=== PATIENT | female | born 1965 | race Caucasian/White ===

== ENCOUNTER 2019-09-13 12:01 | Day surgery (SDC) | payer OTHER, SELFPAY ==
--- NOTE | 2019-09-12 11:27 | EKG12_ITS ---
Test Reason : PRE-OP Blood Pressure : / mmHG Vent. Rate : 076 BPM Atrial Rate : 076 BPM P-R Int : 128 ms QRS Dur : 098 ms QT Int : 402 ms P-R-T Axes : 065 054 064 degrees QTc Int : 452 ms Normal sinus rhythm Normal ECG Confirmed by MALI ZAMORA, ADAL ([id number]), video tape editor RENEE GARCIA ([id number]) on 09/13/2019 1:46:16 PM Referred By: Sharon Contreras Confirmed By:ADAL SAMSON MD
--- NOTE | 2019-09-12 11:35 | RAD_ITS ---
STUDY: X-RAY CHEST REASON FOR EXAM: Female, 53 years old. preoperative for lap gianna, Hx of left mastectomy/radiation therapy TECHNIQUE: PA and lateral views of the chest. COMPARISON: Prior study of 12/22/2014 FINDINGS: The lungs are clear and expanded. There is no demonstrated pleural abnormality. Normal size heart. Normal mediastinum and tsering. Normal visualized pulmonary arteries. Normal visualized aortic arch and descending thoracic aorta. Normal visualized thoracic spine. Normal visualized ribs, clavicles, and shoulders. There is no demonstrated abnormality of the visualized soft tissue structures of the upper abdomen. RAD/Chest PA and Lateral IMPRESSION: Normal x-ray examination of the chest. Electronically Signed: Luis Spain MD at 17:05 EDT , Service support ,
[2019-09-12 12:27] LABS: Hematocrit 39.2 % (37-47); Hemoglobin 13.3 g/dL (12.0-15.0); Mean Corp Hgb Conc 33.9 g/dL (32-36); Mean Corpuscular Hgb 31.5 pg (27.0-32.0); Mean Corpuscular Volume 92.9 fL (81-99); Mean Platelet Vol. 10.4 fl (6.2-12.0); Platelet Count 236 K/mm3 (150-450); RBC Distribution Width CV 13.2 % (11.6-14.6); RBC Distribution Width SD 43.8 fl (35.1-43.9); Red Blood Count 4.22 M/mm3 (4.2-5.4); White Blood Count 5.3 K/mm3 (4.4-11.0)
[2019-09-13] VITALS (12 sets, daily range): BP systolic 115–141; BP diastolic 69–89; PULSE 62–80; RESP 14–16; TEMP 36.3–37; O2SAT 97–100; BMI 31.6
--- NOTE | 2019-09-13 12:11 | HP.PCM_ITS ---
History and Physical Date of Admission: 09/13/19 HISTORY: Ms. Cheung is a 53 y/o WF who presents with right upper quadrant abdominal discomfort. She states that it is not an outright pain, but it is a discomfort that is diminishing her quality of life. She has noted this in the past two years, but in the past few weeks, it has become more constant. She had a sharp pain of the subxiphoid area and she felt that it might have been an ulcer, but the sharp pain has abated. She noted nausea but no emesis. Also had decreased appetite. She has tried to avoid fatty foods and stay on a bland diet. Has had multiple members of family with gallbladders removed - mother father, grandparent ? US gallbladder 08/23/2019 IMPRESSION: 1. ?There is a 6 mm gallbladder polyp. ?A follow-up study could be obtained in one year to assess for any change in size. 2. ?No biliary dilatation ? HIDA scan 09/02/2019 FINDINGS: There is prompt and homogeneous uptake by the liver, which appears grossly normal in size and shape. Gallbladder, and proximal small bowel activity are visualized, indicating cystic duct and common bile duct patency. After CCK, the gallbladder calculated gallbladder ejection fraction is 0% (normal > 35%). ? ? PAST MEDICAL HISTORY ? BRCA negative ? ? negative Integrated BRACAnalysis with myRisk 25 gene panel ? Drug-induced neutropenia (HCC) 11/04/2013 ? ICD-10 Go-Live ? Invasive ductal carcinoma of breast, left (HCC) 03/02/2017 ? Malignant neoplasm of left female breast (HCC) 02/13/2015 ? Sees Dr. Walton ? Rheumatoid arthritis involving multiple sites (HCC) 02/13/2015 ? [facility] in [place]: Sees Dr. Bowie ? Routine gynecological examination 01/06/2014 ? Seeing [facility] ? Well adult exam 01/06/2014 ? last done 07/22/2018 ? PAST SURGICAL HISTORY ? BX/REMV,LYMPH NODE,DEEP AXILL ? 09/29/13 ? left ? DELIVERY ONLY ? ? ? COLONOSCOP W/ OR W/O BRSH SPEC ? 10/29/2016 ? Colonoscopy ? FLUOROGUIDE FOR VEIN DEVICE ? 11/02/13 ? right ? INTRAOP SENTINEL LYMPH ID W/DYE NJX ? 09/29/13 ? left ? LIGATE FALLOPIAN TUBE ? ? ? Tubal ligation ? MASTECTOMY, MODIFIED RADICAL ? 09/29/13 ? left ? PAST SURGICAL HISTORY OF ? ? ? wrist, right ? PAST SURGICAL HISTORY OF Right 04/01/2018 ? osteophyte removal and fusion of 2nd digit ? REMOVAL OF OVARY/TUBE(S) ? 08/08/14 ? Laproscopic BSO-Dr. Baez ? TUNNEL VAD W SUB Q PORT >=5 ? 11/02/13 ? right- REMOVED ? US GUIDE, VASCULAR ACCESS ? 11/02/13 ? right ? [facility] DELIVERY SCHEDULING ORDER ? 2000 ? FAMILY HISTORY ? Asthma Mother ? ? other (Lung Disease) Father ? ? No Known Problems Daughter ? ? Diabetes Sister ? ? Breast Cancer Paternal Grandmother ? ? dx 89 ? Breast Cancer Other ? ? maternal great aunt dx 55, 65 ? Alzheimer's Disease Paternal Grandfather ? ? Prostate Cancer Maternal Grandfather ? ? late 80's ? Social History ? Tobacco Use ? Smoking status: Never Smoker ? Smokeless tobacco: Never Used Substance Use Topics ? Alcohol use: No ? ? Frequency: Never ? ? Drinks per session: Patient refused ? ? Binge frequency: Never ? Drug use: No ? Current Outpatient Medications ? Calcium Cmb 2-D3-Min [id number] (CITRACAL PLUS BONE DENSITY) 300-200-13.5 mg-unit-mg tab Take 2 tablets by mouth twice daily. ? ? ? omeprazole 40 mg capsule Take 1 capsule by mouth once daily. 30 capsule 3 ? anastrozole (ARIMIDEX) 1 mg tablet TAKE 1 TABLET BY MOUTH ONCE DAILY 90 tablet 3 ? ORENCIA CLICKJECT 125 mg/mL AutoInjector Inject 125 mg subcutaneously one time a week. Tuesdays ? ? ? leucovorin (LEUCOVORIN) 5 mg tablet TAKE 1 TABLET BY MOUTH THE DAY AFTER M ETHOTRXATE ? 0 ? SOOLANTRA 1 % crea Apply 1 application to affected area once daily as needed. ? ? 3 ? LACTOBACILLUS ACIDOPHILUS (PROBIOTIC ORAL) Take 1 capsule by mouth once daily. ? ? ? HYDROXYCHLOROQUINE SULFATE (PLAQUENIL ORAL) Take 200 mg by mouth twice daily. ? ? ? methotrexate 2.5 mg tablet Take by mouth every Thursday. Pt sts she takes 8 tablets every Thursday. Kamilah Faye LPN ? ? ? DAILY MULTIVITAMIN ORAL TAB Take one(1) tablet daily. 0 0 ? ? ALLERGIES Allergen Reactions ? Celebrex [Celecoxib] Itching ? ? REVIEW OF SYSTEMS: General - denies fevers, had anorexia with pain for a short while as per HPI, denies weight loss Cardiovascular - denies chest pain, denies history of AL Pulmonary - denies shortness of breath, denies coughing up blood Gastrointestinal - see HPI, denies hematemesis or blood in stools, had colonoscopy in 2016 with subcentimeter adenoma found - due for next scope in 2021 - however father recently had colon biopsy for mass of uncertain behavior Neurological - denies seizures, denies chronic numbness/weakness of extremities, denies chronic headaches Genitourinary - denies burning with urination, denies blood in urine Hematological - denies spontaneous/prolonged bleeding Skin - denies nonhealing skin wounds Musculoskeletal - has RA controlled with meds Endocrine - denies diabetes, no thyroid problems Psychological ? denies hallucinations ? ? PHYSICAL FINDINGS OF NOTE: Patient reported height 5'4 and weight 198# ? General ? Normal, healthy, in no acute distress Able to interact verbally by video conference Psych ? ORIENTATION: normal to time place, person and situation Mood/Affect: AFFECT AND MOOD: Normal Head/Neuro ? Normal size and shape Facial appearance normal Pulmonary ? respiratory effort normal Cardiovascular ? patient describes extremities normal, warm, no cyanosis,no clubbing and no edema Abdominal ? Not performed Skin ? abnormal lesions visualized Motor ? patient seen sitting with Normal appearing strength and coordination ? ? REVIEWED ITEMS I reviewed the following available records: See above ? ? IMPRESSION Abdominal pain Abnormal HIDA scan ? ? RECOMMENDATION: Patient wishes to undergo surgery for removal of gallbladder. I have counseled her as to the risks of surgery, including but not limited to: infection, bleeding, injury to any bowel and/or bladder, injury to any blood vessels/nerves, scar tissue, injury to any intraabdominal organs, bile leak, injury to any bile ducts, intraabdominal infection/bleeding, trocar hernias, non resolution of symptoms, etc. She understands I have also counseled patient that any surgery would increase her risk for COVID complications. She wishes to proceed with surgery. ? As a result of the 06/28/19 order by [facility] Director Kathy Callahan M.D. to cancel non-essential surgeries that would use PPE, unless special criteria are met, I have reviewed the clinical record for this patient and have determined that the scheduled procedure meets the criteria to go forward because?there is a risk of metastasis or progression of staging or progression of symptoms, if delayed. ? The patient was offered?a?surgery/procedure at a [facility] facility, however, she preferred to go to [facility].. The provider?and patient have discussed in detail the risk of exposure to and/or potential harm posed by the COVID-19 virus with having a surgery/procedure at this time versus the risk of??delaying the surgery/procedure. It is not possible to know either the risk of delaying the surgery or procedure or chance of getting an infection with perfect accur acy, but a joint decision was made between the patient and the?provider??to proceed at this time with the scheduled surgery/procedure. ? Sharon Contreras MD ?
[2019-09-13] MEDS: Lactated Ringers 1,000 ML 100 ML IV (12:33)
--- NOTE | 2019-09-13 13:30 | RAD_ITS ---
STUDY: INTRAOPERATIVE CHOLANGIOGRAM. REASON FOR EXAM: Female, 53 years old. Cholangiogram RADIATION DOSAGE (If Supplied By Facility): CTDIvol = ( ) mGy, DLP = ( ) mGycm. Individualized dose optimization techniques were used for this CT.? FLUOROSCOPY TIME (if supplied): ( 2.7 seconds ) minutes/seconds. 2 images were submitted. TECHNIQUE: And intraoperative cholangiogram was performed by the surgeon. Imaging was submitted. COMPARISON: None. FINDINGS: The intrahepatic biliary ducts are unremarkable. The common bile duct is not dilated. No intraluminal filling defect is seen. There is free flow of contrast into the duodenum. RAD/Cholangiogram/ O R,Initial IMPRESSION: Unremarkable intraoperative cholangiogram. Electronically Signed: Jose Raul Posadas, at 14:28 EDT , Service support ,
[2019-09-13] MEDS: Cefazolin 2 GM in 0.9% Normal Saline 100 ML IV (13:33)
--- NOTE | 2019-09-13 13:33 | GALL_PTH ---
PATIENT: GAURAV CHACON LOC: [facility] U#:[id number] AGE/SX: 53/F ROOM: RE09/13/[address]: Dr. Sharon Contreras MD : 1965 BED: DIS: 09/13/2019 SPEC #: [id number] RECD: 09/13/19 15:26 STATUS: SHE RADHA #: [id number] CHRISTOPHE: 09/13/19 13:[address]: Sharon Contreras DEPT: SURGICAL PATHOLOGY RECD BY: Aislinn Avila ENTERED: 09/14/19 09:09 SP TYPE: YOLA ADKINS DR: Dr. Nolan Selby MD Tissues: Gallbladder, NOS Procedures: Surgery Specimen Level III HEADER OPERATION: Laparoscopic cholecystectomy with IOC PRE-OP DIAGNOSIS: 6 mm gallbladder polyp; abdominal pain TISSUE SUBMITTED: Gallbladder MICROSCOPIC DIAGNOSIS Gallbladder, cholecystectomy: Cholesterolosis and chronic cholecystitis. AM:payton 09/15/19 MICROSCOPIC DESCRIPTION Slides are reviewed. GROSS DESCRIPTION Received is one container labeled with the patient's name and designated gallbladder. The specimen consists of a gallbladder measuring 9 cm in length and up to 4 cm in diameter. The external surface is pink-hernandez, smooth and glistening for the most part. Focally it is granular, hemorrhagic and contains cautery artifact. The gallbladder contains green-yellow mucoid bile. No stones are identified in the container or in the gallbladder. The mucosa also shows several yellowish streaks consistent with cholesterolosis. The gallbladder wall measures up to 0.2 cm in thickness. Surgical Oncologist sections from the gallbladder and the cystic duct are submitted in one cassette. / SJ:rg 09/14/19 TC:3 CPT: 39527
--- NOTE | 2019-09-13 13:47 | DCINST_ITS ---
Discharge Diet: No Restrictions - drink plenty of fluids avoid carbonated beverages for a couple of days as they will make you feel bloated Discharge Activity: Return to Normal Activity, May not drive while taking narcotic pain medications. Lifting Restrictions: no lifting greater than 20 pounds for two weeks Additional Activity Instructions:: walking is encouraged Call your doctor if your incision/area has: Continuous Slow Oozing, Foul Smelling Discharge Call your doctor if you observe: Fever of 101 or Higher Additional Dressing/Incision Instructions:: Leave dressings in place. May get wet in shower. Do not soak - no tub baths/swimming Allergies/Adverse Reactions: Allergies celecoxib [From Celebrex] Allergy (Verified 09/13/19 12:15) Rash Medications to take at Discharge Methotrexate 20 mg PO SA 09/22/13 Multivitamins,Therapeutic [Multivitamin] 1 tablet PO DAILY 09/22/13 Calcium Carb/Vitamin D3/Vit K1 [Citracal Soft Chew] 4 each PO DAILY 12/22/14 leucovorin tablet 5 mg PO RIVERA 12/22/14 Abatacept [Orencia] 125 mg SQ TU 09/12/19 Anastrozole [Arimidex] 1 mg PO DAILY 09/12/19 Hydroxychloroquine [Plaquenil] 200 mg PO BIDCM 09/12/19 Ivermectin [Soolantra] 30 gm TP PRN PRN 09/12/19 L.acidoph,Paracasei, B.lactis [Probiotic] 1 ea PO DAILY 09/12/19 Omeprazole 40 mg PO DAILY 09/12/19 Hydrocodone Bitart/Apap 5-325 [Celestine 5MG-325MG] 1 tab PO Q8H PRN PRN 5 Days #15 tab 09/13/19 Ondansetron HCl [Zofran] 8 mg PO Q8H PRN 2 Days #5 tab 09/13/19 The following prescriptions were given: Hydrocodone Bitart/Apap 5-325 [Celestine 5MG-325MG] 1 tab PO Q8H PRN PRN 5 Days #15 tab PRN Reason: Pain Transmission Status: Received by [facility] Ondansetron HCl [Zofran] 8 mg PO Q8H PRN 2 Days #5 tab PRN Reason: Nausea/Vomiting Transmission Status: Received by [facility] Primary Care Physician: Nolan Selby MD [Primary Care Provider] - Test Results: Test results from this visit will be discussed in further detail at your follow- up appointment, if applicable. Please Follow Up With: Sharon Contreras MD - When: virtual visit appt will be set up for you, if any problems, please call
[2019-09-13] MEDS: Bupiv/Epi 0.25% 30 ML Vial (14:20)
--- NOTE | 2019-09-13 14:21 | OP.PCM_ITS ---
Report of Operation Date of Procedure: 09/13/19 Pre-Operative Diagnosis: abnormal HIDA scan, right upper quadrant abdominal pain Post-Operative Diagnosis: same Surgery/Procedure Performed:: laparoscopic cholecystectomy with cholangiograms Description of Surgical Findings:: normal intraoperative cholangiograms inspector penetrant: Mj Colón Type of Anesthesia:: General Anesthesiologist: Garcia Mccrary Specimen's removed: gallbladder and contents Estimated Blood Loss (mL): < 5 ml Fluids Replaced: 1000 ml RL Description of Procedure: After informed consent was given, the patient was brought to the Operating Room. Appropriate time out protocol was followed. The patient was placed in the supine position. The patient was then placed under general endotracheal anesthesia. The abdomen was then prepped with a sterile surgical skin preparation and sterile surgical drapes were placed. The infraumbilical skin fold was grasped with penetrating clamps and the skin and subcutaneous tissues were infiltrated with 0.25% marcaine with epinephrine. A transverse skin incis ion was then made with a 15 blade scalpel. The anterior abdominal wall was elevated and a Veress needle was carefully inserted into the intraabdominal cavity. It was checked to be in the proper position with a normal saline drop test. A CO2 pneumoperitoneum was then created. Once this was achieved, then the Veress needle was removed and an 11mm trocar was placed in its stead. A 10mm laparoscope was then inserted into the trocar and careful attention was directed to the intraabdominal contents. There was no evidence of injury to any intraabdominal organs from insertion of the Veress needle or the trocar. Under direct visualization, a 5mm subxiphoid trocar and two lateral 5mm right subcostal trocars were placed. The skin and subcutaneous tissues at these sites were infiltrated with 0.25% marcaine with epinephrine prior to placement of these trocars. Attention was then directed to the right upper quadrant of the abdomen. Graspers were placed in the lateral trocars to grasp the distal aspect of the gallbladder and direct it cephalad and to grasp the gallbladder at Peralta?s pouch and direct it laterally. Dissection then began on the proximal gallbladder continuing down to the area of the triangle of Calot to bluntly dissect out the cystic duct. The neck of the gallbladder was identified and blunt dissection continued to dissect out a segment of the cystic duct. A clip was then placed on the neck of the gallbladder. A small ductotomy was then made. A Ranfa catheter was brought in through a separate skin incision and placed into the cystic duct. An intraoperative cholangiogram was performed under fluoroscopy. The xray revealed no lesions in the common bile duct, arborization of the biliary tree, and good flow into the duodenum. The Ranfac catheter was then removed and two clips were placed proximal to the ductotomy and the cystic duct was then transected. The cystic artery was visualized and bluntly isolated and then two clips were placed proximally and one clip distally and then it was transected between the proximal and distal clips. The gallbladder was then from the liver bed using electrocautery. It was then able to be brought out of via the umbilical port. It was then forwarded to pathology for analysis. The liver bed was carefully examined. There was no evidence of bile leakage or bleeding. The cystic duct stump and cystic artery stump had their clips intact and there was no evidence of bile leakage or bleeding. The remainder of the abdomen was grossly normal. The CO2 was released and all trocars removed intact. The periumbilical fascia was approximated with a [id number] 0 vicryl suture. All skin incision were closed with 4-0 monocryl in a subdermal fashion. Cavilol and Steristrips were used to reinforce the skin closure. Sterile dressings were applied to all wounds. The patient was extubated and brought to the Recovery Room in stable condition. - Complications none noted - Admit VTE Documentation VTE Present on Admission: Yes VTE Mechan Device Prophylaxis: SCD's
[2019-09-13] MEDS: HYDROcodone Bitartrate/Apap 5/325 Tablet PO (16:39)
== END 2019-09-13 17:15 | disposition home or self-care (01) ==
LOC: SDC 12:03 → AC 12:04
PROVIDERS: Anesthesiology; PCP Family Medicine; Referring Provider Surgery; Visit Provider Surgery
PROC: (CPT 47610; principal; 2019-09-13 13:10)
DX: K81.1 Chronic cholecystitis (principal); Z11.59 Encounter for screening for other viral diseases; M06.9 Rheumatoid arthritis, unspecified; K21.9 Gastro-esophageal reflux disease without esophagitis; Z79.899 Other long term (current) drug therapy
CPT/HCPCS: 00790; 47563; 36415; 71046; 74300; 76000; 85027; 87635; 88304; 93005; G2023; J7120; J2405; U0003

== ENCOUNTER → 2022-05-22 | Outpatient (CLI) | payer OTHER, SELFPAY ==
--- NOTE | 2022-05-22 08:54 | RAD_ITS ---
STUDY: AIR CONTRAST ESOPHAGRAM AND UPPER GI SERIES REASON FOR EXAM: Female, 56 years old. DYSPHAGIA FLUOROSCOPY TIME (if supplied): (1 minute and 9 seconds) minutes/seconds 30 images were obtained. TECHNIQUE: SINGLE CONTRAST AND AIR CONTRAST FLUOROSCOPIC IMAGES. COMPARISON: None. FINDINGS: The cervical esophagus demonstrates normal motility without aspiration. There is no stricture or extrinsic mass effect. No intraluminal polypoid mass is identified. The thoracic esophagus distends well without stricture or mucosal fold thickening. No mucosal ulcerations are identified. There is no extrinsic mass effect. There are no diverticula. No hiatal hernia or gastroesophageal reflux was identified. The patient ingested 12 mm tablet barium. The tablet stopped at the gastroesophageal junction. The stomach distends well without mucosal fold thickening or mucosal ulceration. There is no intraluminal mass. The duodenal bulb is freely distensible without deformity or ulceration. The duodenal sweep is normal in position and caliber. RAD/Upper GI w/BA Swallow IMPRESSION: The patient ingested 12 mm tablet of barium. The tablet is trapped at the gastroesophageal junction. Electronically Signed: Jose Raul Posadas MD at 13:30 EST ,
== END | disposition home or self-care (01) ==
LOC: RAD 08:52
PROVIDERS: PCP Family Medicine; Visit Provider Family Medicine
DX: R13.19 Other dysphagia (principal)
CPT/HCPCS: 74246

== ENCOUNTER 2022-10-30 10:51 | Day surgery (SDC) | payer OTHER, SELFPAY ==
--- NOTE | 2022-10-30 | ESO_PTH ---
PATIENT: GAURAV CHACON LOC: EN U#:[id number] AGE/SX: 56/F ROOM: RE10/30/[address]: Dr. Dannie Newell DO : 1965 BED: DIS: 10/30/2022 SPEC #: [id number] RECD: 10/30/22 14:26 STATUS: SHE RADHA #: [id number] CHRISTOPHE: 10/30/22 00:[address]: Dannie Newell DEPT: SURGICAL PATHOLOGY RECD BY: Klaus Argueta ENTERED: 10/31/22 09:59 SP TYPE: KISHA ADKINS DR: Dr. Nolan Selby MD Tissues: Esophagus, NOS Procedures: Surgery Specimen Level IV HEADER OPERATION: EGD with biopsies ([facility] [place]) PRE-OP DIAGNOSIS: Dysphagia TISSUE SUBMITTED: Random esophagus MICROSCOPIC DIAGNOSIS Esophagus, random biopsy: Fragments of squamous mucosa with changes consistent with eosinophilic esophagitis. Chronic inflammation. See comment. SJ:payton 11/03/2022 COMMENT Increased number of eosinophils (>20 per high power field) are noted consistent with eosinophilic esophagitis. MICROSCOPIC DESCRIPTION Slides are reviewed. GROSS DESCRIPTION Received in fixative is one container labeled with the patient's name and designated random esophagus. The specimen consists of multiple irregular fragments of light hernandez soft tissue that in aggregate measure 1.0 x 1.0 x 0.1 cm. The specimen is totally submitted in one cassette. / AM:payton 10/31/2022 TC:5 [facility]: [id number]
--- NOTE | 2022-10-30 11:02 | PCM.HP.BLA ---
History and Physical Date of Admission: 10/30/22 56 F who presents to the office today to establish with GI for burning sensation in epigastrium, food sticking at distal esophagus. Burning has resolved with omeprazole 40 mg daily. Dysphagia is improved too but still some sensation of fullness in upper esophagus. Esophagram--barium tablet trapped at EG junction. No CP. No sore throat. No nausea, vomiting, early satiety. No bowel complaints. No diarrhea, constipation, melena, hematochezia. Normal colonoscopy 03/2022, repeat 5 yrs. ROS Const Constitutional: No fatigue ENT ENT: No difficulty swallowing Gastro GI: No abdominal pain, belching, bloating, change in bowel habits, change in stool character, coffee ground emesis, constipation, cramping, diarrhea, heartburn, difficulty swallowing, feeling full early, excessive flatus, incontinent of stools, Vomiting blood/hematemesis, Blood in stool, loose stools, Black,tarry stools, nausea/dyspepsia, pain with swallowing, vomiting or other Musc Musculoskeletal: No joint pain Skin Skin: No yellowing of the eye or itchy eyes Psych Psychiatric: No anxiety and No depression Endo Endocrine: No fatigue Aller/Imm Allergy/Immunologic: No itchy eyes Gideon/Lymp Hematologic/Lymphatic: No easy bleeding or easy bruising Exam Const General: cooperative, healthy appearing and comfortable Orientation: alert, awake and oriented x3 Quality Reporting Tobacco Screening ([facility] 138) Smoking Status: Never smoker Assessment and Plan Assessment and Plan (1) Esophageal dysphagia: Status: Chronic Plan: Epigastric burning has resolved since starting omeprazole 40 mg daily. Esophagram showed barium tablet trapped at EG junction. She still has some esophageal dysphagia but better on PPI. Will get EGD. I have examined the patient and the H&P has been reviewed. There are no clinical changes since date of exam.
[2022-10-30 11:21] VITALS: BP 133/64; PULSE 72; RESP 16; TEMP 36.7; O2SAT 100; BMI 31.0
[2022-10-30] MEDS: Lactated Ringers 1,000 ML 15 ML IV (11:31)
--- NOTE | 2022-10-30 12:07 | OP.EGD_ITS ---
Patient Name: Laura Cheung Procedure Date: 10/30/2022 11:41 AM Date of : 1965 Age: 56 Procedure: Upper GI endoscopy Indications: Dysphagia, Suspected esophageal reflux Providers: Dannie Newell DO Medicines: Monitored Anesthesia Care Patient Profile: This is a 56 year old female. Refer to note in patient chart for documentation of history and physical. Patient has symptoms of chronic dysphagia and chronic heartburn. Complications: No immediate complications. Procedure: Pre-Anesthesia Assessment: - Prior to the procedure, a History and Physical was performed, and patient medications and allergies were reviewed. The risks and benefits of the procedure and the sedation options and risks were discussed with the patient. All questions were answered and informed consent was obtained. Patient identification and proposed procedure were verified by the physician. Mental Status Examination: normal. Respiratory Examination: clear to auscultation. Prophylactic Antibiotics: The patient does not require prophylactic antibiotics. Prior Anticoagulants: The patient has taken no previous anticoagulant or antiplatelet agents. ASA Grade Assessment: II - A patient with mild systemic disease. After reviewing the risks and benefits, the patient was deemed in satisfactory condition to undergo the procedure. The anesthesia plan was to use monitored anesthesia care (MAC). Immediately prior to administration of medications, the patient was re-assessed for adequacy to receive sedatives. The heart rate, respiratory rate, oxygen saturations, blood pressure, adequacy of pulmonary ventilation, and response to care were monitored throughout the procedure. The physical status of the patient was re-assessed after the procedure. After obtaining informed consent, the endoscope was passed under direct vision. Throughout the procedure, the patient's blood pressure, pulse, and oxygen saturations were monitored continuously. The gastroscope was introduced through the mouth, and advanced to the second part of duodenum. The upper GI endoscopy was accomplished without difficulty. The patient tolerated the procedure well. Scope In: 11:58:07 AM Scope Out: 12:02:09 PM Total Procedure Duration Time 0 hours 4 minutes 2 seconds Findings: Mucosal changes including ringed esophagus, feline appearance, longitudinal furrows, small-caliber esophagus, white plaques, crepe paper esophagus, longitudinal markings, mucosal friability, tight circumferential folds, vertical lines and white specks were found in the entire esophagus. Esophageal findings were graded using the Eosinophilic Esophagitis Endoscopic Reference Score (EoE-EREFS) as: Edema Grade 1 Present (decreased clarity or absence of vascular markings), Rings Grade 2 Moderate (distinct rings that do not occlude passage of diagnostic 8-10 mm endoscope), Exudates Grade 1 Mild (scattered white lesions involving less than 10 percent of the esophageal surface area), Furrows Grade 1 Present (vertical lines with or without visible depth) and Stricture none (no stricture found). Biopsies were obtained from the proximal and distal esophagus with cold forceps for histology of suspected eosinophilic esophagitis. Verification of patient identification for the specimen was done. Estimated blood loss was minimal. The entire examined stomach was normal. The first portion of the duodenum was normal. Impression: - Esophageal mucosal changes consistent with eosinophilic esophagitis. Biopsied. - Normal stomach. - Normal first portion of the duodenum. Recommendation: - Await pathology results. - Repeat upper endoscopy for surveillance. - Continue present medications. Procedure Code(s): --- Professional --- 07488, Esophagogastroduodenoscopy, flexible, transoral; with biopsy, single or multiple CPT copyright 2017 [employer]. All rights reserved. The codes documented in this report are preliminary and upon speech therapist review may be revised to meet current compliance requirements. Dannie Newell DO 10/30/2022 12:07:01 PM This report has been signed electronically. Number of Addenda: 0 Note Initiated On: 10/30/2022 11:41 AM
--- NOTE | 2022-10-30 12:08 | OP.CCLET_ITS ---
10/30/2022 Nolan Selby MD Re : Upper GI endoscopy procedure for Laura Cheung Dear Dr. Selby This procedure was performed on October. My impressions and recommendations are as follows: Impressions : - Esophageal mucosal changes consistent with eosinophilic esophagitis. Biopsied. - Normal stomach. - Normal first portion of the duodenum. Recommendations : - Await pathology results. - Repeat upper endoscopy for surveillance. - Continue present medications. My findings are described in the full procedure note, which is enclosed. If I can be of further assistance, please feel free to contact me at . Sincerely, Dannie Newell, 10/30/2022 12:07:01 PM This report has been signed electronically.
[2022-10-30 12:10] VITALS: BP 117/60; BP 133/64; PULSE 67; RESP 16; TEMP 36.4; O2SAT 99
[2022-10-30 12:15] VITALS: BP 104/66; BP 133/64; PULSE 62; RESP 18; O2SAT 97
[2022-10-30 12:20] VITALS: BP 106/67; BP 133/64; PULSE 65; RESP 18; O2SAT 99
[2022-10-30 12:25] VITALS: BP 113/68; BP 133/64; PULSE 64; RESP 16; TEMP 36.7; O2SAT 100
[2022-10-30 12:59] VITALS: BP 133/64
== END 2022-10-30 13:07 | disposition home or self-care (01) ==
LOC: EN 10:53 → AC 10:55
PROVIDERS: PCP Family Medicine; Referring Provider Family Medicine; Visit Provider Internal Medicine Gastroenterology
PROC: 0DJ08ZZ Inspection of Upper Intestinal Tract, Via Natural or Artificial Opening Endoscopic (ICD-10-PCS; CPT 43235; principal; 2022-10-30 11:55)
DX: R13.10 Dysphagia, unspecified (principal)
CPT/HCPCS: 43239; 88305; J7120; J2405

== ENCOUNTER 2023-03-01 10:11 | Emergency (ER) | payer OTHER, SELFPAY ==
[2023-03-01 10:12] VITALS: BP 119/75; PULSE 100; RESP 16; TEMP 36.4; O2SAT 97; BMI 31.4
--- NOTE | 2023-03-01 10:45 | ED.RN ---
pt refusing to talk to RN or doctor until she sees registration. pt informed usually registration comes in after the doctor sees you. registration is not in charge of how much you get billed. registration notified.
--- NOTE | 2023-03-01 11:01 | ED.VIS.LOWEX ---
HPI <FAHAD Rivera - Last Filed: 03/01/23 12:20> History of Present Illness Chief Complaint: Lower Extremity Injury Narrative Narrative: Patient presenting today with pain to her left foot due to an injury that occurred yesterday evening. She reports that she was walking to get her mail when she tripped over a tree stump and landed awkwardly on her left foot. She is able to ambulate, but it is painful so she has been using crutches. She denies any other injury. [facility] <FAHAD Rivera - Last Filed: 03/01/23 12:20> [facility] Medical History Arthritis Cancer Gastric reflux Injury of head and neck Non-smoker Wears glasses Home Medications methotrexate sodium 2.5 mg tablet 20 mg PO SA 09/22/13 [History Last Taken 12/16/14] multivitamin with folic acid 400 mcg tablet (Thera) 1 tab PO DAILY 09/22/13 [History Last Taken 12/21/14] leucovorin calcium 5 mg tablet 5 mg PO RIVERA 12/22/14 [History Last Taken 12/17/14] L.acidoph, paracasei,B. lactis 10 billion cell capsule 1 ea PO DAILY 09/12/19 [History Last Taken Unknown] abatacept 125 mg/mL subcutaneous syringe 125 mg SQ TU 09/12/19 [History Last Taken Unknown] hydroxychloroquine 200 mg tablet 200 mg PO BIDCM 09/12/19 [History Last Taken Unknown] ivermectin 1 % topical cream 30 g TP PRN PRN roscea 09/12/19 [History Last Taken Unknown] omeprazole 40 mg capsule,delayed release 40 mg PO DAILY 09/12/19 [History Last Taken 09/13/19] alendronate 70 mg tablet (Fosamax) 70 mg PO QWEEK 06/02/22 [History Last Taken Unknown] calcium carb,cit 300 mg-D3 200 unit-min no.34-genistein 13.5 mg tablet (Citracal Plus Bone Density Builder) 2 tab PO BID 06/02/22 [History Last Taken Unknown] Allergy/AdvReac Type Severity Reaction Status Date / Time celecoxib [From Celebrex] Allergy Rash Verified 08/25/22 08:54 Family History Mother Asthma Father Colon cancer Lung disease Sister Diabetes Surgical History H/O abdominal surgery H/O breast surgery H/O section H/O right wrist surgery History of foot surgery History of tubal ligation Hx of cholecystectomy Social History Smoking Status: Never smoker ROS <FAHAD Rivera - Last Filed: 03/01/23 12:20> ROS ED Constitutional Constitutional ED: Denies chills or fever(s) Cardiovascular Cardiovascular: Denies chest pain Respiratory/Chest Respiratory/Chest: Denies cough or dyspnea Gastrointestinal Gastrointestinal: Denies abdominal pain, nausea or vomiting Musculoskeletal Musculoskeletal: Reports arthralgias; Denies myalgias Integumentary Denies Abrasions Neurologic Neurologic: Denies paresthesias or weakness EXAM <FAHAD Rivera - Last Filed: 03/01/23 12:20> Physical Exam Const Vital Signs: 03/01/23 10:12 Temperature 97.6 F L Temperature Source Temporal Pulse Rate 100 Respiratory Rate 16 Blood Pressure 119/75 Blood Pressure Mean 89 Pulse Ox 97 Oxygen Delivery Method Room Air Positive well nourished, well developed and no apparent distress General Appearance ED: well developed HEENT Reports normocephalic and head/scalp atraumatic Mouth ED: Yes moist mucous membranes normal Eyes PERRL and EOMs intact bilaterally Neck full ROM and supple Chest Wall inspection of chest normal Resp normal respiratory effort and clear to auscultation bilaterally Cardio regular rate and regular rhythm GI soft to palpation, non-tender, non-distended and no masses Back/Spine normal ROM and normal to inspection Extremity normal to inspection Extremity Narrative: Pain and slight swelling to the dorsal lateral aspect of the left foot. DP pulse 2+, good capillary refill, sensation intact. Neuro oriented x3, CN's II-XII intact bilaterally, moves all extremities, no focal motor deficits and no sensory deficits noted Sensorium / Orientation: awake and alert Psych mental status grossly normal and thought process normal Skin no rashes or lesions noted and no wounds <Dr. Mj Zhang MD - Last Filed: 03/01/23 11:19> Physical Exam Const Vital Signs: 03/01/23 10:12 Temperature 97.6 F L Temperature Source Temporal Pulse Rate 100 Respiratory Rate 16 Blood Pressure 119/75 Blood Pressure Mean 89 Pulse Ox 97 Oxygen Delivery Method Room Air [facility] <FAHAD Rivera - Last Filed: 03/01/23 12:20> [facility] Narrative Medical decision making narrative: Patient presenting due to a left foot injury that occurred yesterday when she tripped over a stump landed awkwardly on her left foot. She did not actually fall to the ground, no head injury, she denies any other injury. Tenderness to the lateral dorsal aspect of the left foot. X-ray will be obtained to rule out fracture. She does not want anything for pain at this time. X-ray does show an acute incomplete transverse fracture in the proximal third of the left fifth metatarsal bone. Patient is tender in this area as well, she already has a walking boot at home to use and crutches if needed. She will be given a podiatry referral and RICE instructions. She can alternate Tylenol and ibuprofen for pain as needed. She will be discharged home in stable condition. I have personally performed a face to face assessment of the patient and have reviewed the ITZ Note. I performed a substantive portion of the visit including all aspects of the following. My menchaca findings include: History is 57-year-old female tripped yesterday walking on her driveway and stepped awkwardly on a tree root injuring her left. Foot. She has had a prior history of a 5th metatarsal fracture in the past. Denies any other complaints. She did not fall all the way down to the Exam is [well-appearing 57-year-old female. Vital signs stable afebrile. HEENT exam unremarkable atraumatic. Nontender. Neck nontender. Lungs clear. Heart regular rhythm. Chest wall and ribs nontender. Abdomen soft nontender. Pelvic girdle intact. Moving all 4 extremities. Nontender no deformity except left foot fifth or small toe metatarsal distal third tender mildly swollen. Skin intact.] Medical Decision Making [x-ray of the left foot being obtained.] Other additions or changes: [None] Radiography X-Ray: Read by ED Physician and Read by Radiologist Diagnostic Testing: Clinical Impression(s) from Imaging Studies Foot X-Ray 03/01/23 11:20 IMPRESSION: Acute incomplete transverse fracture in the proximal third of the left fifth metatarsal bone. Electronically Signed: Eyal Alonzo MD at 11:42 EST Reading Location ID and State: [facility] / [place] , Service support , <Dr. Mj Zhang MD - Last Filed: 03/01/23 11:19> [facility] Narrative Medical decision making narrative: I have personally performed a face to face assessment of the patient and have reviewed the ITZ Note. I performed a substantive portion of the visit including all aspects of the following. My menchaca findings include: History is 57-year-old female tripped yesterday walking on her driveway and stepped awkwardly on a tree root injuring her left. Foot. She has had a prior history of a 5th metatarsal fracture in the past. Denies any other complaints. She did not fall all the way down to the Exam is [well-appearing 57-year-old female. Vital signs stable afebrile. HEENT exam unremarkable atraumatic. Nontender. Neck nontender. Lungs clear. Heart regular rhythm. Chest wall and ribs nontender. Abdomen soft nontender. Pelvic girdle intact. Moving all 4 extremities. Nontender no deformity except left foot fifth or small toe metatarsal distal third tender mildly swollen. Skin intact.] Medical Decision Making [x-ray of the left foot being obtained.] Other additions or changes: [None] History & Record Review Discussion w/independent historian: Patient Radiography Diagnostic Testing: Clinical Impression(s) from Imaging Studies Foot X-Ray 03/01/23 11:20 IMPRESSION: Acute incomplete transverse fracture in the proximal third of the left fifth metatarsal bone. Electronically Signed: Eyal Alonzo MD at 11:42 EST , Discharge Plan Triage Chief Complaint: Lower Extremity Injury ED Midlevel Provider: Elysia Roberto ED Provider: Mj Zhang Dx/Rx/DC Orders Clinical Impression: Foot fracture, left Instructions: ED Fracture, Foot Prescriptions: No Action alendronate [Fosamax] 70 mg tablet 70 mg PO QWEEK Citracal Plus Bone Density 300-200-13.5 mg-unit-mg tablet 2 tab PO BID methotrexate sodium 2.5 MG tablet 20 mg PO SA Patient Comments: TAKES SAT AM, 6 OF 2.5 MG TABS FOR RA multivitamin with folic acid [Thera] 1 TABLET tablet 1 tab PO DAILY Patient Comments: supplement leucovorin calcium 5 MG tablet 5 mg PO RIVERA omeprazole 40 MG capsule,delayed release(DR/EC) 40 mg PO DAILY hydroxychloroquine 200 MG tablet 200 mg PO BIDCM ivermectin 30 GM cream 30 g TP PRN PRN (Reason: roscea) L.acidoph, paracasei,B. lactis 1 EACH capsule 1 ea PO DAILY abatacept 125 MG/ML syringe 125 mg SQ TU Primary Care Provider: Nolan Selby Referrals: Nolan Selby MD [Primary Care Provider] - Valentin Sosa DPM [Med Staff - Active Staff] - 5-7 Days Activity Restrictions/Additional Instructions: Keep your foot elevated, ice it several times a day for the next few days, alternate Tylenol and ibuprofen for your pain as needed. Follow-up with podiatry. Disposition Disposition: Home, Self Care Discharge Date/Time: 03/01/23 11:51
--- NOTE | 2023-03-01 11:20 | RAD_ITS ---
EXAM: XR LEFT FOOT COMPLETE, 3 OR MORE VIEWS CLINICAL INDICATION: injury TECHNIQUE: Frontal, lateral and oblique views of the left foot. COMPARISON: No relevant prior studies available. FINDINGS: BONES/JOINTS: Acute incomplete transverse fracture involving the proximal third of the left fifth metatarsal. Preservation of the joint space. No sclerotic or destructive changes observed. SOFT TISSUES: Unremarkable. No soft tissue swelling or gas. No radiopaque foreign body. RAD/Foot min 3 Views IMPRESSION: Acute incomplete transverse fracture in the proximal third of the left fifth metatarsal bone. Electronically Signed: Eyal Alonzo MD at 11:42 EST ,
== END 2023-03-01 11:51 | disposition home or self-care (01) ==
PROVIDERS: Emergency Provider Emergency Medicine; PCP Family Medicine; Visit Provider Emergency Medicine
DX: S92.352B Displaced fracture of fifth metatarsal bone, left foot, initial encounter for open fracture (principal); Z90.49 Acquired absence of other specified parts of digestive tract; K21.9 Gastro-esophageal reflux disease without esophagitis; Z79.899 Other long term (current) drug therapy; W22.8XXA Striking against or struck by other objects, initial encounter; Y93.01 Activity, walking, marching and hiking; Y92.89 Other specified places as the place of occurrence of the external cause
CPT/HCPCS: 73630; 99282

== ENCOUNTER 2025-03-14 00:06 | Emergency (ER) | payer OTHER, SELFPAY ==
[2025-03-14 00:10] VITALS: BP 132/68; PULSE 99; RESP 16; TEMP 39.4; O2SAT 97; BMI 31.0
[2025-03-14 00:13] VITALS: BP 132/68; PULSE 96; RESP 16; TEMP 39.4; O2SAT 100
--- NOTE | 2025-03-14 00:35 | RAD_ITS ---
PROCEDURE: CHEST 1 VIEW (PORTABLE) 03/14/2025 REASON FOR EXAM: COUGH TECHNIQUE: Frontal view of the chest. COMPARISON: 09/12/2019. FINDINGS: The lungs are expanded. There is no demonstrated parenchymal abnormality. There is no demonstrated pleural abnormality. Normal heart and pericardium. Normal mediastinum and tsering. Normal visualized pulmonary arteries. Normal visualized aortic arch and descending thoracic aorta. Normal visualized thoracic spine. Normal visualized ribs, clavicles, and shoulders. There is no demonstrated abnormality of the visualized soft tissue structures of the upper abdomen. RAD/Chest 1 View (Portable) IMPRESSION: No evidence for acute abnormality. Reading [facility]
[2025-03-14] MEDS: 0.9% Normal Saline (1000mL) 1,000 ML 999 ML IV ×2 (00:55→01:57)
[2025-03-14 00:59] LABS: Hematocrit 38.5 % (37-47); Hemoglobin 13.9 g/dL (12.0-15.0); Immature Granulocytes Count 0.010 X10^3/uL (0.0-0.0); Mean Corp Hgb Conc 36.1 g/dL (32-36); Mean Corpuscular Volume 85.2 fL (81-99); Mean Platelet Vol. 13.0 fl (6.2-12.0); NRBC Flagged by Analyzer 0 % (0-5); POSITIVE COUNT YES; POSITIVE DIFFERENTIAL YES; RBC Distribution Width CV 12.2 % (11.6-14.6); RBC Distribution Width SD 37.5 fl (35.1-43.9); Red Blood Count 4.52 M/mm3 (4.2-5.4); White Blood Count 2.9 K/mm3 (4.4-11.0)
[2025-03-14 01:12] LABS: Anion Gap 14 (5-15); BUN 13 mg/dL (4-19); BUN/Creat Ratio 12.6 RATIO (10-20); Calcium,Total 8.4 mg/dL (7.6-11.0); Carbon Dioxide 20.3 mmol/L (21.0-32.0); Chloride 94 mmol/L (98-108); Estimated Creatinine Clearance 61.52 ml/min (50-250); Glucose 112 mg/dL (70-99); Potassium 3.4 mmol/L (3.3-5.1)
[2025-03-14 01:13] VITALS: BP 119/65; PULSE 87; RESP 16; TEMP 39; O2SAT 97
[2025-03-14 01:33] LABS: Platelet Count 39 K/mm3 (150-450)
[2025-03-14 01:35] LABS: Differential Indicated SCAN CRITERIA MET
--- OUTSIDE RECORDS SUMMARY | 2025-03-14 01:36 | XMS RPT_ITS | CCD ---
Author Organization [facility] CliniSyal Care Team Providers Care Front End Software Engineer Name Role Phone Nolan Wick Attending Unavailable Nolan Mancuso Referring Unavailable Nolan Mancuso Primary Care Unavailable Nolan Mancuso MD Primary Care Provider [phone] Nicola RN, Clara Unavailable Unavailable Nolan Mancuso MD Primary Care Provider Nicola RN, Clara Unavailable Unavailable Nolan Mancuso MD Primary Care Provider Nicola RN, Clara Unavailable Unavailable Dr. Nolan Mancuso Primary Care Provider Dr. Nolan Mancuso Referring Provider [phone] Nii CHANDRA, PRATEEK-Angelica Mackay Attending Provider Dr. Dannie Newell Attending Provider [phone] Dr. Dannie Newell Other Provider Nicola RN, Clara Unavailable Unavailable Dr. Nolan Mancuso Primary Care Provider Dr. Nolan Mancuso Referring Provider Dr. Dannie Newell Attending Provider [phone] Nolan Mancuso Referring Unavailable Nolan Mancuso Primary Care Unavailable Dannie Newell Attending Unavailable Nolan Mancuso Primary Care Unavailable Nolan Mancuso Attending Unavailable Bal, Nolan Primary Care Unavailable Mj Zhang Attending Unavailable Bal, Nolan Primary Care Unavailable Valentin Sosa Attending Unavailable Nolan Mancuso Referring Unavailable Ayse Bales NP Attending Unavailable Bal, Nolan Primary Care Unavailable Bal, Nolan Primary Care Unavailable Dannie Newell Attending Unavailable Nolan Mancuso Referring Unavailable Nolan Mancuso Referring Unavailable Nolan Mancuso Primary Care Unavailable Dannie Newell Consulting Unavailable Dannie Newell Attending Unavailable Nolan Mancuso MD Primary Care Provider Aliya HUITRON.LA Mady Unavailable Virginie Pathak PA-C Unavailable Unavailable Primary Care Provider UnavailNolan Felton MD Primary Care Provider Aliya STORAGE BATTERY INSPECTOR.LAClovisMady Unavailable Virginie Pathak PA-C Unavailable Mariela ZAMORA [facility] Primary Care Provider [phone] Genesis Fontenot DO Unavailable Wiley Bowie MD Unavailable [facility] Attending Unavailable [facility] Primary Care Unavailable GENESIS FONTENOT Attending Unavailable [facility] Primary Care Unavailable GENESIS FONTENOT Referring Unavailable GENESIS FONTENOT Attending Unavailable NOLAN MANCUSO Primary Care Unavailable LEXIE VELASCO Referring Unavail able LEXIE VELASCO Attending Unavail able NOLAN MANCUSO Primary Care Unavailable NOLAN MANCUSO Referring Unavailable NOLAN MANCUSO Attending Unavailable NOLAN MANCUSO Primary Care Unavailable NOLAN MANCUSO Primary Care Unavailable NOLAN MANCUSO Referring Unavailable Allergies Allergy Classification Reported Allergen(s) Allergy Type Date of Onset Reaction(s) Facility NSAIDs (1 source) celecoxib Drug Allergy 0 Itching [facility] Work Phone: (20 sources) celecoxib; Translations: [CELECOXIB] Drug Allergy 0 Itching [facility] Work Phone: (1 source) celecoxib Drug Allergy 3 [facility] (11 sources) celecoxib Drug Allergy 0 Hives, Itching, Rash [facility] Medications Current Medications Medication Drug Class(es) Dates Sig (Normalized) Sig (Original) 1 ml abatacept 125 mg/ml prefilled syringe (20 sources) Selective T Cell Costimulation Modulator Start: 09-12-2019 Abatacept Active 125 MG SQ TU September 11, 2019 11:00pm Start: 03-02-2019 inject 125 mg by sub cutaneous injection every week RAMIRO CLICKJECT 125 mg/mL AutoInjector Inject 125 mg subcutaneously one time a week. Tuesdays03/02/2019 Active Comment on above: Inject 125 mg subcut aneously one time a week. Tuesdays alendronic acid 70 mg oral tablet (20 sources) Bisphosphonate Start: 07-06-19 22 take 1 tablet by mouth every week alendronate (FOSAMAX) 70 mg tablet Take 1 tablet by mouth one time a week. Take with a full glass of water, on an empty stomach; do NOT lie down for 30minutes. Per Dr. Azeb Landaverde 07/05/2021 Active Comment on above: Take 1 tablet by brown one time a week. Take with a full glass of water, on an empty stomach; do NOT lie down for 30minutes. Per Dr. Azeb Landaverde ascorbic acid 60 mg / beta carotene 5000 unt / copper sulfate 40 mg / dl-alpha tocopheryl acetate 30 unt / sodium selenite 0.04 mg / zinc oxide 40 mg oral tablet (11 sources) Vitamin C Multiple Vitamin (Multivitamin Adult) tablet Take 1 capsule by mouth. Active calcium carbonate 1250 mg / cholecalciferol 1000 unt / vitamin k 0.4 mg chewable tablet (1 source) Vitamin D Start: 12-23-19 15 take 1 tablet by mouth once daily Calcium-Vitamin D3-Vitamin K (Citracal Soft Chew) 1 EACH tablet,chewable Active 4 EACH PO DAILY December 21, 2014 11:00pm calcium citrate 250 mg / cholecalciferol 100 unt oral tablet (11 sources) Vitamin D Calcium Citrate-Vitamin D 250-2.5 MG-MCG tablet Take by mouth. Active Calcium Cmb 2-D3-Min [id number] (CITRACAL PLUS BONE DENSITY) 300-200-13.5 mg-unit-mg tab (20 sources) Start: 08-22-19 20 take 2 tablets by mouth twice daily Calcium Cmb 2-D3-Min [id number]-[id number] (CITRACAL PLUS BONE DENSITY) 300-200-13.5 mg-unit-mg tab Take 2 tablets by mouth twice daily. 08/22/2019 Active Start: 08-22-2019 take 2 tablets by mo [facility] twice daily Calcium Cmb 2-D3-Min [id number] (CITRACAL PLUS BONE DENSITY) 300-200-13.5 mg-unit-mg tab Take 2 tablets by mouth twice daily. 0 08/22/2019 Active Comment on above: Take 2 tablets by mo ut twice daily. Calcium Crb,[id number]-[id number]-Ge nis (Citracal Plus Bone Density) 300-200-13.5 mg-unit-mg tablet (3 sources) Start: 06-02-2022 take 2 tablets by mouth twice daily Calcium Crb,Lha-Y7-Ikc83-Ge nis (Citracal Plus Bone Density) 300-200-13.5 mg-unit-mg tablet Active 2 TABLET PO TWICE A DAY June 02, 2022 12:00am Start: 06-02-2022 take 2 tablets by mo uth twice daily Calcium Crb,Swm-Q3-Oaf02-Genis (Citracal Plus Bone Density) 300-200-13.5 mg-unit-mg tablet Active 2 TABLET PO TWICE A DAY June 02, 2022 1:00am Start: 06-02-2022 Calcium Crb,Ci [id number] (Citracal Plus Bone Density) 300-200-13.5 mg-unit-mg tablet Active TABLET PO June 02, 2022 12:00am DAILY MULTIVITAMIN ORAL TAB (20 sources) Start: 12-30-2004 take 1 tablet by mouth once daily DAILY MULTIVITAMIN ORAL TAB Take one(1) tablet daily. 0 0 12/30/2004 Active Comment on above: Take one(1) tablet d aily. hydroxychloroquine sulfate 200 mg oral tablet (20 sources) Antimalarial, Antirheumatic Agent Start: 09-12-2019 take 200 mg by mouth twice daily at mealtime Hydroxychloroquine Active 200 MG PO TWICE DAILY WITH MEALS September 11, 2019 11:00pm End: 05-17-2024 take 200 mg by mouth once daily HYDROXYCHLOROQUINE SULFATE (PLAQUENIL ORAL) Take 200 mg by mouth once daily. 05/17/2024 Discontinued (Discontinued by Patient) Comment on above: Take 200 mg by mouth twice daily. Take 200 mg by mouth once daily. ivermectin 10 mg/ml topical cream (20 sources) Antiparasitic, Pediculicide Start: 09-12-2019 Ivermectin Active 30 GM TP NEEDED September 11, 2019 11:00pm Start: 07-22-2017 SOOLANTRA 1 % crea Apply 1 application to affected area once daily as needed. 3 07/22/2017 Active Ivermectin (Sool antra) 1 % cream Every 24 hours. Active Comment on above: Apply 1 application to affected area once daily as needed. L.Acidoph, Paracasei,B. Lactis (3 sources) Start: 09-12-2019 L.Acidoph, Paracasei,B. Lactis Active 1 EACH PO DAILY September 12, 2019 12:00am Start: 09-12-2019 L.Acidoph, Par acasei,B. Lactis Active 1 EACH PO DAILY September 11, 2019 11:00pm Lactobacillus acidophilus (20 sources) take 1 capsule by mo uth once daily LACTOBACILLUS ACIDOPHILUS (PROBIOTIC ORAL) Take 1 capsule by mouth once daily. Active take 1 capsule by mouth once bethany ly LACTOBACILLUS ACIDOPHILUS (PROBIOTIC ORAL) Take 1 capsule by mouth once daily. 0 Active Comment on above: Take 1 capsule by mo uth once daily. leucovorin 5 mg oral tablet (20 sources) Folate Analog Start: 5 take 1 tablet by mouth once daily leucovorin (LEUCOVORIN) 5 mg tablet TAKE 1 TABLET BY MOUTH THE DAY AFTER METHOTRXATE 0 06/22/2017 Active Comment on above: TAKE 1 TABLET BY BROWN TH THE DAY AFTER METHOTRXATE methotrexate 2.5 mg oral tablet (20 sources) Folate Analog Metabolic Inhibitor Start: 4 Methotrexate Sodium Active 20 MG PO SA September 21, 2013 11:00pm methotrexate 2.5 MG tablet Take by mouth. Active take 8 tablets by mouth once met hotrexate 2.5 mg tablet Take by mouth every Thursday. Pt sts she takes 8 tablets every Thursday. Kamilah Faye LPN Active Comment on above: Take by mouth every Thursday. Pt sts she takes 8 tablets every Thursday. Kamilah Faye LPN Multivitamin With Folic Acid (Thera) 1 TABLET tablet (3 sources) Start: 4 take 1 tablet by mouth once daily Multivitamin With Folic Acid (Thera) 1 TABLET tablet Active 1 TABLET PO DAILY September 22, 2013 12:00am Start: 09-22-2013 take 1 tablet by brown th once daily Multivitamin With Folic Acid (Thera) 1 TABLET tablet Active 1 TABLET PO DAILY September 21, 2013 11:00pm omeprazole 40 mg delayed release oral capsule (20 sources) Proton Pump Inhibitor Start: 05-12-2023 End: 10-05-2024 take 1 capsule by mouth once daily omeprazole (PriLOSEC) [address] capsule Take 40 mg by mouth daily. 05/18/2024 Active Start: 06-30-2022 take 1 capsule by mo ut twice daily omeprazole (PRILOSEC) 40 mg capsule Indications: Epigastric pain Take 1 capsule by mouth twice daily. 60 capsule 5 06/30/2022 Active Start: 09-12-2019 End: 06-30-2022 take 40 mg by mouth once daily Omeprazole Active 40 MG PO DAILY September 11, 2019 11:00pm Comment on above: Take 1 capsule by mo ut once daily. Take 1 capsule by mo ut twice daily. Completed/Discontinued Medications Medication Drug Class(es) Dates Sig (Normalized) Sig (Original) acetaminophen 325 mg / HYDROcodone bitartrate 5 mg oral tablet (3 sources) Opioid Agonist Start: 09-13-2019 End: 09-18-2019 take 1 tablet by mouth every eight hours as needed Hydrocodone-Acetam inophen Discontinued 1 TABLET PO EVERY 8 HOURS NEEDED 15 5 September 13, 2019 September 17, 2019 11:02pm anastrozole 1 mg oral tablet (10 sources) Aromatase Inhibitor Start: 09-12-2019 End: 01-28-2022 take 1 tablet by mouth once daily anastrozole (ARIMIDEX) 1 mg tablet TAKE 1 TABLET BY MOUTH ONCE DAILY. 90 tablet 3 04/16/2021 01/28/2022 Discontinued Comment on above: TAKE 1 TABLET BY [facility] ONCE DAILY. fluorouracil 50 mg/ml topical solution (8 sources) Nucleoside Metabolic Inhibitor End: 01-28-2022 Fluorouracil 5 % soln Apply to affected area twice daily. 0 01/28/2022 Discontinued Comment on above: Apply to affected ar ea twice daily. ondansetron 8 mg oral tablet (3 sources) Serotonin-3 Receptor Antagonist Start: 09-13-2019 End: 09-15-2019 take 8 mg by mouth every eight hours Ondansetron Hcl Discontinued 8 MG PO Q8H 5 2 September 13, 2019 2:00pm September 14, 2019 11:02pm Problems Active Problems Problem Classification Problem Date Documented Da te Episodic/Chronic Abdominal pain (2 sources) Epigastric pain; Translations: [Epigastric pain] Episodic Administrative/social admission (2 sources) First encounter by subject; Translations: [Persons encountering health services in other specified circumstances] 08-29-2024 Episodic Diseases of white blood cells (20 sources) Drug-induced neutropenia; Translations: [Other drug-induced agranulocytosis] Onset: 4 Resolved: 5 07-22-2018 Chronic Esophageal disorders (20 sources) Gastroesophageal reflux disease without esophagitis; Translations: [Gastro-esophageal reflux disease without esophagitis] Onset: 3 Resolved: 5 Chronic Esophageal disorders (1 source) Disorder of esophagus; Translations: [Disease of esophagus, unspecified] Episodic Immunizations and screening for infectious disease (5 sources) Needs influenza immunization; Translations: [Encounter for immunization] Episodic Nutritional deficiencies (11 sources) Vitamin D deficiency; Translations: [Vitamin D deficiency, unspecified] Onset: 5 10-11-2024 Chronic Other aftercare (20 sources) Patient encounter status; Translations: [Other [facility] (current) drug therapy] Onset: 4 01-23-2021 Episodic Other and unspecified benign neoplasm (8 sources) History of polyp of colon; Translations: [History of colon polyps] Onset: 5 10-11-2024 Episodic Other connective tissue disease (1 source) Pain in left foot; Translations: [Pain in left foot] 03-01-2023 Episodic Other female genital disorders (2 sources) Vaginal dryness; Translations: [Other specified noninflammatory disorders of vagina] 08-29-2024 Episodic Other gastrointestinal disorders (2 sources) Other dysphagia; Translations: [Other dysphagia] Onset: 3 08-25-2022 Episodic Other gastrointestinal disorders (1 source) Dysphagia, unspecified; Translations: [Dysphagia, unspecified] Onset: 3 Episodic Other nutritional; endocrine; and metabolic disorders (12 sources) Obese class I; Translations: [Obesity, unspecified] Onset: 4 05-12-2023 Chronic Other nutritional; endocrine; and metabolic disorders (1 source) Obesity caused by energy imbalance; Translations: [Class 1 obesity due to excess calories without serious comorbidity with body mass index (BMI) of 30.0 to 30.9 in adult] 10-11-2024 Chronic Other nutritional; endocrine; and metabolic disorders (8 sources) Obesity; Translations: [Obesity, unspecified] Onset: 4 10-11-2024 Chronic Other nutritional; endocrine; and metabolic disorders (2 sources) Other obesity due to excess calories; Translations: [Other obesity due to excess calories] Onset: 5 Chronic Other nutritional; endocrine; and metabolic disorders (2 sources) Body mass index (BMI) 30.0-30.9, adult; Translations: [Body mass index (BMI) 30.0-30.9, adult] Onset: 5 Chronic Other upper respiratory disease (1 source) Lesion of nose; Translations: [Other specified disorders of nose and nasal sinuses] 05-17-2024 Episodic Residual codes; unclassified (3 sources) Pain; Translations: [Pain, unspecified] 09-13-2019 Episodic Rheumatoid arthritis and related disease (20 sources) Rheumatoid arthritis of multiple joints; Translations: [Rheumatoid arthritis, unspecified] Onset: 5 04-08-2021 Chronic Unclassified (1 source) Obesity, class 1; Translations: [Obesity, class 1] Onset: 5 Unclassified (2 sources) Establish Care; Translations: [Establish Care] Onset: 5 Past or Other Problems Problem Classification Problem Date Documented Da te Episodic/Chronic Acquired foot deformities (11 sources) Acquired deformity of toe of right foot; Translations: [Acquired deformities of toe(s), unspecified, right foot] Onset: 04-01-2018 Resolved: 10-11-2024 01-27-2022 Episodic Cancer of breast (20 sources) Malignant neoplasm of female breast; Translations: [Malignant neoplasm of unspecified site of left female breast] Onset: 02-13-2015 Resolved: 10-11-2024 04-08-2021 Chronic Cancer of breast (17 sources) History of malignant neoplasm of breast; Translations: [Personal history of malignant neoplasm of breast] Onset: 09-09-2013 02-20-2023 Episodic Chronic ulcer of skin (14 sources) Ankle ulcer; Translations: [Non-pressure chronic ulcer of right ankle with unspecified severity] Onset: 10-11-2024 Resolved: 10-11-2024 09-13-2019 Chronic Fracture of lower limb (10 sources) Unspecified fracture of left foot, initial encounter for closed fracture; Translations: [Fracture of left foot] Onset: 03-03-2023 Resolved: 10-11-2024 03-01-2023 Episodic Other aftercare (1 source) 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; Translations: [Medication management] Onset: 01-23-2021 Episodic Other bone disease and musculoskeletal deformities (20 sources) Senile osteopenia; Translations: [Other specified disorders of bone density and structure, unspecified site] Onset: 07-05-2021 Episodic Other bone disease and musculoskeletal deformities (9 sources) Postmenopausal osteopenia; Translations: [Other specified disorders of bone density and structure, unspecified site] Onset: 07-05-2021 10-11-2024 Episodic Other connective tissue disease (8 sources) Impingement syndrome of left shoulder region; Translations: [Impingement syndrome of left shoulder] Onset: 10-11-2024 Resolved: 10-11-2024 10-11-2024 Episodic Other gastrointestinal disorders (11 sources) Esophageal dysphagia; Translations: [Other dysphagia] Onset: 01-09-2023 Episodic Other infections; including parasitic (20 sources) Personal history of other infectious and parasitic diseases; Translations: [History of COVID-19] Onset: 01-23-2021 Resolved: 10-11-2024 01-23-2021 Episodic Other screening for suspected conditions (not mental disorders or infectious disease) (5 sources) Encounter for screening mammogram for malignant neoplasm of breast; Translations: [Encounter for screening for diabetes mellitus] Onset: 01-06-2014 Episodic Unclassified (1 source) Obesity, class 1; Translations: [Obesity, class 1] Onset: 10-11-2024 Results Test Name Value Interpretation Reference Range Facility 36on 10-20-2024 36 Spoke with patient Advised her we will keep the appointment as scheduled with Dr. Sierra. According to her insurance and [facility] we are in network with her insurance policy. Nothing further needed. Normal [facility] 36 Name of caller: Montana gunn Contact phone number: [phone] Relationship to Patient: patient Provider: Dr. Sierra Practice: [facility] Chief Complaint/Reason for Call: Pt called back regarding her Insurance [employer]. Pt is asking to speak with someone from office because she stated she called her Insurance and they advised they are in network with [facility] and she looked on [facility] website and it shows her plan is in network. Please advise. Best time of day caller can be reached: Any Patient advised that office/PCP has 24-48 business hours to return their call: Yes [facility] 10-18-2024 36 Forwarding to office support [facility] 10-17-2024 36 Name of caller: Montana Chacon Contact phone number: [phone] Relationship to Patient: patient Provider: Dr. Sierra Practice: [facility] Chief Complaint/Reason for Call: Patient states she was on hold to speak with Kavitha regarding a billing question and was disconnected. Patient would like to have a call back to discuss this. Thank you. Network is called [employer]. See [employer] with insurance from 10/08/24 Best time of day caller can be reached: Any Patient advised that office/PCP has 24-48 business hours to return their call: Yes [facility] 36 Name of caller: Montana Chacon Contact phone number: [phone] Relationship to Patient: patient Provider: Dr. Sierra Practice: [facility] Chief Complaint/Reason for Call: Patient states she was on hold to speak with Kavitha regarding a billing question and was disconnected. Patient would like to have a call back to discuss this. Thank you. Best time of day caller can be reached: Any Patient advised that office/PCP has 24-48 business hours to return their call: Yes [facility] Office Visiton 10-11-2024 Follow-up visit [id number] Montana Chacon 1965 F Date Provider Department Center 10/11/2024 IVÁN DOR[facility] Family History Problem Relation Age of Onset Ulcerative colitis Mother Asthma Mother Hearing loss Mother Pancreatic cancer Father 76 Diabetes type I Sister No Known Problems Sister No Known Problems Brother No Known Problems Daughter Prostate cancer Maternal Grandfather 88 Breast cancer Paternal Grandmother 89 Alzheimer's disease Paternal Grandfather Family Status - Relation Status Age at Mother Alive Father Sister Alive Sister Alive Brother Alive Daughter Alive Maternal Grandmother Maternal Grandfather Paternal Grandmother Paternal Grandfather Level of Service:80962 [place] OFFICE/OUTPATIENT NEW MODERATE MDM 45 MINUTES Reason for Visit and Comments: Establish Care [42] - Insurance change- [facility] does not take their insurance Breast cancer in 2014- pt just established with [facility] W[employer]ER. Sees [facility] rheumatology [facility] Progress Noteon 10-11-2024 Progress Note I reviewed with patient the benefits of weightbearing exercise, working toward a goal of 150 minutes/week. Patient instructed to make best efforts to take a 1200 to 1500 mg calcium supplement daily along with 1000 IU vitamin D3 supplement daily. They were instructed to continue with current dose of alendronate. I reviewed the importance of routine DEXA scans every 2 to 3 years for surveillance. Normal [facility] Progress Note No reported worsenin g joint pain or persistent joint swelling. No limitation in normal day-to-day activity reported. Patient instructed to continue with current medication as recommended by the specialist. Normal [facility] Progress Note Patient counseled on healthy dietary choices and the benefits of a lower salt and/or lower carbohydrate diet as appropriate. Patient also counseled on benefits of moderate intensity cardiovascular exercise for 150 minutes per week as they are able. Advice was given to make small changes over time, setting smaller achievable goals until recommended lifestyle changes are reached. Normal [facility] Progress Note Patient is overdue for lab work. Most recent vitamin D level in 2022 was in normal range. I stressed to her the importance of taking a 1000 IU vitamin D3 supplement on a daily basis. Any further recommendations will be based on updated lab results. Normal [facility] Progress Note No reported gastrointestinal complaints. Patient instructed to continue with current dose of omeprazole. I stressed with her the importance of avoiding dietary triggers. New gastroenterology referral given today in the office for continued surveillance and likely repeat endoscopy. Normal [facility] Progress Note Laura Chacon (: 1965) is a 58 y.o. female who presents today for: Chief Complaint Patient presents with Establish Care Insurance change- [facility] does not take their insurance Breast cancer in 2014- pt just established with [facility]. Sees [facility] rheumatology Assessment/Plan 1. Eosinophilic esophagitis Assessment & Plan: No reported gastrointestinal complaints. Patient instructed to continue with current dose of omeprazole. I stressed with her the importance of avoiding dietary triggers. New gastroenterology referral given today in the office for continued surveillance and likely repeat endoscopy. Orders: - [facility] 2. Vitamin D deficiency Assessment & Plan: Patient is overdue for lab work. Most recent vitamin D level in 2022 was in normal range. I stressed to her the importance of taking a 1000 IU vitamin D3 supplement on a daily basis. Any further recommendations will be based on updated lab results. Orders: - Vitamin D Deficiency Screening (Vit D 25) 3. Class 1 obesity due to excess calories without serious comorbidity with body mass index (BMI) of 30.0 to 30.9 in adult Assessment & Plan: Patient counseled on healthy dietary choices and the benefits of a lower salt and/or lower carbohydrate diet as appropriate. Patient also counseled on benefits of moderate intensity cardiovascular exercise for 150 minutes per week as they are able. Advice was given to make small changes over time, setting smaller achievable goals until recommended lifestyle changes are reached. 4. Osteopenia after menopause Assessment & Plan: I reviewed with patient the benefits of weightbearing exercise, working toward a goal of 150 minutes/week. Patient instructed to make best efforts to take a 1200 to 1500 mg calcium supplement daily along with 1000 IU vitamin D3 supplement daily. They were instructed to continue with current dose of alendronate. I reviewed the importance of routine DEXA scans every 2 to 3 years for surveillance. Orders: - Vitamin D Deficiency Screening (Vit D 25) 5. Rheumatoid arthritis involving multiple sites with positive rheumatoid factor ([facility]) ([facility]) Assessment & Plan: No reported worsening joint pain or persistent joint swelling. No limitation in normal day-to-day activity reported. Patient instructed to continue with current medication as recommended by the specialist. 6. History of left breast cancer Assessment & Plan: Patient established with CLINICAL SUPPORT SPECIALIST for yearly mammograms. Oncology service at [facility] had previously signed off. Patient declines new oncology referral here in the local area. We will continue to follow lab work and symptoms over time. Follow up for Well Adult Exam/Physical MAY 2025. Subjective HPI Patient presents to establish care. They were previously seen at [facility], most recent visit with PCP was . Care is established with rheumatology for long-term management of rheumatoid arthritis and osteopenia. Patient has a known history of left breast cancer diagnosed in 2013. They are status post left mastectomy and sentinel lymph node biopsy 09/29/2013 with subsequent radiation therapy completed 04/21/2014 and initiation of anastrozole. Care was previously established with GI for long-term surveillance of eosinophilic esophagitis with esophageal dysphagia. Patient denies any current heartburn/sour brash, dysphagia, change in appetite, nausea/vomiting, change in stooling, or unintentional weight changes. Review of Systems Constitutional: Negative for appetite change, chills, diaphoresis, fatigue, fever and unexpected weight change. Eyes: Negative for visual disturbance. Respiratory: Negative for apnea, cough, chest tightness, shortness of breath and wheezing. Cardiovascular: Negative for chest pain, palpitations and leg swelling. No orthopnea, No PND Gastrointestinal: Negative for abdominal distention, abdominal pain, anal bleeding, blood in stool, constipation, diarrhea, nausea, rectal pain and vomiting. No dysphagia, No early satiety, No increased belching, No sour brash/heartburn, No melena. Endocrine: Negative for cold intolerance, heat intolerance, polydipsia and polyuria. Genitourinary: Negative for dysuria and hematuria. Musculoskeletal: Negative for arthralgias and joint swelling. Skin: Negative for rash. Neurological: Negative for dizziness, syncope, facial asymmetry, speech difficulty, weakness, light-headedness, numbness and headaches. Psychiatric/Behaviora l: Negative for dysphoric mood and sleep disturbance. The patient is not nervous/anxious. Objective VITALS: BP 109/71 (BP Location: Right arm, Patient Position: Sitting, BP Cuff Size: Large adult) Pulse 70 Temp 36.7 ?C (98.1 ?F) (Temporal) Ht 5' 4.25 (1.632 m) Wt 180 lb 12.8 oz (82 kg) SpO2 99% BMI 30.79 kg/m? Physical Exam Vitals reviewed. Constitution (more content not included)... Normal [facility] 36on 08-31-2024 36 Name of caller: [place] y Relation to patient: patient Contact phone number: [phone] Appointment scheduled with: Mariela Appointment date & time: 10/12/2023 345 Reason for visit (are you having any symptoms) : establish with [facility] pcp Transportation issues/ concerns: n/a Special accommodations? ( wheel chair, etc) : n/a Current medications: n/a Any refills need: n/a Any chronic conditions the provider should be aware of: n/a Normal [facility] Office Visiton 08-29-2024 Follow-up visit [id number] [place] Chacon 1965 F Date Provider Department Center 08/29/2024 [id number] [facility] Family History Problem Relation Age of Onset Alzheimer's disease Paternal Grandfather Breast cancer Paternal Grandmother Pancreatic cancer Father Ulcerative colitis Mother Diabetes Sister Family Status - Relation Status Age at Paternal Grandfather Paternal Grandmother Maternal Grandmother Maternal Grandfather Father Mother Alive Brother Alive Sister Alive Sister Alive Level of Service:90770 [place] OFFICE/OUTPATIENT NEW LOW MDM 30 MINUTES Reason for Visit and Comments: Establish Care [42] Normal [facility] Progress Noteon 08-29-2024 Progress Note Laura Chacon 08/29/2024 58 y.o. Chief Complaint Patient presents with [facility] Care No LMP recorded. (Menstrual status: Oopherectomy). Primary CarePhysician: No primary care provider on file. HPI: Laura Chacon is a 58 y.o. female presents for a visit to [facility]. Previously seen by [facility] however they no longer take her insurance. She has a hx of breast cancer which was treated with chemo and radiation followed by Arimidex for 7 years. Her yearly mammograms have been normal. She has a pap in 02/2024 which was normal. Colonoscopy in 2021 normal, due in 10 years. Hx RA, stitchdowns toe former did DEXA scan which showed osteopenia and she takes Ca supps. Hx BSO, does have vaginal dryness and no longer sexually active, does not want any HRT or vaginal estrace due to cancer hx. Denies PMB or abnormal discharge. Denies any other new medical issues or changes. No GUIDE WINDER complaints today. OB History Para Term AB Living 1 1 1 1 SAB IAB Ectopic Multiple Live Births 1 # Outcome Date GA Lbr Frederic/2nd Weight Sex Type Anes PTL Lv 1 Term F CS-Unspec ED Medical History[1] Surgical History[2] Family History[3] Social History Socioeconomic History Marital status: Spouse name: Not on file Number of children: Not on file Years of education: Not on file Highest education level: Not on file Occupational History Not on file Tobacco Use Smoking status: Never Smokeless tobacco: Never Vaping Use Vaping status: Never Used Substance and Sexual Activity Alcohol use: No Drug use: No Sexual activity: Not Currently Other Topics Concern Not on file Social History Narrative Not on file Social Drivers of Health Financial Resource Strain: Low Risk (05/19/2022) Received from [facility] Overall Financial Resource Strain (CARDIA) Difficulty of Paying Living Expenses: Not hard at all Food Insecurity: No Food Insecurity (05/19/2022) Received from [facility] Hunger Vital Sign Worried About Running Out of Food in the Last Year: Never true Ran Out of Food in the Last Year: Never true Transportation Needs: No Transportation Needs (05/19/2022) Received from [facility] PRAPARE - Transportation Lack of Transportation (Medical): No Lack of Transportation (Non-Medical): No Physical Activity: Inactive (05/19/2022) Received from [facility] Exercise Vital Sign Days of Exercise per Week: 0 days Minutes of Exercise per Session: 0 min Stress: No Stress Concern Present (05/19/2022) Received from [facility] [employer] [place] [employer] - Occupational Stress Questionnaire Feeling of Stress : Not at all Social Connections: Moderately Integrated (05/19/2022) Received from [facility] Social Connection and Isolation Panel [NHANES] Frequency of Communication with Friends and Family: More than three times a week Frequency of Social Gatherings with Friends and Family: Once a week Attends Yazdanism Services: More than 4 times per year Active Member of Clubs or Organizations: No Attends Club or Organization Meetings: Never Marital Status: Intimate Partner Violence: Not on file Housing Stability: Low Risk (05/19/2022) Received from [facility] Housing Stability Vital Sign Unable to Pay for Housing in the Last Year: No Number of Places Lived in the Last Year: 1 Unstable Housing in the Last Year: No MEDICATIONS: Current Medications[4] ALLERGIES: Allergies as of 08/29/2024 - Reviewed 08/29/2024 Allergen Reaction Noted Celecoxib Hives and Itching 09/24/2009 Review of Systems: Review of Systems All other systems reviewed and are negative. Physical Exam: BP 110/64 Ht 5' 3.5 (1.613 m) Wt 187 lb (84.8 kg) BMI 32.61 kg/m? Physical Exam Vitals and nursing note reviewed. Constitutional: General: She is not in acute distress. Appearance: Normal appearance. She is not toxic-appearing. HENT: Head: Normocephalic and atraumatic. Eyes: Extraocular Movements: Extraocular movements intact. Pulmonary: Effort: Pulmonary effort is normal. No respiratory distress. Abdominal: Palpations: Abdomen is soft. Tenderness: There is no abdominal tenderness. There is no guarding or rebound. Skin: General: Skin is warm and dry. Neurological: General: No focal deficit present. Mental Status: She is alert and oriented to person, place, and time. Psychiatric: Mood and Affect: Mood normal. Behavior: Behavior normal. Thought Content: Thought content normal. No results found for this or any previous visit (from the past 6 weeks).] ASSESSMENT: 58 y.o. Diagnosis Plan 1. History of breast cancer Bilateral screening mammogram with tomosynthesis 2. Encounter for screening mammogram for breast cancer Bilateral screening mammogram with tomosynthesis 3. Encounter to establish care 4. Vaginal dryness PLAN: - Seen to establish care with new (more content not included)... [facility] 05-18-2024 [facility] LAURA CHACON ([id number]) 1965 F Date Time Provider Department 05/18/24 [facility] During your visit today, we recorded the following information about you: Nolan Mancuso MD 05/18/2024 7:44 PM Signed Let patient know his labs were all good. Antonietta Mattson, RN 05/19/2024 8:27 AM Signed Called and left a voicemail for the patient to call back and ask for a nurse to receive the providers message. Kaity Mccurdy LPN 05/19/2024 11:14 AM Signed Spoke with pt and information listed below given. Pt verbalizes understanding. Kaity Mccurdy LPN Allergies As of Date: 05/18/2024 Noted Allergy Reaction CELEBREX (CELECOXIB) 09/24/2009 9 - Itching Date Reviewed: 05/17/2024 Reviewed by: Nolan Mancuso MD - Fully Assessed Reason for Visit: Results [95] Prescriptions as of 05/19/2024 - omeprazole (PRILOSEC) 40 mg capsule Take 1 capsule by mouth once daily. - alendronate (FOSAMAX) 70 mg tablet Take 1 tablet by mouth one time a week. Take with a full glass of water, on an empty stomach; do NOT lie down for 30minutes. Per Rheum, Dr. Bowie - Calcium Cmb 2-D3-Min Hyk91-Tdt (CITRACAL PLUS BONE DENSITY) 300-200-13.5 mg-unit-mg tab Take 2 tablets by mouth twice daily. - ORENCIA CLICKJECT 125 mg/mL AutoInjector Inject 125 mg subcutaneously one time a week. Tuesdays - leucovorin (LEUCOVORIN) 5 mg tablet TAKE 1 TABLET BY MOUTH THE DAY AFTER METHOTRXATE - SOOLANTRA 1 % crea Apply 1 application to affected area once daily as needed. - LACTOBACILLUS ACIDOPHILUS (PROBIOTIC ORAL) Take 1 capsule by mouth once daily. - methotrexate 2.5 mg tablet Take by mouth every Thursday. Pt sts she takes 8 tablets every Thursday. Kamilah Faye LPN - DAILY MULTIVITAMIN ORAL TAB Take one(1) tablet daily. Meds Comments as of 07/23/2017: Topical cream Problem List As Of Date 05/18/2024 Noted Resolved Routine general medical examination at [facility]*08/28/2010 07/22/2011 Class: Chronic Routine gynecological examination [Z01.419] 08/28/2010 07/22/2011 Class: Chronic Drug-induced neutropenia (HCC) [D70.2] 11/04/2013 Routine gynecological examination [Z01.419] 01/06/2014 Well adult exam [Z00.00] 01/06/2014 Screening for diabetes mellitus (DM) [Z13.1] 01/06/2014 Rheumatoid arthritis involving multiple sites (*02/13/2015 Malignant neoplasm of left female breast (HCC) *02/13/2015 Invasive ductal carcinoma of breast, left (HCC)*03/02/2017 History of COVID-19 [Z86.16] 01/23/2021 Medication management [Z79.899] 01/23/2021 Osteopenia, senile [M85.80] 07/05/2021 Eosinophilic esophagitis [K20.0] 11/01/2022 Gastroesophageal reflux disease without esophag*05/12/2023 Obesity, Class I, BMI 30-34.9 [E66.811] 05/12/2023 Encounter for lipid screening for cardiovascula* 025 Encounter Status:Closed by KAITY MCCURDY on 05/19/24 Normal [facility] CBC W Auto Differential pane l (Bld)on 05-17-2024 Basophils (Bld) [#/Vol] 0.03 10*3/uL Normal <0.11 [facility] Comment on above: Order Comment: Speci men Type: BLOOD SPECIMEN Ordering Facility: [facility] Address: [address] [place] [address] Performed By: #### 5 7021-8 #### [facility] CLIA [id number] [address] [place] [address] [place] Basophils/100 WBC (Bld) 0.5 % Normal [facility] Comment on above: Order Comment: Speci men Type: BLOOD SPECIMEN Ordering Facility: [facility] Address: [address] [place] [address] Performed By: #### 5 7021-8 #### [facility] CLIA [id number] [address] [place] [address] [place] Differential cell count method Nom (Bld) Auto Normal [facility] Comment on above: Order Comment: Speci men Type: BLOOD SPECIMEN Ordering Facility: [facility] Address: [address] [place] [address] Performed By: #### 5 7021-8 #### [facility] CLIA [id number] [address] [place] [address] [place] Eosinophils (Bld) [#/Vol] 0.14 10*3/uL Normal <0.46 [facility] Comment on above: Order Comment: Speci men Type: BLOOD SPECIMEN Ordering Facility: [facility] Address: [address] [place] [address] Performed By: #### 5 7021-8 #### [facility] CLIA [id number] [address] [place] [address] [place] Eosinophils/100 WBC (Bld) 2.5 % Normal [facility] Comment on above: Order Comment: Speci men Type: BLOOD SPECIMEN Ordering Facility: [facility] Address: [address] [place] [address] Performed By: #### 5 7021-8 #### [facility] CLIA [id number] [address] [place] [address] [place] Erythrocyte distribution width (RBC) [Ratio] 12.4 % Normal 11.5-15.0 [facility] Comment on above: Order Comment: Speci men Type: BLOOD SPECIMEN Ordering Facility: [facility] Address: [address] [place] [address] Performed By: #### 5 7021-8 #### [facility] CLIA [id number] [address] [place] [address] [place] Hematocrit (Bld) [Volume fraction] 43.5 % Normal 36.0-46.0 [facility] Comment on above: Order Comment: Speci men Type: BLOOD SPECIMEN Ordering Facility: [facility] Address: [address] [place] [address] Performed By: #### 5 7021-8 #### [facility] CLIA [id number] [address] [place] [address] [place] Hemoglobin (Bld) [Mass/Vol] 15.0 g/dL Normal 11.5-15.5 [facility] Comment on above: Order Comment: Speci men Type: BLOOD SPECIMEN Ordering Facility: [facility] Address: [address] [place] [address] Performed By: #### 5 7021-8 #### [facility] CLIA [id number] [address] [place] [address] [place] Immature granulocytes (Bld) [#/Vol] 10*3/uL Normal <0.10 [facility] Comment on above: Order Comment: Speci men Type: BLOOD SPECIMEN Ordering Facility: [facility] Address: [address] [place] [address] Performed By: #### 5 7021-8 #### [facility] CLIA [id number] [address] [place] [address] [place] Immature granulocytes/100 WBC (Bld) 0.2 % Normal [facility] Comment on above: Order Comment: Speci men Type: BLOOD SPECIMEN Ordering Facility: [facility] Address: [address] [place] [address] Performed By: #### 5 7021-8 #### [facility] CLIA [id number] [address] [place] [address] [place] Lymphocytes (Bld) [#/Vol] 1.13 10*3/uL Normal 1.00-4.00 [facility] Comment on above: Order Comment: Speci men Type: BLOOD SPECIMEN Ordering Facility: [facility] Address: [address] [place] [address] Performed By: #### 5 7021-8 #### [facility] CLIA [id number] [address] [place] [address] [place] Lymphocytes/100 WBC (Bld) 20.0 % Normal [facility] Comment on above: Order Comment: Speci men Type: BLOOD SPECIMEN Ordering Facility: [facility] Address: [address] [place] [address] Performed By: #### 5 7021-8 #### [facility] CLIA [id number] [address] [place] [address] [place] MCH (RBC) [Entitic mass] 31.3 pg Normal 26.0-34.0 [facility] Comment on above: Order Comment: Speci men Type: BLOOD SPECIMEN Ordering Facility: [facility] Address: [address] [place] [address] Performed By: #### 5 7021-8 #### [facility] CLIA [id number] [address] [place] [address] [place] MCHC (RBC) [Mass/Vol] 34.5 g/dL Normal 30.5-36.0 [facility] Comment on above: Order Comment: Speci men Type: BLOOD SPECIMEN Ordering Facility: [facility] Address: [address] [place] [address] Performed By: #### 5 7021-8 #### [facility] CLIA [id number] [address] [place] [address] [place] MCV (RBC) [Entitic vol] 90.8 fL Normal 80.0-100.0 [facility] Comment on above: Order Comment: Speci men Type: BLOOD SPECIMEN Ordering Facility: [facility] Address: [address] [place] [address] Performed By: #### 5 7021-8 #### [facility] CLIA [id number] [address] [place] [address] [place] Monocytes (Bld) [#/Vol] 0.46 10*3/uL Normal <0.87 [facility] Comment on above: Order Comment: Speci men Type: BLOOD SPECIMEN Ordering Facility: [facility] Address: [address] [place] [address] Performed By: #### 5 7021-8 #### [facility] CLIA [id number] [address] [place] [address] [place] Monocytes/100 WBC (Bld) 8.2 % Normal [facility] Comment on above: Order Comment: Speci men Type: BLOOD SPECIMEN Ordering Facility: [facility] Address: [address] [place] [address] Performed By: #### 5 7021-8 #### [facility] CLIA [id number] [address] [place] [address] [place] Neutrophils (Bld) [#/Vol] 3.87 10*3/uL Normal 1.45-7.50 [facility] Comment on above: Order Comment: Speci men Type: BLOOD SPECIMEN Ordering Facility: [facility] Address: [address] [place] [address] Performed By: #### 5 7021-8 #### [facility] CLIA [id number] [address] [place] [address] [place] Neutrophils/100 WBC (Bld) 68.6 % Normal [facility] Comment on above: Order Comment: Speci men Type: BLOOD SPECIMEN Ordering Facility: [facility] Address: [address] [place] [address] Performed By: #### 5 7021-8 #### [facility] CLIA [id number] [address] [place] [address] [place] Nucleated RBC (Bld) [#/Vol] 10*3/uL Normal <0.01 [facility] Comment on above: Order Comment: Speci men Type: BLOOD SPECIMEN Ordering Facility: [facility] Address: [address] [place] [address] Performed By: #### 5 7021-8 #### [facility] CLIA [id number] [address] [place] [address] [place] Nucleated RBC/100 WBC (Bld) [Ratio] 0.0 /100 WBC Normal [facility] Comment on above: Order Comment: Speci men Type: BLOOD SPECIMEN Ordering Facility: [facility] Address: [address] [place] [address] Performed By: #### 5 7021-8 #### [facility] CLIA [id number] [address] [place] [address] [place] Platelet mean volume (Bld) [Entitic vol] 10.1 fL Normal 9.0-12.7 [facility] Comment on above: Order Comment: Speci men Type: BLOOD SPECIMEN Ordering Facility: [facility] Address: [address] [place] [address] Performed By: #### 5 7021-8 #### [facility] CLIA [id number] [address] [place] [address] [place] Platelets (Bld) [#/Vol] 237 10*3/uL Normal 150-400 [facility] Comment on above: Order Comment: Speci men Type: BLOOD SPECIMEN Ordering Facility: [facility] Address: [address] [place] [address] Performed By: #### 5 7021-8 #### [facility] CLIA [id number] [address] [place] [address] [place] RBC (Bld) [#/Vol] 4.79 10*6/uL Normal 3.90-5.20 [facility] Comment on above: Order Comment: Speci men Type: BLOOD SPECIMEN Ordering Facility: [facility] Address: [address] [place] [address] Performed By: #### 5 7021-8 #### [facility] CLIA [id number] [address] [place] [address] [place] WBC (Bld) [#/Vol] 5.64 10*3/uL Normal 3.70-11.00 [facility] Comment on above: Order Comment: Speci men Type: BLOOD SPECIMEN Ordering Facility: [facility] Address: [address] [place] [address] Performed By: #### 5 7021-8 #### [facility] CLIA [id number] [address] [place] [address] [place] CNOVon 05-17-2024 CNOV Office Visit (FAMPWS ) LAURA CHACON ([id number]) 1965 F Date Time Provider Department 05/17/24 1:00 PM NOLAN MANCUSO During your visit today, we recorded the following information about you: Pulse Respiration Blood pressure Weight 70/minute 16/minute 118/70 80.7 kg Height 1.619 m Nolan Mancuso MD 05/17/2024 2:23 PM Signed Chief Complaint Patient presents with: Physical HPI Laura Chacon is a 58 year old female who presents here today for Physical. Patient with Hx of RA, drug induced neutropenia, breast cancer seeing heme/onc as well as those reviewed and addressed below and in ROS. Patient sees Hemat/onc next visit 10/2024 - left breast cancer Patient sees CLINICAL SUPPORT SPECIALIST next visit 02/2025 Patient sees Rheumat last visit 03/2023,seeing Dr. Bowie. Has been doing ok. No new issues or concerns. Past medical history, appointments, medications, allergies reviewed. Previous Medical History PAST MEDICAL HISTORY Diagnosis Date Abnormal findings on diagnostic imaging of liver and biliary tract 09/13/2019 BRCA negative negative Integrated BRACAnalysis with myRisk 25 gene panel Drug-induced neutropenia (HCC) 11/04/2013 ICD-10 Go-Live Eosinophilic esophagitis 11/01/[address] Newell Gastroesophageal reflux disease without esophagitis 05/12/[address] Newell History of COVID-19 01/23/202111/2020 Invasive ductal carcinoma of breast, left (HCC) 03/02/2017 Malignant neoplasm of left female breast (HCC) 02/13/[address] Walton Obesity, Class I, BMI 30-34.9 05/12/2023 Osteopenia, senile 07/05/2021 Per Rheum, on Alendronate, started 06/2021 PONV (postoperative nausea and vomiting) Rheumatoid arthritis involving multiple sites (HCC) 02/13/2015 [facility] in [place]: Sees Dr. Bowie Routine gynecological examination 01/06/2014 Seeing [facility] Well adult exam 01/06/2014 last done 12/06/2019 Previous Surgical History PAST SURGICAL HISTORY Procedure Laterality Date ABDOMINAL SURGERY HX BREAST SURGERY HX BX/EXC LYMPH NODE OPEN DEEP AXILLARY NODE 09/29/2013 left DELIVERY ONLY COLONOSCOPY 03/19/2022 repeat in 5 years COLONOSCOPY FLX DX W/COLLJ SPEC WHEN PFRMD 10/29/2016 Colonoscopy FLUORO CENTRAL VENOUS ACCESS DEV PLACEMENT 11/02/2013 right INSJ TUNNELED CTR VAD W/SUBQ PORT AGE 5 YR/> 11/02/2013 right- REMOVED INTRAOP SENTINEL LYMPH NODE ID W/DYE INJECTION 09/29/2013 left LAPS SURG CHOLECYSTECTOMY W/CHOLANGIOGRAPHY 09/13/2019 LIG/TRNSXJ FLP TUBE ABDL/VAG APPR UNI/BI Tubal ligation MAST MODF RAD W/AX LYMPH NOD W/WO PECT/JIMMY MIN 09/29/2013 left PAST SURGICAL HISTORY OF wrist, right PAST SURGICAL HISTORY OF Right 04/01/2018 osteophyte removal and fusion of 2nd digit SALPINGO-OOPHORECTOMY COMPL/PRTL UNI/BI SPX 08/08/2014 Laproscopic BSO-Dr. 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 2000 Family History FAMILY HISTORY Problem Relation Age of Onset Asthma Mother Colon Cancer Father other (Lung Disease) Father Pancreatic Cancer Father Diabetes Sister Colon Cancer Maternal Grandmother Prostate Cancer Maternal Grandfather late 80's Breast Cancer Paternal Grandmother dx 89 Alzheimer's Disease Paternal Grandfather No Known Problems Daughter Breast Cancer Other maternal great aunt dx 55, 65 Patient Allergies ALLERGIES Allergen Reactions Celebrex [Celecoxib] Itching Current Medications Current Outpatient Medications on File Prior to Visit Medication Sig omeprazole (PRILOSEC) 40 mg capsule Take 1 capsule by mouth once daily. alendronate (FOSAMAX) 70 mg tablet Take 1 tablet by mouth one time a week. Take with a full glass of water, on an empty stomach; do NOT lie down for 30minutes. Per Rheum, Dr. Bowie Calcium Cmb 2-D3-Min [id number] (CITRACAL PLUS BONE DENSITY) 300-200-13.5 mg-unit-mg tab Take 2 tablets by mouth twice daily. ORENCIA CLICKJECT 125 mg/mL AutoInjector Inject 125 mg subcutaneously one time a week. Tuesdays leucovorin (LEUCOVORIN) 5 mg tablet TAKE 1 TABLET BY MOUTH THE DAY AFTER METHOTRXATE SOOLANTRA 1 % crea Apply 1 application to affected area once daily as needed. LACTOBACILLUS ACIDOPHILUS (PROBIOTIC ORAL) Take 1 capsule by mouth once daily. HYDROXYCHLOROQUINE SULFATE (PLAQUENIL ORAL) Take 200 mg by mouth once daily. methotrexate 2.5 mg tablet Take by mouth every Thursday. Pt sts she takes 8 tablets every Thursday. Kamilah Hieboniekel, VICE PRESIDENT BIOSTATISTICS DAILY MULTIVITAMIN ORAL TAB Take one(1) tablet daily. No current facility-administered medications on file prior to visit. Social History Social History Tobacco Use Smoking status: Never Smokeless tobacco: Never Vaping Use Vaping status: Never Used Substance Use Topics Alcohol use: No Drug use: No Review of Symptoms REVIEW OF SYSTEMS GE (more content not included)... Normal [facility] Comprehensive metabolic 2000 panelon 05-17-2024 Albumin [Mass/Vol] 4.2 g/dL Normal 3.9-4.9 [facility] Comment on above: Order Comment: Speci men Type: BLOOD SPECIMEN Ordering Facility: [facility] Address: [address] [place] [address] Performed By: #### 2 4323-8, LIPNF #### [facility] CLIA [id number] [address] [place] [address] [place] ALP [Catalytic activity/Vol] 74 U/L Normal 34-123 [facility] Comment on above: Order Comment: Speci men Type: BLOOD SPECIMEN Ordering Facility: [facility] Address: [address] [place] [address] Performed By: #### 2 4323-8, LIPNF #### [facility] CLIA [id number] [address] [place] [address] [place] ALT [Catalytic activity/Vol] 28 U/L Normal 7-38 [facility] Comment on above: Order Comment: Speci men Type: BLOOD SPECIMEN Ordering Facility: [facility] Address: [address] [place] [address] Performed By: #### 2 4323-8, LIPNF #### [facility] CLIA [id number] [address] [place] [address] [place] Anion gap [Moles/Vol] 12 mmol/L Normal 8-15 [facility] Comment on above: Order Comment: Speci men Type: BLOOD SPECIMEN Ordering Facility: [facility] Address: [address] [place] [address] Performed By: #### 2 4323-8, LIPNF #### [facility] CLIA [id number] [address] [place] [address] [place] AST [Catalytic activity/Vol] 28 U/L Normal 13-35 [facility] Comment on above: Order Comment: Speci men Type: BLOOD SPECIMEN Ordering Facility: [facility] Address: [address] [place] [address] Performed By: #### 2 4323-8, LIPNF #### [facility] CLIA [id number] [address] [place] [address] [place] Bilirubin [Mass/Vol] 0.8 mg/dL Normal 0.2-1.3 [facility] Comment on above: Order Comment: Speci men Type: BLOOD SPECIMEN Ordering Facility: [facility] Address: [address] [place] [address] Performed By: #### 2 4323-8, LIPNF #### [facility] CLIA [id number] [address] [place] [address] [place] Calcium [Mass/Vol] 9.0 mg/dL Normal 8.5-10.2 [facility] Comment on above: Order Comment: Speci men Type: BLOOD SPECIMEN Ordering Facility: [facility] Address: [address] [place] [address] Performed By: #### 2 4323-8, LIPNF #### [facility] CLIA [id number] [address] [place] [address] [place] Chloride [Moles/Vol] 106 mmol/L Normal 98-107 [facility] Comment on above: Order Comment: Speci men Type: BLOOD SPECIMEN Ordering Facility: [facility] Address: [address] [place] [address] Performed By: #### 2 4323-8, LIPNF #### [facility] CLIA [id number] [address] [place] [address] [place] CO2 [Moles/Vol] 21 mmol/L Low 22-30 [facility] Comment on above: Order Comment: Speci men Type: BLOOD SPECIMEN Ordering Facility: [facility] Address: [address] [place] [address] Performed By: #### 2 4323-8, LIPNF #### [facility] CLIA [id number] [address] [place] [address] [place] Creatinine [Mass/Vol] 0.74 mg/dL Normal 0.58-0.96 [facility] Comment on above: Order Comment: Speci men Type: BLOOD SPECIMEN Ordering Facility: [facility] Address: [address] [place] [address] Performed By: #### 2 4323-8, LIPNF #### [facility] CLIA [id number] [address] [place] [address] [place] Creatinine and Glomerular filtration rate.predicted panel (S/P/Bld) 94 mL/min/1.73m??? Normal >=60 [facility] Comment on above: Order Comment: Speci men Type: BLOOD SPECIMEN Ordering Facility: [facility] Address: [address] [place] [address] Result Comment: Kizzy mated Glomerular Filtration Rate (eGFR) is calculated using the 2020 CKD-EPI creatinine equation. This equation utilizes serum creatinine, sex, and age as parameters. The creatinine assay has traceable calibration to isotope dilution-mass spectrometry. Refer to KDIGO guidelines for clinical interpretation. In patients with unstable renal function, e.g. those with acute kidney injury, the eGFR may not accurately reflect actual GFR. Performed By: #### 2 4323-8, LIPNF #### [facility] CLIA [id number] [address] [place] [address] [place] Glucose [Mass/Vol] 79 mg/dL Normal 74-99 [facility] Comment on above: Order Comment: Speci men Type: BLOOD SPECIMEN Ordering Facility: [facility] Address: [address] [place] [address] Result Comment: The [place] Diabetes Association (ADA) provides guidance for cutoff values for fasting glucose and random glucose. The ADA defines fasting as no caloric intake for at least 8 hours. Fasting plasma glucose results between 100 to 125 mg/dL indicate increased risk for diabetes (prediabetes). Fasting plasma glucose results greater than or equal to 126 mg/dL meet the criteria for diagnosis of diabetes. In the absence of unequivocal hyperglycemia, results should be confirmed by repeat testing. In a patient with classic symptoms of hyperglycemia or hyperglycemic crisis, random plasma glucose results greater than or equal to 200 mg/dL meet the criteria for diagnosis of diabetes. Reference: Standards of Medical Care in Diabetes 2016, [place] Diabetes Association. Diabetes Care. 2016.39(Suppl 1). Performed By: #### 2 4323-8, LIPNF #### [facility] CLIA [id number] [address] [place] [address] [place] Potassium [Moles/Vol] 4.2 mmol/L Normal 3.7-5.1 [facility] Comment on above: Order Comment: Speci men Type: BLOOD SPECIMEN Ordering Facility: [facility] Address: [address] [place] [address] Performed By: #### 2 4323-8, LIPNF #### [facility] CLIA [id number] [address] [place] [address] [place] Protein [Mass/Vol] 7.1 g/dL Normal 6.3-8.0 [facility] Comment on above: Order Comment: Speci men Type: BLOOD SPECIMEN Ordering Facility: [facility] Address: [address] [place] [address] Performed By: #### 2 4323-8, LIPNF #### [facility] CLIA [id number] [address] [place] [address] [place] Sodium [Moles/Vol] 139 mmol/L Normal 136-144 [facility] Comment on above: Order Comment: Adri mcbride Type: BLOOD SPECIMEN Ordering Facility: [facility] Address: [address] [place] [address] Performed By: #### 2 4323-8, LIPNF #### [facility] IA [id number] [address] [place] [address] [place] Urea nitrogen [Mass/Vol] 15 mg/dL Normal 7-21 [facility] Comment on above: Order Comment: Adri mcbride Type: BLOOD SPECIMEN Ordering Facility: [facility] Address: [address] [place] [address] Performed By: #### 2 4323-8, LIPNF #### [facility] IA [id number] [address] [place] [address] [place] HbA1c (Bld)on 05-17-2024 Average glucose Estimated from glycated hemoglobin (Bld) [Mass/Vol] 100 mg/dL Normal [facility] Comment on above: Order Comment: Adri mcbride Type: BLOOD SPECIMEN Ordering Facility: [facility] Address: [address] [place] [address] Result Comment: eAG: (Estimated average glucose) is a calculated value from HgbA1c and is statement services representative of the average blood glucose level in the last 2-3 month period. Performed By: #### 5 5454-3 #### [facility] IA [id number] [address] [place] [address] [place] HbA1c (Bld) [Mass fraction] 5.1 % Normal 4.3-5.6 [facility] Comment on above: Order Comment: Adri mcbride Type: BLOOD SPECIMEN Ordering Facility: [facility] Address: [address] [place] [address] Result Comment: [place] Diabetes Association guidelines indicate that patients with HgbA1c in the range 5.7-6.4% are at increased risk for development of diabetes, and intervention by lifestyle modification may be beneficial. HgbA1c greater or equal to 6.5% is considered diagnostic of diabetes. Performed By: #### 5 5454-3 #### [facility] CLIA [id number] [address] [place] [address] OF [place] LIPID PANEL, NONFASTINGon Cholesterol [Mass/Vol] 163 mg/dL Normal <200 [facility] Comment on above: Order Comment: Speci men Type: BLOOD SPECIMEN Ordering Facility: [facility] Address: [address] [place] [address] Result Comment: <200 mg/dL, Desirable 200-239 mg/dL, Borderline high >239 mg/dL, High Performed By: #### 2 4323-8, LIPNF #### [facility] CLIA [id number] [address] [place] [address] [place] HDL CHOLESTEROL, NF 61 mg/dL Normal >39 [facility] Comment on above: Order Comment: Adri mcbride Type: BLOOD SPECIMEN Ordering Facility: [facility] Address: [address] [place] [address] Result Comment: 40-5 9 mg/dL, Acceptable >59 mg/dL, High: Negative risk factor for coronary heart disease <40 mg/dL, Low: Positive risk factor for coronary heart disease Performed By: #### 2 4323-8, LIPNF #### [facility] CLIA [id number] [address] [place] [address] [place] LDL CHOLESTEROL, NF 91 mg/dL Normal <100 [facility] Comment on above: Order Comment: Adri mcbride Type: BLOOD SPECIMEN Ordering Facility: [facility] Address: [address] [place] [address] Result Comment: <100 mg/dL, Optimal 100-129 mg/dL, Near optimal/above optimal 130-159 mg/dL, Borderline high 160-189 mg/dL, High >189 mg/dL, Very high Secondary prevention optimal LDL Cholesterol levels are recommended to be < 70 mg/dL Performed By: #### 2 4323-8, LIPNF #### [facility] CLIA [id number] [address] [place], [place] [address] [address] [place] LDL/HDL RATIO, NF 1.49 mg/dL Normal <2.54 [facility] Comment on above: Order Comment: Speci men Type: BLOOD SPECIMEN Ordering Facility: [facility] Address: [address] [place] [address] Result Comment: Refe rence: 1. National Cholesterol Education Program ATP III Guideline At-A-Glance Quick Desk Reference: National Heart, Lung, and Blood [place]. National Institutes of Health. 2001: NIH Publication No. 01-3305. 2. An International Atherosclerosis Society position paper: global recommendations for the management of dyslipidemia: executive summary, Atherosclerosis. 2014: 232(2):410-413. Performed By: #### 2 4323-8, LIPNF #### [facility] CLIA [id number] [address] [place] [address] [place] NON HDL CHOL, NF 102 mg/dL Normal <130 [facility] Comment on above: Order Comment: Speci men Type: BLOOD SPECIMEN Ordering Facility: [facility] Address: [address] [place] [address] Result Comment: <130 mg/dL, Optimal 130-159 mg/dL, Near optimal/above optimal 160-189 mg/dL, Borderline high 190-219 mg/dL, High >219 mg/dL, Very high Secondary prevention optimal non HDL Cholesterol levels are recommended to be <100 mg/dL Performed By: #### 2 4323-8, LIPNF #### [facility] CLIA [id number] [address] [place] [address] [place] T CHOL/HDL RATIO NF 2.67 mg/dL Normal <5.10 [facility] Comment on above: Order Comment: Speci men Type: BLOOD SPECIMEN Ordering Facility: [facility] Address: [address] [place] [address] Performed By: #### 2 4323-8, LIPNF #### [facility] CLIA [id number] [address] [place] [address] [place] TRIGLYCERIDES, NF 54 mg/dL Normal <150 [facility] Comment on above: Order Comment: Speci men Type: BLOOD SPECIMEN Ordering Facility: [facility] Address: [address] [place] [address] Result Comment: <150 mg/dL, Normal 150-199 mg/dL, Borderline high 200-499 mg/dL, High >499 mg/dL, Very high Performed By: #### 2 4323-8, LIPNF #### [facility] CLIA [id number] [address] [place] [address] [place] VLDL CHOLESTEROL, NF 11 mg/dL Normal <30 [facility] Comment on above: Order Comment: Speci men Type: BLOOD SPECIMEN Ordering Facility: [facility] Address: [address] [place] [address] Performed By: #### 2 4323-8, LIPNF #### [facility] CLIA [id number] [address] [place] [address] [place] CNOVon 02-23-2024 CNOV Office Visit (OBGYWM ) LAURA CHACON ([id number]) 1965 F Date Time Provider Department 02/23/24 11:20 AM LEXIE VELASCO OBGYWM During your visit today, we recorded the following information about you: Blood pressure Weight Height 120/68 80.7 kg 1.613 m Lexie Velasco MD 02/23/2024 12:41 PM Signed Policyholder Information Clerk offered: Patient declines. Laura is a 58 year old who presents for an annual gynecologic exam without complaints. Daughter graduates college- moving to [place] to work at [employer]. Went to [employer] [place] [facility] [place] Postmenopausal: Yes HRT use: No. Last Pap: 12/21/2018 normal HPV: 12/21/2018 negative History of abnormal pap: No Last mammogram: 2023 normal History of abnormal mammogram: Yes - left breast cancer - mastectomy Sexually active: No too painful History of STDS: None Patient concerns for STD exposure: No. Hot flashes: No Night sweats: No Vaginal dryness: Not anymore (noticed more discharge- not infectious) Exercise: walking Diet: balanced OB History T0 L1 SAB0 IAB0 Ectopic0 Multiple0 Live Births0 Form Stripper History LMP: 11/04/2013, Drug Induced Amenorrhea Age at Menarche: Age at First : Age at Menopause: Form Stripper History Comments: Sexual Activity: Yes; Male Contraception: Tubal Ligation PAST MEDICAL HISTORY Diagnosis Date Abnormal findings on diagnostic imaging of liver and biliary tract 09/13/2019 BRCA negative negative Integrated BRACAnalysis with LookMedBook 25 gene panel Drug-induced neutropenia (HCC) 11/04/2013 ICD-10 Go-Live Eosinophilic esophagitis 11/01/[address] Newell Gastroesophageal reflux disease without esophagitis 05/12/[address] Newell History of COVID-19 01/23/202111/2020 Invasive ductal carcinoma of breast, left (HCC) 03/02/2017 Malignant neoplasm of left female breast (HCC) 02/13/[address] Walton Obesity, Class I, BMI 30-34.9 05/12/2023 Osteopenia, senile 07/05/2021 Per Rheum, on Alendronate, started 06/2021 PONV (postoperative nausea and vomiting) Rheumatoid arthritis involving multiple sites (HCC) 02/13/2015 [facility] in [place]: Sees Dr. Bowie Routine gynecological examination 01/06/2014 Seeing [facility] adult exam 01/06/2014 last done 12/06/2019 PAST SURGICAL HISTORY Procedure Laterality Date ABDOMINAL SURGERY HX BREAST SURGERY HX BX/EXC LYMPH NODE OPEN DEEP AXILLARY NODE 09/29/2013 left DELIVERY ONLY COLONOSCOPY 03/19/2022 repeat in 5 years COLONOSCOPY FLX DX W/COLLJ SPEC WHEN PFRMD 10/29/2016 Colonoscopy FLUORO CENTRAL VENOUS ACCESS DEV PLACEMENT 11/02/2013 right INSJ TUNNELED CTR VAD W/SUBQ PORT AGE 5 YR/> 11/02/2013 right- REMOVED INTRAOP SENTINEL LYMPH NODE ID W/DYE INJECTION 09/29/2013 left LAPS SURG CHOLECYSTECTOMY W/CHOLANGIOGRAPHY 09/13/2019 LIG/TRNSXJ FLP TUBE ABDL/VAG APPR UNI/BI Tubal ligation MAST MODF RAD W/AX LYMPH NOD W/WO PECT/JIMMY MIN 09/29/2013 left PAST SURGICAL HISTORY OF wrist, right PAST SURGICAL HISTORY OF Right 04/01/2018 osteophyte removal and fusion of 2nd digit SALPINGO-OOPHORECTOMY COMPL/PRTL UNI/BI SPX 08/08/2014 Laproscopic BSO-Dr. 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 2000 FAMILY HISTORY Problem Relation Age of Onset Asthma Mother Colon Cancer Father other (Lung Disease) Father Pancreatic Cancer Father Diabetes Sister Colon Cancer Maternal Grandmother Prostate Cancer Maternal Grandfather late 80's Breast Cancer Paternal Grandmother dx 89 Alzheimer's Disease Paternal Grandfather No Known Problems Daughter Breast Cancer Other maternal great aunt dx 55, 65 SOCIAL HISTORY Social History Tobacco Use Smoking status: Never Smokeless tobacco: Never Vaping Use Vaping status: Never Used Substance Use Topics Alcohol use: No Drug use: No REVIEW OF SYSTEMS Abdomen: No abdominal pain, nausea, vomiting, diarrhea, or constipation. No bloating, early satiety, indigestion, or increased flatulence. Bladder: No dysuria, gross hematuria, urinary frequency, urinary urgency, or incontinence Breast: No breast lumps, nipple d/c, overlying skin changes, redness or skin retraction Allergies and current medication updated:Yes SENSITIVE EXAM: The sensitive examination was discussed with the Patient or Patient's Authorized Business Objects. As applicable, any other physician, advance practice provider, medical student, or other health professional student that will be observing or involved in the sensitive examination for educational or training purposes was discussed with the Patient or Authorized Business Objects. The Patient or Authorized Business Objects has agreed to proceed with the sensitive examination. (Sensitive examination includes inspection (more content not included)... Normal [facility] HIGH RISK HUMAN PAPILLOMA JACKIE (HPV), PCR FOR DETECTION AND GENOTYPINGon 02-23-2024 HPV 16 Ag Ql (Unsp spec) Not detected Normal Not detected [facility] Comment on above: Order Comment: Speci men Type: FLUID SPECIMEN Ordering Facility: [facility] Address: [address] [place] [address] Performed By: #### H PVHRT #### [facility] CLIA [id number] [address] [place] [address] [place] HPV 18 Ag Ql (Unsp spec) Not detected Normal Not detected [facility] Comment on above: Order Comment: Speci men Type: FLUID SPECIMEN Ordering Facility: [facility] Address: [address] [place] [address] Performed By: #### H PVHRT #### [facility] CLIA [id number] [address] [place] [address] [place] HPV 31+33+35+39+45+51+52+ 56+58+59+66+68 DNA DAVE+probe Ql (Cvx) Not detected Normal Not detected [facility] Comment on above: Order Comment: Speci men Type: FLUID SPECIMEN Ordering Facility: [facility] Address: [address] [place] [address] Result Comment: High Risk HPV Other Type includes HPV types 31, 33, 35, 39, 45, 51, 52, 56, 58, 59, 66 and 68. Performed By: #### H PVHRT #### [facility] CLIA [id number] [address] [place] [address] [place] PAP TESTon 02-23-2024 ADEQUACY Satisfactory for interpretation. Normal [facility] Comment on above: Order Comment: Speci men Type: FLUID SPECIMEN Ordering Facility: [facility] Address: [address] [place] [address] Performed By: #### L [id number] #### [facility] CLIA [id number] [address] [place] [address] [place] CASE REPORT Normal [facility] Comment on above: Order Comment: Speci men Type: FLUID SPECIMEN Ordering Facility: [facility] Address: [address] [place] [address] Result Comment: Gyne cologic Cytology Report Case: [id number] Authorizing Provider: Lexie Velasco, Collected: 02/23/2024 12:02 PM MD Ordering Location: OB/Gynecology Received: 02/23/2024 04:40 PM First Screen: Gladkaya, Claudia, CT, ASCP Specimen: Pap Test, ThinPrep, Cervix Performed By: #### L [id number] #### [facility] CLIA [id number] [address] [place] [address] [place] CLINICAL HISTORY, CYTOLOGY, GUIDE WINDER Routine Exam Normal [facility] Comment on above: Order Comment: Speci men Type: FLUID SPECIMEN Ordering Facility: [facility] Address: [address] [place] [address] Result Comment: No M enses, Other (Specify) Performed By: #### L [id number] #### [facility] CLIA [id number] [address] [place] [address] [place] FINAL PERFORMING LAB Normal [facility] Comment on above: Order Comment: Speci men Type: FLUID SPECIMEN Ordering Facility: [facility] Address: [address] [place] [address] Result Comment: Tech nical component, welder and fitter screening performed at [facility], [address] [place] [address] CLIA# [id number] Diagnostic interpretation performed at [facility], [address] [place] [address] CLIA# [id number] Highway Technician: Cruz Kemp M.D. Performed By: #### L [id number] #### [facility] CLIA [id number] [address] [place] [address] [place] INTERPRETATION, CYTOLOGY, GUIDE WINDER Normal [facility] Comment on above: Order Comment: Speci men Type: FLUID SPECIMEN Ordering Facility: [facility] Address: [address] [place] [address] Result Comment: Nega tive for intraepithelial lesion or malignancy. Performed By: #### L [id number] #### [facility] CLIA [id number] [address] [place] [address] [place] PAP DISCLAIMER COMMENT The Pap Smear is a screening test for cervical cancer. False negative results occur with all screening tests, emphasizing the need for rescreening at recommended intervals, and clinical correlation. Normal [facility] Comment on above: Order Comment: Specrob mcbride Type: FLUID SPECIMEN Ordering Facility: [facility] Address: [address] [place] [address] Performed By: #### L [id number] #### [facility] CLIA [id number] [address] [place] [address] [place] PAP GYROSCOPE TECHNICIAN COMMENT This specimen has been analyzed by the ThinPrep Imaging System, an automated imaging and review system, which assists the laboratory in evaluating cells on ThinPrep Pap tests. Following automated imaging, selected chapman from every slide are reviewed by a welder and fitter. Normal [facility] Comment on above: Order Comment: Speci men Type: FLUID SPECIMEN Ordering Facility: [facility] Address: [address] [place] [address] Performed By: #### L [id number] #### [facility] CLIA [id number] [address] [place] [address] [place] DBT Breast - bilateral scree mary 09-28-2023 IMPRESSION: BENIGN FINDING There is no mammographic evidence of malignancy. A 1 year screening mammogram is recommended. Unique pedro/carmela:09/28/2023 16:00:43 Railway Track Worker(s): RT Surekha(Joie)(M), [facility] letter sent: Normal over 40 Mammogram BI-RADS: 2 Benign finding Multiple national specialty organizations have released breast cancer screening guidelines for women at average risk for developing breast cancer - guidelines that are based on both evidence and opinion, yet differ on when to start and how often to screen for breast cancer. With representation from Breast Imaging, Internal Medicine, Women's Health, Family Medicine, and Medical/Surgical Oncology, the [facility] has carefully reviewed the data and reached the following consensus: 1) All women should engage in shared decision-making with their providers to decide when to start and how often to screen; 2) All women should have the opportunity to start screening mammography at age 40; 3) For women ages 45-55, we recommend annual screening mammograms; 4) For women ages 55 and over, we support both the transition from an annual to a biennial interval if this aligns more with patient's values and preferences, or continuation with annual screening; 5) All women should discuss with their providers when to stop screening mammograms. Mini Shifter: Carmela Transcribe Date/Time: Sep 28 2023 9:09A Dictated by: UNIQUE KU MD This examination was interpreted and the report reviewed and electronically signed by: UNIQUE KU MD on Sep 28 2023 4:00PM [facility] DIVISION OF RADIOLOGY * * *Final Report* * * DATE OF EXAM: Sep 28 2023 9:51AM [id number] - [facility]ISHA SCREENING W JUAN ANTONIO / PROCEDURE REASON: multiple diagnoses * * * * Physician Interpretation * * * * RESULT: #[id number] - AISHA SCREENING W JUAN ANTONIO UNILATERAL RIGHT DIGITAL SCREENING MAMMOGRAM TOMOSYNTHESIS WITH CAD: 09/28/2023 HISTORY: /Screening Mammogram with JUAN ANTONIO - patient reports NO breast symptoms /priors available for comparison Multiple Diagnoses. RESULT: TECHNIQUE: The study was acquired using full field digital technology and interpreted from soft copy. Digital Breast Tomosynthesis (DBT) images were obtained and used to assist in the interpretation of this examination. Current study was also evaluated with a Computer Aided Detection (CAD). Comparison is made to exams dated: 09/22/2022 mammogram, 09/16/2021 mammogram, 09/12/2020 mammogram, and 09/12/2019 mammogram - [facility]. The right breast is heterogeneously dense, which may obscure small masses. The patient is status post left mastectomy. There is a biopsy clip in the right breast. No significant masses, calcifications, or other findings are seen in the breast. There has been no significant interval change. DIVISION OF RADIOLOGY Provider, Eliseo smith Minburn - 09/28/2023 * * *Final Report* * * DATE OF EXAM: Sep 28 2023 9:51AM WRW [id number] - [facility] [place] SCREENING W JUAN ANTONIO / PROCEDURE REASON: multiple diagnoses * * * * Physician Interpretation * * * * RESULT: #[id number] - [facility] [place] SCREENING W JUAN ANTONIO UNILATERAL RIGHT DIGITAL SCREENING MAMMOGRAM TOMOSYNTHESIS WITH CAD: 09/28/2023 HISTORY: /Screening Mammogram with JUAN ANTONIO - patient reports NO breast symptoms /priors available for comparison Multiple Diagnoses. RESULT: TECHNIQUE: The study was acquired using full field digital technology and interpreted from soft copy. Digital Breast Tomosynthesis (DBT) images were obtained and used to assist in the interpretation of this examination. Current study was also evaluated with a Computer Aided Detection (CAD). Comparison is made to exams dated: 09/22/2022 mammogram, 09/16/2021 mammogram, 09/12/2020 mammogram, and 09/12/2019 mammogram - [facility]. The right breast is heterogeneously dense, which may obscure small masses. The patient is status post left mastectomy. There is a biopsy clip in the right breast. No significant masses, calcifications, or other findings are seen in the breast. There has been no significant interval change. IMPRESSION IMPRESSION: BENIGN FINDING There is no mammographic evidence of malignancy. A 1 year screening mammogram is recommended. Unique Ku M.D. sb/penrad:09/28/2023 16:00:43 Railway Track Worker(s): RT Surekha(Joie)(M), [facility] letter sent: Normal over 40 Mammogram BI-RADS: 2 Benign finding Multiple national specialty organizations have released breast cancer screening guidelines for women at average risk for developing breast cancer - guidelines that are based on both evidence and opinion, yet differ on when to start and how often to screen for breast cancer. With representation from Breast Imaging, Internal Medicine, Women's Health, Family Medicine, and Medical/Surgical Oncology, the [facility] has carefully reviewed the data and reached the following consensus: 1) All women should engage in shared decision-making with their providers to decide when to start and how often to screen; 2) All women should have the opportunity to start screening mammography at age 40; 3) For women ages 45-55, we recommend annual screening mammograms; 4) For women ages 55 and over, we support both the transition from an annual to a biennial interval if this aligns more with patient's values and preferences, or continuation with annual screening; 5) All women should discuss with their providers when to stop screening mammograms. Mini Shifter: Carmela Transcribe Date/Time: Sep 28 2023 9:09A Dictated by: UNIQUE KU MD This examination was interpreted and the report reviewed and electronically signed by: UNIQUE KU MD on Sep 28 2023 4:00PM EST [facility] Radiology Study observation (narrative) [facility] DBT Breast - bilateral scree ningOrdered By: [facility] Provider on 09-28-2023 [facility] Emergency Department Summary on 03-01-2023 Emergency Department Summary [facility] Medical Records Department [address] [place] [address] Emergency Department Summary 03/01/23 MR#: [id number] Acct: [id number] Name: LAURA CHACON Rep #: [id number] : 1965 57 From: Mj Zhang MD PCP: Dr. Nolan Mancuso MD Status:DEP ER Location: ED HPI History of Present Illness Chief Complaint: Lower Extremity Injury Narrative Narrative: Patient presenting today with pain to her left foot due to an injury that occurred yesterday evening. She reports that she was walking to get her mail when she tripped over a tree stump and landed awkwardly on her left foot. She is able to ambulate, but it is painful so she has been using crutches. She denies any other injury. [facility] Medical History Arthritis Cancer Gastric reflux Injury of head and neck Non-smoker Wears glasses Home Medications methotrexate sodium 2.5 mg tablet 20 mg PO SA 09/22/13 [History Last Taken 12/16/14] multivitamin with folic acid 400 mcg tablet (Thera) 1 tab PO DAILY 09/22/13 [History Last Taken 12/21/14] leucovorin calcium 5 mg tablet 5 mg PO RIVERA 12/22/14 [History Last Taken 12/17/14] L.acidoph, paracasei,B. lactis 10 billion cell capsule 1 ea PO DAILY 09/12/19 [History Last Taken Unknown] abatacept 125 mg/mL subcutaneous syringe 125 mg SQ TU 09/12/19 [History Last Taken Unknown] hydroxychloroquine 200 mg tablet 200 mg PO BIDCM 09/12/19 [History Last Taken Unknown] ivermectin 1 % topical cream 30 g TP PRN PRN roscea 09/12/19 [History Last Taken Unknown] omeprazole 40 mg capsule,delayed release 40 mg PO DAILY 09/12/19 [History Last Taken 09/13/19] alendronate 70 mg tablet (Fosamax) 70 mg PO QWEEK 06/02/22 [History Last Taken Unknown] calcium carb,cit 300 mg-D3 200 unit-min no.34-genistein 13.5 mg tablet (Citracal Plus Bone Density Builder) 2 tab PO BID 06/02/22 [History Last Taken Unknown] Allergy/AdvReac Type Severity Reaction Status Date / Time celecoxib [From Celebrex] Allergy Rash Verified 08/25/22 08:54 Family History Mother Asthma Father Colon cancer Lung disease Sister Diabetes Surgical History H/O abdominal surgery H/O breast surgery H/O section H/O right wrist surgery History of foot surgery History of tubal ligation Hx of cholecystectomy Social History Smoking Status: Never smoker ROS ROS ED Constitutional Constitutional ED: Denies chills or fever(s) Cardiovascular Cardiovascular: Denies chest pain Respiratory/Chest Respiratory/Chest: Denies cough or dyspnea Gastrointestinal Gastrointestinal: Denies abdominal pain, nausea or vomiting Musculoskeletal Musculoskeletal: Reports arthralgias; Denies myalgias Integumentary Denies Abrasions Neurologic Neurologic: Denies paresthesias or weakness EXAM Physical Exam Const Vital Signs: 03/01/23 10:12 Temperature 97.6 F L Temperature Source Temporal Pulse Rate 100 Respiratory Rate 16 Blood Pressure 119/75 Blood Pressure Mean 89 Pulse Ox 97 Oxygen Delivery Method Room Air Positive well nourished, well developed and no apparent distress General Appearance ED: well developed HEENT Reports normocephalic and head/scalp atraumatic Mouth ED: Yes moist mucous membranes normal Eyes PERRL and EOMs intact bilaterally Neck full ROM and supple Chest Wall inspection of chest normal Resp normal respiratory effort and clear to auscultation bilaterally Cardio regular rate and regular rhythm GI soft to palpation, non-tender, non-distended and no masses Back/Spine normal ROM and normal to inspection Extremity normal to inspection Extremity Narrative: Pain and slight swelling to the dorsal lateral aspect of the left foot. DP pulse 2+, good capillary refill, sensation intact. Neuro oriented x3, CN's II-XII intact bilaterally, moves all extremities, no focal motor deficits and no sensory deficits noted Sensorium / Orientation: awake and alert Psych mental status grossly normal and thought process normal Skin no rashes or lesions noted and no wounds Physical Exam Const Vital Signs: 03/01/23 10:12 Temperature 97.6 F L Temperature Source Temporal Pulse Rate 100 Respiratory Rate 16 Blood Pressure 119/75 Blood Pressure Mean 89 Pulse Ox 97 Oxygen Delivery Method Room Air MDM MDM MDM Narrative Medical decision making narrative: Patient presenting due to a left foot injury that occurred yesterday when she tripped over a stump landed awkwardly on her left foot. She did not actually fall to the ground, no head injury, she den (more content not included)... Normal [facility] Foot min 3 Viewson 3 Foot min 3 Views [facility] Imaging Services [address] [place] [address] Foot min 3 Views MR#: [id number] Acct: [id number] Name: LAURA CHACON Rep #: [id number] : 1965 F 57 From: Eyal Alonzo MD PCP: Dr. Nolan Mancuso MD Status: REG ER Study: Foot min 3 Views Date of Exam: 03/01/23 Exam# [id number] Ordering Dr: Elysia Roberto [id number] EXAM: XR LEFT FOOT COMPLETE, 3 OR MORE VIEWS CLINICAL INDICATION: injury TECHNIQUE: Frontal, lateral and oblique views of the left foot. COMPARISON: No relevant prior studies available. FINDINGS: BONES/JOINTS: Acute incomplete transverse fracture involving the proximal third of the left fifth metatarsal. Preservation of the joint space. No sclerotic or destructive changes observed. SOFT TISSUES: Unremarkable. No soft tissue swelling or gas. No radiopaque foreign body. RAD/Foot min 3 Views IMPRESSION: Acute incomplete transverse fracture in the proximal third of the left fifth metatarsal bone. Electronically Signed: Eyal Alonzo MD at 11:42 EST Reading Location ID and State: [address] [place] [address] , Service support , CC: Dr. Nolan Mancuso MD; FAHAD Rivera Mini Shifter: Signed Normal [facility] Gastroenterology Visit Repor ton 12-02-2022 Gastroenterology Visit Report [facility] Gastroenterology [address] [place] [address] OFFICE VISIT Date of Service: 12/02/22 MR#: [id number] Acct: [id number] Name: LAURA CHACON Rep #: [id number] : 1965 Provider: Dannie Newell DO Age/Sex: 56/F Location[place] [facility] Status: Signed Intake Vital Signs 08/25/22 08:54 08/25/22 09:15 10/30/22 11:21 Height 5 ft 4 in 5 ft 4 in 5 ft 4 in Intake Visit Reasons: 2 W FU Allergies celecoxib [From Celebrex] Allergy (Verified 08/25/22 08:54) Rash PFSH Medical History (Updated 12/02/22 @ 10:07 by Shaneka Shaver) Arthritis Cancer Gastric reflux Injury of head and neck Non-smoker Wears glasses Surgical History (Updated 10/28/22 @ 15:39 by Candy Hernandez) H/O abdominal surgery H/O breast surgery H/O section H/O right wrist surgery History of foot surgery History of tubal ligation Hx of cholecystectomy Family History Mother Asthma Father Colon cancer Lung disease Sister Diabetes Social History Smoking Status: Never smoker HPI HPI Details: LAURA CHACON, is a 56 F who presents to the office today for Prior workup: ? HIDA [facility] abnormal ? Laparoscopic 09.13.19 cholecystectomy, cholesterolosis and chronic cholecystitis ? Colonoscopy 03.19.22 [facility] internal hemorrhoids. No specimens collected. ? Esophagram 05.22.22 tablet trapped at GEjunction *BGI established 08.25.22 with esophageal burning and sticking food; omeprazole started with resolution of burning sensation, dysphagia mildly improved but continues with fullness ? EGD 10.30.22 mucosal changes concerning for EOE, >20 eosinophils. Contact 11.12.22 with EGD results; increase PPI to BID. Get biochemical. ? Biochemical OSH RAST Class I: egg white, wheat OV 12.02.22 denies dysphagia and reflux; feels a globus sensation that is minor to her. She does eat eggs and wheat on a regular basis. She does take Fosamax as prescribed by her Crystal Arthritis stitchdowns toe former. ROS Const Constitutional: No fatigue ENT ENT: No difficulty swallowing Gastro GI: No abdominal pain, belching, bloating, change in bowel habits, change in stool character, coffee ground emesis, constipation, cramping, diarrhea, heartburn, difficulty swallowing, feeling full early, excessive flatus, incontinent of stools, Vomiting blood/hematemesis, Blood in stool, loose stools, Black,tarry stools, nausea/dyspepsia, pain with swallowing, vomiting or other Musc Musculoskeletal: No joint pain Skin Skin: No yellowing of the eye or itchy eyes Psych Psychiatric: No anxiety and No depression Endo Endocrine: No fatigue Aller/Imm Allergy/Immunologic: No itchy eyes Gideon/Lymp Hematologic/Lymphatic : No easy bleeding or easy bruising Exam Const General: cooperative, healthy appearing and comfortable Orientation: alert, awake and oriented x3 Quality Reporting Tobacco Screening ([facility]) Smoking Status: Never smoker Assessment and Plan Assessment and Plan (1) Eosinophilic esophagitis: Status: Chronic Plan: EGD was consistent with eosinophilic esophagitis???0 presence of esophageal rings, esophageal furrows, a smaller esophagus with small bowel biopsy. Biopsies were consistent with eosinophils greater than 30 per high-powered field. She will be on twice daily PPI therapy for 8 weeks and then decrease down to once a day. We also did some food allergy testing and it shows that she had a sensitivity to wheat and eggs. After 8 weeks of treatment she will. I did reintroduce it followed by eliminating other food and reducing that to see if it caused her any symptoms. (2) Esophageal dysphagia: Status: Inactive Plan: Epigastric burning has resolved since starting omeprazole 40 mg daily. Esophagram showed barium tablet trapped at EG junction. She still has some esophageal dysphagia but better on PPI. Coding Level of Care Code Off vis,est,level 4 Diagnoses Eosinophilic esophagitis K20.0 Esophageal dysphagia R13.19 12/02/22 1022 Date Dannie Friend DO Vikkirenéeisabella Signature: Date (if applicable) CC: Normal [facility] EGD Reporton 10-30-2022 EGD Report [facility] Medical Records Department [address] [place] [address] EGD Report MR#: [id number] Acct: [id number] Name: LAURA CHACON Rep #: [id number] : 1965 56 From: Dannie Newell DO PCP: Dr. Nolan Mancuso MD Status:REG [facility] Patient Name: Laura Chacon Procedure Date: 10/30/2022 11:41 AM Date of : 1965 Age: 56 Procedure: Upper GI endoscopy Indications: Dysphagia, Suspected esophageal reflux Providers: Dannie Newell DO Medicines: Monitored Anesthesia Care Patient Profile: This is a 56 year old female. Refer to note in patient chart for documentation of history and physical. Patient has symptoms of chronic dysphagia and chronic heartburn. Complications: No immediate complications. Procedure: Pre-Anesthesia Assessment: - Prior to the procedure, a History and Physical was performed, and patient medications and allergies were reviewed. The risks and benefits of the procedure and the sedation options and risks were discussed with the patient. All questions were answered and informed consent was obtained. Patient identification and proposed procedure were verified by the physician. Mental Status Examination: normal. Respiratory Examination: clear to auscultation. Prophylactic Antibiotics: The patient does not require prophylactic antibiotics. Prior Anticoagulants: The patient has taken no previous anticoagulant or antiplatelet agents. ASA Grade Assessment: II - A patient with mild systemic disease. After reviewing the risks and benefits, the patient was deemed in satisfactory condition to undergo the procedure. The anesthesia plan was to use monitored anesthesia care (MAC). Immediately prior to administration of medications, the patient was re-assessed for adequacy to receive sedatives. The heart rate, respiratory rate, oxygen saturations, blood pressure, adequacy of pulmonary ventilation, and response to care were monitored throughout the procedure. The physical status of the patient was re-assessed after the procedure. After obtaining informed consent, the endoscope was passed under direct vision. Throughout the procedure, the patient's blood pressure, pulse, and oxygen saturations were monitored continuously. The gastroscope was introduced through the mouth, and advanced to the second part of duodenum. The upper GI endoscopy was accomplished without difficulty. The patient tolerated the procedure well. Scope In: 11:58:07 AM Scope Out: 12:02:09 PM Total Procedure Duration Time 0 hours 4 minutes 2 seconds Findings: Mucosal changes including ringed esophagus, feline appearance, longitudinal furrows, small-caliber esophagus, white plaques, crepe paper esophagus, longitudinal markings, mucosal friability, tight circumferential folds, vertical lines and white specks were found in the entire esophagus. Esophageal findings were graded using the Eosinophilic Esophagitis Endoscopic Reference Score (EoE-EREFS) as: Edema Grade 1 Present (decreased clarity or absence of vascular markings), Rings Grade 2 Moderate (distinct rings that do not occlude passage of diagnostic 8-10 mm endoscope), Exudates Grade 1 Mild (scattered white lesions involving less than 10 percent of the esophageal surface area), Furrows Grade 1 Present (vertical lines with or without visible depth) and Stricture none (no stricture found). Biopsies were obtained from the proximal and distal esophagus with cold forceps for histology of suspected eosinophilic esophagitis. Verification of patient identification for the specimen was done. Estimated blood loss was minimal. The entire examined stomach was normal. The first portion of the duodenum was normal. Impression: - Esophageal mucosal changes consistent with eosinophilic esophagitis. Biopsied. - Normal stomach. - Normal first portion of the duodenum. Recommendation: - Await pathology results. - Repeat upper endoscopy for surveillance. - Continue present medications. Procedure Code(s): --- Professional --- 20368, Esophagogastroduodeno scopy, flexible, transoral; with biopsy, single or multiple CPT copyright 2017 [employer]. All rights reserved. The codes documented in this report are preliminary and upon game author review may be revised to meet current compliance requirements. Dannie Newell DO 10/30/2022 12:07:01 PM This report has been signed electronically. Number of Addenda: 0 Note Initiated On: 10/30/2022 11:41 AM 10/30/22 1207 Date Dannie Newell DO Cosigner Signature: Date (if indicated) CC: Dr. Nolan Mancuso MD; Dannie Newell DO Date Dictated: 10/30/22 1141 Date Transcribed: Mini Shifter: CARLOTTA Signed Normal [facility] Surgery Specimen Level Shane 10-30-2022 Surgery Specimen Level IV Patient Age/Sex Location Account Attending Physician LAURA CHACON 56/F EN [id number] Dannie Newell DO Specimen: [id number] Received: 10/30/22 Status: SHE Freedman Num: [id number] Spec Type: KISHA Jasmine Dr: Dannie Newell DO HEADER OPERATION: EGD with biopsies (MAC) PRE-OP DIAGNOSIS: Dysphagia TISSUE SUBMITTED: Random esophagus -------- MICROSCOPIC DIAGNOSIS Esophagus, random biopsy: Fragments of squamous mucosa with changes consistent with eosinophilic esophagitis. Chronic inflammation. See comment. SJ:payton 11/03/2022 COMMENT Increased number of eosinophils (>20 per high power field) are noted consistent with eosinophilic esophagitis. MICROSCOPIC DESCRIPTION Slides are reviewed. GROSS DESCRIPTION Received in fixative is one container labeled with the patient's name and designated random esophagus. The specimen consists of multiple irregular fragments of light hernandez soft tissue that in aggregate measure 1.0 x 1.0 x 0.1 cm. The specimen is totally submitted in one cassette. / AM:payton 10/31/2022 TC:5 [facility]: [id number] -------- Patient Age/Sex Location Account Attending Physician -------- OSWALDOLAURA LEHMAN 56/F EN [id number] Dannie Reece, DO -------- Signed (signature on file) Dr. Rashaad Barkley MD 11/03/22 1228 -------- Normal [facility] Comment on above: Performed By: #### P SUIV #### [facility] Laboratory [address] [place], [address] AISHA SCREENING W Callum 09-22 [facility] Gastroenterology Visit Repor ton 08-25-2022 Gastroenterology Visit Report [facility] Gastroenterology [address] [place] [address] OFFICE VISIT Date of Service: 08/25/22 MR#: [id number] Acct: [id number] Name: LAURA CHACON Rep #: [id number] : 1965 Provider: SEAN Bales Age/Sex: 56/F Location: [facility] [place] Status: Signed Intake Vital Signs 05/20/22 08:46 05/15/23 08:54 Height 5 ft 4 in 5 ft 4 in Weight: 179 lb BMI 30.7 BP 116/77 Blood Pressure Location Rt brachial Position Sitting Pulse 67 Pulse Oximetry (%) 97 Oxygen Delivery Method room air Intake Visit Reasons: Consult Chief Complaint: dysphagia, epigastric burning Allergies celecoxib [From Celebrex] Allergy (Verified 08/25/22 08:54) Rash Medications methotrexate sodium 2.5 mg tablet 20 mg PO SA 09/22/13 [History Confirmed 08/25/22] multivitamin with folic acid 400 mcg tablet (Thera) 1 tab PO DAILY 09/22/13 [History Confirmed 08/25/22] calcium-vitamin D3-vitamin K 500 mg-1,000 unit-40 mcg chewable tablet (Citracal-D3 Soft Chew) 4 ea PO DAILY 12/22/14 [History Confirmed 08/25/22] leucovorin calcium 5 mg tablet 5 mg PO RIVERA 12/22/14 [History Confirmed 08/25/22] L.acidoph, paracasei,B. lactis 10 billion cell capsule 1 ea PO DAILY 09/12/19 [History Confirmed 08/25/22] abatacept 125 mg/mL subcutaneous syringe 125 mg SQ TU 09/12/19 [History Confirmed 08/25/22] anastrozole 1 mg tablet 1 mg PO DAILY 09/12/19 [History Confirmed 08/25/22] hydroxychloroquine 200 mg tablet 200 mg PO BIDCM 09/12/19 [History Confirmed 08/25/22] ivermectin 1 % topical cream 30 g TP PRN PRN roscea 09/12/19 [History Confirmed 08/25/22] omeprazole 40 mg capsule,delayed release 40 mg PO DAILY 09/12/19 [History Confirmed 08/25/22] alendronate 70 mg tablet (Fosamax) 70 mg PO QWEEK 06/02/22 [History Confirmed 08/25/22] calcium carb,cit 300 mg-D3 200 unit-min no.34-genistein 13.5 mg tablet (Citracal Plus Bone Density Builder) tab PO 06/02/22 [History Confirmed 08/25/22] PFSH Medical History (Updated 08/25/22 @ 09:26 by Ayse Bales INDUSTRY SEGMENT SPECIALIST, INDUSTRY SEGMENT SPECIALIST-C) Arthritis Esophageal dysphagia Surgical History (Reviewed 08/25/22 @ 09:00 by Ayse M Nii INDUSTRY SEGMENT SPECIALIST, INDUSTRY SEGMENT SPECIALIST-C) H/O abdominal surgery H/O breast surgery H/O section H/O right wrist surgery History of tubal ligation Hx of cholecystectomy Family History Mother Asthma Father Colon cancer Lung disease Sister Diabetes Social History Smoking Status: Never smoker HPI HPI Chief Complaint: dysphagia, epigastric burning Details: LAURA CHACON, is a 56 F who presents to the office today to establish with GI for burning sensation in epigastrium, food sticking at distal esophagus. Burning has resolved with omeprazole 40 mg daily. Dysphagia is improved too but still some sensation of fullness in upper esophagus. Esophagram--barium tablet trapped at EG junction. No CP. No sore throat. No nausea, vomiting, early satiety. No bowel complaints. No diarrhea, constipation, melena, hematochezia. Normal colonoscopy 03/2022, repeat 5 yrs. ROS Const Constitutional: No fatigue ENT ENT: No difficulty swallowing Gastro GI: No abdominal pain, belching, bloating, change in bowel habits, change in stool character, coffee ground emesis, constipation, cramping, diarrhea, heartburn, difficulty swallowing, feeling full early, excessive flatus, incontinent of stools, Vomiting blood/hematemesis, Blood in stool, loose stools, Black,tarry stools, nausea/dyspepsia, pain with swallowing, vomiting or other Musc Musculoskeletal: No joint pain Skin Skin: No yellowing of the eye or itchy eyes Psych Psychiatric: No anxiety and No depression Endo Endocrine: No fatigue Aller/Imm Allergy/Immunologic: No itchy eyes Gideon/Lymp Hematologic/Lymphatic : No easy bleeding or easy bruising Exam Const General: cooperative, healthy appearing and comfortable Orientation: alert, awake and oriented x3 Quality Reporting Tobacco Screening ([facility]) Smoking Status: Never smoker Assessment and Plan Assessment and Plan (1) Esophageal dysphagia: Status: Chronic Plan: Epigastric burning has resolved since starting omeprazole 40 mg daily. Esophagram showed barium tablet trapped at EG junction. She still has some esophageal dysphagia but better on PPI. Will get EGD. Coding Level of Care Code Off vis,new,level 2 Diagnoses Esophageal dysphagia R13.19 08/25/2227 Date Ayse JULESC Aldoer Signature: Date (if applicable) CC: Dr. Nolan Mancuso MD Normal [facility] Upper GI w/BA Swallowon 02 Upper GI w/BA Swallow [facility] Imaging Services [address] [place] [address] Upper GI w/BA Swallow MR#: [id number] Acct: [id number] Name: LAURA CHACON Rep #: [id number] : 1965 F 56 From: Jose Raul blankenship MD PCP: Dr. Nolan Mancuso MD Status: REG CLI Study: Upper GI w/BA Swallow Date of Exam: 05/22/22 Exam# [id number] Ordering Dr: Nolan Mancuso MD STUDY: AIR CONTRAST ESOPHAGRAM AND UPPER GI SERIES REASON FOR EXAM: Female, 56 years old. DYSPHAGIA FLUOROSCOPY TIME (if supplied): (1 minute and 9 seconds) minutes/seconds 30 images were obtained. TECHNIQUE: SINGLE CONTRAST AND AIR CONTRAST FLUOROSCOPIC IMAGES. COMPARISON: None. FINDINGS: The cervical esophagus demonstrates normal motility without aspiration. There is no stricture or extrinsic mass effect. No intraluminal polypoid mass is identified. The thoracic esophagus distends well without stricture or mucosal fold thickening. No mucosal ulcerations are identified. There is no extrinsic mass effect. There are no diverticula. No hiatal hernia or gastroesophageal reflux was identified. The patient ingested 12 mm tablet barium. The tablet stopped at the gastroesophageal junction. The stomach distends well without mucosal fold thickening or mucosal ulceration. There is no intraluminal mass. The duodenal bulb is freely distensible without deformity or ulceration. The duodenal sweep is normal in position and caliber. RAD/Upper GI w/BA Swallow IMPRESSION: The patient ingested 12 mm tablet of barium. The tablet is trapped at the gastroesophageal junction. Electronically Signed: Jose Raul Posadas MD at 13:30 EST , CC: Dr. Nolan Mancuso MD Mini Shifter: Signed Normal [facility] COLONOSCOPY SCREENINGon -0 [facility] AISHA SCREENING W TOMOon 09-16 [facility] CR Foot Complete 3+ Views Ri [facility] 07-23-2018 CR Foot Complete 3+ Views Right Patient Name: LAURA CHACON Diagnostic Radiology Exam Date/Time 07/23/2018 13:14:22 EDT Exam CR Foot Complete 3+ Views Right Ordering Physician NOLAN WICK Accession Number [id number] CPT4 Codes 41659 () Reason For Exam PAIN Report RIGHT FOOT CLINICAL INDICATION: Pain Weight-bearing AP, lateral, and oblique plain film views of the right foot were obtained. COMPARISON: 05/21/2018. A single orthopedic screw traversing the proximal interphalangeal joint of the right second toe is again noted. Metallic hardware appears intact. No fracture or dislocation of the right foot is identified. Mild hallux valgus is again noted, unchanged. Osteotomy defect along the lateral margin of the fifth metatarsal head appears unchanged. No abnormal soft tissue swelling or soft tissue gas is identified. IMPRESSION: No acute bony abnormality of the right foot is seen. Postoperative changes as above. Report Dictated on Final Dictating Physician: MD TRAVIS JONATHAN R Signed Date and Time: 07/23/2018 2:24 pm Signed by: MD TRAVIS JONATHAN R Transcribed Date and Time: 07/23/2018 2:25 Normal [facility] CR Foot Complete 3+ Views Ri [facility] 05-24-2018 CR Foot Complete 3+ Views Right Patient Name: LAURA CHACON Diagnostic Radiology Exam Date/Time 05/21/2018 14:29:50 EST Exam CR Foot Complete 3+ Views Right Ordering Physician NOLAN WICK Accession Number [id number] CPT4 Codes 52288 () Reason For Exam toe deformity, acquired right Report Examination: Right foot Clinical Indication: Toe deformity, postop follow-up Comparison: None Findings: Three views of the right foot obtained weightbearing. Joint space narrowing within the midfoot. Gross preservation of the tarsal arch. Minimal hallux valgus of the great toe. Mild first metatarsal phalangeal joint space narrowing with tiny osteophytes. Minimal soft tissue prominence medially possibly a mild bunion. Cannulated distally threaded screw extends from distal to proximal across the proximal interphalangeal joint of the second digit. Good overall alignment. No solid osseous fusion yet along the joint. No evidence of hardware failure. There is medial subluxation of the proximal phalanx at the metatarsal phalangeal joints digits two, three and five. Evidence of partial resection of the head of the fifth metatarsal. Small subchondral cysts along the head. Soft tissue prominence laterally suggests lateral bunion. Impression: 1. Postsurgical changes consistent with hardware fusion of the proximal interphalangeal joint second digit. Good overall alignment. No hardware failure. Incomplete osseous fusion along the joint. 2. Mild hallux valgus. Mild osteoarthropathy. 3. Subluxations metatarsal phalangeal joints digits two, three and five. 4. Postsurgical changes fifth metatarsal head with lateral bunion and subchondral cystic changes at the fifth metatarsal head. Report Dictated on Final Dictating Physician: MD CORREIA ANTHONY J Signed Date and Time: 05/24/2018 7:27 am Signed by: MD CORREIA ANTHONY J Transcribed Date and Time: 05/24/2018 7:28 Normal [facility] Vital Signs Date Time Vital Sign Value Performing Clinician Facility 10-25-2024 11:39-0400 Body height 165.1 cm Genesis Fontenot DO Work Phone: [facility] 10-25-2024 11:39-0400 Body mass index (BMI) [Ratio] 29.95 kg/m2 Genesis Fontenot DO Work Phone: [facility] 10-25-2024 11:39-0400 Body weight 81.65 kg Genesis Fontenot DO Work Phone: [facility] 10-11-2024 15:12-0400 Body height 163.2 cm Iván Sierra MD Work Phone: [facility] 10-11-2024 15:12-0400 Body mass index (BMI) [Ratio] 30.79 kg/m2 Iván Sierra MD Work Phone: [facility] 10-11-2024 15:12-0400 Body temperature 98.1 [degF] Iván Sierra MD Work Phone: [facility] 10-11-2024 15:12-0400 Body weight 82.01 kg Iván Sierra MD Work Phone: [facility] 10-11-2024 15:12-0400 Diastolic blood pressure 71 mm[Hg] Iván Sierra MD Work Phone: [facility] 10-11-2024 15:12-0400 Heart rate 70 /min Iván Sierra MD Work Phone: [facility] 10-11-2024 15:12-0400 SaO2% (BldA) [Mass fraction] 99 % Iván Sierra MD Work Phone: [facility] 10-11-2024 15:12-0400 Systolic blood pressure 109 mm[Hg] Iván Sierra MD Work Phone: [facility] 08-29-2024 10:40-0400 Body height 161.3 cm Genesis Fontenot DO Work Phone: [facility] 08-29-2024 10:40-0400 Body mass index (BMI) [Ratio] 32.61 kg/m2 Genesis Fontenot DO Work Phone: [facility] 08-29-2024 10:40-0400 Body weight 84.82 kg Genesis Fontenot DO Work Phone: [facility] 08-29-2024 10:40-0400 Diastolic blood pressure 64 mm[Hg] Genesis Fontenot DO Work Phone: [facility] 08-29-2024 10:40-0400 Systolic blood pressure 110 mm[Hg] Genesis Gusmanon DO Work Phone: [facility] 05-17-2024 13:03-0500 Body height 161.9 cm Nolan Mancuso MD Work Phone: [facility] 05-17-2024 13:03-0500 Body mass index (BMI) [Ratio] 30.79 kg/m2 Nolan Mancuso MD Work Phone: [facility] 05-17-2024 13:03-0500 Body weight 80.74 kg Nolan Mancuso MD Work Phone: [facility] 05-17-2024 13:03-0500 Diastolic blood pressure 70 mm[Hg] Nolan Mancuso MD Work Phone: [facility] 05-17-2024 13:03-0500 Heart rate 70 /min Nolan Mancuso MD Work Phone: [facility] 05-17-2024 13:03-0500 Respiratory rate 16 /min Nolan Mancuso MD Work Phone: [facility] 05-17-2024 13:03-0500 Systolic blood pressure 118 mm[Hg] Nolan Mancuso MD Work Phone: [facility] 02-23-2024 11:15-0500 Body height 161.3 cm Lexie Velásquez MD Work Phone: [facility] 02-23-2024 11:15-0500 Body mass index (BMI) [Ratio] 31.04 kg/m2 Lexie Velásquez MD Work Phone: [facility] 02-23-2024 11:15-0500 Body weight 80.74 kg Lexie Velásquez MD Work Phone: [facility] 02-23-2024 11:15-0500 Diastolic blood pressure 68 mm[Hg] Lexie Velásquez MD Work Phone: [facility] 02-23-2024 11:15-0500 Systolic blood pressure 120 mm[Hg] Lexie Velásquez MD Work Phone: [facility] 10-06-2023 09:01-0400 Body mass index (BMI) [Ratio] 33.2 kg/m2 Caroline Jama STORAGE BATTERY INSPECTOR.STRATEGIC PLANNING ANALYST Work Phone: [facility] 10-06-2023 09:01-0400 Body temperature 97.9 [degF] Caroline Jama STORAGE BATTERY INSPECTOR.STRATEGIC PLANNING ANALYST Work Phone: [facility] 10-06-2023 09:01-0400 Body weight 87.05 kg Caroline Jama STORAGE BATTERY INSPECTOR.STRATEGIC PLANNING ANALYST Work Phone: [facility] 10-06-2023 09:01-0400 Diastolic blood pressure 70 mm[Hg] Caroline Jama STORAGE BATTERY INSPECTOR.STRATEGIC PLANNING ANALYST Work Phone: [facility] 10-06-2023 09:01-0400 Heart rate 64 /min Caroline Jama STORAGE BATTERY INSPECTOR.STRATEGIC PLANNING ANALYST Work Phone: [facility] 10-06-2023 09:01-0400 SaO2% (BldA) [Mass fraction] 100 % Caroline Jama STORAGE BATTERY INSPECTOR.STRATEGIC PLANNING ANALYST Work Phone: [facility] 10-06-2023 09:01-0400 Systolic blood pressure 120 mm[Hg] Caroline Jama STORAGE BATTERY INSPECTOR.STRATEGIC PLANNING ANALYST Work Phone: [facility] 03-18-2023 10:07-0500 Body height 160 cm Leti Banks STORAGE BATTERY INSPECTOR.STRATEGIC PLANNING ANALYST Work Phone: [facility] 03-18-2023 10:07-0500 Body weight 86.36 kg Leti Banks STORAGE BATTERY INSPECTOR.STRATEGIC PLANNING ANALYST Work Phone: [facility] 03-18-2023 10:07-0500 Diastolic blood pressure 62 mm[Hg] Leti Banks STORAGE BATTERY INSPECTOR.STRATEGIC PLANNING ANALYST Work Phone: [facility] 03-18-2023 10:07-0500 Heart rate 80 /min Leti Banks STORAGE BATTERY INSPECTOR.STRATEGIC PLANNING ANALYST Work Phone: [facility] 03-18-2023 10:07-0500 Respiratory rate 14 /min Leti Banks STORAGE BATTERY INSPECTOR.STRATEGIC PLANNING ANALYST Work Phone: [facility] 03-18-2023 10:07-0500 Systolic blood pressure 110 mm[Hg] Leti Banks STORAGE BATTERY INSPECTOR.STRATEGIC PLANNING ANALYST Work Phone: [facility] 03-01-2023 10:12-0500 Body height 162.[address] Nolan Mancuso Work Phone: [facility] 03-01-2023 10:12-0500 Body mass index (BMI) [Ratio] 31.4 kg/m2 Dr. Nolan Mancuso Work Phone: [facility] 03-01-2023 10:12-0500 Body temperature 97.6 [degF] Dr. Nolan Mancuso Work Phone: [facility] 03-01-2023 10:12-0500 Body weight 82.[address] Nolan Mancuso Work Phone: [facility] 03-01-2023 10:12-0500 Diastolic blood pressure 75 mm[Hg] Dr. Nolan Mancuso Work Phone: [facility] 03-01-2023 10:12-0500 Heart rate 100 /min Dr. Nolan Mancuso Work Phone: [facility] 03-01-2023 10:12-0500 Respiratory rate 16 /min Dr. Nolan Mancuso Work Phone: [facility] 03-01-2023 10:12-0500 SaO2% (BldA) [Mass fraction] 97 % Dr. Nolan Mancuso Work Phone: [facility] 03-01-2023 10:12-0500 Systolic blood pressure 119 mm[Hg] Dr. Nolan Mancuso Work Phone: [facility] 03-01-2023 09:35-0500 Body temperature 97.59 [degF] [facility] STORAGE BATTERY INSPECTOR.STRATEGIC PLANNING ANALYST Work Phone: [facility] 03-01-2023 09:35-0500 Body weight 82.[address] [facility] STORAGE BATTERY INSPECTOR.STRATEGIC PLANNING ANALYST Work Phone: [facility] 03-01-2023 09:35-0500 Diastolic blood pressure 76 mm[Hg] [facility] STORAGE BATTERY INSPECTOR.STRATEGIC PLANNING ANALYST Work Phone: [facility] 03-01-2023 09:35-0500 Heart rate 106 /min [facility] STORAGE BATTERY INSPECTOR.STRATEGIC PLANNING ANALYST Work Phone: [facility] 03-01-2023 09:35-0500 Respiratory rate 16 /min [facility] STORAGE BATTERY INSPECTOR.STRATEGIC PLANNING ANALYST Work Phone: [facility] 03-01-2023 09:35-0500 SaO2% (BldA) [Mass fraction] 98 % [facility] STORAGE BATTERY INSPECTOR.STRATEGIC PLANNING ANALYST Work Phone: [facility] 03-01-2023 09:35-0500 Systolic blood pressure 132 mm[Hg] [facility] STORAGE BATTERY INSPECTOR.STRATEGIC PLANNING ANALYST Work Phone: [facility] 02-20-2023 09:23-0500 Body height 161.9 cm Yovana Quintanilla MD Work Phone: [facility] 02-20-2023 09:23-0500 Body weight 83.01 kg Yovana Quintanilla MD Work Phone: [facility] 10-30-2022 12:25-0400 Body temperature 98 [degF] Dr. Nolan Mancuso Work Phone: [facility] 10-30-2022 12:25-0400 Diastolic blood pressure 68 mm[Hg] Dr. Nolan Mancuso Work Phone: [facility] 10-30-2022 12:25-0400 Heart rate 64 /min Dr. Nolan Mancuso Work Phone: 4(307)641-010968 [place] [address] 10-30-2022 12:25-0400 Respiratory rate 16 /min Dr. Nolan Mancuso Work Phone: 1(458)536-67[address] [place] [address] 10-30-2022 12:25-0400 SaO2% (BldA) [Mass fraction] 100 % Dr. Nolan Mancuso Work Phone: 6(503)070-708968 [place] [address] 10-30-2022 12:25-0400 Systolic blood pressure 113 mm[Hg] Dr. Nolan Mancuso Work Phone: 1(175)300-226868 [place] [address] 10-30-2022 12:10-0400 Inhaled oxygen flow rate 4 L/min Dr. Nolan Mancuso Work Phone: 5(079)331-016968 [place] [address] 10-30-2022 11:21-0400 Body height 162.[address] Nolan Mancuso Work Phone: 7(866)475-095268 [place] [address] 10-30-2022 11:21-0400 Body mass index (BMI) [Ratio] 31 kg/m2 Dr. Nolan Mancuso Work Phone: 4(786)567-797668 [place] [address] 10-30-2022 11:21-0400 Body weight 82.[address] Nolan Mancuso Work Phone: 6(435)108-447968 [place] [address] 08-25-2022 08:54-0400 Body mass index (BMI) [Ratio] 30.7 kg/m2 Dr. Nolan Mancuso Work Phone: 0(095)151-893568 [place] [address] 08-25-2022 08:54-0400 Body weight 81.[address] Nolan Mancuso Work Phone: 8(426)225-257568 [place] [address] 08-25-2022 08:54-0400 Diastolic blood pressure 77 mm[Hg] Dr. Nolan Mancuso Work Phone: 2(238)312-036968 [place] [address] 08-25-2022 08:54-0400 Heart rate 67 /min Dr. Nolan Mancuso Work Phone: 9(587)403-919668 [place] [address] 08-25-2022 08:54-0400 SaO2% (BldA) [Mass fraction] 97 % Dr. Nolan Mancuso Work Phone: [facility] 08-25-2022 08:54-0400 Systolic blood pressure 116 mm[Hg] Dr. Nolan Mancuso Work Phone: [facility] 06-30-2022 09:38-0400 Body weight 80.29 kg Nolan Mancuso MD Work Phone: [facility] 06-30-2022 09:38-0400 Diastolic blood pressure 78 mm[Hg] Nolan Mancuso MD Work Phone: [facility] 06-30-2022 09:38-0400 Heart rate 76 /min Nolan Mancuso MD Work Phone: [facility] 06-30-2022 09:38-0400 Respiratory rate 14 /min Nolan Mancuso MD Work Phone: [facility] 06-30-2022 09:38-0400 Systolic blood pressure 116 mm[Hg] Nolan Mancuso MD Work Phone: [facility] 05-20-2022 08:46-0500 Body height 162.56 cm [facility] 05-19-2022 15:28-0500 Body temperature 98.4 [degF] Nolan Mancuso MD Work Phone: [facility] 05-19-2022 15:28-0500 Body weight 83.01 kg Nolan Mancuso MD Work Phone: [facility] 05-19-2022 15:28-0500 Diastolic blood pressure 70 mm[Hg] Nolan Mancuso MD Work Phone: [facility] 05-19-2022 15:28-0500 Heart rate 80 /min Nolan Mancuso MD Work Phone: [facility] 05-19-2022 15:28-0500 Respiratory rate 16 /min Nolan Mancuso MD Work Phone: [facility] 05-19-2022 15:28-0500 Systolic blood pressure 112 mm[Hg] Nolan Mancuso MD Work Phone: [facility] 03-19-2022 09:45-0500 Diastolic blood pressure 68 mm[Hg] Sharon Contreras MD Work Phone: [facility] 03-19-2022 09:45-0500 Heart rate 73 /min Sharon Contreras MD Work Phone: [facility] 03-19-2022 09:45-0500 Respiratory rate 16 /min Sharon Contreras MD Work Phone: [facility] 03-19-2022 09:45-0500 SaO2% (BldA) [Mass fraction] 98 % Sharon Contreras MD Work Phone: [facility] 03-19-2022 09:45-0500 Systolic blood pressure 100 mm[Hg] Sharon Contreras MD Work Phone: [facility] 03-19-2022 08:41-0500 Body temperature 97.9 [degF] Sharon Contreras MD Work Phone: [facility] 02-17-2022 15:16-0500 Body height 161.9 cm Nolan Mancuso MD Work Phone: [facility] 02-17-2022 15:16-0500 Body weight 80.29 kg Nolan Mancuso MD Work Phone: [facility] 02-17-2022 15:16-0500 Diastolic blood pressure 70 mm[Hg] Nolan Mancuso MD Work Phone: [facility] 02-17-2022 15:16-0500 Heart rate 76 /min Nolan Mancuso MD Work Phone: [facility] 02-17-2022 15:16-0500 Respiratory rate 16 /min Nolan Mancuso MD Work Phone: [facility] 02-17-2022 15:16-0500 Systolic blood pressure 118 mm[Hg] Nolan Mancuso MD Work Phone: [facility] 02-03-2022 08:35-0400 Body height 160 cm Lexie Velásquez MD Work Phone: [facility] 02-03-2022 08:35-0400 Body weight 79.83 kg Lexie Velásquez MD Work Phone: [facility] 02-03-2022 08:35-0400 Diastolic blood pressure 62 mm[Hg] Lexie Velásquez MD Work Phone: [facility] 02-03-2022 08:35-0400 Systolic blood pressure 104 mm[Hg] Lexie Velásquez MD Work Phone: [facility] 01-28-2022 08:27-0400 Body height 161 cm Caroline Jama STORAGE BATTERY INSPECTOR.STRATEGIC PLANNING ANALYST Work Phone: [facility] 01-28-2022 08:27-0400 Body temperature 98.29 [degF] Caroline Jama STORAGE BATTERY INSPECTOR.STRATEGIC PLANNING ANALYST Work Phone: [facility] 01-28-2022 08:27-0400 Body weight 80.74 kg Caroline Jama STORAGE BATTERY INSPECTOR.STRATEGIC PLANNING ANALYST Work Phone: [facility] 01-28-2022 08:27-0400 Diastolic blood pressure 68 mm[Hg] Caroline Jama STORAGE BATTERY INSPECTOR.STRATEGIC PLANNING ANALYST Work Phone: [facility] 01-28-2022 08:27-0400 Heart rate 71 /min Caroline Jama STORAGE BATTERY INSPECTOR.STRATEGIC PLANNING ANALYST Work Phone: [facility] 01-28-2022 08:27-0400 SaO2% (BldA) [Mass fraction] 97 % Caroline Jama STORAGE BATTERY INSPECTOR.STRATEGIC PLANNING ANALYST Work Phone: [facility] 01-28-2022 08:27-0400 Systolic blood pressure 111 mm[Hg] Caroline Jama STORAGE BATTERY INSPECTOR.STRATEGIC PLANNING ANALYST Work Phone: [facility] Encounters Encounter Date Encounter Type Care Provider Facility Start: 02-17-2025 End: 02-17-2025 ambulatory NOLAN MANCUSO Facility:[facility] Start: 10-30-2024 End: 12-30-2024 Follow-up encounter Genesis Fontenot DO Work Phone: [facility] Comment on above: Right screening mamm ogram with tomosynthesis Start: 10-26-2024 End: 12-26-2024 Follow-up encounter Raisa Bo DO Work Phone: [facility] Comment on above: Vitamin D Deficiency Screening (Vit D 25) Start: 10-25-2024 End: 10-25-2024 Subsequent hospital visit by physician Genesis Fontenot DO Work Phone: [facility] Comment on above: History of breast ca ncer; Encounter for screening mammogram for breast cancer Start: 10-25-2024 End: 10-25-2024 [facility] Start: 10-20-2024 End: 10-20-2024 Telephone encounter Iván Sierra MD Work Phone: [facility] Comment on above: Other (Insurance ) Start: 10-17-2024 End: 10-17-2024 Telephone encounter Iván Sierra MD Work Phone: [facility] Comment on above: Other (Insurance iss ue/) Start: 10-11-2024 End: 10-11-2024 Office outpatient new 45 minutes Iván Sierra MD Work Phone: [facility] Comment on above: Eosinophilic esophag itis (Primary Dx); Vitamin D deficiency; Class 1 obesity due to excess calories without serious comorbidity with body mass index (BMI) of 30.0 to 30.9 in adult; Osteopenia after menopause; Rheumatoid arthritis involving multiple sites with positive rheumatoid factor (CMS/HCC) (HCC); History of left breast cancer Start: 10-11-2024 End: 10-11-2024 [facility] Start: 10-05-2024 End: 10-05-2024 Refill Virginie Pathak PA-C Work Phone: [facility] Medicine [place] Comment on above: Refill Request Start: 08-31-2024 End: 08-31-2024 Telephone encounter Iván Sierra MD Work Phone: [facility] Primary Care [facility] Comment on above: New Patient Start: 08-29-2024 End: 08-29-2024 ambulatory GENESIS FONTENOT [facility] Start: 08-29-2024 End: 08-29-2024 Office outpatient new 30 minutes Genesis Fontenot DO Work Phone: [facility] Obstetrics and Gynecology [facility] Comment on above: History of breast ca ncer (Primary Dx); Encounter for screening mammogram for breast cancer; Encounter to establish care; Vaginal dryness Start: 05-18-2024 End: 05-19-2024 Refill Nolan Mancuso MD Work Phone: [facility] [place] Comment on above: Refill Request Results Start: 05-17-2024 Encounter for genera l adult medical examination without abnormal findings NOLAN MANCUSO [facility] Start: 05-17-2024 End: 05-17-2024 ambulatory NOLAN MANCUSO Facility:[facility] Start: 05-17-2024 End: 05-17-2024 Patient encounter procedure Nolan Mancuso MD Work Phone: [facility] [place] Comment on above: Well adult exam ([facility] chidi Dx); Rheumatoid arthritis involving multiple sites, unspecified whether rheumatoid factor present (HCC); Drug-induced neutropenia (HCC); Invasive ductal carcinoma of breast, left (HCC); Malignant neoplasm of left breast in female, estrogen receptor positive, unspecified site of breast (HCC); Obesity, Class I, BMI 30-34.9; Eosinophilic esophagitis; Screening for depression; Encounter for screening examination for other mental health and behavioral disorders; Screening for diabetes mellitus (DM); Encounter for lipid screening for cardiovascular disease; Medication management; Nasal sore Start: 05-17-2024 End: 05-17-2024 Patient encounter status Nolan Mancuso MD Work Phone: [facility] Work Phone: Start: 02-23-2024 End: 02-23-2024 ambulatory LEXIE VELÁSQUEZ Facility:[facility] Start: 02-23-2024 End: 02-23-2024 Patient encounter procedure Lexie Velásquez MD Work Phone: OB/Gynecology Comment on above: Encounter for gyneco logical examination (general) (routine) without abnormal findings (Primary Dx); Encounter for screening for human papillomavirus (HPV); Pap smear for cervical cancer screening; Encounter for screening mammogram for breast cancer Start: 02-23-2024 End: 02-23-2024 Patient encounter status Lexie Velásquez MD Work Phone: [facility] Start: 01-23-2024 End: 01-23-2024 ambulatory Immunization Clinic Nurse [place] Work Phone: [facility] Start: 01-23-2024 End: 01-23-2024 Patient encounter procedure Immunization Clinic Nurse [place] Work Phone: [facility] Start: 01-12-2024 End: 01-12-2024 Refill Nolan Mancuso MD Work Phone: [facility] Comment on above: Refill Request Start: 10-06-2023 End: 10-06-2023 ambulatory Caroline Jama STORAGE BATTERY INSPECTOR.STRATEGIC PLANNING ANALYST Work Phone: Hematology/Oncology Comment on above: Personal history of breast cancer (Primary Dx); Encounter for screening mammogram for high-risk patient Start: 10-06-2023 End: 10-06-2023 Patient encounter procedure Caroline Jama STORAGE BATTERY INSPECTOR.STRATEGIC PLANNING ANALYST Work Phone: Hematology/Oncology Start: 09-28-2023 Documentation procedure Mammog shashi Coordinator [facility] Department Start: 09-28-2023 Letter encounter Mammography Coordinator [facility] Department Start: 09-28-2023 End: 09-28-2023 Subsequent hospital visit by physician [facility] Mammogram Comment on above: Malignant neoplasm o f left breast in female, estrogen receptor positive, unspecified site of breast (HCC) [C50.912, Z17.0] Start: 09-09-2023 Refill Nolan krause MD Work Phone: [facility] Comment on above: Refill Request Start: 05-12-2023 Patient encounter status Nolan Mancuso MD Work Phone: [facility] Start: 04-10-2023 Chart abstracting Nolan carroll MD Work Phone: [facility] Comment on above: Outside Rheumatology Start: 03-25-2023 ambulatory Nolan Bal Facility :[facility] Start: 03-18-2023 End: 03-18-2023 Patient encounter procedure Leti Banks STORAGE BATTERY INSPECTOR.STRATEGIC PLANNING ANALYST Work Phone: [facility] Comment on above: Preoperative clearan ce (Primary Dx) Start: 03-18-2023 End: 03-18-2023 Preoperative state Leti Banks STORAGE BATTERY INSPECTOR.STRATEGIC PLANNING ANALYST Work Phone: [facility] Work Phone: Start: 03-02-2023 Chart abstracting Nolan carroll MD Work Phone: [facility] Comment on above: ext document (XR, ER report) Start: 03-01-2023 End: 03-01-2023 Emergency department patient visit Nolan Mancuso Facility:[facility] Start: 03-01-2023 End: 03-01-2023 Emergency department patient visit Dr. Nolan Mancuso Work Phone: [facility]-Emergency Department Work Phone: Start: 03-01-2023 End: 03-01-2023 Office outpatient visit 15 minutes Nolan Martin APRN.STRATEGIC PLANNING ANALYST Work Phone: [place] Comment on above: Foot pain, left (Dorina chidi Dx) Start: 02-20-2023 End: 02-20-2023 Patient encounter procedure Yovana Quintanilla MD Work Phone: OB/Gynecology Comment on above: Encounter for gyneco logical examination (general) (routine) without abnormal findings (Primary Dx); HX: breast cancer Start: 02-20-2023 End: 02-20-2023 Patient encounter status Yovana Quintanilla MD Work Phone: [facility] Start: 01-30-2023 End: 01-30-2023 ambulatory Immunization Clinic Nurse [place] Work Phone: [facility] Start: 12-02-2022 End: 12-02-2022 ambulatory Nolan Mancuso Facility:[facility] Start: 12-02-2022 End: 12-02-[address] Nolan Mancuso Work Phone: [facility] Work Phone: Start: 10-30-2022 End: 10-30-2022 ambulatory Nolan Mancuso Facility:[facility] Start: 10-30-2022 Non-patient / Non-visit Dr. Lance Mancuso Work Phone: [facility] Start: 10-30-2022 End: 10-30-2022 Admission to same day surgery center Dr. Nolan Mancuso Work Phone: [facility]-Endoscopy Work Phone: Start: 10-30-2022 End: 10-30-[address] Nolan Mancuso Work Phone: [facility] Work Phone: Start: 09-23-2022 Documentation procedure Mammog shashi Coordinator [facility] Start: 09-23-2022 Letter encounter Mammography Coordinator [facility] Department Start: 09-22-2022 End: 09-22-2022 Subsequent hospital visit by physician [facility] Mammogram Comment on above: Malignant neoplasm o f left breast in female, estrogen receptor positive, unspecified site of breast (HCC) [C50.912, Z17.0] Start: 08-25-2022 End: 08-25-2022 ambulatory Nolan Mancuso Facility:[facility] Start: 08-25-2022 End: 08-25-[address] Nolan Mancuso Work Phone: [facility] Work Phone: Start: 08-13-2022 Telephone encounter Nolan Mancuso MD Work Phone: [facility] Comment on above: Insurance Authorizat ion (Omeprazole ) Start: 07-15-2022 End: 07-15-2022 Nursing evaluation of patient and report Mi Nurse Work Phone: [facility] Comment on above: Need for vaccination (Primary Dx) Start: 07-03-2022 Chart abstracting Nolan carroll MD Work Phone: [facility] Comment on above: Consult (Rheumatolog y ) Start: 06-30-2022 End: 06-30-2022 Patient encounter procedure [facility]ancuso MD [facility] Comment on above: GERD without esophag itis (Primary Dx); Esophageal abnormality; Epigastric pain Start: 05-22-2022 End: 05-22-2022 ambulatory Nolan Mancuso [facility] Work Phone: Start: 05-22-2022 End: 05-22-2022 Patient encounter procedure [facility], [facility] Start: 05-21-2022 Telephone encounter Nolan Mancuso MD Work Phone: [facility] Comment on above: Results Start: 05-19-2022 End: 05-19-2022 Patient encounter procedure Nolan Mancuso MD Work Phone: [facility] Comment on above: Epigastric pain (Dorina chidi Dx); Esophageal dysphagia Start: 05-14-2022 End: 05-14-2022 Nursing evaluation of patient and report Mi Nurse Work Phone: [facility] Comment on above: Need for vaccination (Primary Dx) Start: 03-19-2022 End: 03-19-2022 Subsequent hospital visit by physician Sharon Contreras MD Work Phone: Ambulatory Surgery Comment on above: Special screening fo r malignant neoplasms, colon [Z12.11] Start: 03-10-2022 Telephone encounter Nolan Mancuso MD Work Phone: [facility] Comment on above: Orders Start: 02-17-2022 End: 02-17-2022 Patient encounter procedure Nolan Mancuso MD Work Phone: [facility] Comment on above: Well adult exam (Dorina chidi Dx); Rheumatoid arthritis involving multiple sites, unspecified whether rheumatoid factor present (HCC); Malignant neoplasm of left breast in female, estrogen receptor positive, unspecified site of breast (HCC); Invasive ductal carcinoma of breast, left (HCC); Drug-induced neutropenia (HCC); Need for vaccination; Screening for diabetes mellitus (DM); Medication management; Encounter for lipid screening for cardiovascular disease Start: 02-17-2022 End: 02-17-2022 Patient encounter status Nolan Mancuso MD Work Phone: Family Medicine [place] Start: 02-05-2022 ambulatory Lexie Velásquez MD Work Phone: OB/Gynecology Comment on above: Colonoscopy Scheduli ng Start: 02-03-2022 End: 02-03-2022 Patient encounter procedure Lexie Velásquez MD Work Phone: OB/Gynecology Comment on above: Encounter for gyneco logical examination (general) (routine) without abnormal findings (Primary Dx); Encounter for screening mammogram for malignant neoplasm of breast Start: 02-03-2022 End: 02-03-2022 Patient encounter status Lexie Velásquez MD Work Phone: OB/Gynecology Start: 01-28-2022 End: 01-28-2022 ambulatory Caroline Jama APRN.STRATEGIC PLANNING ANALYST Work Phone: Hematology/Oncology Comment on above: Malignant neoplasm o f left breast in female, estrogen receptor positive, unspecified site of breast (HCC) (Primary Dx); Encounter for screening mammogram for high-risk patient; Need for influenza vaccination Start: 01-28-2022 End: 01-28-2022 Patient encounter procedure Caroline Jama APRN.STRATEGIC PLANNING ANALYST Work Phone: [facility] Start: 01-21-2022 ambulatory Caroline nguyen STORAGE BATTERY INSPECTOR.STRATEGIC PLANNING ANALYST Work Phone: Hematology/Oncology Comment on above: Flu shot Start: 09-16-2021 Documentation procedure Mammog shashi Coordinator [facility] Start: 09-16-2021 Letter encounter Mammography Coordinator [facility] Department Start: 09-16-2021 Telephone encounter [place] Carp enter STORAGE BATTERY INSPECTOR.STRATEGIC PLANNING ANALYST Work Phone: Hematology/Oncology Comment on above: Results Start: 09-16-2021 End: 09-16-2021 Subsequent hospital visit by physician [facility] Mammogram Comment on above: Malignant neoplasm o f left breast in female, estrogen receptor positive, unspecified site of breast (HCC) [C50.912, Z17.0] Start: 09-14-2021 ambulatory Nolan krause MD Work Phone: [facility] Comment on above: Vaccination Question Start: 08-15-2021 Telephone encounter Caroline cortes STORAGE BATTERY INSPECTOR.STRATEGIC PLANNING ANALYST Work Phone: Hematology/Oncology Comment on above: Insurance Authorizat ion Start: 07-18-2021 End: 07-18-2021 ambulatory Caroline Jama STORAGE BATTERY INSPECTOR.STRATEGIC PLANNING ANALYST Work Phone: Hematology/Oncology Comment on above: Malignant neoplasm o f left breast in female, estrogen receptor positive, unspecified site of breast (HCC) (Primary Dx); Encounter for screening mammogram for high-risk patient Start: 07-18-2021 End: 07-18-2021 Patient encounter procedure Caroline Jama STORAGE BATTERY INSPECTOR.STRATEGIC PLANNING ANALYST Work Phone: [facility] Start: 07-05-2021 ambulatory Nolan krause MD Work Phone: [facility] Start: 01-23-2021 Patient encounter status Nolan Mancuso MD Work Phone: [facility] Work Phone: Start: 09-06-2019 Patient encounter status Nolan Mancuso MD Work Phone: [facility] Work Phone: Start: 05-21-2018 Patient encounter procedure Nolan Wick [facility] Start: 08-28-2010 End: 07-22-2011 Patient encounter status Nolan Mancuso MD Work Phone: [facility] Work Phone: Procedures Date Procedure Procedure Detail Performing Clinician Start: 10-25-2024 Mammography Raisa Bo DO Work Phone: Start: 10-08-2024 Adult depression screening assessment Iván Sierra MD Work Phone: Start: 05-17-2024 Adult depression screening assessment Nolan Mancsuo MD Work Phone: Start: 05-17-2024 Lipid 1996 panel - Serum or Plasma Francisco Mancuso MD Work Phone: Start: 02-23-2024 Microscopic observation [Identifier] in Cervix by Cyto stain Genesis Fontenot DO Work Phone: Start: 09-28-2023 End: 09-28-2023 Screening digital breast tomosynthesis bi Caroilne Jama APRN.STRATEGIC PLANNING ANALYST Work Phone: Start: 05-12-2023 Lipid 1996 panel - Serum or Plasma Francisco Mancuso MD Work Phone: Start: 03-01-2023 X-ray of both feet Dr. Nolan Mancuso Work Phone: Start: 01-30-2023 INFLUENZA VACCINE, AGE 6 MO - 64 YR, QUADRIVALENT (AFLURIA, FLULAVAL, FLUZONE) Carlos Jean-Baptiste DO Work Phone: Start: 10-30-[address] Nolan luevano Work Phone: Start: 09-22-2022 End: 09-22-2022 Mammography Caroline Jama APRN.STRATEGIC PLANNING ANALYST Work Phone: Start: 05-22-2022 Barium swallow Start: 03-19-2022 Colonoscopy flx dx w/collj spec when pfrmd Lexie Megan Velásquez MD Work Phone: Start: 03-19-2022 Colonoscopy Mi Nurse Work Phone: Start: 02-17-2022 Lipid 1996 panel - Serum or Plasma Immun ization [place] Work Phone: Start: 09-16-2021 AISHA SCREENING W JUAN ANTONIO Caroline Jama APRN.STRATEGIC PLANNING ANALYST Work Phone: Start: 09-16-2021 Mammography Nolan Mancuso MD Work Phone: Start: 07-15-2021 Adult depression screening assessment Caroline Jama STRATEGIC PLANNING ANALYST Work Phone: Start: 01-16-2021 Adult depression screening assessment Nolan Mancuso MD Work Phone: Start: 09-12-2020 Mammography Nolan Mancuso MD Work Phone: Start: 10-29-2016 Colonoscopy Nolan Mancuso MD Work Phone: Plan of Treatment Date Care Activity Detail Author Start: 2040 RSV Immunization for Adults (1 - 1-dose 75+ series) RSV Immunization for Adults (1 - 1-dose 75+ series) [facility] Start: 02-18-2032 DTaP/Tdap/Td Vaccine s (3 - Td or Tdap) DTaP/Tdap/Td Vaccines (3 - Td or Tdap) [facility] Start: 02-18-2032 Urine microalbumin profile [facility] Start: 2030 PNEUMOCOCCAL (4 - PPSV23 if available, else PCV20) PNEUMOCOCCAL (4 - PPSV23 if available, else PCV20) [facility] Start: 2030 PNEUMOCOCCAL (4 - PPSV23 or PCV20) PNEUMOCOCCAL (4 - PPSV23 or PCV20) [facility] Start: 2030 Pneumococcal vaccination [facility] Start: 05-17-2029 Lipid panel [facility] Start: 05-12-2028 Lipid panel Lipid Screening [facility] Start: 05-17-2027 Diabetes Screening Diabetes Screenin g [facility] Start: 03-19-2027 Colonoscopy COLONOSCOPY [facility] Start: 03-19-2027 COLORECTAL CANCER SCREENING COLORECTAL CANCER SCREENING [facility] Start: 03-19-2027 Screening for malign ant neoplasm of colon [facility] Start: 02-22-2027 Screening for malign ant neoplasm of cervix [facility] Start: 02-17-2027 Lipid 1996 panel - Serum or Plasma Lipid Screening [facility] Start: 02-17-2027 Lipid panel Lipid Screening [facility] Start: 02-17-2027 LIPID SCREEN LIPID SCREEN [facility] Start: 10-29-2026 Screening for malign ant neoplasm of colon [facility] Start: 03-18-2026 Diabetes Screening Diabetes Screenin g [facility] Start: 01-23-2026 LIPID SCREEN LIPID SCREEN [facility] Start: 10-25-2025 Screening for malign ant neoplasm of breast Mammogram [facility] Start: 10-08-2025 Depression Screening Depression Scre ening [facility] Start: 05-19-2025 End: 05-19-2025 Patient encounter procedure 05/19/2025 9:20 AM EST Office Visit [facility] Primary [facility] [address] [place] [address] Iván Sierra MD [address] [place] [address] [facility] Start: 05-18-2025 End: 05-18-2025 Patient encounter procedure 05/18/2025 1:00 PM EST Office Visit Family Medicine [place] [address] [place], [place] [phone] Virginie Pathak PA-C [address] [place], [place] [phone] annual check Family Medicine [place] Comment on above: annual check Start: 05-17-2025 Anxiety Screening Anxiety Screening [facility] Start: 05-17-2025 Depression Screening Depression Scre ening [facility] Start: 05-17-2025 Diabetes mellitus screening Diabetes Screening [facility] Start: 03-23-2025 End: 03-23-2025 Patient encounter procedure 03/23/2025 10:00 AM EST Office Visit [facility] Obstetrics and Gynecology - [place] [address] [place] [id number] Genesis Fontenot, DO [address] [place] [address] [facility] Obstetrics and Gynecology - [place] Start: 02-23-2025 End: 02-23-2025 Patient encounter procedure 02/23/2025 11:20 AM EST Office Visit OB/Gynecology [address] [place], [place] [phone] Lexie Velasco MD [address] [place], [place] [phone] Annual OB/Gynecology Comment on above: Annual Start: 02-22-2025 Screening for malign ant neoplasm of cervix Cervical Cancer Screening [facility] Start: 02-17-2025 DIABETES SCREEN DIABETES SCREEN [facility] Start: 02-17-2025 Diabetes Screening Diabetes Screenin g [facility] Start: 12-12-2024 Influenza vaccination Influenza Vacc ine (#1) [facility] Start: 10-25-2024 End: 10-25-2024 Patient encounter procedure [facility] Start: 10-11-2024 End: 10-11-2024 Patient encounter procedure 10/11/2024 3:40 PM EDT Office Visit [facility] [address] [place] [address] [place] [id number] Iván Sierra MD [address] [place] [address] [facility] Start: 10-11-2024 End: 10-11-2025 25-hydroxyvitamin D3 [Mass/volume] in Serum or Plasma Vitamin D Deficiency Screening (Vit D 25) Lab Routine Vitamin D deficiency Osteopenia after menopause Expected: 10/11/2024 (Approximate), Expires: 10/11/2025 [facility] Work Phone: Comment on above: Expected: 10/11/2024 (Approximate), Expires: 10/11/2025 Start: 10-11-2024 End: 10-11-2024 ambulatory 10/11/2024 8:30 AM EDT Visit (SP) Office Hematology/Oncology [address] [place], [place] [phone] Caroline Jama APRN.STRATEGIC PLANNING ANALYST [address] [place], [place] [phone] 1 YR OV *mamm 10/06 Hematology/Oncology Comment on above: 1 YR OV *mamm 10/06 Start: 10-06-2024 End: 10-06-2024 Patient encounter procedure 10/06/2024 8:30 AM EDT Appointment Mammogram [address] [place] [address] Personal history of breast cancer [Z85.3]; Encounter for screening mammogram for high-risk patient [Z12.31] Mammogram Comment on above: Personal history of breast cancer [Z85.3]; Encounter for screening mammogram for high-risk patient [Z12.31] Start: 09-27-2024 Screening for malign ant neoplasm of breast [facility] Start: 08-29-2024 End: 10-29-2025 DBT Breast - bilateral screening Bilateral screening mammogram with tomosynthesis Imaging Routine History of breast cancer Encounter for screening mammogram for breast cancer Expected: 08/29/2024, Expires: 10/29/2025 [facility] Work Phone: Comment on above: Expected: 08/29/2024 , Expires: 10/29/2025 Start: 05-17-2024 End: 08-16-2024 CBC W Auto Differential panel - Blood [facility] Comment on above: Expected: 05/17/2024 , Expires: 08/16/2024 Start: 05-17-2024 End: 08-16-2024 Comprehensive metabolic 2000 panel - Serum or Plasma [facility] Work Phone: Comment on above: Expected: 05/17/2024 , Expires: 08/16/2024 Start: 05-17-2024 End: 08-16-2024 Hemoglobin A1c in Blood [facility] Comment on above: Expected: 05/17/2024 , Expires: 08/16/2024 Start: 05-17-2024 End: 08-16-2024 LIPID PANEL, NONFASTING [facility] Comment on above: Expected: 05/17/2024 , Expires: 08/16/2024 Start: 05-17-2024 End: 05-17-2024 Patient encounter procedure 05/17/2024 1:00 PM EST Office Visit Family Medicine [facility] [address] [place] [id number] Nolan Mancuso MD [address] [place], [place] [id number] Wellness Exam Family Medicine [facility] Comment on above: Wellness Exam Start: 04-12-2024 Behavioral Health Screening Behavioral Health Screening [facility] Comment on above: Postponed from 04/13 (Declined at this time) Start: 03-18-2024 Covid-19 Vaccine (#1) Covid-19 Vacci ne (#1) [facility] Comment on above: Postponed from 12/20 (Declined at this time) Start: 02-23-2024 End: 02-23-2024 Patient encounter procedure 02/23/2024 11:20 AM EST Office Visit OB/Gynecology [address] [place], [place] [id number] Lexie Velasco MD [address] [address] ANNUAL/PAP reschedule from 02/08/24 OB/Gynecology Comment on above: ANNUAL/PAP reschedul e from 02/08/24 Start: 01-24-2024 DIABETES SCREEN DIABETES SCREEN [facility] Start: 12-18-2023 HPV TESTING HPV TESTING [facility] Start: 12-18-2023 PAP TESTING PAP TESTING [facility] Start: 12-18-2023 Screening for malign ant neoplasm of cervix [facility] Start: 12-13-2023 Influenza vaccination Influenza Vacc ine (#1) [facility] Start: 10-06-2023 End: 10-06-2023 ambulatory 10/06/2023 9:00 AM EDT Visit (SP) Office Hematology/Oncology [address] [place], [place] [phone] Caroline Jama APRN.STRATEGIC PLANNING ANALYST [address] [place], [place] [id number] 1 YR OV/AISHA 09/27* Hematology/Oncology Comment on above: 1 YR OV/AISHA 09/27* Start: 09-28-2023 End: 09-28-2023 Patient encounter procedure 09/28/2023 9:10 AM EDT Appointment Mammogram [address] [place] [address] Dx: Malignant neoplasm of left breast in female, estrogen receptor positive, unspecified site of breast (HCC) [C50.912, Z17.0]; Encounter for screening mammogram for high-risk patient [Z12.31] Mammogram Comment on above: Dx: Malignant neopla sm of left breast in female, estrogen receptor positive, unspecified site of breast (HCC) [C50.912, Z17.0]; Encounter for screening mammogram for high-risk patient [Z12.31] Start: 09-23-2023 Mammography [facility] Start: 09-23-2023 Screening for malign ant neoplasm of breast Mammogram Screening [facility] Start: 04-13-2023 Depression Assessment Depression Ass essment [facility] Start: 03-18-2023 End: 06-17-2023 25-hydroxyvitamin D3 [Mass/volume] in Serum or Plasma [facility] Work Phone: Comment on above: Expected: 03/18/2023 , Expires: 06/17/2023 Start: 03-18-2023 End: 06-17-2023 CBC W Auto Differential panel - Blood [facility] Work Phone: Comment on above: Expected: 03/18/2023 , Expires: 06/17/2023 Start: 03-18-2023 End: 06-17-2023 Comprehensive metabolic 2000 panel - Serum or Plasma [facility] Work Phone: Comment on above: Expected: 03/18/2023 , Expires: 06/17/2023 Start: 03-18-2023 End: 06-17-2023 Hemoglobin A1c in Blood [facility] Work Phone: Comment on above: Expected: 03/18/2023 , Expires: 06/17/2023 Start: 03-18-2023 End: 06-17-2023 NICOTINE/COTININE [facility] Work Phone: Comment on above: Expected: 03/18/2023 , Expires: 06/17/2023 Start: 03-01-2023 [facility] Start: 02-17-2023 COVID-19 VACCINE (#1) COVID-19 VACCI NE (#1) [facility] Comment on above: Postponed from 06/19 (Declined at this time) Postponed from 12/20 (Declined at this time) Start: 02-17-2023 SHINGRIX VACCINE (1 of 2) SHINGRIX VACCINE (1 of 2) [facility] Comment on above: Postponed from 12/20 (Insurance Coverage) Start: 10-30-2022 Patient discharge [facility] Start: 09-16-2022 Mammography MAMMOGRAM [facility] Start: 07-15-2022 Adult depression screening assessment DEPRESSION SCREENING [facility] Start: 07-09-2022 SHINGRIX VACCINE (2 of 2) SHINGRIX VACCINE (2 of 2) [facility] Start: 05-19-2022 End: 07-19-2022 Amylase [Enzymatic activity/volume] in Serum or Plasma [facility] Work Phone: Comment on above: Expected: 05/19/2022 , Expires: 07/19/2022 Start: 05-19-2022 End: 07-19-2022 Helicobacter pylori IgG Ab [Presence] in Serum or Plasma by Immunoassay [facility] Work Phone: Comment on above: Expected: 05/19/2022 , Expires: 07/19/2022 Start: 05-19-2022 End: 07-19-2022 Hepatic function 2000 panel - Serum or Plasma [facility] Work Phone: Comment on above: Expected: 05/19/2022 , Expires: 07/19/2022 Start: 05-19-2022 End: 07-19-2022 Lipase [Enzymatic activity/volume] in Serum or Plasma [facility] Work Phone: Comment on above: Expected: 05/19/2022 , Expires: 07/19/2022 Start: 05-09-2022 Hzv zoster vacc recombinant adjuvanted im njx ZOSTER VACC RECOMBINANT,IM Immunization/Injection Routine Need for vaccination Expected: 05/09/2022 (Approximate) [facility] Work Phone: Comment on above: Expected: 05/09/2022 (Approximate) Start: 04-13-2022 DEPRESSION ASSESSMENT DEPRESSION ASS ESSMENT [facility] Start: 02-17-2022 End: 04-19-2022 CBC W Auto Differential panel - Blood [facility] Work Phone: Comment on above: Expected: 02/17/2022 , Expires: 04/19/2022 Start: 02-17-2022 End: 04-19-2022 Comprehensive metabolic 2000 panel - Serum or Plasma [facility] Work Phone: Comment on above: Expected: 02/17/2022 , Expires: 04/19/2022 Start: 02-17-2022 End: 04-19-2022 Hemoglobin A1c in Blood [facility] Work Phone: Comment on above: Expected: 02/17/2022 , Expires: 04/19/2022 Start: 02-17-2022 End: 04-19-2022 LIPID PANEL, NONFASTING [facility] Work Phone: Comment on above: Expected: 02/17/2022 , Expires: 04/19/2022 Start: 01-23-2022 COVID-19 VACCINE (#1) COVID-19 VACCI NE (#1) [facility] Comment on above: Postponed from 12/20 (Declined at this time) Postponed from 06/19 (Declined at this time) Start: 01-23-2022 COVID-19 VACCINE (1) COVID-19 VACCIN E (1) [facility] Comment on above: Postponed from 12/20 (Declined at this time) Start: 01-23-2022 SHINGRIX VACCINE (1 of 2) SHINGRIX VACCINE (1 of 2) [facility] Comment on above: Postponed from 12/20 (Insurance Coverage) Postponed from 12/20 (Insurance Coverage) Start: 01-16-2022 Adult depression screening assessment DEPRESSION SCREENING [facility] Start: 12-12-2021 Influenza vaccination INFLUENZA (#1) [facility] Start: 10-29-2021 Colonoscopy COLONOSCOPY [facility] Start: 10-29-2021 COLORECTAL CANCER SCREENING COLORECTAL CANCER SCREENING [facility] Start: 09-12-2021 Mammography MAMMOGRAM [facility] Start: 08-21-2021 Urine microalbumin profile DTAP,TDAP,TD (2 - Td or Tdap) [facility] Start: 04-13-2021 DEPRESSION ASSESSMENT DEPRESSION ASS ESSMENT [facility] Start: 12-18-2019 Screening for malign ant neoplasm of cervix Cervical Cancer Screening [facility] Start: 07-20-2017 MMR Vaccines (1 of 1 - Standard series) MMR Vaccines (1 of 1 - Standard series) [facility] Start: 2010 COLOGUARD (FIT-DNA) COLOGUARD (FIT-D NA) [facility] Start: [address] COLONOGRAPHY [facility] Start: 2010 FECAL OCCULT BLOOD FECAL OCCULT BLOO D [facility] Start: 2010 Screening for malign ant neoplasm of colon [facility] Start: 2010 SIGMOIDOSCOPY SIGMOIDOSCOPY [facility] Start: 12-21-1995 Screening for malign ant neoplasm of cervix HPV/Cotest [facility] Start: 1984 Hepatitis B Vaccines (1 of 3 - 19+ 3-dose series) Hepatitis B Vaccines (1 of 3 - 19+ 3-dose series) [facility] Start: 1984 SHINGRIX VACCINE (1 of 2) SHINGRIX VACCINE (1 of 2) [facility] Start: 12-21-1983 Anxiety Screening Anxiety Screening [facility] Start: 12-21-1983 Depression Screening Depression Scre ing [facility] Start: 12-21-1983 Hepatitis C screening Hepatitis C Sc reening [facility] Start: 1977 Depression Screening Depression Scre ing [facility] Start: 1970 Covid-19 Vaccine (#1) Covid-19 Vacci ne (#1) [facility] Start: 06-19-1966 COVID-19 VACCINE (#1) COVID-19 VACCI NE (#1) [facility] Start: 1965 HEPATITIS B (1 of 3 - 3-dose series) HEPATITIS B (1 of 3 - 3-dose series) [facility] Start: 1965 HIV screening HIV Screening [facility] Start: 1965 Screening for malign ant neoplasm of colon [facility] End: 11-04-2024 DBT Breast - bilateral screening AISHA SCREENING W [facility] Radiology Routine Personal history of breast cancer Encounter for screening mammogram for high-risk patient 1 Occurrences starting 10/06/2023 until 11/04/2024 [facility] Work Phone: Comment on above: 1 Occurrences starti ng 10/06/2023 until 11/04/2024 End: 03-24-2025 DBT Breast - bilateral screening AISHA SCREENING W [facility] Radiology Routine Encounter for screening mammogram for breast cancer 1 Occurrences starting 02/23/2024 until 03/24/2025 [facility] Work Phone: Comment on above: 1 Occurrences starti ng 02/23/2024 until 03/24/2025 End: 10-25-2024 DBT Breast - right screening [facility] Work Phone: Comment on above: Once for 1 Occurrenc es starting 10/25/2024 until 10/25/2024 ECG COMPLETE ECG COMPLETE ECG Routine Preoperative clearance Ordered: 03/18/2023 [facility] Work Phone: Comment on above: Ordered: 03/18/[address] mix RA ST test [facility] Hzv zoster vacc recombinant adjuvanted im njx ZOSTER VACC RECOMBINANT,IM Immunization/Injection Routine Need for vaccination Ordered: 03/10/2022 [facility] Work Phone: Comment on above: Ordered: 03/10/2022 End: 08-17-2022 AISHA SCREENING W JUAN ANTONIO AISHA SCREENING W [facility] Radiology Routine Malignant neoplasm of left breast in female, estrogen receptor positive, unspecified site of breast (HCC) Encounter for screening mammogram for high-risk patient 1 Occurrences starting 07/18/2021 until 08/17/2022 [facility] Work Phone: Comment on above: 1 Occurrences starti ng 07/18/2021 until 08/17/2022 End: 02-27-2023 AISHA SCREENING W JUAN ANTONIO AISHA SCREENING W [facility] Radiology Routine Malignant neoplasm of left breast in female, estrogen receptor positive, unspecified site of breast (HCC) Encounter for screening mammogram for high-risk patient 1 Occurrences starting 01/28/2022 until 02/27/2023 [facility] Work Phone: Comment on above: 1 Occurrences starti ng 01/28/2022 until 02/27/2023 PAP TEST PAP TEST Lab Guillermo engle Encounter for screening for human papillomavirus (HPV) Pap smear for cervical cancer screening 02/23/2024 12:02 PM EST [facility] Patient Education ED Fracture, Foot [facility] Work Phone: Patient referral [facility] Work Phone: End: 02-05-2023 Screening colonoscopy COLONOSCOPY SCREENING Endoscopy Routine Special screening for malignant neoplasms, colon 1 Occurrences starting 02/05/2022 until 02/05/2023 [facility] Work Phone: Comment on above: 1 Occurrences starti ng 02/05/2022 until 02/05/2023 End: 03-30-2024 XR FOOT GENERAL 3V AP/LAT/OBL LEFT XR FOOT GENERAL 3V AP/LAT/OBL LEFT Radiology STAT Foot pain, left 1 Occurrences starting 03/01/2023 until 03/30/2024 [facility] Work Phone: Comment on above: 1 Occurrences starti ng 03/01/2023 until 03/30/2024 [facility] Immunizations Immunization Date Immunization Notes Care Provider Fa [facility] 05-17-2024 pneumococcal conjuga te (PCV20) vaccine, 20 valent (PREVNAR 20) Nolan Mancuso MD Work Phone: [facility] 05-17-2024 pneumococcal Conjuga te, unspecified formulation Nolan Mancuso MD Work Phone: [facility] 01-23-2024 influenza, seasonal, injectable Immunization [place] Work Phone: [facility] 01-23-2024 influenza virus vaccine, unspecified formulation Iván Sierra MD Work Phone: [facility] 01-30-2023 influenza, injectabl e, quadrivalent, contains preservative Immunization [place] Work Phone: [facility] Work Phone: 01-30-2023 influenza virus vaccine, unspecified formulation Nolan Mancuso MD Work Phone: [facility] 01-28-2023 influenza, high dose seasonal, preservative-free Iván Sierra MD Work Phone: [facility] 07-15-2022 zoster vaccine recombinant Mi Nurse Work Phone: [facility] Work Phone: 05-14-2022 zoster vaccine recombinant Mi Nurse Work Phone: [facility] Work Phone: 02-17-2022 tetanus toxoid, redu kj diphtheria toxoid, and acellular pertussis vaccine, adsorbed Nolan Mancuso MD Work Phone: [facility] 01-28-2022 influenza, injectabl e, quadrivalent, preservative free Caroline Jama APRN.CNP Work Phone: [facility] Work Phone: 01-11-2022 influenza, high dose seasonal, preservative-free Iván Sierra MD Work Phone: [facility] 01-23-2021 influenza, injectabl e, quadrivalent, contains preservative Nolan Mancuso MD Work Phone: [facility] 01-21-2020 influenza, injectabl e, quadrivalent, contains preservative Nolan Mancuso MD Work Phone: [facility] 01-04-2019 influenza, injectabl e, quadrivalent, contains preservative Nolan Mancuso MD Work Phone: [facility] Work Phone: 01-29-2018 influenza, injectabl e, quadrivalent, contains preservative Nolan Mancuso MD Work Phone: [facility] Work Phone: 07-23-2017 pneumococcal conjuga te vaccine, 13 valent Nolan Mancuso MD Work Phone: [facility] 06-22-2017 influenza virus vaccine, live, attenuated, for intranasal use Iván Sierra MD Work Phone: [facility] 06-22-2017 pneumococcal polysaccharide vaccine, 23 valent Iván Sierra MD Work Phone: [facility] 01-29-2017 influenza, injectabl e, quadrivalent, contains preservative Nolan Mancuso MD Work Phone: [facility] Work Phone: 01-28-2017 influenza virus vaccine, live, attenuated, for intranasal use Iván Sierra MD Work Phone: [facility] 01-28-2017 pneumococcal polysaccharide vaccine, 23 valent Iván Sierra MD Work Phone: [facility] 02-19-2016 influenza, injectabl e, quadrivalent, preservative free Nolan Mancuso MD Work Phone: [facility] 02-11-2016 influenza virus vaccine, live, attenuated, for intranasal use Iván Sierra MD Work Phone: [facility] 02-11-2016 pneumococcal polysaccharide vaccine, 23 valaster Sierra MD Work Phone: [facility] 01-08-2015 influenza, injectabl e, quadrivalent, contains preservative Nolan Mancuso MD Work Phone: [facility] 01-08-2015 influenza, injectabl e, quadrivalent, preservative free Iván Sierra MD Work Phone: [facility] 12-22-2014 pneumococcal polysaccharide vaccine, 23 valent Nolan Mancuso MD Work Phone: [facility] 03-30-2014 influenza virus vaccine, live, attenuated, for intranasal use Iván Sierra MD Work Phone: [facility] 03-30-2014 pneumococcal conjuga te vaccine, 7 valent Iván Sierra MD Work Phone: [facility] 02-09-2014 influenza, high dose seasonal, preservative-free Nolan Mancuso MD Work Phone: [facility] 04-11-2013 Influenza virus vaccine W [facility] 01-27-2013 influenza virus vaccine, unspecified formulation Nolan Mancuso MD Work Phone: [facility] 02-10-2012 influenza virus vaccine, unspecified formulation Nolan Mancuso MD Work Phone: [facility] Work Phone: 10-05-2011 pneumococcal vaccine , unspecified formulation [facility] 08-22-2011 tetanus toxoid, redu kj diphtheria toxoid, and acellular pertussis vaccine, adsorbed Nolan Mancuso MD Work Phone: [facility] 02-25-2011 influenza virus vaccine, unspecified formulation Nolan Mancuso MD Work Phone: [facility] 03-14-2010 influenza virus vaccine, unspecified formulation Nolan Mancuso MD Work Phone: [facility] Work Phone: 02-14-2009 novel [id number], preservative-free, injectable Iván Sierra MD Work Phone: [facility] 01-25-2009 pneumococcal polysaccharide vaccine, 23 valent Nolan Mancuso MD Work Phone: [facility] Work Phone: 01-10-2009 influenza virus vaccine, whole virus Iván Sierra MD Work Phone: [facility] 02-11-2008 influenza virus vaccine, whole virus Iván Sierra MD Work Phone: [facility] 02-16-2007 influenza virus vaccine, whole virus Iván Sierra MD Work Phone: [facility] 03-14-2002 tuberculin skin test ; purified protein derivative solution, intradermal Iván Sierra MD Work Phone: [facility] Payers Date Payer Category Payer Private Health Insurance [id number] 2024 Commercial [facility] [id number] 2022 Self-pay [id number] 2020 Private Health Insurance [id number] 2020 Unknown 2020 Unknown [id number] 2020 Unknown [id number] 2012 Unknown OMAIRA [id number] 1965 Unknown [id number] Unknown [id number] Unknown [id number] Unknown [id number] Unknown [id number] Unknown [id number] Unknown [id number] Unknown [id number] Social History Date Type Detail Facility Start: 09-26-2010 End: 10-11-2024 Tobacco smoking status NHIS Never smoked tobacco [facility] Work Phone: Start: 07-05-2021 End: 10-25-2024 Alcohol intake Current non-drinker of alcohol (finding) [facility] Start: 01-18-2021 End: 05-19-2022 History SDOH Alcohol Frequency 1 [facility] Start: 01-18-2020 History SDOH Alcohol Std Drinks 98 [facility] Start: 01-18-2021 End: 05-19-2022 History SDOH Social Connections Phone 5 [facility] Start: 01-18-2021 End: 05-19-2022 History SDOH Social Connections Get Together 3 [facility] Start: 01-18-2021 End: 05-19-2022 History SDOH Social Connections Membership 2 [facility] Start: 01-18-2021 End: 01-31-2022 History SDOH Physical Activity MPS 4 [facility] Start: 01-18-2021 Education 21 [facility] Start: 1965 Sex Assigned At Not on file C [facility] Start: 09-06-2021 End: 02-17-2022 Exposure to SARS-CoV-2 (event) Not sure [facility] Start: 09-26-2010 End: 10-11-2024 Tobacco use and exposure Smokeless tobacco non-user [facility] Work Phone: Start: 01-31-2022 End: 05-19-2022 History SDOH Alcohol Std Drinks 0 [facility] Start: 09-12-2019 End: 03-01-2023 Tobacco smoking status NHIS Unknown if ever smoked [facility] Start: 12-23-2014 None [facility] Start: 09-12-2019 Non-smoker [facility] Start: 1965 Sex Assigned At Female W [facility] Start: 05-19-2022 End: 10-07-2024 History of Social function [facility] Start: 05-19-2022 End: 10-07-2024 Social connection and isolation panel [facility] Do you belong to any clubs or organizations such as buddhism groups, Maanas, [employer] or athletic groups, or school groups? No [facility] Are you now , , , , never or living with a partner? [facility] How often to you hav e a drink containing alcohol? Never [facility] How many standard dr inks containing alcohol do you have on a typical day? Patient does not drink [facility] Do you feel stress - tense, restless, nervous, or anxious, or unable to sleep at night because your mind is troubled all the time - these days [OSQ] Not at all [facility] (I/We) worried whehubert er (my/our) food would run out before (I/we) got money to buy more. Never true [facility] Start: 11-11-2021 Sex Female (finding) [facility] Do you belong to any clubs or organizations such as buddhism groups, Maanas, [employer] or athleCardioVIP groups, or school groups? Yes [facility] NEGATED: Highlighted row [facility] NEGATED: Highlighted rowStart: NINF History of tobacco use Passive smoker [facility] Medical Equipment Procedure Code Equipment Code Equipment Origin al Text Equipment Identifier Dates Port Implinfn Pwrprt Plas 8fr - [id number] Start: 11-02-2013 Comment on above: Description: Right I J Goals Date Patient Goal Desired Activity /State Functional Status Date Assessment Result Facility 10-12-2014 Are you deaf, or do you have serious difficulty hearing No 10/12/2014 11:47 AM [place]ID[place] TO No [facility] 10-12-2014 Are you blind, or do you have serious difficulty seeing, even when wearing glasses No 10/12/2014 11:47 AM ELIDIA TO No [facility] 10-12-2014 Do you have serious difficulty walking or climbing stairs No 10/12/2014 11:47 AM ELIDIA TO [facility] 10-12-2014 Do you have difficul ty dressing or bathing No 10/12/2014 11:47 AM EDT ELIDIA PEÑA [facility] 10-12-2014 Because of a physica l, mental, or emotional condition, do you have difficulty doing errands alone such as visiting a physician's office or shopping No 10/12/2014 11:47 AM EDT ELIDIA PEÑA [facility] Mental Status Date Assessment Result Facility 10-30-2022 Cognitive function Awake;Drowsy [facility] Work Phone: 10-12-2014 Because of a physica l, mental, or emotional condition, do you have serious difficulty concentrating, remembering, or making decisions No 10/12/2014 11:47 AM EDT ELIDIA PEÑA [facility] Clinical Notes 08-28-2010 to 10-20-2024 Telephone Encounter - Melanie Lance - 10/20/2024 9:26 AM EDTTelephone Encounter - Melanie Lance - 10/20/2024 9:26 AM EDTTelephone Encounter - Emmie Toure - 10/20/2024 8:47 AM EDT Note Date & Type Note Facility 10-20-2024 Telephone encounter Note Spoke with patient Advised her we will keep the appointment as scheduled with Dr. Sierra. According to her insurance and [employer] we are in network with her insurance policy. Nothing further needed. [facility] 10-20-2024 Miscellaneous Notes Spoke with patient Advised her we will keep the appointment as scheduled with Dr. Sierra. According to her insurance and [facility] are in network with her insurance policy. Nothing further needed. Name of caller: Laura Contact phone number: [phone] Relationship to Patient: patient Provider: Dr. Sierra Practice: [facility] Chief Complaint/Reason for Call: Pt called back regarding her Insurance [employer]. Pt is asking to speak with someone from office because she stated she called her Insurance and they advised they are in network with [employer] and she looked on [employer] website and it shows her plan is in network. Please advise. Best time of day caller can be reached: Any Patient advised that office/PCP has 24-48 business hours to return their call: Yes documented in this encounter [facility] 10-20-2024 Telephone encounter Note Name of caller: Laura Contact phone number: [phone] Relationship to Patient: patient Provider: Dr. Sierra Practice: [facility] Chief Complaint/Reason for Call: Pt called back regarding her Insurance [employer]. Pt is asking to speak with someone from office because she stated she called her Insurance and they advised they are in network with [employer] and she looked on [employer] website and it shows her plan is in network. Please advise. Best time of day caller can be reached: Any Patient advised that office/PCP has 24-48 business hours to return their call: Yes [facility] 10-18-2024 Telephone encounter Note Forwarding to office support [facility] 10-18-2024 Miscellaneous Notes Forwarding to office support Name of caller: Laura Chacon Contact phone number: [phone] Relationship to Patient: patient Provider: Dr. Sierra Practice: [facility] Chief Complaint/Reason for Call: Patient states she was on hold to speak with Kavitha regarding a billing question and was disconnected. Patient would like to have a call back to discuss this. Thank you. Network is called [employer]. See Media with insurance from 10/08/24 Best time of day caller can be reached: Any Patient advised that office/PCP has 24-48 business hours to return their call: Yes Name of caller: Laura Chacon Contact phone number: [phone] Relationship to Patient: patient Provider: Dr. Sierra Practice: [facility] Chief Complaint/Reason for Call: Patient states she was on hold to speak with Kavitha regarding a billing question and was disconnected. Patient would like to have a call back to discuss this. Thank you. Best time of day caller can be reached: Any Patient advised that office/PCP has 24-48 business hours to return their call: Yes documented in this encounter [facility] 10-17-2024 Telephone encounter Note Name of caller: Laura Chacon Contact phone number: [phone] Relationship to Patient: patient Provider: Dr. Sierra Practice: [facility] Chief Complaint/Reason for Call: Patient states she was on hold to speak with Kvaitha regarding a billing question and was disconnected. Patient would like to have a call back to discuss this. Thank you. Network is called [employer]. See [employer] with insurance from 10/08/24 Best time of day caller can be reached: Any Patient advised that office/PCP has 24-48 business hours to return their call: Yes [facility] 10-17-2024 Miscellaneous Notes Name of caller: Laura Chacon Contact phone number: [phone] Relationship to Patient: patient Provider: Dr. Sierra Practice: [facility] Chief Complaint/Reason for Call: Patient states she was on hold to speak with Kavitha regarding a billing question and was disconnected. Patient would like to have a call back to discuss this. Thank you. Network is called [employer]. See [employer] with insurance from 10/08/24 Best time of day caller can be reached: Any Patient advised that office/PCP has 24-48 business hours to return their call: Yes Name of caller: Laura Chacon Contact phone number: [phone] Relationship to Patient: patient Provider: Dr. Sierra Practice: [facility] Chief Complaint/Reason for Call: Patient states she was on hold to speak with Kavitha regarding a billing question and was disconnected. Patient would like to have a call back to discuss this. Thank you. Best time of day caller can be reached: Any Patient advised that office/PCP has 24-48 business hours to return their call: Yes documented in this encounter [facility] 10-17-2024 Telephone encounter Note Name of caller: Laura Chacon Contact phone number: [phone] Relationship to Patient: patient Provider: Dr. Sierra Practice: [facility] Chief Complaint/Reason for Call: Patient states she was on hold to speak with Kavitha regarding a billing question and was disconnected. Patient would like to have a call back to discuss this. Thank you. Best time of day caller can be reached: Any Patient advised that office/PCP has 24-48 business hours to return their call: Yes [facility] 10-11-2024 Evaluation + Plan note Associated Problem(s): Osteopenia after menopause I reviewed with patient the benefits of weightbearing exercise, working toward a goal of 150 minutes/week. Patient instructed to make best efforts to take a 1200 to 1500 mg calcium supplement daily along with 1000 IU vitamin D3 supplement daily. They were instructed to continue with current dose of alendronate. I reviewed the importance of routine DEXA scans every 2 to 3 years for surveillance. [facility] 10-11-2024 Miscellaneous Notes Associated Problem(s): Osteopenia after menopause I reviewed with patient the benefits of weightbearing exercise, working toward a goal of 150 minutes/week. Patient instructed to make best efforts to take a 1200 to 1500 mg calcium supplement daily along with 1000 IU vitamin D3 supplement daily. They were instructed to continue with current dose of alendronate. I reviewed the importance of routine DEXA scans every 2 to 3 years for surveillance. Associated Problem(s): History of left breast cancer Patient established with [facility] for yearly mammograms. Oncology service at [facility] had previously signed off. Patient declines new oncology referral here in the local area. We will continue to follow lab work and symptoms over time. Associated Problem(s): Rheumatoid arthritis involving multiple sites with positive rheumatoid factor (CMS/HCC) (HCC) No reported worsening joint pain or persistent joint swelling. No limitation in normal day-to-day activity reported. Patient instructed to continue with current medication as recommended by the specialist. Associated Problem(s): Obesity Patient counseled on healthy dietary choices and the benefits of a lower salt and/or lower carbohydrate diet as appropriate. Patient also counseled on benefits of moderate intensity cardiovascular exercise for 150 minutes per week as they are able. Advice was given to make small changes over time, setting smaller achievable goals until recommended lifestyle changes are reached. Associated Problem(s): Vitamin D deficiency Patient is overdue for lab work. Most recent vitamin D level in 2022 was in normal range. I stressed to her the importance of taking a 1000 IU vitamin D3 supplement on a daily basis. Any further recommendations will be based on updated lab results. Associated Problem(s): Eosinophilic esophagitis No reported gastrointestinal complaints. Patient instructed to continue with current dose of omeprazole. I stressed with her the importance of avoiding dietary triggers. New gastroenterology referral given today in the office for continued surveillance and likely repeat endoscopy. documented in this encounter [facility] 10-11-2024 Evaluation + Plan note Associated Problem(s): History of left breast cancer Patient established with [facility] for yearly mammograms. Oncology service at [facility] had previously signed off. Patient declines new oncology referral here in the local area. We will continue to follow lab work and symptoms over time. [facility] 10-11-2024 Note Patient established with [facility] for yearly mammograms. Oncology service at [facility] had previously signed off. Patient declines new oncology referral here in the local area. We will continue to follow lab work and symptoms over time. [facility] 10-11-2024 Evaluation + Plan note Associated Problem(s): Rheumatoid arthritis involving multiple sites with positive rheumatoid factor (CMS/HCC) (HCC) No reported worsening joint pain or persistent joint swelling. No limitation in normal day-to-day activity reported. Patient instructed to continue with current medication as recommended by the specialist. [facility] 10-11-2024 Evaluation + Plan note Associated Problem(s): Obesity Patient counseled on healthy dietary choices and the benefits of a lower salt and/or lower carbohydrate diet as appropriate. Patient also counseled on benefits of moderate intensity cardiovascular exercise for 150 minutes per week as they are able. Advice was given to make small changes over time, setting smaller achievable goals until recommended lifestyle changes are reached. [facility] 10-11-2024 Evaluation + Plan note Associated Problem(s): Vitamin D deficiency Patient is overdue for lab work. Most recent vitamin D level in 2022 was in normal range. I stressed to her the importance of taking a 1000 IU vitamin D3 supplement on a daily basis. Any further recommendations will be based on updated lab results. [facility] 10-11-2024 Evaluation + Plan note Associated Problem(s): Eosinophilic esophagitis No reported gastrointestinal complaints. Patient instructed to continue with current dose of omeprazole. I stressed with her the importance of avoiding dietary triggers. New gastroenterology referral given today in the office for continued surveillance and likely repeat endoscopy. [facility] [address] 10-11-2024 History of Presen t illness Narrative Images from the original note were not included. Laura Chacon (: 1965) is a 58 y.o. female who presents today for: Chief Complaint Patient presents with [facility] Care Insurance change- [facility] does not take their insurance Breast cancer in 2013- pt just established with [facility]. Sees [facility] rheumatology Assessment/Plan 1. Eosinophilic esophagitis Assessment & Plan: No reported gastrointestinal complaints. Patient instructed to continue with current dose of omeprazole. I stressed with her the importance of avoiding dietary triggers. New gastroenterology referral given today in the office for continued surveillance and likely repeat endoscopy. Orders: - [facility] 2. Vitamin D deficiency Assessment & Plan: Patient is overdue for lab work. Most recent vitamin D level in 2022 was in normal range. I stressed to her the importance of taking a 1000 IU vitamin D3 supplement on a daily basis. Any further recommendations will be based on updated lab results. Orders: - Vitamin D Deficiency Screening (Vit D 25) 3. Class 1 obesity due to excess calories without serious comorbidity with body mass index (BMI) of 30.0 to 30.9 in adult Assessment & Plan: Patient counseled on healthy dietary choices and the benefits of a lower salt and/or lower carbohydrate diet as appropriate. Patient also counseled on benefits of moderate intensity cardiovascular exercise for 150 minutes per week as they are able. Advice was given to make small changes over time, setting smaller achievable goals until recommended lifestyle changes are reached. 4. Osteopenia after menopause Assessment & Plan: I reviewed with patient the benefits of weightbearing exercise, working toward a goal of 150 minutes/week. Patient instructed to make best efforts to take a 1200 to 1500 mg calcium supplement daily along with 1000 IU vitamin D3 supplement daily. They were instructed to continue with current dose of alendronate. I reviewed the importance of routine DEXA scans every 2 to 3 years for surveillance. Orders: - Vitamin D Deficiency Screening (Vit D 25) 5. Rheumatoid arthritis involving multiple sites with positive rheumatoid factor (CMS/HCC) (HCC) Assessment & Plan: No reported worsening joint pain or persistent joint swelling. No limitation in normal day-to-day activity reported. Patient instructed to continue with current medication as recommended by the specialist. 6. History of left breast cancer Assessment & Plan: Patient established with [facility] for yearly mammograms. Oncology service at [facility] had previously signed off. Patient declines new oncology referral here in the local area. We will continue to follow lab work and symptoms over time. Follow up for Well Adult Exam/Physical MAY 2025. Subjective HPI Patient presents to establish care. They were previously seen at [facility], most recent visit with PCP was . Care is established with rheumatology for long-term management of rheumatoid arthritis and osteopenia. Patient has a known history of left breast cancer diagnosed in 2013. They are status post left mastectomy and sentinel lymph node biopsy 09/29/2013 with subsequent radiation therapy completed 04/21/2014 and initiation of anastrozole. Care was previously established with GI for long-term surveillance of eosinophilic esophagitis with esophageal dysphagia. Patient denies any current heartburn/sour brash, dysphagia, change in appetite, nausea/vomiting, change in stooling, or unintentional weight changes. Review of Systems Constitutional: Negative for appetite change, chills, diaphoresis, fatigue, fever and unexpected weight change. Eyes: Negative for visual disturbance. Respiratory: Negative for apnea, cough, chest tightness, shortness of breath and wheezing. Cardiovascular: Negative for chest pain, palpitations and leg swelling. No orthopnea, No PND Gastrointestinal: Negative for abdominal distention, abdominal pain, anal bleeding, blood in stool, constipation, diarrhea, nausea, rectal pain and vomiting. No dysphagia, No early satiety, No increased belching, No sour brash/heartburn, No melena. Endocrine: Negative for cold intolerance, heat intolerance, polydipsia and polyuria. Genitourinary: Negative for dysuria and hematuria. Musculoskeletal: Negative for arthralgias and joint swelling. Skin: Negative for rash. Neurological: Negative for dizziness, syncope, facial asymmetry, speech difficulty, weakness, light-headedness, numbness and headaches. Psychiatric/Behavioral: Negative for dysphoric mood and sleep disturbance. The patient is not nervous/anxious. Objective VITALS: BP 109/71 (BP Location: Right arm, Patient Position: Sitting, BP Cuff Size: Large adult) Pulse 70 Temp 36.7 C (98.1 F) (Temporal) Ht 5' 4.25 (1.632 m) Wt 180 lb 12.8 oz (82 kg) SpO2 99% BMI 30.79 kg/m Physical Exam Vitals reviewed. Constitutional: General: She is not in acute distress. Appearance: She is obese. She is not ill-appearing or diaphoretic. Neck: Thyroid: No thyromegaly or thyroid tenderness. Vascular: No carotid bruit. Cardiovascular: Rate and Rhythm: Normal rate and regular rhythm. Heart sounds: No murmur heard. Pulmonary: Effort: Pulmonary effort is normal. No respiratory distress. Breath sounds: Normal breath sounds. No wheezing, rhonchi or rales. Abdominal: General: Abdomen is flat. Bowel sounds are normal. There is no distension. Palpations: Abdomen is soft. Tenderness: There is no abdominal tenderness. There is no right CVA tenderness, left CVA tenderness or guarding. Musculoskeletal: Cervical back: Neck supple. Right lower leg: No edema. Left lower leg: No edema. Skin: General: Skin is warm. Findings: No rash. Neurological: Mental Status: She is oriented to person, place, and time. Mental status is at baseline. Psychiatric: Mood and Affect: Mood and affect normal. Speech: Speech normal. Behavior: Behavior normal. Thought Content: Thought content normal. Current Outpatient Medications Medication Instructions Abatacept (Orencia ClickJect) 125 MG/ML solution auto-injector 125 mg subcutaneously once a week for 90 days alendronate (Fosamax) 70 MG tablet 1 tab(s) orally once a week for 90 days Calcium Citrate-Vitamin D 250-2.5 MG-MCG tablet Take by mouth. Ivermectin (Soolantra) 1 % cream Every 24 hours leucovorin (Wellcovorin) 5 MG tablet 1 tablet orally the day after methotrxate for 90 days methotrexate 2.5 MG tablet Take by mouth. Multiple Vitamin (Multivitamin Adult) tablet 1 capsule omeprazole (PRILOSEC) 40 mg, Daily There are no discontinued medications. An electronic signature was used to authenticate this note. IVÁN SIERRA MD documented in this encounter [facility] 10-05-2024 Telephone encounter Note The following approved medication requests have been transmitted electronically. Requested Prescriptions Signed Prescriptions Disp Refills omeprazole (PRILOSEC) 40 mg capsule 90 capsule 1 Sig: Take 1 capsule by mouth once daily. Authorizing Provider: NOLAN MANCUSO MD [facility] 10-05-2024 Miscellaneous Notes The following approved medication requests have been transmitted electronically. Requested Prescriptions Signed Prescriptions Disp Refills omeprazole (PRILOSEC) 40 mg capsule 90 capsule 1 Sig: Take 1 capsule by mouth once daily. Authorizing Provider: NOLAN MANCUSO MD Prescription Refill Information The patient has been identified by name and date of : Yes Caregiver verified no other encounters exist for this prescription request: Yes Caregiver confirmed with patient/requestor that no other refills are due, in the near future, with this provider at this time: Yes The last office visit in the department: 05/17/24 Does the patient have a future office visit with this provider/department: Yes Requested Prescriptions Pending Prescriptions Disp Refills omeprazole (PRILOSEC) 40 mg capsule 90 capsule 1 Sig: Take 1 capsule by mouth once daily. Kumar Mello LPN October 05, 2024 2:56 PM documented in this encounter [facility] 10-05-2024 Telephone encounter Note Prescription Refill Information The patient has been identified by name and date of : Yes Caregiver verified no other encounters exist for this prescription request: Yes Caregiver confirmed with patient/requestor that no other refills are due, in the near future, with this provider at this time: Yes The last office visit in the department: 05/17/24 Does the patient have a future office visit with this provider/department: Yes Requested Prescriptions Pending Prescriptions Disp Refills omeprazole (PRILOSEC) 40 mg capsule 90 capsule 1 Sig: Take 1 capsule by mouth once daily. Kumar Mello LPN October 05, 2024 2:56 PM [facility] 08-31-2024 Telephone encounter Note Name of caller: Laura Relation to patient: patient Contact phone number: [phone] Appointment scheduled with: Mariela Appointment date & time: 10/12/2023 345 Reason for visit (are you having any symptoms) : establish with [facility] pcp Transportation issues/ concerns: n/a Special accommodations? ( wheel chair, etc) : n/a Current medications: n/a Any refills need: n/a Any chronic conditions the provider should be aware of: n/a [facility] 08-29-2024 History of Presen t illness Narrative Images from the original note were not included. Laura Chacon 08/29/2024 58 y.o. Chief Complaint Patient presents with [facility] No LMP recorded. (Menstrual status: Oopherectomy). Primary CarePhysician: No primary care provider on file. HPI: Laura Chacon is a 58 y.o. female presents for a visit to [facility]. Previously seen by [facility] however they no longer take her insurance. She has a hx of breast cancer which was treated with chemo and radiation followed by Arimidex for 7 years. Her yearly mammograms have been normal. She has a pap in 02/2024 which was normal. Colonoscopy in 2021 normal, due in 10 years. Hx RA, stitchdowns toe former did DEXA scan which showed osteopenia and she takes Ca supps. Hx BSO, does have vaginal dryness and no longer sexually active, does not want any HRT or vaginal estrace due to cancer hx. Denies PMB or abnormal discharge. Denies any other new medical issues or changes. No [employer] complaints today. OB History Para Term AB Living 1 1 1 1 SAB IAB Ectopic Multiple Live Births 1 # Outcome Date GA Lbr Frederic/2nd Weight Sex Type Anes PTL Lv 1 Term F CS-Unspec ED Medical History[1] Surgical History[2] Family History[3] Social History Socioeconomic History Marital status: Spouse name: Not on file Number of children: Not on file Years of education: Not on file Highest education level: Not on file Occupational History Not on file Tobacco Use Smoking status: Never Smokeless tobacco: Never Vaping Use Vaping status: Never Used Substance and Sexual Activity Alcohol use: No Drug use: No Sexual activity: Not Currently Other Topics Concern Not on file Social History Narrative Not on file Social Drivers of Health Financial Resource Strain: Low Risk (05/19/2022) Received from [facility] Overall Financial Resource Strain (CARDIA) Difficulty of Paying Living Expenses: Not hard at all Food Insecurity: No Food Insecurity (05/19/2022) Received from [facility] Hunger Vital Sign Worried About Running Out of Food in the Last Year: Never true Ran Out of Food in the Last Year: Never true Transportation Needs: No Transportation Needs (05/19/2022) Received from [facility] PRAPARE - Transportation Lack of Transportation (Medical): No Lack of Transportation (Non-Medical): No Physical Activity: Inactive (05/19/2022) Received from [facility] Exercise Vital Sign Days of Exercise per Week: 0 days Minutes of Exercise per Session: 0 min Stress: No Stress Concern Present (05/19/2022) Received from [facility] [employer] [place] [employer] - Occupational Stress Questionnaire Feeling of Stress : Not at all Social Connections: Moderately Integrated (05/19/2022) Received from [facility] Social Connection and Isolation Panel [NHANES] Frequency of Communication with Friends and Family: More than three times a week Frequency of Social Gatherings with Friends and Family: Once a week Attends Yazdanism Services: More than 4 times per year Active Member of Clubs or Organizations: No Attends Club or Organization Meetings: Never Marital Status: Intimate Partner Violence: Not on file Housing Stability: Low Risk (05/19/2022) Received from [facility] Housing Stability Vital Sign Unable to Pay for Housing in the Last Year: No Number of Places Lived in the Last Year: 1 Unstable Housing in the Last Year: No MEDICATIONS: Current Medications[4] ALLERGIES: Allergies as of 08/29/2024 - Reviewed 08/29/2024 Allergen Reaction Noted Celecoxib Hives and Itching 09/24/2009 Review of Systems: Review of Systems All other systems reviewed and are negative. Physical Exam: BP 110/64 Ht 5' 3.5 (1.613 m) Wt 187 lb (84.8 kg) BMI 32.61 kg/m Physical Exam Vitals and nursing note reviewed. Constitutional: General: She is not in acute distress. Appearance: Normal appearance. She is not toxic-appearing. HENT: Head: Normocephalic and atraumatic. Eyes: Extraocular Movements: Extraocular movements intact. Pulmonary: Effort: Pulmonary effort is normal. No respiratory distress. Abdominal: Palpations: Abdomen is soft. Tenderness: There is no abdominal tenderness. There is no guarding or rebound. Skin: General: Skin is warm and dry. Neurological: General: No focal deficit present. Mental Status: She is alert and oriented to person, place, and time. Psychiatric: Mood and Affect: Mood normal. Behavior: Behavior normal. Thought Content: Thought content normal. No results found for this or any previous visit (from the past 6 weeks).] ASSESSMENT: 58 y.o. Diagnosis Plan 1. History of breast cancer Bilateral screening mammogram with tomosynthesis 2. Encounter for screening mammogram for breast cancer Bilateral screening mammogram with tomosynthesis 3. Encounter to establish care 4. Vaginal dryness PLAN: - Seen to establish care with new GUIDE WINDER, no acute complaints - Discussed hx breast cancer and mammogram ordered for September to stay on screening schedule, has been in remission since 2013 - Reviewed [facility] records, Dexa scan through rheumatology shows osteopenia, on supplements, pap normal in 2023 - Discussed sx of vaginal dryness and inability to have intercourse, pt declining meds or vaginal estrace, advised water based lubricants - Advised to call for any PMB or other concerns Follow up in about 6 months (around 03/01/2025) for annual. Orders Placed This Encounter Procedures Bilateral screening mammogram with tomosynthesis Standing Status: Future Expected Date: 08/29/2024 Expiration Date: 10/29/2025 [1] Past Medical History: Diagnosis Date Breast cancer (HCC) 2013 Hx of foot surgery 2017 PONV (postoperative nausea and vomiting) Rheumatoid arthritis (HCC) SCHEDULED FOR THE RIGHT FOOT SURGERY ON 04/01/2018 AT [facility] [2] Past Surgical History: Procedure Laterality Date SECTION (HISTORICAL) 2000 COLONOSCOPY FOOT SURGERY Right 04/01/2018 right 2nd toe proximal interphlangeal joint fusion , excision mass of right great toe and right small toe -SHAMIKA MASTECTOMY Left 2013 JCARLOS TUBAL LIGATION WRIST SURGERY Right cyst [3] Family History Problem Relation Name Age of Onset Alzheimer's disease Paternal Grandfather Breast cancer Paternal Grandmother Pancreatic cancer Father Ulcerative colitis Mother Diabetes Sister alessandro [4] Current Outpatient Medications Medication Sig Dispense Refill Calcium Citrate-Vitamin D 250-2.5 MG-MCG tablet Take by mouth. omeprazole (PriLOSEC) [address] capsule Take 40 mg by mouth daily. Abatacept (Orencia ClickJect) 125 MG/ML solution auto-injector 125 mg subcutaneously once a week for 90 days alendronate (Fosamax) 70 MG tablet 1 tab(s) orally once a week for 90 days Ivermectin (Soolantra) 1 % cream Every 24 hours. leucovorin (Wellcovorin) 5 MG tablet 1 tablet orally the day after methotrxate for 90 days methotrexate 2.5 MG tablet Take by mouth. Multiple Vitamin (Multivitamin Adult) tablet Take 1 capsule by mouth. No current facility-administered medications for this visit. documented in this encounter [facility] 07-12-2024 Miscellaneous Notes Name of caller: Laura Relation to patient: patient Contact phone number: [phone] Appointment scheduled with: Mariela Appointment date & time: 10/12/2023 345 Reason for visit (are you having any symptoms) : establish with [facility] pcp Transportation issues/ concerns: n/a Special accommodations? ( wheel chair, etc) : n/a Current medications: n/a Any refills need: n/a Any chronic conditions the provider should be aware of: n/a documented in this encounter [facility] 05-19-2024 Telephone encounter Note Spoke with pt and information listed below given. Pt verbalizes understanding. Kaity Mccurdy LPN [facility] 05-19-2024 Miscellaneous Notes Spoke with pt and information listed below given. Pt verbalizes understanding. Kaity Mccurdy LPN Called and left a voicemail for the patient to call back and ask for a nurse to receive the providers message. Let patient know his labs were all good. documented in this encounter [facility] 05-19-2024 Telephone encounter Note Called and left a voicemail for the patient to call back and ask for a nurse to receive the providers message. [facility] 05-18-2024 Telephone encounter Note Let patient know his labs were all good. [facility] 05-18-2024 Telephone encounter Note Prescription Refill Information The patient has been identified by name and date of : Yes Caregiver verified no other encounters exist for this prescription request: Yes Caregiver confirmed with patient/requestor that no other refills are due, in the near future, with this provider at this time: Yes The last office visit in the department: 05/17/24 Does the patient have a future office visit with this provider/department: Yes Requested Prescriptions Pending Prescriptions Disp Refills omeprazole (PRILOSEC) 40 mg capsule 90 capsule 1 Sig: Take 1 capsule by mouth once daily. Kumar Mello LPN May 18, 2024 10:52 AM [facility] 05-18-2024 Miscellaneous Notes Prescription Refill Information The patient has been identified by name and date of : Yes Caregiver verified no other encounters exist for this prescription request: Yes Caregiver confirmed with patient/requestor that no other refills are due, in the near future, with this provider at this time: Yes The last office visit in the department: 05/17/24 Does the patient have a future office visit with this provider/department: Yes Requested Prescriptions Pending Prescriptions Disp Refills omeprazole (PRILOSEC) 40 mg capsule 90 capsule 1 Sig: Take 1 capsule by mouth once daily. Kumar Mello LPN May 18, 2024 10:52 AM Patient has been identified by name and date of : Yes Patient phones for refill(s): Requested Prescriptions Pending Prescriptions Disp Refills omeprazole (PRILOSEC) 40 mg capsule 90 capsule 1 Sig: Take 1 capsule by mouth once daily. Date of last office visit in primary care: 05/17/2024 Date of next office visit in primary care: 05/18/2025 Please advise. Thank you. Kirsten Stein. documented in this encounter [facility] 05-18-2024 Telephone encounter Note Patient has been identified by name and date of : Yes Patient phones for refill(s): Requested Prescriptions Pending Prescriptions Disp Refills omeprazole (PRILOSEC) 40 mg capsule 90 capsule 1 Sig: Take 1 capsule by mouth once daily. Date of last office visit in primary care: 05/17/2024 Date of next office visit in primary care: 05/18/2025 Please advise. Thank you. Kirsten Stein. [facility] 05-17-2024 History of Presen t illness Narrative Chief Complaint Patient presents with: Physical HPI Laura Chacon is a 58 year old female who presents here today for Physical. Patient with Hx of RA, drug induced neutropenia, breast cancer seeing heme/onc as well as those reviewed and addressed below and in ROS. Patient sees Hemat/onc next visit 10/2024 - left breast cancer Patient sees CLINICAL SUPPORT SPECIALIST next visit 02/2025 Patient sees Rheumat last visit 03/2023,seeing Dr. Bowie. Has been doing ok. No new issues or concerns. Past medical history, appointments, medications, allergies reviewed. Previous Medical History PAST MEDICAL HISTORY Diagnosis Date Abnormal findings on diagnostic imaging of liver and biliary tract 09/13/2019 BRCA negative negative Integrated BRACAnalysis with myRisk 25 gene panel Drug-induced neutropenia (HCC) 11/04/2013 ICD-10 Go-Live Eosinophilic esophagitis 11/01/[address] Newell Gastroesophageal reflux disease without esophagitis 05/12/[address] Newell History of COVID-19 01/23/202111/2020 Invasive ductal carcinoma of breast, left (HCC) 03/02/2017 Malignant neoplasm of left female breast (HCC) 02/13/[address] Walton Obesity, Class I, BMI 30-34.9 05/12/2023 Osteopenia, senile 07/05/2021 Per Rheum, on Alendronate, started 06/2021 PONV (postoperative nausea and vomiting) Rheumatoid arthritis involving multiple sites (HCC) 02/13/2015 [facility] in [place]: Sees Dr. Bowie Routine gynecological examination 01/06/2014 Seeing [facility] Well adult exam 01/06/2014 last done 12/06/2019 Previous Surgical History PAST SURGICAL HISTORY Procedure Laterality Date ABDOMINAL SURGERY HX BREAST SURGERY HX BX/EXC LYMPH NODE OPEN DEEP AXILLARY NODE 09/29/2013 left DELIVERY ONLY COLONOSCOPY 03/19/2022 repeat in 5 years COLONOSCOPY FLX DX W/COLLJ SPEC WHEN PFRMD 10/29/2016 Colonoscopy FLUORO CENTRAL VENOUS ACCESS DEV PLACEMENT 11/02/2013 right INSJ TUNNELED CTR VAD W/SUBQ PORT AGE 5 YR/> 11/02/2013 right- REMOVED INTRAOP SENTINEL LYMPH NODE ID W/DYE INJECTION 09/29/2013 left LAPS SURG CHOLECYSTECTOMY W/CHOLANGIOGRAPHY 09/13/2019 LIG/TRNSXJ FLP TUBE ABDL/VAG APPR UNI/BI Tubal ligation MAST MODF RAD W/AX LYMPH NOD W/WO PECT/JIMMY MIN 09/29/2013 left PAST SURGICAL HISTORY OF wrist, right PAST SURGICAL HISTORY OF Right 04/01/2018 osteophyte removal and fusion of 2nd digit SALPINGO-OOPHORECTOMY COMPL/PRTL UNI/BI SPX 08/08/2014 Laproscopic BSO-Dr. 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 2001 Family History FAMILY HISTORY Problem Relation Age of Onset Asthma Mother Colon Cancer Father other (Lung Disease) Father Pancreatic Cancer Father Diabetes Sister Colon Cancer Maternal Grandmother Prostate Cancer Maternal Grandfather late 80's Breast Cancer Paternal Grandmother dx 89 Alzheimer's Disease Paternal Grandfather No Known Problems Daughter Breast Cancer Other maternal great aunt dx 55, 65 Patient Allergies ALLERGIES Allergen Reactions Celebrex [Celecoxib] Itching Current Medications Current Outpatient Medications on File Prior to Visit Medication Sig omeprazole (PRILOSEC) 40 mg capsule Take 1 capsule by mouth once daily. alendronate (FOSAMAX) 70 mg tablet Take 1 tablet by mouth one time a week. Take with a full glass of water, on an empty stomach; do NOT lie down for 30minutes. Per Rheum, Dr. Bowie Calcium Cmb 2-D3-Min Mel50-Nhf (CITRACAL PLUS BONE DENSITY) 300-200-13.5 mg-unit-mg tab Take 2 tablets by mouth twice daily. ORENCIA CLICKJECT 125 mg/mL AutoInjector Inject 125 mg subcutaneously one time a week. Tuesdays leucovorin (LEUCOVORIN) 5 mg tablet TAKE 1 TABLET BY MOUTH THE DAY AFTER METHOTRXATE SOOLANTRA 1 % crea Apply 1 application to affected area once daily as needed. LACTOBACILLUS ACIDOPHILUS (PROBIOTIC ORAL) Take 1 capsule by mouth once daily. HYDROXYCHLOROQUINE SULFATE (PLAQUENIL ORAL) Take 200 mg by mouth once daily. methotrexate 2.5 mg tablet Take by mouth every Thursday. Pt sts she takes 8 tablets every Thursday. Kamilah Yunier, VICE PRESIDENT [employer] DAILY MULTIVITAMIN ORAL TAB Take one(1) tablet daily. No current facility-administered medications on file prior to visit. Social History Social History Tobacco Use Smoking status: Never Smokeless tobacco: Never Vaping Use Vaping status: Never Used Substance Use Topics Alcohol use: No Drug use: No Review of Symptoms REVIEW OF SYSTEMS GENERAL: No unintentional weight loss, malaise or fevers HEENT: Negative for frequent or significant headaches, No changes in hearing or vision, no nose bleeds or other nasal problems. Gets a raw spot on the anterior nares on the right NECK: Negative for lumps, goiter, pain and significant neck swelling RESPIRATORY: Negative for cough, hemoptysis, wheezing, COPD, dyspnea or shortness of breath CARDIOVASCULAR: Negative for chest pain, leg swelling, hypertension, CHF or palpitations GI: No nausea, vomiting, or diarrhea, No heartburn or reflux symptoms, and no blood : No history of dysuria, frequency or blood MUSCULOSKELETAL: Negative for new or changes in her typical joint pain or swelling, back pain or muscle pain SKIN: Negative for lesions, rash, and itching. See HEENT PSYCH: Negative for sleep disturbance, mood disorder and recent psychosocial stressors HEMATOLOGY/LYMPHOLOGY: Negative for prolonged bleeding, bruising easily or swollen nodes ENDOCRINE: Negative for cold or heat intolerance, polyuria, polydipsia and goiter NEURO: No history of headaches, syncope, paralysis, seizures or tremors EXAM: BP 118/70 Pulse 70 Resp 16 Ht 161.9 cm (5' 3.75) Wt 80.7 kg (178 lb) LMP 11/04/2013 BMI 30.79 kg/m Last 5 Encounter Wt Readings: Date: Wt: 05/17/2024 80.7 kg (178 lb) 02/23/2024 80.7 kg (178 lb) 10/06/2023 87 kg (191 lb 14.4 oz) 05/12/2023 85.3 kg (188 lb) 04/15/2023 86.6 kg (191 lb) General Appearance: Well appearing, alert, in no acute distress, well-hydrated, well nourished. and Overweight. Skin: Skin color, texture, turgor normal, no suspicious rashes or lesions. Head: Normocephalic, no masses, lesions, tenderness or abnormalities. Eyes: Anicteric sclera. Pupils are equally round and reactive to light. Extraocular movements are intact. . Ears: External ears, TM's normal, canals clear. Nose/Sinuses: Nares normal, septum midline, mucosa normal, no drainage or sinus tenderness. Has a small skin sore on the anterior edge of the right nares. Oropharynx: Lips, mucosa, and tongue normal, teeth and gums normal, oropharynx normal. Neck: Supple, no adenopathy; thyroid symmetric, normal size, no bruits. Lungs: Lungs clear to auscultation. No wheezing, rhonchi, rales.. Heart: RRR without murmur, gallop, or rubs. No ectopy. Abdomen: Normal abdominal exam, Abdomen soft, non-tender. Bowel sounds normal. No masses, organomegaly. Extremities: No deformities, edema, skin discoloration. Good capillary refill. . Musculoskeletal: Spine range of motion normal. Muscular strength intact, No joint swelling, deformity, or tenderness. Peripheral Pulses: Normal. Neurologic: Gait normal. Reflexes normal and symmetric. Sensation grossly intact.. Health Maintenance List Covid-19 Vaccine(1) Never done Depression Screening Never done Anxiety Screening Never done Pneumococcal Vaccine: 50+(4 of 4 - PCV20 or PCV21) due on 07/23/2022 Mammogram Screening due on 09/27/2024 Cervical Cancer Screening due on 02/22/2025 Diabetes Screening due on 03/18/2026 Colorectal Cancer Screening due on 03/19/2027 Lipid Screening due on 05/12/2028 DTaP,Tdap,Td Vaccine(3 - Td or Tdap) due on 02/18/2032 Influenza Vaccine Completed Shingrix Vaccine Completed HPV Vaccine Aged Out Hepatitis B Vaccine Discontinued Hepatitis C Screening Discontinued HIV Screening Discontinued Data reviewed A/P ASSESSMENT/PLAN: 1. Well adult exam - ICD9: V70.0, ICD10: Z00.00 (primary diagnosis) - Counseled on healthy diet and regular exercise - Discussed need and benefit for weight loss. BMI 30.79 kg/(m^2) - Patient counseled on and acknowledged vaccine benefits/risks/side effects; VIS provided: Pneumococcal - Follow up for annual exam in one year - HEMOGLOBIN A1C - LIPID PANEL, NONFASTING 2. Rheumatoid arthritis involving multiple sites, unspecified whether rheumatoid factor present (HCC) - ICD9: 714.0, ICD10: M06.9 - on meds per Rheumatology Check - COMPREHENSIVE METABOLIC PANEL - COMPLETE BLOOD COUNT AND DIFFERENTIAL 3. Drug-induced neutropenia (HCC) - ICD9: 288.03, E980.5, ICD10: D70.2 Check - COMPLETE BLOOD COUNT AND DIFFERENTIAL 4. Invasive ductal carcinoma of breast, left (HCC) - ICD9: 174.9, ICD10: C50.912 - follows with Oncology for care. 5. Malignant neoplasm of left breast in female, estrogen receptor positive, unspecified site of breast (HCC) - ICD9: 174.9, V86.0, ICD10: C50.912, Z17.0 - as per #5 6. Obesity, Class I, BMI 30-34.9 - ICD9: 278.00, ICD10: E66.811 - has lost weight and almost at a BMI of just being over weight. 7. Eosinophilic esophagitis - ICD9: 530.13, ICD10: K20.0 - sees Gastro 8. Screening for depression - ICD9: V79.0, ICD10: Z13.31 - DEPRESSION SCREENING 9. Encounter for screening examination for other mental health and behavioral disorders - ICD9: V79.8, ICD10: Z13.39 - ANXIETY SCREENING 10. Screening for diabetes mellitus (DM) - ICD9: V77.1, ICD10: Z13.1 Check - HEMOGLOBIN A1C 11. Encounter for lipid screening for cardiovascular disease - ICD9: V77.91, V81.2, ICD10: Z13.220, Z13.6 Check - LIPID PANEL, NONFASTING 12. Medication management - ICD9: V58.69, ICD10: Z79.899 Check - COMPREHENSIVE METABOLIC PANEL - COMPLETE BLOOD COUNT AND DIFFERENTIAL 13. Nasal sore - ICD9: 478.19, ICD10: J34.89 - discussed Tx with OTC [place] gel before bed for the next few weeks. F/u in a year or sooner if needed. Nolan Mancuso MD documented in this encounter [facility] 05-17-2024 Note HNO ID: [id number] Author: NOLAN MANCUSO MD Service: ? Author Type: Physician Type: Progress Notes Filed: 05/17/2024 14:23 Note Text: Chief Complaint Patient presents with: Physical HPI Laura Chacon is a 58 year old female who presents here today for Physical. Patient with Hx of RA, drug induced neutropenia, breast cancer seeing heme/onc as well as those reviewed and addressed below and in ROS. Patient sees Hemat/onc next visit 10/2024 - left breast cancer Patient sees CLINICAL SUPPORT SPECIALIST next visit 02/2025 Patient sees Rheumat last visit 03/2023,seeing Dr. Bowie. Has been doing ok. No new issues or concerns. Past medical history, appointments, medications, allergies reviewed. Previous Medical History PAST MEDICAL HISTORY Diagnosis Date Abnormal findings on diagnostic imaging of liver and biliary tract 09/13/2019 BRCA negative negative Integrated BRACAnalysis with LookMed[employer] 25 gene panel Drug-induced neutropenia (HCC) 11/04/2013 ICD-10 Go-Live Eosinophilic esophagitis 11/01/[address] Newell Gastroesophageal reflux disease without esophagitis 05/12/[address] Newell History of COVID-19 01/23/202111/2020 Invasive ductal carcinoma of breast, left (HCC) 03/02/2017 Malignant neoplasm of left female breast (HCC) 02/13/[address] Walton Obesity, Class I, BMI 30-34.9 05/12/2023 Osteopenia, senile 07/05/2021 Per Rheum, on Alendronate, started 06/2021 PONV (postoperative nausea and vomiting) Rheumatoid arthritis involving multiple sites (HCC) 02/13/2015 [facility] in [place]: Sees Dr. Bowie Routine gynecological examination 01/06/2014 Seeing [facility] Well adult exam 01/06/2014 last done 12/06/2019 Previous Surgical History PAST SURGICAL HISTORY Procedure Laterality Date ABDOMINAL SURGERY HX BREAST SURGERY HX BX/EXC LYMPH NODE OPEN DEEP AXILLARY NODE 09/29/2013 left DELIVERY ONLY COLONOSCOPY 03/19/2022 repeat in 5 years COLONOSCOPY FLX DX W/COLLJ SPEC WHEN PFRMD 10/29/2016 Colonoscopy FLUORO CENTRAL VENOUS ACCESS DEV PLACEMENT 11/02/2013 right INSJ TUNNELED CTR VAD W/SUBQ PORT AGE 5 YR/> 11/02/2013 right- REMOVED INTRAOP SENTINEL LYMPH NODE ID W/DYE INJECTION 09/29/2013 left LAPS SURG CHOLECYSTECTOMY W/CHOLANGIOGRAPHY 09/13/2019 LIG/TRNSXJ FLP TUBE ABDL/VAG APPR UNI/BI Tubal ligation MAST MODF RAD W/AX LYMPH NOD W/WO PECT/JIMMY MIN 09/29/2013 left PAST SURGICAL HISTORY OF wrist, right PAST SURGICAL HISTORY OF Right 04/01/2018 osteophyte removal and fusion of 2nd digit SALPINGO-OOPHORECTOMY COMPL/PRTL UNI/BI SPX 08/08/2014 Laproscopic BSO-Dr. 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 2000 Family History FAMILY HISTORY Problem Relation Age of Onset Asthma Mother Colon Cancer Father other (Lung Disease) Father Pancreatic Cancer Father Diabetes Sister Colon Cancer Maternal Grandmother Prostate Cancer Maternal Grandfather late 80's Breast Cancer Paternal Grandmother dx 89 Alzheimer's Disease Paternal Grandfather No Known Problems Daughter Breast Cancer Other maternal great aunt dx 55, 65 Patient Allergies ALLERGIES Allergen Reactions Celebrex [Celecoxib] Itching Current Medications Current Outpatient Medications on File Prior to Visit Medication Sig omeprazole (PRILOSEC) 40 mg capsule Take 1 capsule by mouth once daily. alendronate (FOSAMAX) 70 mg tablet Take 1 tablet by mouth one time a week. Take with a full glass of water, on an empty stomach; do NOT lie down for 30minutes. Per Dr. Azeb Landaverde Calcium Cmb 2-D3-Min Aou53-Cgq (CITRACAL PLUS BONE DENSITY) 300-200-13.5 mg-unit-mg tab Take 2 tablets by mouth twice daily. ORENCIA CLICKJECT 125 mg/mL AutoInjector Inject 125 mg subcutaneously one time a week. Tuesdays leucovorin (LEUCOVORIN) 5 mg tablet TAKE 1 TABLET BY MOUTH THE DAY AFTER METHOTRXATE SOOLANTRA 1 % crea Apply 1 application to affected area once daily as needed. LACTOBACILLUS ACIDOPHILUS (PROBIOTIC ORAL) Take 1 capsule by mouth once daily. HYDROXYCHLOROQUINE SULFATE (PLAQUENIL ORAL) Take 200 mg by mouth once daily. methotrexate 2.5 mg tablet Take by mouth every Thursday. Pt sts she takes 8 tablets every Thursday. Kamilah Faye LPN DAILY MULTIVITAMIN ORAL TAB Take one(1) tablet daily. No current facility-administered medications on file prior to visit. Social History Social History Tobacco Use Smoking status: Never Smokeless tobacco: Never Vaping Use Vaping status: Never Used Substance Use Topics Alcohol use: No Drug use: No Review of Symptoms REVIEW OF SYSTEMS GENERAL: No unintentional weight loss, malaise or fevers HEENT: Negative for frequent or significant headaches, No changes in hearing or vision, no nose bleeds or other nasal problems. Gets a raw spot on the anterior nares on the right NECK: Negative for lumps, goiter, pain and signi (more content not included)... [facility] 02-23-2024 Note HNO ID: [id number] Author: LEXIE VELASCO MD Service: ? Author Type: Physician Type: Progress Notes Filed: 02/23/2024 12:41 Note Text: Policyholder Information Clerk offered: Patient declines. Laura is a 58 year old who presents for an annual gynecologic exam without complaints. Daughter graduates college- moving to [place] to work at [employer]. Went to [place] for vacation in summer Postmenopausal: Yes HRT use: No. Last Pap: 12/21/2018 normal HPV: 12/21/2018 negative History of abnormal pap: No Last mammogram: 2023 normal History of abnormal mammogram: Yes - left breast cancer - mastectomy Sexually active: No too painful History of STDS: None Patient concerns for STD exposure: No. Hot flashes: No Night sweats: No Vaginal dryness: Not anymore (noticed more discharge- not infectious) Exercise: walking Diet: balanced OB History T0 L1 SAB0 IAB0 Ectopic0 Multiple0 Live Births0 Form Stripper History LMP: 11/04/2013, Drug Induced Amenorrhea Age at Menarche: Age at First : Age at Menopause: Form Stripper History Comments: Sexual Activity: Yes; Male Contraception: Tubal Ligation PAST MEDICAL HISTORY Diagnosis Date Abnormal findings on diagnostic imaging of liver and biliary tract 09/13/2019 BRCA negative negative Integrated BRACAnalysis with myRisk 25 gene panel Drug-induced neutropenia (HCC) 11/04/2013 ICD-10 Go-Live Eosinophilic esophagitis 11/01/[address] Newell Gastroesophageal reflux disease without esophagitis 05/12/[address] Newell History of COVID-19 01/23/202111/2020 Invasive ductal carcinoma of breast, left (HCC) 03/02/2017 Malignant neoplasm of left female breast (HCC) 02/13/[address] Walton Obesity, Class I, BMI 30-34.9 05/12/2023 Osteopenia, senile 07/05/2021 Per Rheum, on Alendronate, started 06/2021 PONV (postoperative nausea and vomiting) Rheumatoid arthritis involving multiple sites (HCC) 02/13/2015 [facility] in [place]: Sees Dr. Bowie Routine gynecological examination 01/06/2014 Seeing [facility] Well adult exam 01/06/2014 last done 12/06/2019 PAST SURGICAL HISTORY Procedure Laterality Date ABDOMINAL SURGERY HX BREAST SURGERY HX BX/EXC LYMPH NODE OPEN DEEP AXILLARY NODE 09/29/2013 left DELIVERY ONLY COLONOSCOPY 03/19/2022 repeat in 5 years COLONOSCOPY FLX DX W/COLLJ SPEC WHEN PFRMD 10/29/2016 Colonoscopy FLUORO CENTRAL VENOUS ACCESS DEV PLACEMENT 11/02/2013 right INSJ TUNNELED CTR VAD W/SUBQ PORT AGE 5 YR/> 11/02/2013 right- REMOVED INTRAOP SENTINEL LYMPH NODE ID W/DYE INJECTION 09/29/2013 left LAPS SURG CHOLECYSTECTOMY W/CHOLANGIOGRAPHY 09/13/2019 LIG/TRNSXJ FLP TUBE ABDL/VAG APPR UNI/BI Tubal ligation MAST MODF RAD W/AX LYMPH NOD W/WO PECT/JIMMY MIN 09/29/2013 left PAST SURGICAL HISTORY OF wrist, right PAST SURGICAL HISTORY OF Right 04/01/2018 osteophyte removal and fusion of 2nd digit SALPINGO-OOPHORECTOMY COMPL/PRTL UNI/BI SPX 08/08/2014 Laproscopic BSO-Dr. 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 FAMILY HISTORY Problem Relation Age of Onset Asthma Mother Colon Cancer Father other (Lung Disease) Father Pancreatic Cancer Father Diabetes Sister Colon Cancer Maternal Grandmother Prostate Cancer Maternal Grandfather late 80's Breast Cancer Paternal Grandmother dx 89 Alzheimer's Disease Paternal Grandfather No Known Problems Daughter Breast Cancer Other maternal great aunt dx 55, 65 SOCIAL HISTORY Social History Tobacco Use Smoking status: Never Smokeless tobacco: Never Vaping Use Vaping status: Never Used Substance Use Topics Alcohol use: No Drug use: No REVIEW OF SYSTEMS Abdomen: No abdominal pain, nausea, vomiting, diarrhea, or constipation. No bloating, early satiety, indigestion, or increased flatulence. Bladder: No dysuria, gross hematuria, urinary frequency, urinary urgency, or incontinence Breast: No breast lumps, nipple d/c, overlying skin changes, redness or skin retraction Allergies and current medication updated:Yes SENSITIVE EXAM: The sensitive examination was discussed with the Patient or Patient's Authorized Business Objects. As applicable, any other physician, advance practice provider, medical student, or other health professional student that will be observing or involved in the sensitive examination for educational or training purposes was discussed with the Patient or Authorized Business Objects. The Patient or Authorized Business Objects has agreed to proceed with the sensitive examination. (Sensitive examination includes inspection and/or palpation of the breasts, pelvis, prostate and anorectal regions). EXAM: BP 120/68 Ht 5' 3.5 (1.61m) Wt 178 lb (80.7kg) LMP 11/04/2013 BMI 31.03 kg/(m2). GENERAL: pleasant, female in no apparent distress HEENT: Normocephalic, (more content not included)... [facility] 02-23-2024 History of Presen t illness Narrative Policyholder Information Clerk offered: Patient declines. Laura is a 58 year old who presents for an annual gynecologic exam without complaints. Daughter graduates college- moving to [place] to work at [employer]. Went to [place] [employer] for vacation in summer Postmenopausal: Yes HRT use: No. Last Pap: 12/21/2018 normal HPV: 12/21/2018 negative History of abnormal pap: No Last mammogram: 2023 normal History of abnormal mammogram: Yes - left breast cancer - mastectomy Sexually active: No too painful History of STDS: None Patient concerns for STD exposure: No. Hot flashes: No Night sweats: No Vaginal dryness: Not anymore (noticed more discharge- not infectious) Exercise: walking Diet: balanced OB History T0 L1 SAB0 IAB0 Ectopic0 Multiple0 Live Births0 Form Stripper History LMP: 11/04/2013, Drug Induced Amenorrhea Age at Menarche: Age at First : Age at Menopause: Form Stripper History Comments: Sexual Activity: Yes; Male Contraception: Tubal Ligation PAST MEDICAL HISTORY Diagnosis Date Abnormal findings on diagnostic imaging of liver and biliary tract 09/13/2019 BRCA negative negative Integrated BRACAnalysis with myRisk 25 gene panel Drug-induced neutropenia (HCC) 11/04/2013 ICD-10 Go-Live Eosinophilic esophagitis 11/01/[address] Newell Gastroesophageal reflux disease without esophagitis 05/12/[address] Newell History of COVID-19 01/23/202111/2020 Invasive ductal carcinoma of breast, left (HCC) 03/02/2017 Malignant neoplasm of left female breast (HCC) 02/13/[address] Walton Obesity, Class I, BMI 30-34.9 05/12/2023 Osteopenia, senile 07/05/2021 Per Rheum, on Alendronate, started 06/2021 PONV (postoperative nausea and vomiting) Rheumatoid arthritis involving multiple sites (HCC) 02/13/2015 [facility] in [place]: Sees Dr. Bowie Routine gynecological examination 01/06/2014 [facility] Well adult exam 01/06/2014 last done 12/06/2019 PAST SURGICAL HISTORY Procedure Laterality Date ABDOMINAL SURGERY HX BREAST SURGERY HX BX/EXC LYMPH NODE OPEN DEEP AXILLARY NODE 09/29/2013 left DELIVERY ONLY COLONOSCOPY 03/19/2022 repeat in 5 years COLONOSCOPY FLX DX W/COLLJ SPEC WHEN PFRMD 10/29/2016 Colonoscopy FLUORO CENTRAL VENOUS ACCESS DEV PLACEMENT 11/02/2013 right INSJ TUNNELED CTR VAD W/SUBQ PORT AGE 5 YR/> 11/02/2013 right- REMOVED INTRAOP SENTINEL LYMPH NODE ID W/DYE INJECTION 09/29/2013 left LAPS SURG CHOLECYSTECTOMY W/CHOLANGIOGRAPHY 09/13/2019 LIG/TRNSXJ FLP TUBE ABDL/VAG APPR UNI/BI Tubal ligation MAST MODF RAD W/AX LYMPH NOD W/WO PECT/JIMMY MIN 09/29/2013 left PAST SURGICAL HISTORY OF wrist, right PAST SURGICAL HISTORY OF Right 04/01/2018 osteophyte removal and fusion of 2nd digit SALPINGO-OOPHORECTOMY COMPL/PRTL UNI/BI SPX 08/08/2014 Laproscopic BSO-Dr. 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 2001 FAMILY HISTORY Problem Relation Age of Onset Asthma Mother Colon Cancer Father other (Lung Disease) Father Pancreatic Cancer Father Diabetes Sister Colon Cancer Maternal Grandmother Prostate Cancer Maternal Grandfather late 80's Breast Cancer Paternal Grandmother dx 89 Alzheimer's Disease Paternal Grandfather No Known Problems Daughter Breast Cancer Other maternal great aunt dx 55, 65 SOCIAL HISTORY Social History Tobacco Use Smoking status: Never Smokeless tobacco: Never Vaping Use Vaping status: Never Used Substance Use Topics Alcohol use: No Drug use: No REVIEW OF SYSTEMS Abdomen: No abdominal pain, nausea, vomiting, diarrhea, or constipation. No bloating, early satiety, indigestion, or increased flatulence. Bladder: No dysuria, gross hematuria, urinary frequency, urinary urgency, or incontinence Breast: No breast lumps, nipple d/c, overlying skin changes, redness or skin retraction Allergies and current medication updated:Yes SENSITIVE EXAM: The sensitive examination was discussed with the Patient or Patient's Authorized Business Objects. As applicable, any other physician, advance practice provider, medical student, or other health professional student that will be observing or involved in the sensitive examination for educational or training purposes was discussed with the Patient or Authorized Business Objects. The Patient or Authorized Business Objects has agreed to proceed with the sensitive examination. (Sensitive examination includes inspection and/or palpation of the breasts, pelvis, prostate and anorectal regions). EXAM: BP 120/68 Ht 5' 3.5 (1.61m) Wt 178 lb (80.7kg) LMP 11/04/2013 BMI 31.03 kg/(m^2). GENERAL: pleasant, female in no apparent distress HEENT: Normocephalic, atraumatic, mucus membranes moist, and no lesions NECK: Supple, full range of motion, no adenopathy, and thyroid normal DERMATOLOGY: Normal, without lesions, non-icteric, and non-hirsute BREAST: soft, non-tender, no dominant mass, normal nipple-areolar complex, no lymphadenopathy, no nipple discharge, and left breast mastectomy site well healed ABDOMEN: soft, non-tender, and no masses PELVIC: external genitalia normal, normal Bartholin's glands, urethra, [place]'s glands, no vulvar lesions, no cervical lesions, good vaginal support, physiologic discharge present, normal appearing perineal body and perianal region, atrophic changes BIMANUAL: uterus normal size, shape and consistency, no adnexal masses, and non-tender RECTOVAGINAL: deferred. NEURO: alert and oriented x3,exam grossly non-focal EXTREMITIES: normal ASSESSMENT/PLAN: 1) Health maintenance: Pap done with HPV. Mammogram ordered Mammogram up to date Nutrition, exercise and routine health maintenance exams reviewed. Calcium/Vitamin D supplementation information provided. Colon cancer screening: up to date with screening 2) Follow up one year or sooner as needed Lexie Alcala MD documented in this encounter [facility] 01-12-2024 Telephone encounter Note The following approved medication requests have been transmitted electronically. Requested Prescriptions Signed Prescriptions Disp Refills omeprazole (PRILOSEC) 40 mg capsule 90 capsule 1 Sig: Take 1 capsule by mouth once daily. Authorizing Provider: NOLAN MANCUSO MD [facility] 01-12-2024 Miscellaneous Notes The following approved medication requests have been transmitted electronically. Requested Prescriptions Signed Prescriptions Disp Refills omeprazole (PRILOSEC) 40 mg capsule 90 capsule 1 Sig: Take 1 capsule by mouth once daily. Authorizing Provider: NOLAN MANCUSO MD Prescription Refill Information The patient has been identified by name and date of : Yes Caregiver verified no other encounters exist for this prescription request: Yes Caregiver confirmed with patient/requestor that no other refills are due, in the near future, with this provider at this time: Yes The last office visit in the department: 05/12/23 Does the patient have a future office visit with this provider/department: Yes Requested Prescriptions Pending Prescriptions Disp Refills omeprazole (PRILOSEC) 40 mg capsule 90 capsule 1 Sig: Take 1 capsule by mouth once daily. Kumar Mello LPN January 12, 2024 2:35 PM Prescription Refill Information The patient has been identified by name and date of : Yes Caregiver verified no other encounters exist for this prescription request: Yes Caregiver confirmed with patient/requestor that no other refills are due, in the near future, with this provider at this time: Yes The last office visit in the department: 05-12-23 Does the patient have a future office visit with this provider/department: Yes Requested Prescriptions Pending Prescriptions Disp Refills omeprazole (PRILOSEC) 40 mg capsule 90 capsule 1 Sig: Take 1 capsule by mouth once daily. Amber Turner January 12, 2024 1:48 PM documented in this encounter [facility] 01-12-2024 Telephone encounter Note Prescription Refill Information The patient has been identified by name and date of : Yes Caregiver verified no other encounters exist for this prescription request: Yes Caregiver confirmed with patient/requestor that no other refills are due, in the near future, with this provider at this time: Yes The last office visit in the department: 05/12/23 Does the patient have a future office visit with this provider/department: Yes Requested Prescriptions Pending Prescriptions Disp Refills omeprazole (PRILOSEC) 40 mg capsule 90 capsule 1 Sig: Take 1 capsule by mouth once daily. Kumar Mello LPN January 12, 2024 2:35 PM [facility] 01-12-2024 Telephone encounter Note Prescription Refill Information The patient has been identified by name and date of : Yes Caregiver verified no other encounters exist for this prescription request: Yes Caregiver confirmed with patient/requestor that no other refills are due, in the near future, with this provider at this time: Yes The last office visit in the department: 05-12-23 Does the patient have a future office visit with this provider/department: Yes Requested Prescriptions Pending Prescriptions Disp Refills omeprazole (PRILOSEC) 40 mg capsule 90 capsule 1 Sig: Take 1 capsule by mouth once daily. Amber Turner January 12, 2024 1:48 PM [facility] 10-06-2023 History of Presen t illness Narrative Chief Complaint Patient presents with: Established Patient HPI: Laura Chacon is a 57 year old female who presents here today for follow up breast cancer. Per Dr. Walton's previous note: H/o abnormality found in the left breast on a screening mammogram. Core biopsy 09/09/2013. Invasive ductal carcinoma. [place] both >95%. HER2 non-amplified by FISH. MRI of the breast on 09/23/2013 demonstrated multifocal disease suspected on the left. It involves much of the central upper and outer breast. Marked background parenchymal enhancement of the right side was noted without specific features of malignancy but the radiologist suggested a 6 month interval followup MRI. Underwent left mastectomy with SLN biopsy and ALND 09/29/2013. The final pathology revealed multiple foci of invasive carcinoma numbering to within the left breast mastectomy specimen. The largest tumor was 3.5 cm in smallest was 2.5 cm. There was DCIS comprising 2.0 cm. The overall grade of the cancer was 2. Margins were negative. The closest or the posterior margins of both tumors in the measured 2.5 cm in distance. Lymphovascular invasion was focally present. 3 sentinel lymph nodes were retrieved. One was positive for a macro metastasis measuring 9 mm in greatest dimension. There was no extranodal extension. An additional 7 axillary lymph nodes were retrieved all of which were negative. The final number of lymph nodes with 1 of 10 positive. Regular menses prior to therapy. Diagnosed with RA at age 24. Manifested as hand, foot and hip/knee stiffness initially. MTX about 20 years. Had been on Enbrel--10+ years. AC followed by T. Completed fall 2013. Completed radiation 04/21/2014. Started on GnRH and began anastrozole right after radiation. Tolerated well from standpoint of hot flashes. RA symptoms flared during radiation. Migratory joint pain. Her stitchdowns toe former put her back on MTX which helped marginally. B/L salpingo-ophorectomy 07/2014. Current therapy: 1) Arimidex. Was previously on aromasin caused joint pain. S/p lap. gianna on September [address] Contreras at [facility]. Recovered well. No new concerns today. Appetite:Good. Energy level:Fine. Denies fevers or recent illness. Resp:denies cough or sob Cardiac:denies chest pain/palpitations GI:denies abd pain, n/v, moving bowels regularly :denies dysuria/hematuria Extrem:denies pain currently-followed by Rheum h/o RA Endo:denies hot flashes It doesn't take much to make me warm. Neuro:denies symptoms of neuropathy Skin:denies rashes/lesions Heme:denies bleeding The ROS is otherwise negative. Past medical history, appointments, medications, allergies reviewed. No changes. EXAM: BP 120/70 Pulse 64 Temp 36.6 C (97.9 F) (Temporal) Wt 87 kg (191 lb 14.4 oz) LMP 11/04/2013 SpO2 100% BMI 33.20 kg/m APPEARANCE Well appearing, alert, in no acute distress, well-hydrated, well nourished. HEART RRR with normal S1 and S2, no murmurs LUNG clear to auscultation BREAST FEMALE R no mass/nodule, L mastectomy scar no nodule LYMPH NODES No cervical lymphadenopathy, No supraclavicular lymphadenopathy, and No axillary lymphadenopathy. ABDOMEN bowel sounds normoactive, soft, non-tender EXTREMITIES No edema NEURO Awake, alert and oriented x 3, Normal gait, and No involuntary motions. SKIN Skin color, texture, turgor normal, no suspicious rashes or lesions ASSESSMENT/PLAN: 1. Personal history of breast cancer - ICD9: V10.3, ICD10: Z85.3 Stage IIB invasive ductal carcinoma of the left breast. s/p mastectomy. Tolerated adjuvant chemotherapy well overall. - No concerning findings on exam. - Did not tolerate aromasin d/t joint pain. - Tolerated arimidex well. Pt. completed 7 years of therapy in 2021. - Reviewed R mammogram with pt. - R mammogram due September 2024. - Follow up after above. - Pt. aware to call office with any questions/concerns. The patient indicates understanding of these issues and agrees with the plan. All documentation from previous visit of 09/24/22-Dr. Walton/myself was copied and pasted, documentation has been reviewed and edited as necessary for today's visit. Caroline Jama APRN.STRATEGIC PLANNING ANALYST documented in this encounter [facility] 09-28-2023 Note Formatting of this n ote might be different from the original. September 28, 2023 PID: [id number] Laura Chacon [address] [place], [place] [id number] Dear Ms. Chacon, We are pleased to inform you that the results of your recent breast imaging exam on 09/28/2023 are normal. Your mammogram demonstrates that you have dense breast tissue, which could hide abnormalities. Dense breast tissue, in and of itself, is a relatively common condition. Therefore, this information is not provided to cause undue concern; rather, it is to raise your awareness and promote discussion with your health care provider regarding the presence of dense breast tissue in addition to other risk factors. Early detection of cancer is very important. We also understand recommendations regarding breast cancer screening are controversial. Please discuss with your primary care provider which strategy is best for you and whether a mammogram is right for you. Your imaging studies and report will be kept on file at [facility] as part of your permanent medical record and are available for your continuing care. Thank you for allowing us to help in meeting your health care needs. Sincerely, Dr. Ku Interpreting Radiologist [facility] (Normal over 40) [facility] 09-28-2023 Miscellaneous Notes September 28, 2023 PID: [id number] Laura Chacon [address] [place], [place] [id number] Dear Ms. Chacon, We are pleased to inform you that the results of your recent breast imaging exam on 09/28/2023 are normal. Your mammogram demonstrates that you have dense breast tissue, which could hide abnormalities. Dense breast tissue, in and of itself, is a relatively common condition. Therefore, this information is not provided to cause undue concern; rather, it is to raise your awareness and promote discussion with your health care provider regarding the presence of dense breast tissue in addition to other risk factors. Early detection of cancer is very important. We also understand recommendations regarding breast cancer screening are controversial. Please discuss with your primary care provider which strategy is best for you and whether a mammogram is right for you. Your imaging studies and report will be kept on file at [facility] as part of your permanent medical record and are available for your continuing care. Thank you for allowing us to help in meeting your health care needs. Sincerely, Dr. Ku Interpreting Radiologist [facility] (Normal over 40) documented in this encounter [facility] 09-28-2023 History of Presen t illness Narrative Radiology Service Progress Note PATIENT NAME: Laura Chacon DATE OF SERVICE: September 28, 2023 TIME: 9:52 AM PATIENT IDENTITY VERIFICATION COMPLETED USING TWO (2) IDENTIFIERS: Name and Date of confirmed by patient verbally. FALL SCREENING: Has the patient had 2 falls in the last year or 1 fall with injury or currently using an Ambulatory Assistive Device (Walker, Cane, Wheelchair, Crutches, etc.)? No PATIENT GENDER DATA: Female. status: : No status: NO. PATIENT RELEVANT IMPLANT DATA REVIEWED: Not Applicable PATIENT PRESENTS WITH AN IMPLANTABLE OR ATTACHED SELF CONTAINED BEHAVIOR UNIT TEACHER: No RADIOLOGY DEPARTMENT: Mammography PERIPHERAL IV DATA: Not applicable SIGNED BY: Mary Grace IrbyLightwave Logic September 28, 2023 9:52 AM documented in this encounter [facility] 09-09-2023 Telephone encounter Note The following approved medication requests have been transmitted electronically. Requested Prescriptions Signed Prescriptions Disp Refills omeprazole (PRILOSEC) 40 mg capsule 90 capsule 1 Sig: Take 1 capsule by mouth once daily. Authorizing Provider: NOLAN MANCUSO MD [facility] 09-09-2023 Miscellaneous Notes The following approved medication requests have been transmitted electronically. Requested Prescriptions Signed Prescriptions Disp Refills omeprazole (PRILOSEC) 40 mg capsule 90 capsule 1 Sig: Take 1 capsule by mouth once daily. Authorizing Provider: NOLAN MANCUSO MD Patient has been identified by name and date of : Pharmacy phones for refill(s): Requested Prescriptions Pending Prescriptions Disp Refills omeprazole (PRILOSEC) 40 mg capsule 90 capsule 1 Sig: Take 1 capsule by mouth once daily. Date of last office visit in primary care: 05/12/2023 Date of next office visit in primary care: 05/17/2024 Please advise. Thank you. Shaneka Kelly RN. documented in this encounter [facility] 09-09-2023 Telephone encounter Note Patient has been identified by name and date of : Pharmacy phones for refill(s): Requested Prescriptions Pending Prescriptions Disp Refills omeprazole (PRILOSEC) 40 mg capsule 90 capsule 1 Sig: Take 1 capsule by mouth once daily. Date of last office visit in primary care: 05/12/2023 Date of next office visit in primary care: 05/17/2024 Please advise. Thank you. Shaneka Kelly RN. [facility] 04-10-2023 History of Presen t illness Narrative Scan on 04/10/2023 12:19 AM by Provider, MONA Larsen: Consultation - Rheumatology documented in this encounter [facility] 03-18-2023 History of Presen t illness Narrative Chief Complaint Patient presents with: Pre-Op Exam HPI Laura Chacon is a 57 year old female who presents here today for Above Complaints.. Laura is an established patient of Dr. Bal MD. She is a new patient to me today. Concerns today.. Preop clearance --- Open reduction internal fixation of 5th metatarsal, B MAC harvest as well as bone graft harvest of the left calcaneus surgery scheduled through [facility] with Dr. Valentin Sosa. Surgery date is TBD pending repeat x-rays and follow-up appointment on 03/24/23. Pt reports no difficulties with anesthesia in the past. Chronic conditions are stable. Hx of RA. On plaquenil and methotrexate for this. Has been stable without complications or changes to regimen for awhile per pt. Hx of breast cancer in 2014. No complications or concerns since. No other concerns or complaints. Past medical history, appointments, medications, allergies reviewed. Previous Medical History PAST MEDICAL HISTORY Diagnosis Date Abnormal findings on diagnostic imaging of liver and biliary tract 09/13/2019 Arthritis BRCA negative negative Integrated BRACAnalysis with myRisk 25 gene panel Drug-induced neutropenia (HCC) 11/04/2013 ICD-10 Go-Live Eosinophilic esophagitis 11/01/[address] Newell History of COVID-19 01/23/202111/2020 Invasive ductal carcinoma of breast, left (HCC) 03/02/2017 Malignant neoplasm of left female breast (HCC) 02/13/[address] Walton Osteopenia, senile 07/05/2021 Per Rheum, on Alendronate, started 06/2021 PONV (postoperative nausea and vomiting) Rheumatoid arthritis involving multiple sites (HCC) 02/13/2015 [facility] in [place]: Sees Dr. Bowie Routine gynecological examination 01/06/2014 Seeing [facility] Well adult exam 01/06/2014 last done 12/06/2019 Previous Surgical History PAST SURGICAL HISTORY Procedure Laterality Date ABDOMINAL SURGERY HX BREAST SURGERY HX BX/EXC LYMPH NODE OPEN DEEP AXILLARY NODE 09/29/2013 left DELIVERY ONLY COLONOSCOPY 03/19/2022 repeat in 5 years COLONOSCOPY FLX DX W/COLLJ SPEC WHEN PFRMD 10/29/2016 Colonoscopy FLUORO CENTRAL VENOUS ACCESS DEV PLACEMENT 11/02/2013 right INSJ TUNNELED CTR VAD W/SUBQ PORT AGE 5 YR/> 11/02/2013 right- REMOVED INTRAOP SENTINEL LYMPH NODE ID W/DYE INJECTION 09/29/2013 left LAPS SURG CHOLECYSTECTOMY W/CHOLANGIOGRAPHY 09/13/2019 LIG/TRNSXJ FLP TUBE ABDL/VAG APPR UNI/BI Tubal ligation MAST MODF RAD W/AX LYMPH NOD W/WO PECT/JIMMY MIN 09/29/2013 left PAST SURGICAL HISTORY OF wrist, right PAST SURGICAL HISTORY OF Right 04/01/2018 osteophyte removal and fusion of 2nd digit SALPINGO-OOPHORECTOMY COMPL/PRTL UNI/BI SPX 08/08/2014 Laproscopic BSO-Dr. 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 2000 Family History FAMILY HISTORY Problem Relation Age of Onset Asthma Mother Colon Cancer Father other (Lung Disease) Father Pancreatic Cancer Father Diabetes Sister Colon Cancer Maternal Grandmother Prostate Cancer Maternal Grandfather late 80's Breast Cancer Paternal Grandmother dx 89 Alzheimer's Disease Paternal Grandfather No Known Problems Daughter Breast Cancer Other maternal great aunt dx 55, 65 Patient Allergies ALLERGIES Allergen Reactions Celebrex [Celecoxib] Itching Current Medications Current Outpatient Medications on File Prior to Visit Medication Sig omeprazole (PRILOSEC) 40 mg capsule Take 1 capsule by mouth twice daily. (Patient taking differently: Take 40 mg by mouth once daily.) alendronate (FOSAMAX) 70 mg tablet Take 1 tablet by mouth one time a week. Take with a full glass of water, on an empty stomach; do NOT lie down for 30minutes. Per Rheum, Dr. Bowie Calcium Cmb 2-D3-Min [id number] (CITRACAL PLUS BONE DENSITY) 300-200-13.5 mg-unit-mg tab Take 2 tablets by mouth twice daily. ORENCIA CLICKJECT 125 mg/mL AutoInjector Inject 125 mg subcutaneously one time a week. Tuesdays leucovorin (LEUCOVORIN) 5 mg tablet TAKE 1 TABLET BY MOUTH THE DAY AFTER METHOTRXATE SOOLANTRA 1 % crea Apply 1 application to affected area once daily as needed. LACTOBACILLUS ACIDOPHILUS (PROBIOTIC ORAL) Take 1 capsule by mouth once daily. HYDROXYCHLOROQUINE SULFATE (PLAQUENIL ORAL) Take 200 mg by mouth once daily. methotrexate 2.5 mg tablet Take by mouth every Thursday. Pt sts she takes 8 tablets every Thursday. Kamilah OrnelasAYANA gaviria DAILY MULTIVITAMIN ORAL TAB Take one(1) tablet daily. No current facility-administered medications on file prior to visit. Social History Social History Tobacco Use Smoking status: Never Smokeless tobacco: Never Vaping Use Vaping Use: Never used Substance Use Topics Alcohol use: No Drug use: No REVIEW OF SYSTEMS: as above Reviewed relevant PMHx, PSHx, Social Hx, current medications and allergies. Review of Symptoms REVIEW OF SYSTEMS See HPI. EXAM: BP 110/62 (BP Site: Right Arm, BP Position: Sitting, BP Cuff Size: Regular Adult) Pulse 80 Resp 14 Ht 160 cm (5' 3) Wt 86.4 kg (190 lb 6.4 oz) LMP 11/04/2013 BMI 33.73 kg/m General Appearance: Well appearing, alert, in no acute distress, well-hydrated, well nourished.. Skin: Skin color, texture, turgor normal, no suspicious rashes or lesions. Head: Normocephalic, no masses, lesions, tenderness or abnormalities. Lungs: Lungs clear to auscultation. No wheezing, rhonchi, rales.. Heart: RRR without murmur, gallop, or rubs. No ectopy. Abdomen: Normal abdominal exam, Abdomen soft, non-tender. Bowel sounds normal. No masses, organomegaly. Extremities: No deformities, edema, skin discoloration, clubbing or cyanosis. Good capillary refill. . Neurologic: Gait normal. Reflexes normal and symmetric. Sensation grossly intact.. Health Maintenance List Covid-19 Vaccine(1) Never done Depression Assessment due on 04/13/2022 Mammogram Screening due on 09/23/2023 Pap Testing due on 12/18/2023 HPV Testing due on 12/18/2023 Diabetes Screening due on 02/17/2025 Lipid Screening due on 02/17/2027 Colorectal Cancer Screening due on 03/19/2027 Pneumococcal Vaccine(4 - PPSV23 or PCV20) due on 2030 DTaP,Tdap,Td Vaccine(3 - Td or Tdap) due on 02/18/2032 Influenza Vaccine Completed Shingrix Vaccine Completed HPV Vaccine Aged Out Hepatitis B Vaccine Discontinued Hepatitis C Screening Discontinued HIV Screening Discontinued ASSESSMENT/PLAN: 1. Preoperative clearance - ICD9: V72.84, ICD10: Z01.818 EKG-- NSR rate of 62. Lab work as below for pre-op screening tests (some labs recommended by surgery location office). Likely cleared for surgery based on physical exam, there are no abnormalities and not anticipating any significant abnormalities with lab work. Will fax over office note and paperwork once labs result to confirm clearance. - ECG COMPLETE - CBC + DIFF - COMP METABOLIC PANEL - HGB A1C - VITAMIN D 25 HYDROXY - NICOTINE/COTININE - DEPRESSION SCREENING/ASSESSMENT RTO as needed. Prescription instructions reviewed with patient as applicable. Potential red flag symptoms discussed with the patient. Reviewed appropriate action plan to take if red flag symptoms occur. Patient agreeable to treatment plan. Leti Campos APRN.STRATEGIC PLANNING ANALYST [address] [place] [address] documented in this encounter [facility] 03-02-2023 History of Presen t illness Narrative [facility] External Imaging - X-ray [ID [id number]] Scan on 03/01/2023 6:07 PM by Provider, MONA Larsen: Consultation - Emergency Medicine documented in this encounter [facility] 03-01-2023 History of Presen t illness Narrative Images from the original note were not included. Subjective HPI Nontoxic-appearing female presents urgent care chief plaint left foot pain. Duration of symptoms yesterday. Associated symptoms left lateral aspect of foot discomfort. Patient states was walking yesterday and her drive when she hit the lateral aspect of her foot on a tree root. States she inverted it some. Did not fall to the ground. Presents today due to increasing pain. Patient states pain was severe at initial injury. Pain is exacerbated by walking. History of fracture to this foot. Was around area where the discomfort was. Fracture was not surgical. Has not use any OTC medications. Has been nonweightbearing and using crutches. Denies any fever body aches chills productive cough chest pain shortness of breath pleuritic pain hemoptysis nausea vomiting abdominal pain change in bowel or bladder habits. Past medical history prescription medication use and allergies reviewed. .Patient presents with: Trauma: Left foot, tripped on tree root, pain on outer side of foot PAST MEDICAL HISTORY Diagnosis Date Abnormal findings on diagnostic imaging of liver and biliary tract 09/13/2019 Arthritis BRCA negative negative Integrated BRACAnalysis with myRisk 25 gene panel Drug-induced neutropenia (HCC) 11/04/2013 ICD-10 Go-Live Eosinophilic esophagitis 11/01/[address] Newell History of COVID-19 01/23/202111/2020 Invasive ductal carcinoma of breast, left (HCC) 03/02/2017 Malignant neoplasm of left female breast (HCC) 02/13/[address] Walton Osteopenia, senile 07/05/2021 Per Rheum, on Alendronate, started 06/2021 PONV (postoperative nausea and vomiting) Rheumatoid arthritis involving multiple sites (HCC) 02/13/2015 [facility] in [place]: Sees Dr. Bowie Routine gynecological examination 01/06/2014 Seeing [facility] Well adult exam 01/06/2014 last done 12/06/2019 PAST SURGICAL HISTORY Procedure Laterality Date ABDOMINAL SURGERY HX BREAST SURGERY HX BX/EXC LYMPH NODE OPEN DEEP AXILLARY NODE 09/29/2013 left DELIVERY ONLY COLONOSCOPY 03/19/2022 repeat in 5 years COLONOSCOPY FLX DX W/COLLJ SPEC WHEN PFRMD 10/29/2016 Colonoscopy FLUORO CENTRAL VENOUS ACCESS DEV PLACEMENT 11/02/2013 right INSJ TUNNELED CTR VAD W/SUBQ PORT AGE 5 YR/> 11/02/2013 right- REMOVED INTRAOP SENTINEL LYMPH NODE ID W/DYE INJECTION 09/29/2013 left LAPS SURG CHOLECYSTECTOMY W/CHOLANGIOGRAPHY 09/13/2019 LIG/TRNSXJ FLP TUBE ABDL/VAG APPR UNI/BI Tubal ligation MAST MODF RAD W/AX LYMPH NOD W/WO PECT/JIMMY MIN 09/29/2013 left PAST SURGICAL HISTORY OF wrist, right PAST SURGICAL HISTORY OF Right 04/01/2018 osteophyte removal and fusion of 2nd digit SALPINGO-OOPHORECTOMY COMPL/PRTL UNI/BI SPX 08/08/2014 Laproscopic BSO-Dr. 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 2001 ALLERGIES Celebrex [Celecoxib] MEDICATIONS omeprazole (PRILOSEC) 40 mg capsule Take 1 capsule by mouth twice daily. (Patient taking differently: Take 40 mg by mouth once daily.) alendronate (FOSAMAX) 70 mg tablet Take 1 tablet by mouth one time a week. Take with a full glass of water, on an empty stomach; do NOT lie down for 30minutes. Per Rheum, Dr. Bowie Calcium Cmb 2-D3-Min Ria36-Bsc (CITRACAL PLUS BONE DENSITY) 300-200-13.5 mg-unit-mg tab Take 2 tablets by mouth twice daily. ORENCIA CLICKJECT 125 mg/mL AutoInjector Inject 125 mg subcutaneously one time a week. Tuesdays leucovorin (LEUCOVORIN) 5 mg tablet TAKE 1 TABLET BY MOUTH THE DAY AFTER METHOTRXATE SOOLANTRA 1 % crea Apply 1 application to affected area once daily as needed. LACTOBACILLUS ACIDOPHILUS (PROBIOTIC ORAL) Take 1 capsule by mouth once daily. HYDROXYCHLOROQUINE SULFATE (PLAQUENIL ORAL) Take 200 mg by mouth once daily. methotrexate 2.5 mg tablet Take by mouth every Thursday. Pt sts she takes 8 tablets every Thursday. Kamilah Yunier, VICE PRESIDENT BIOSTATISTICS DAILY MULTIVITAMIN ORAL TAB Take one(1) tablet daily. FAMILY HISTORY Problem Relation Age of Onset Asthma Mother Colon Cancer Father other (Lung Disease) Father Pancreatic Cancer Father Diabetes Sister Colon Cancer Maternal Grandmother Prostate Cancer Maternal Grandfather late 80's Breast Cancer Paternal Grandmother dx 89 Alzheimer's Disease Paternal Grandfather No Known Problems Daughter Breast Cancer Other maternal great aunt dx 55, 65 Social History Tobacco Use Smoking status: Never Smokeless tobacco: Never Vaping Use Vaping Use: Never used Substance Use Topics Alcohol use: No Drug use: No BP 132/76 Pulse 106 Temp 36.4 C (97.6 F) Resp 16 Wt 82.6 kg (182 lb) LMP 11/04/2013 SpO2 98% BMI 31.49 kg/m Review of Systems Constitutional: Negative for chills, fever and malaise/fatigue. HENT: Negative for congestion, ear discharge, ear pain, sinus pain and sore throat. Eyes: Negative for blurred vision, pain, discharge and redness. Respiratory: Negative for cough, hemoptysis, sputum production, shortness of breath, wheezing and stridor. Cardiovascular: Negative for chest pain. Gastrointestinal: Negative for abdominal pain, diarrhea, nausea and vomiting. Musculoskeletal: Negative for back pain, falls, joint pain, myalgias and neck pain. Skin: Negative for itching and rash. Neurological: Negative for dizziness and headaches. Objective Physical Exam Constitutional: General: She is not in acute distress. Appearance: She is not toxic-appearing. HENT: Head: Normocephalic. Nose: Nose normal. Eyes: Pupils: Pupils are equal, round, and reactive to light. Cardiovascular: Rate and Rhythm: Normal rate. Pulmonary: Effort: Pulmonary effort is normal. No respiratory distress. Musculoskeletal: Cervical back: Normal range of motion. Feet: Feet: Comments: Pain with palpation the highlighted area. Pain mostly located over midshaft of fourth and fifth metatarsal. Neurovascular intact. Mild bruising noted to midfoot. No pain with palpation to ankle or calf. Skin intact. Skin: General: Skin is warm and dry. Neurological: General: No focal deficit present. Mental Status: She is alert. ASSESSMENT/PLAN: 1. Foot pain, left - ICD9: 729.5, ICD10: M79.672 - XR FOOT GENERAL 3V AP/LAT/OBL LEFT Diagnosed with foot pain. Unable to obtain x-ray today. Patient will return for x-ray. Was encouraged to continue to use crutches and treat as nonweightbearing injury until x-rays were reviewed. Follow-up with podiatry as discussed. Patient was educated on supportive therapies. Patient will follow up with primary care provider as needed. Patient was instructed to immediately proceed to emergency room for any new, worsening, or symptoms lasting longer than anticipated. The patient's clinical presentation is otherwise unremarkable at this time. Based on exam and clinical finding, the patient is stable for discharge. Plan of care was discussed with patient. Patient verbalizes understanding and agrees to plan of care. This note was generated using [employer] software. It may contain errors in wording, punctuation, or spelling. Nolan Martin APRN.LA documented in this encounter [facility] 02-20-2023 History of Presen t illness Narrative Laura is a 57 year old who presents for an annual gynecologic exam. Postmenopausal: Yes HRT use: H/o arimidex for breast cancer Last Pap: 12/21/2018 normal HPV: 12/21/2018 negative History of abnormal pap: No Last mammogram: 2022 normal (follows with onc) History of abnormal mammogram: Yes - left mastectomy for breast cancer OB History T0 L1 SAB0 IAB0 Ectopic0 Multiple0 Live Births0 Form Stripper History LMP: 11/04/2013, Drug Induced Amenorrhea Age at Menarche: Age at First : Age at Menopause: Form Stripper History Comments: Sexual Activity: Yes; Male Contraception: Tubal Ligation PAST MEDICAL HISTORY Diagnosis Date Abnormal findings on diagnostic imaging of liver and biliary tract 09/13/2019 Arthritis BRCA negative negative Integrated BRACAnalysis with myRisk 25 gene panel Drug-induced neutropenia (HCC) 11/04/2013 ICD-10 Go-Live Eosinophilic esophagitis 11/01/[address] Newell History of COVID-19 01/23/202111/2020 Invasive ductal carcinoma of breast, left (HCC) 03/02/2017 Malignant neoplasm of left female breast (HCC) 02/13/[address] Walton Osteopenia, senile 07/05/2021 Per Rheum, on Alendronate, started 06/2021 PONV (postoperative nausea and vomiting) Rheumatoid arthritis involving multiple sites (HCC) 02/13/2015 [facility] in [place]: Sees Dr. Bowie Routine gynecological examination 01/06/2014 Seeing [facility] Well adult exam 01/06/2014 last done 12/06/2019 PAST SURGICAL HISTORY Procedure Laterality Date ABDOMINAL SURGERY HX BREAST SURGERY HX BX/EXC LYMPH NODE OPEN DEEP AXILLARY NODE 09/29/2013 left DELIVERY ONLY COLONOSCOPY 03/19/2022 repeat in 5 years COLONOSCOPY FLX DX W/COLLJ SPEC WHEN PFRMD 10/29/2016 Colonoscopy FLUORO CENTRAL VENOUS ACCESS DEV PLACEMENT 11/02/2013 right INSJ TUNNELED CTR VAD W/SUBQ PORT AGE 5 YR/> 11/02/2013 right- REMOVED INTRAOP SENTINEL LYMPH NODE ID W/DYE INJECTION 09/29/2013 left LAPS SURG CHOLECYSTECTOMY W/CHOLANGIOGRAPHY 09/13/2019 LIG/TRNSXJ FLP TUBE ABDL/VAG APPR UNI/BI Tubal ligation MAST MODF RAD W/AX LYMPH NOD W/WO PECT/JIMMY MIN 09/29/2013 left PAST SURGICAL HISTORY OF wrist, right PAST SURGICAL HISTORY OF Right 04/01/2018 osteophyte removal and fusion of 2nd digit SALPINGO-OOPHORECTOMY COMPL/PRTL UNI/BI SPX 08/08/2014 Laproscopic BSO-Dr. Velásquez SKIN BIOPSY HX US VASC ACCESS SITS VSL PATENCY NDL ENTRY 11/02/2013 right [facility] DELIVERY SCHEDULING ORDER 2000 FAMILY HISTORY Problem Relation Age of Onset Asthma Mother Colon Cancer Father other (Lung Disease) Father Pancreatic Cancer Father Diabetes Sister Colon Cancer Maternal Grandmother Prostate Cancer Maternal Grandfather late 80's Breast Cancer Paternal Grandmother dx 89 Alzheimer's Disease Paternal Grandfather No Known Problems Daughter Breast Cancer Other maternal great aunt dx 55, 65 SOCIAL HISTORY Social History Tobacco Use Smoking status: Never Smokeless tobacco: Never Vaping Use Vaping Use: Never used Substance Use Topics Alcohol use: No Drug use: No REVIEW OF SYSTEMS Abdomen: No abdominal pain, nausea, vomiting, diarrhea, or constipation. No bloating, early satiety, indigestion, or increased flatulence. Bladder: No dysuria, gross hematuria, urinary frequency, urinary urgency, or incontinence Breast: No breast lumps, nipple d/c, overlying skin changes, redness or skin retraction Allergies and current medication updated:Yes EXAM: Ht 5' 3.75 (1.62m) Wt 183 lb (83.0kg) LMP 11/04/2013 BMI 31.67 kg/(m^2). GENERAL: pleasant, female in no apparent distress BREAST: soft, non-tender, symmetric, no dominant mass, normal nipple-areolar complex, no lymphadenopathy, and no nipple discharge; and left mastectomy - healed well CHEST: Normal inspiratory effort ABDOMEN: soft, non-tender, and no masses PELVIC: external genitalia normal, no vulvar lesions, no cervical lesions, normal appearing perineal body and perianal region; atrophic vagina BIMANUAL: uterus normal size, shape and consistency, no adnexal masses, and non-tender RECTOVAGINAL: rectovaginal exam negative for any masses or nodularity. NEURO: alert and oriented x3,exam grossly non-focal EXTREMITIES: normal ASSESSMENT/PLAN: 1) Health maintenance: Pap/HPV up to date. Mammogram up to date Nutrition, exercise and routine health maintenance exams reviewed. Colon cancer screening: up to date with screening 2) Follow up one year or sooner as needed Yovana Quintanilla MD documented in this encounter [facility] 10-30-2022 History and physi gregory note Note Date/Time October 30, 2022 11:03am [facility] Medical Records Department [address] [place] [address] History & Physical Exam 10/30/22 1102 MR#: [id number] Acct: [id number] Name: LAURA CHACON Rep #:[id number] : 1965 56 From: Dannie Friend DO PCP: Dr. Nolan Mancuso MD Status:[facility] Location: [place] [address] History and Physical Date of Admission: 10/30/22 56 F who presents to the office today to establish with GI for burning sensationin epigastrium, food sticking at distal esophagus. Burning has resolved with omeprazole 40 mg daily. Dysphagia is improved too but still some sensation of fullness in upper esophagus. Esophagram--barium tablet trapped at EG junction. No CP. No sore throat. No nausea, vomiting, early satiety. No bowel complaints. No diarrhea, constipation, melena, hematochezia. Normal colonoscopy 03/2022, repeat 5 yrs. ROS Const Constitutional: No fatigue ENT ENT: No difficulty swallowing Gastro GI: No abdominal pain, belching, bloating, change in bowel habits, change in stool character, coffee ground emesis, constipation, cramping, diarrhea, heartburn, difficulty swallowing, feeling full early, excessive flatus, incontinent of stools, Vomiting blood/hematemesis, Blood in stool, loose stools,Black,tarry stools, nausea/dyspepsia, pain with swallowing, vomiting or other Musc Musculoskeletal: No joint pain Skin Skin: No yellowing of the eye or itchy eyes Psych Psychiatric: No anxiety and No depression Endo Endocrine: No fatigue Aller/Imm Allergy/Immunologic: No itchy eyes Gideon/Lymp Hematologic/Lymphatic: No easy bleeding or easy bruising Exam Const General: cooperative, healthy appearing and comfortable Orientation: alert, awake and oriented x3 Quality Reporting Tobacco Screening ([facility]) Smoking Status: Never smoker Assessment and Plan Assessment and Plan (1) Esophageal dysphagia: Status: Chronic Plan: Epigastric burning has resolved since starting omeprazole 40 mg daily. Esophagram showed barium tablet trapped at EG junction. She still has some esophageal dysphagia but better on PPI. Will get EGD. I have examined the patient and the H&P has been reviewed. There are no clinicalchanges since date of exam. 10/30/22 1103 <Electronically signed by Dannie Newell DO> Cosigner Signature (if applicable): CC: Dr. Nolan Mancuso MD; Dannie Newell DO~ Signed [facility] Work Phone: [phone]) 660-426407-20-2023 [facility] Medical Records Department [address] [facility] [place] [address] History Physical Exam 10/30/22 1102 MR#: [id number] Acct: [id number] Name: LAURA CHACON Rep #: [id number] : 1965 56 From: Dannie Newell DO PCP: Dr. Nolan Mancuso MD Status:[facility] Location: [place] [address] History and Physical Date of Admission: 10/30/22 56 F who presents to the office today to establish with GI for burning sensation in epigastrium, food sticking at distal esophagus. Burning has resolved with omeprazole 40 mg daily. Dysphagia is improved too but still some sensation of fullness in upper esophagus. Esophagram--barium tablet trapped at EG junction. No CP. No sore throat. No nausea, vomiting, early satiety. No bowel complaints. No diarrhea, constipation, melena, hematochezia. Normal colonoscopy 03/2022, repeat 5 yrs. ROS Const Constitutional: No fatigue ENT ENT: No difficulty swallowing Gastro GI: No abdominal pain, belching, bloating, change in bowel habits, change in stool character, coffee ground emesis, constipation, cramping, diarrhea, heartburn, difficulty swallowing, feeling full early, excessive flatus, incontinent of stools, Vomiting blood/hematemesis, Blood in stool, loose stools, Black,tarry stools, nausea/dyspepsia, pain with swallowing, vomiting or other Musc Musculoskeletal: No joint pain Skin Skin: No yellowing of the eye or itchy eyes Psych Psychiatric: No anxiety and No depression Endo Endocrine: No fatigue Aller/Imm Allergy/Immunologic: No itchy eyes Gideon/Lymp Hematologic/Lymphatic: No easy bleeding or easy bruising Exam Const General: cooperative, healthy appearing and comfortable Orientation: alert, awake and oriented x3 Quality Reporting Tobacco Screening ([facility]) Smoking Status: Never smoker Assessment and Plan Assessment and Plan (1) Esophageal dysphagia: Status: Chronic Plan: Epigastric burning has resolved since starting omeprazole 40 mg daily. Esophagram showed barium tablet trapped at EG junction. She still has some esophageal dysphagia but better on PPI. Will get EGD. I have examined the patient and the H P has been reviewed. There are no clinical changes since date of exam. 10/30/22 1103 Cosigner Signature (if applicable): CC: Dr. Nolan Mancuso MD; Dannie Friend, DO [facility]ignedW[facility]07-20-2023 Procedure [facility]06-13-2023 Miscellaneous Notes* Letter - Mammography Coordinator - 09/23/2022 12:52 PM EDT September 24, 2022 PID: [id number] Laura Chacon [address] [place] [address] Dear Ms. Chacon, We are pleased to inform you that the results of your recent breast imaging exam on 09/22/2022 are normal. Your mammogram demonstrates that you have dense breast tissue, which could hide abnormalities. Dense breast tissue, in and of itself, is a relatively common condition. Therefore, this information is not provided to cause undue concern; rather, it is to raise your awareness and promote discussion with your health care provider regarding the presence of dense breast tissue in addition to other riskfactors. Early detection of cancer is very important. We also understand recommendations regarding breast cancer screening are controversial. Please discuss with your primary care provider which strategy is best for you and whether a mammogram is right for you. Your imaging studies and report will be kept on file at [facility] as part of your permanent medical record and are available for your continuing care. Thank you for allowing us to help in meeting your health care needs. Sincerely, Dr. Fuentes Interpreting Radiologist [facility] (Normal over 40) [facility] History of Present illness Narrative* Yesi Kaplan Mammo Tech - 09/22/2022 9:30 AM EDT Radiology Service Progress Note PATIENT NAME: Laura Chacon DATE OF SERVICE: September 22, 2022 TIME: 9:36 AM PATIENT IDENTITY VERIFICATION COMPLETED USING TWO (2) IDENTIFIERS: Name and Date of confirmedby patient verbally. FALL SCREENING: Has the patient had 2 falls in the last year or 1 fall with injury or currently using an Ambulatory Assistive Device (Walker, Cane, Wheelchair, Crutches, etc.)? No PATIENT GENDER DATA: Female. status: : No status: NO. PATIENT RELEVANT IMPLANT DATA REVIEWED: Not Applicable RADIOLOGY DEPARTMENT: Mammography PERIPHERAL IV DATA: Not applicable SIGNED BY: Jarvis Connelly September 22, 2022 9:36 AM [facility] Miscellaneous Notes* Telephone Encounter - Debi Chambers Ma - 08/13/2022 3:43 PM EDT PA approved till 02/02/23. Patient was notified Debi Chambers Ma * Telephone Encounter - Debi Chambers Ma - 08/13/2022 1:13 PM EDT Prior Authorization has been completed online at [employer] for Omeprazole, will await response. [id number] Please keep encounter open until final decision has been received and documented from insurance company. Debi Chambers MA documented in this encounterLouis [facility]04-[facility] History of Present illness Narrative* Elidia Dai 07/15/2022 9:56 AM EDT Patient presents for Shingrix vaccine. Denies any problems at this time. Tolerated injection well. Elidia Peña LPN documented in this encounterLouis [facility]03-23-2023 History of Present illness Narrative* Anne Marie Quintanilla MA - 07/03/2022 11:06 AM EDT Scan on 07/03/2022 12:09 AM by External Provider: Consultation - Rheumatology Anne Marie Quintanilla MA documented in this encounterLouis [facility]03-20-2023 History of Present illness Narrative* Nolan Mancuso MD - 06/30/2022 9:37 AM EDT Chief Complaint Patient presents with: Recheck HPI Laura Chacon is a 56 year old female who presents here today for 6 week recheck on epigastric pain. History brought forward from 05/19/2022 appt: Laura Chacon is a 56 year old female who presents here today for pain in left rib area with burningsensation started on 05/08 off and on and now constant. Pain scale today is at 3. Also has issues with swallowing certain foods; feels like something stuck in her throat. . Will have to take a drink of liquid to get the food to go down sometimes. No vomiting. No melena orHematochezia. Is on Fosamax since 07/19/2021. Not a smoker, or drinker. Not eating mints regularly. May have a diet coke a few times a week. Gal bladder was removed 09/2019. Tried some antacid tabs last night with no relief. At that time patient was started on omeprazole 40 mg a day. Labs done then (as below) were unremarkable. An upper GI done showed a barium tablet getting stuck at the gastroesophageal junction. Patient wasreferred to Gastro at that time and up coming appt in August 2022. Since being on the omeprazole she is not getting the burning like she was but still getting a sensation of being uncomfortable in the upper epigastric area. Has noticed increased gas production and some diarrhea though not all the time. . Past medical history, appointments, medications, allergies reviewed. Previous Medical History PAST MEDICAL HISTORY Diagnosis Date Abnormal findings on diagnostic imaging of liver and biliary tract 09/13/2019 Arthritis BRCA negative negative Integrated BRACAnalysis with myRisk 25 gene panel Drug-induced neutropenia (HCC) 11/04/2013 ICD-10 Go-Live History of COVID-19 01/23/202111/2020 Invasive ductal carcinoma of breast, left (HCC) 03/02/2017 Malignant neoplasm of left female breast (HCC) 02/13/[address] Walton Osteopenia, senile 07/05/2021 Per Rheum, on Alendronate, started 06/2021 PONV (postoperative nausea and vomiting) Rheumatoid arthritis involving multiple sites (HCC) 02/13/2015 [facility] in [place]: Sees Dr. Bowie Routine gynecological examination 01/06/2014 [facility] Well adult exam 01/06/2014 last done 12/06/2019 Previous Surgical History PAST SURGICAL HISTORY Procedure Laterality Date ABDOMINAL SURGERY HX BREAST SURGERY HX BX/EXC LYMPH NODE OPEN DEEP AXILLARY NODE 09/29/2013 left DELIVERY ONLY COLONOSCOPY 03/19/2022 repeat in 5 years COLONOSCOPY FLX DX W/COLLJ SPEC WHEN PFRMD 10/29/2016 Colonoscopy FLUORO CENTRAL VENOUS ACCESS DEV PLACEMENT 11/02/2013 right INSJ TUNNELED CTR VAD W/SUBQ PORT AGE 5 YR/> 11/02/2013 right- REMOVED INTRAOP SENTINEL LYMPH NODE ID W/DYE INJECTION 09/29/2013 left LAPS SURG CHOLECYSTECTOMY W/CHOLANGIOGRAPHY 09/13/2019 LIG/TRNSXJ FLP TUBE ABDL/VAG APPR UNI/BI Tubal ligation MAST MODF RAD W/AX LYMPH NOD W/WO PECT/JIMMY MIN 09/29/2013 left PAST SURGICAL HISTORY OF wrist, right PAST SURGICAL HISTORY OF Right 04/01/2018 osteophyte removal and fusion of 2nd digit SALPINGO-OOPHORECTOMY COMPL/PRTL UNI/BI SPX 08/08/2014 Laproscopic BSO-Dr. 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 2000 Family History FAMILY HISTORY Problem Relation Age of Onset Asthma Mother Colon Cancer Father other (Lung Disease) Father No Known Problems Daughter Diabetes Sister Breast Cancer Paternal Grandmother dx 89 Breast Cancer Other maternal great aunt dx 55, 65 Alzheimer's Disease Paternal Grandfather Prostate Cancer Maternal Grandfather late 80's Colon Cancer Maternal Grandmother Patient Allergies ALLERGIES Allergen Reactions Celebrex [Celecoxib] Itching Current Medications Current Outpatient Medications on File Prior to Visit Medication Sig omeprazole (PRILOSEC) 40 mg capsule Take 1 capsule by mouth once daily. alendronate (FOSAMAX) 70 mg tablet Take 1 tablet by mouth one time a week. Take with a full glass of water, on an empty stomach; do NOT lie down for 30minutes. Per Rheum, Dr. Bowie Calcium Cmb 2-D3-Min [id number] (CITRACAL PLUS BONE DENSITY) 300-200-13.5 mg-unit-mg tab Take 2 tablets by mouth twice daily. ORENCIA CLICKJECT 125 mg/mL AutoInjector Inject 125 mg subcutaneously one time a week. Tuesdays leucovorin (LEUCOVORIN) 5 mg tablet TAKE 1 TABLET BY MOUTH THE DAY AFTER METHOTRXATE LACTOBACILLUS ACIDOPHILUS (PROBIOTIC ORAL) Take 1 capsule by mouth once daily. HYDROXYCHLOROQUINE SULFATE (PLAQUENIL ORAL) Take 200 mg by mouth twice daily. methotrexate 2.5 mg tablet Take by mouth every Thursday. Pt sts she takes 8 tablets every Thursday.Kamilah Faye LPN DAILY MULTIVITAMIN ORAL TAB Take one(1) tablet daily. SOOLANTRA 1 % crea Apply 1 application to affected area once daily as needed. No current facility-administered medications on file prior to visit. Social History Social History Tobacco Use Smoking status: Never Smokeless tobacco: Never Vaping Use Vaping Use: Never used Substance Use Topics Alcohol use: No Drug use: No Review of Symptoms REVIEW OF SYSTEMS See HPI EXAM: BP 116/78 (BP Site: Right Arm, BP Position: Sitting, BP Cuff Size: Regular Adult) Pulse 76 Resp14 Wt 80.3 kg (177 lb) LMP 11/04/2013 BMI 30.62 kg/m General Appearance: Well appearing, alert, in no acute distress, well-hydrated, well nourished.. Abdomen: Normal abdominal exam, Abdomen soft, non-tender. Bowel sounds normal. No masses, organomegaly. Health Maintenance List DEPRESSION ASSESSMENT due on 04/13/2022 SHINGRIX VACCINE(2 of 2) due on 07/09/2022 MAMMOGRAM due on 09/16/2022 COVID-19 VACCINE(1) due on 02/17/2023 PAP TESTING due on 12/18/2023 HPV TESTING due on 12/18/2023 DIABETES SCREEN due on 02/17/2025 LIPID SCREEN due on 02/17/2027 COLORECTAL CANCER SCREENING due on 03/19/2027 PNEUMOCOCCAL(4 - PPSV23 if available, else PCV20) due on 2030 DTAP,TDAP,TD(3 - Td or Tdap) due on 02/18/2032 INFLUENZA Completed HEPATITIS B Discontinued HEPATITIS C SCREENING Discontinued HIV SCREENING Discontinued Data reviewed Component Latest Ref Rng & Units 05/19/2022 Albumin 3.9 - 4.9 g/dL 4.1 Bilirubin, Total 0.2 - 1.3 mg/dL 0.3 Bilirubin, Conjug <0.2 mg/dL <0.2 Alkaline Phosphatase 34 - 123 U/L 61 AST 13 - 35 U/L 26 ALT 7 - 38 U/L 22 Protein, Total 6.3 - 8.0 g/dL 6.0 (L) Lipase 16 - 61 U/L 64 (H) Amylase 30 - 104 U/L 38 H. pylori IgG, Qualitative Negative Negative A/P ASSESSMENT/PLAN: 1. GERD without esophagitis - ICD9: 530.81, ICD10: K21.9 (primary diagnosis) - Discussed lifestyle modifications including losing weight, limiting caffeine, no meals three hours before sleep, and head of bed elevation - Begin treatment with Prilosec 40 mg BID 2. Esophageal abnormality - ICD9: 530.9, ICD10: K22.9 - narrowing at the gastroesophageal junction 3. Epigastric pain - ICD9: 789.06, ICD10: R10.13 As above. - OMEPRAZOLE 40 MG CAPSULE,DELAYED RELEASE F/u as needed and next routine. Nolan Mancuso MD documented in this encounterLouis [facility]02-09-2023 Miscellaneous Notes* Telephone Encounter - Anne Marie Quintanilla MA - 05/22/2022 8:23 AM EST Patient notified and voiced understanding. Patient has her GI scope this morning. Anne Marie Quintanilla MA * Telephone Encounter - Nolan Mancuso MD - 05/21/2022 8:48 PM EST Let patient know the test for bacteria in her stomach was neg and her liver functions and pancreatic functions were normal. documented in this encounterLouis [facility]02-06-2023 History of Present illness Narrative* Nolan Mancuso MD - 05/19/2022 3:26 PM EST Chief Complaint Patient presents with: Pain HPI Laura Chacon is a 56 year old female who presents here today for pain in left rib area with burningsensation started on 05/08 off and on and now constant. Pain scale today is at 3. Also has issues with swallowing certain foods; feels like something stuck in her throat. . Will have to take a drink of liquid to get the food to go down sometimes. No vomiting. No melena orHematochezia. Is on Fosamax since 07/19/2021. Not a smoker, or drinker. Not eating mints regularly. May have a diet coke a few times a week. Gal bladder was removed 09/2019. Tried some antacid tabs last night with no relief. Past medical history, appointments, medications, allergies reviewed. Previous Medical History PAST MEDICAL HISTORY Diagnosis Date Abnormal findings on diagnostic imaging of liver and biliary tract 09/13/2019 Arthritis BRCA negative negative Integrated BRACAnalysis with myRisk 25 gene panel Drug-induced neutropenia (HCC) 11/04/2013 ICD-10 Go-Live History of COVID-19 01/23/202111/2020 Invasive ductal carcinoma of breast, left (HCC) 03/02/2017 Malignant neoplasm of left female breast (HCC) 02/13/[address] Walton Osteopenia, senile 07/05/2021 Per Rheum, on Alendronate, started 06/2021 PONV (postoperative nausea and vomiting) Rheumatoid arthritis involving multiple sites (HCC) 02/13/2015 [facility] in [place]: Sees Dr. Bowie Routine gynecological examination 01/06/2014 Seeing [facility] Well adult exam 01/06/2014 last done 12/06/2019 Previous Surgical History PAST SURGICAL HISTORY Procedure Laterality Date ABDOMINAL SURGERY HX BREAST SURGERY HX BX/EXC LYMPH NODE OPEN DEEP AXILLARY NODE 09/29/2013 left DELIVERY ONLY COLONOSCOPY 03/19/2022 repeat in 5 years COLONOSCOPY FLX DX W/COLLJ SPEC WHEN PFRMD 10/29/2016 Colonoscopy FLUORO CENTRAL VENOUS ACCESS DEV PLACEMENT 11/02/2013 right INSJ TUNNELED CTR VAD W/SUBQ PORT AGE 5 YR/> 11/02/2013 right- REMOVED INTRAOP SENTINEL LYMPH NODE ID W/DYE INJECTION 09/29/2013 left LAPS SURG CHOLECYSTECTOMY W/CHOLANGIOGRAPHY 09/13/2019 LIG/TRNSXJ FLP TUBE ABDL/VAG APPR UNI/BI Tubal ligation MAST MODF RAD W/AX LYMPH NOD W/WO PECT/JIMMY MIN 09/29/2013 left PAST SURGICAL HISTORY OF wrist, right PAST SURGICAL HISTORY OF Right 04/01/2018 osteophyte removal and fusion of 2nd digit SALPINGO-OOPHORECTOMY COMPL/PRTL UNI/BI SPX 08/08/2014 Laproscopic BSO-Dr. 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 2001 Family History FAMILY HISTORY Problem Relation Age of Onset Asthma Mother Colon Cancer Father other (Lung Disease) Father No Known Problems Daughter Diabetes Sister Breast Cancer Paternal Grandmother dx 89 Breast Cancer Other maternal great aunt dx 55, 65 Alzheimer's Disease Paternal Grandfather Prostate Cancer Maternal Grandfather late 80's Colon Cancer Maternal Grandmother Patient Allergies ALLERGIES Allergen Reactions Celebrex [Celecoxib] Itching Current Medications Current Outpatient Medications on File Prior to Visit Medication Sig alendronate (FOSAMAX) 70 mg tablet Take 1 tablet by mouth one time a week. Take with a full glass of water, on an empty stomach; do NOT lie down for 30minutes. Per Rheum, Dr. Bowie Calcium Cmb 2-D3-Min [id number] (CITRACAL PLUS BONE DENSITY) 300-200-13.5 mg-unit-mg tab Take 2 tablets by mouth twice daily. ORENCIA CLICKJECT 125 mg/mL AutoInjector Inject 125 mg subcutaneously one time a week. Tuesdays leucovorin (LEUCOVORIN) 5 mg tablet TAKE 1 TABLET BY MOUTH THE DAY AFTER METHOTRXATE SOOLANTRA 1 % crea Apply 1 application to affected area once daily as needed. LACTOBACILLUS ACIDOPHILUS (PROBIOTIC ORAL) Take 1 capsule by mouth once daily. HYDROXYCHLOROQUINE SULFATE (PLAQUENIL ORAL) Take 200 mg by mouth twice daily. methotrexate 2.5 mg tablet Take by mouth every Thursday. Pt sts she takes 8 tablets every Thursday.Kamilah Faye LPN DAILY MULTIVITAMIN ORAL TAB Take one(1) tablet daily. No current facility-administered medications on file prior to visit. Social History Social History Tobacco Use Smoking status: Never Smokeless tobacco: Never Vaping Use Vaping Use: Never used Substance Use Topics Alcohol use: No Drug use: No Review of Symptoms REVIEW OF SYSTEMS See HPI EXAM: LMP 11/04/2013 General Appearance: Well appearing, alert, in no acute distress, well-hydrated, well nourished.. Abdomen: Normal abdominal exam, Abdomen soft, non-tender. Bowel sounds normal. No masses, organomegaly. Health Maintenance List DEPRESSION ASSESSMENT due on 04/13/2022 COVID-19 VACCINE(1) due on 02/17/2023 SHINGRIX VACCINE(2 of 2) due on 07/09/2022 MAMMOGRAM due on 09/16/2022 PAP TESTING due on 12/18/2023 HPV TESTING due on 12/18/2023 DIABETES SCREEN due on 02/17/2025 LIPID SCREEN due on 02/17/2027 COLORECTAL CANCER SCREENING due on 03/19/2027 PNEUMOCOCCAL(4 - PPSV23 if available, else PCV20) due on 2030 DTAP,TDAP,TD(3 - Td or Tdap) due on 02/18/2032 INFLUENZA Completed HEPATITIS B Discontinued HEPATITIS C SCREENING Discontinued HIV SCREENING Discontinued Data reviewed A/P ASSESSMENT/PLAN: 1. Epigastric pain - ICD9: 789.06, ICD10: R10.13 (primary diagnosis) - Begin treatment with Prilosec 40 mg QD Check - HEPATIC FUNCTION PNL - LIPASE BLD - AMYLASE BLD - H PYLORI IGG AB - OMEPRAZOLE 40 MG CAPSULE,DELAYED RELEASE 2. Esophageal dysphagia - ICD9: 787.29, ICD10: R13.19 - will get upper GI. Requested Prescriptions Signed Prescriptions Disp Refills omeprazole (PRILOSEC) 40 mg capsule 30 capsule 3 Sig: Take 1 capsule by mouth once daily. F/u 6 weeks Nolan Mancuso MD documented in this [facility]02-01-2023 History of Present illness Narrative* Elidia Peña LPN - 05/14/2022 9:54 AM EST Patient presents for Shingrix vaccine. Denies any problems at this time. Tolerated injection well. Elidia Peña LPN documented in this [facility]12-07-2022 Nurse Note* Marija Juarez RN - 03/19/2022 9:15 AM EST Arrived in phase II via cart left lateral position, eyes closed but opens and responds to verbal stimuli, skin warm and dry, respirations regular and unlabored, denies abdominal pain or nausea. Abdomen soft and non distended, continues to rest comfortably on left side. documented in this [facility]12-07-2022 History and physical note * Sharon Contreras MD - 03/19/2022 9:00 AM EST UPDATED PROCEDURAL SEDATION HISTORY AND PHYSICAL EXAMINATION SERVICE DATE: 03/19/2022 SERVICE TIME: 8:45 PHYSICAL EXAM MUST BE COMPLETED ON ADMISSION PROCEDURE: colonoscopy, possible biopsies Procedure Indications: history of colon polyps The History and Physical (completed in the past 30 days) has been reviewed and the patient has beenexamined. The contents accurately reflect the patient's condition with the following additions or revisions since the H&P was completed. ASA Class: ASA Class:: Patient with mild systemic disease Examination indicates no changes. AIRWAY: Airway Visualization of Uvula: Yes Mouth opening greater than 2 fingerbreadths: Yes Neck Full Range of Motion: Yes LUNGS: Lungs clear to auscultation CARDIAC: Regular rhythm,Regular rate Provisional Diagnosis/Treatment Plan: colonoscopy, possible biopsies SEDATION GOAL: Moderate This H&P can be found in the Electronic Medical Record . SIGNATURE: Sharon Contreras MD PATIENT NAME: Laura Chacon DATE: March 19, 2022 TIME: 8:45 AM Source Note - Sharon Contreras MD - 03/19/2022 9:00 AM EST HISTORY AND PHYSICAL Laura Chacon 1965 REFERRING PHYSICIAN: Sarthak Velasco* CHIEF COMPLAINT: No chief complaint on file. HPI: The patient is a 56 year old female presents for surveillance colonoscopy for history of colonpolyps, The patient denies blood in stools, denies abdominal pain, and denies changes in bowel habits. The patient states that her father had colon cancer.. The patient has had previous colonoscopy in 2017 with findings of tubular adenoma PAST MEDICAL HISTORY Diagnosis Date Abnormal findings on diagnostic imaging of liver and biliary tract 09/13/2019 Arthritis BRCA negative negative Integrated BRACAnalysis with myRisk 25 gene panel Drug-induced neutropenia (HCC) 11/04/2013 ICD-10 Go-Live History of COVID-19 01/23/202111/2020 Invasive ductal carcinoma of breast, left (HCC) 03/02/2017 Malignant neoplasm of left female breast (HCC) 02/13/[address] Walton Osteopenia, senile 07/05/2021 Per Rheum, on Alendronate, started 06/2021 PONV (postoperative nausea and vomiting) Rheumatoid arthritis involving multiple sites (HCC) 02/13/2015 [facility] in [place]: Sees Dr. Bowie Routine gynecological examination 01/06/2014 Seeing [facility] Well adult exam 01/06/2014 last done 12/06/2019 PAST SURGICAL HISTORY Procedure Laterality Date ABDOMINAL SURGERY HX BREAST SURGERY HX BX/EXC LYMPH NODE OPEN DEEP AXILLARY NODE 09/29/2013 left DELIVERY ONLY COLONOSCOPY FLX DX W/COLLJ SPEC WHEN PFRMD 10/29/2016 Colonoscopy FLUORO CENTRAL VENOUS ACCESS DEV PLACEMENT 11/02/2013 right INSJ TUNNELED CTR VAD W/SUBQ PORT AGE 5 YR/> 11/02/2013 right- REMOVED INTRAOP SENTINEL LYMPH NODE ID W/DYE INJECTION 09/29/2013 left LAPS SURG CHOLECYSTECTOMY W/CHOLANGIOGRAPHY 09/13/2019 LIG/TRNSXJ FLP TUBE ABDL/VAG APPR UNI/BI Tubal ligation MAST MODF RAD W/AX LYMPH NOD W/WO PECT/JIMMY MIN 09/29/2013 left PAST SURGICAL HISTORY OF wrist, right PAST SURGICAL HISTORY OF Right 04/01/2018 osteophyte removal and fusion of 2nd digit SALPINGO-OOPHORECTOMY COMPL/PRTL UNI/BI SPX 08/08/2014 Laproscopic BSO-Dr. 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 2000 Current Outpatient Medications Medication Sig alendronate (FOSAMAX) 70 mg tablet Take 1 tablet by mouth one time a week. Take with a full glass of water, on an empty stomach; do NOT lie down for 30minutes. Per Rheum, Dr. Bowie Calcium Cmb 2-D3-Min [id number] (CITRACAL PLUS BONE DENSITY) 300-200-13.5 mg-unit-mg tab Take 2 tablets by mouth twice daily. ORENCIA CLICKJECT 125 mg/mL AutoInjector Inject 125 mg subcutaneously one time a week. Tuesdays SOOLANTRA 1 % crea Apply 1 application to affected area once daily as needed. LACTOBACILLUS ACIDOPHILUS (PROBIOTIC ORAL) Take 1 capsule by mouth once daily. HYDROXYCHLOROQUINE SULFATE (PLAQUENIL ORAL) Take 200 mg by mouth twice daily. DAILY MULTIVITAMIN ORAL TAB Take one(1) tablet daily. leucovorin (LEUCOVORIN) 5 mg tablet TAKE 1 TABLET BY MOUTH THE DAY AFTER METHOTRXATE methotrexate 2.5 mg tablet Take by mouth every Thursday. Pt sts she takes 8 tablets every Thursday.Kamilah Faye LPN ALLERGIES: Celebrex [Celecoxib] PERSONAL HISTORY: Social History Tobacco Use Smoking status: Never Smokeless tobacco: Never Vaping Use Vaping Use: Never used Substance Use Topics Alcohol use: No Drug use: No FAMILY HISTORY: FAMILY HISTORY Problem Relation Age of Onset Asthma Mother Colon Cancer Father other (Lung Disease) Father No Known Problems Daughter Diabetes Sister Breast Cancer Paternal Grandmother dx 89 Breast Cancer Other maternal great aunt dx 55, 65 Alzheimer's Disease Paternal Grandfather Prostate Cancer Maternal Grandfather late 80's Colon Cancer Maternal Grandmother REVIEW OF SYSTEMS: General - denies fevers HEENT - denies trauma/infections Resp - denies coughing up blood, denies breathing difficulties Cardiac - denies chest pain GI - denies abdominal pain, denies blood in stools, denies vomiting up of blood - denies blood in urine Endocrine - denies diabetes Psych - denies hallucinations Physical examination: Vital signs in chart, reviewed and noted by me General - WD/WN WF in no apparent distress, alert and oriented Head - Normocephalic. EOM intact with sclera clear. Mouth with mucus membranes moist. Neck - supple with no jugular venous distention noted. Trachea is midline. Lungs - clear to auscultation. Normal breath sounds. No rales/rhonchi/wheezing noted. Heart - normal heart sounds. No rubs/clicks/murmurs noted. Regular rate. Abdomen - soft and benign. Extremities - no pitting edema noted. Skin - Normal skin integrity. Neurological - non focal Psych - calm and appropriate Impression: surveillance colonoscopy for history of colon polyps, Discussion/Plan/Recommendations: I have discussed the above with the patient. I have offered colonoscopy , possible biopsies I have explained the procedure to the patient. I have counseled the patient as to the risks of the procedure, including but not limited to: infection, bleeding, injury to any intrabdominal organs such as liver/spleen, perforation of the GI tract,inability to complete the procedure, complications of anesthesia, etc. - the patient understands. The patient wishes to proceed. I have answered all questions to the patient s satisfaction and the patient has no further questions. Sharon Contreras MD * Sharon Contreras MD - 03/19/2022 9:00 AM EST HISTORY AND PHYSICAL Laura Chacon 1965 REFERRING PHYSICIAN: Sarthak Velasco* CHIEF COMPLAINT: No chief complaint on file. HPI: The patient is a 56 year old female presents for surveillance colonoscopy for history of colonpolyps, The patient denies blood in stools, denies abdominal pain, and denies changes in bowel habits. The patient states that her father had colon cancer.. The patient has had previous colonoscopy in 2017 with findings of tubular adenoma PAST MEDICAL HISTORY Diagnosis Date Abnormal findings on diagnostic imaging of liver and biliary tract 09/13/2019 Arthritis BRCA negative negative Integrated BRACAnalysis with myRisk 25 gene panel Drug-induced neutropenia (HCC) 11/04/2013 ICD-10 Go-Live History of COVID-19 01/23/202111/2020 Invasive ductal carcinoma of breast, left (HCC) 03/02/2017 Malignant neoplasm of left female breast (HCC) 02/13/[address] Walton Osteopenia, senile 07/05/2021 Per Rheum, on Alendronate, started 06/2021 PONV (postoperative nausea and vomiting) Rheumatoid arthritis involving multiple sites (HCC) 02/13/2015 [facility] in [place]: Sees Dr. Bowie Routine gynecological examination 01/06/2014 [facility] Well adult exam 01/06/2014 last done 12/06/2019 PAST SURGICAL HISTORY Procedure Laterality Date ABDOMINAL SURGERY HX BREAST SURGERY HX BX/EXC LYMPH NODE OPEN DEEP AXILLARY NODE 09/29/2013 left DELIVERY ONLY COLONOSCOPY FLX DX W/COLLJ SPEC WHEN PFRMD 10/29/2016 Colonoscopy FLUORO CENTRAL VENOUS ACCESS DEV PLACEMENT 11/02/2013 right INSJ TUNNELED CTR VAD W/SUBQ PORT AGE 5 YR/> 11/02/2013 right- REMOVED INTRAOP SENTINEL LYMPH NODE ID W/DYE INJECTION 09/29/2013 left LAPS SURG CHOLECYSTECTOMY W/CHOLANGIOGRAPHY 09/13/2019 LIG/TRNSXJ FLP TUBE ABDL/VAG APPR UNI/BI Tubal ligation MAST MODF RAD W/AX LYMPH NOD W/WO PECT/JIMMY MIN 09/29/2013 left PAST SURGICAL HISTORY OF wrist, right PAST SURGICAL HISTORY OF Right 04/01/2018 osteophyte removal and fusion of 2nd digit SALPINGO-OOPHORECTOMY COMPL/PRTL UNI/BI SPX 08/08/2014 Laproscopic BSO-Dr. 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 2000 Current Outpatient Medications Medication Sig alendronate (FOSAMAX) 70 mg tablet Take 1 tablet by mouth one time a week. Take with a full glass of water, on an empty stomach; do NOT lie down for 30minutes. Per Rheum, Dr. Bowie Calcium Cmb 2-D3-Min [id number] (CITRACAL PLUS BONE DENSITY) 300-200-13.5 mg-unit-mg tab Take 2 tablets by mouth twice daily. ORENCIA CLICKJECT 125 mg/mL AutoInjector Inject 125 mg subcutaneously one time a week. Tuesdays SOOLANTRA 1 % crea Apply 1 application to affected area once daily as needed. LACTOBACILLUS ACIDOPHILUS (PROBIOTIC ORAL) Take 1 capsule by mouth once daily. HYDROXYCHLOROQUINE SULFATE (PLAQUENIL ORAL) Take 200 mg by mouth twice daily. DAILY MULTIVITAMIN ORAL TAB Take one(1) tablet daily. leucovorin (LEUCOVORIN) 5 mg tablet TAKE 1 TABLET BY MOUTH THE DAY AFTER METHOTRXATE methotrexate 2.5 mg tablet Take by mouth every Thursday. Pt sts she takes 8 tablets every Thursday.Kamilah Faye LPN ALLERGIES: Celebrex [Celecoxib] PERSONAL HISTORY: Social History Tobacco Use Smoking status: Never Smokeless tobacco: Never Vaping Use Vaping Use: Never used Substance Use Topics Alcohol use: No Drug use: No FAMILY HISTORY: FAMILY HISTORY Problem Relation Age of Onset Asthma Mother Colon Cancer Father other (Lung Disease) Father No Known Problems Daughter Diabetes Sister Breast Cancer Paternal Grandmother dx 89 Breast Cancer Other maternal great aunt dx 55, 65 Alzheimer's Disease Paternal Grandfather Prostate Cancer Maternal Grandfather late 80's Colon Cancer Maternal Grandmother REVIEW OF SYSTEMS: General - denies fevers HEENT - denies trauma/infections Resp - denies coughing up blood, denies breathing difficulties Cardiac - denies chest pain GI - denies abdominal pain, denies blood in stools, denies vomiting up of blood - denies blood in urine Endocrine - denies diabetes Psych - denies hallucinations Physical examination: Vital signs in chart, reviewed and noted by me General - WD/WN WF in no apparent distress, alert and oriented Head - Normocephalic. EOM intact with sclera clear. Mouth with mucus membranes moist. Neck - supple with no jugular venous distention noted. Trachea is midline. Lungs - clear to auscultation. Normal breath sounds. No rales/rhonchi/wheezing noted. Heart - normal heart sounds. No rubs/clicks/murmurs noted. Regular rate. Abdomen - soft and benign. Extremities - no pitting edema noted. Skin - Normal skin integrity. Neurological - non focal Psych - calm and appropriate Impression: surveillance colonoscopy for history of colon polyps, Discussion/Plan/Recommendations: I have discussed the above with the patient. I have offered colonoscopy , possible biopsies I have explained the procedure to the patient. I have counseled the patient as to the risks of the procedure, including but not limited to: infection, bleeding, injury to any intrabdominal organs such as liver/spleen, perforation of the GI tract,inability to complete the procedure, complications of anesthesia, etc. - the patient understands. The patient wishes to proceed. I have answered all questions to the patient s satisfaction and the patient has no further questions. Sharon Contreras MD documented in this encounterLouis Stokes Cleveland [facility] Center11-28-2022 Miscellaneous Notes* Telephone Encounter - Nolan Mancuso MD - 03/10/2022 1:26 PM EST done * Telephone Encounter - Elidia Peña LPN - 03/10/2022 12:47 PM EST Patient scheduled for nurse visit 03/20/22 to receive Shingrix vaccine. Please place order at this time. Elidia Peña LPN documented in this encounterLouis Stokes Cleveland [facility] Center11-07-2022 Instructions* Patient Instructions* Nolan Mancuso MD - 02/17/2022 3:27 PM EST If you want to get the shingrix vaccine for the prevention of shingles please check with insurance to see if covered. documented in this encounterLouis Stokes Cleveland Va [facility] Center11-07-2022 History of Present illness Narrative* Nolan Mancuso MD - 02/17/2022 3:08 PM EST Chief Complaint Patient presents with: Physical HPI Laura Chacon is a 56 year old female who presents here today for Physical. Patient with Hx of RA, drug induced neutropenia, breast cancer seeing heme/onc as well as those reviewed and addressed below and in ROS. Still seeing [facility] and Dr. Bowie. Seeing DR. Walton in Heme/Onc. Patient has been doing well. No new issues or concerns. Past medical history, appointments, medications, allergies reviewed. Previous Medical History PAST MEDICAL HISTORY Diagnosis Date Abnormal findings on diagnostic imaging of liver and biliary tract 09/13/2019 BRCA negative negative Integrated BRACAnalysis with myRisk 25 gene panel Drug-induced neutropenia (HCC) 11/04/2013 ICD-10 Go-Live History of COVID-19 01/23/202111/2020 Invasive ductal carcinoma of breast, left (HCC) 03/02/2017 Malignant neoplasm of left female breast (HCC) 02/13/[address] Walton Osteopenia, senile 07/05/2021 Per Rheum, on Alendronate, started 06/2021 Rheumatoid arthritis involving multiple sites (HCC) 02/13/2015 [facility] in [place]: Sees Dr. Bowie Routine gynecological examination 01/06/2014 Seeing [facility] Well adult exam 01/06/2014 last done 12/06/2019 Previous Surgical History PAST SURGICAL HISTORY Procedure Laterality Date BX/EXC LYMPH NODE OPEN DEEP AXILLARY NODE 09/29/13 left DELIVERY ONLY COLONOSCOPY FLX DX W/COLLJ SPEC WHEN PFRMD 10/29/2016 Colonoscopy FLUORO CENTRAL VENOUS ACCESS DEV PLACEMENT 11/02/13 right INSJ TUNNELED CTR VAD W/SUBQ PORT AGE 5 YR/> 11/02/13 right- REMOVED INTRAOP SENTINEL LYMPH NODE ID W/DYE INJECTION 09/29/13 left LAPS SURG CHOLECYSTECTOMY W/CHOLANGIOGRAPHY 09/13/2019 LIG/TRNSXJ FLP TUBE ABDL/VAG APPR UNI/BI Tubal ligation MAST MODF RAD W/AX LYMPH NOD W/WO PECT/JIMMY MIN 09/29/13 left PAST SURGICAL HISTORY OF wrist, right PAST SURGICAL HISTORY OF Right 04/01/2018 osteophyte removal and fusion of 2nd digit SALPINGO-OOPHORECTOMY COMPL/PRTL UNI/BI SPX 08/08/14 Laproscopic BSO-Dr. Velásquez VASC ACCESS SITS VSL PATENCY NDL ENTRY 11/02/13 right [facility] DELIVERY SCHEDULING ORDER 2000 Family History FAMILY HISTORY Problem Relation Age of Onset Asthma Mother Colon Cancer Father other (Lung Disease) Father No Known Problems Daughter Diabetes Sister Breast Cancer Paternal Grandmother dx 89 Breast Cancer Other maternal great aunt dx 55, 65 Alzheimer's Disease Paternal Grandfather Prostate Cancer Maternal Grandfather late 80's Colon Cancer Maternal Grandmother Patient Allergies ALLERGIES Allergen Reactions Celebrex [Celecoxib] Itching Current Medications Current Outpatient Medications on File Prior to Visit Medication Sig alendronate (FOSAMAX) 70 mg tablet Take 1 tablet by mouth one time a week. Take with a full glass of water, on an empty stomach; do NOT lie down for 30minutes. Per Rheum, Dr. Bowie Calcium Cmb 2-D3-Min Hfx40-Ews (CITRACAL PLUS BONE DENSITY) 300-200-13.5 mg-unit-mg tab Take 2 tablets by mouth twice daily. ORENCIA CLICKJECT 125 mg/mL AutoInjector Inject 125 mg subcutaneously one time a week. Tuesdays leucovorin (LEUCOVORIN) 5 mg tablet TAKE 1 TABLET BY MOUTH THE DAY AFTER METHOTRXATE SOOLANTRA 1 % crea Apply 1 application to affected area once daily as needed. LACTOBACILLUS ACIDOPHILUS (PROBIOTIC ORAL) Take 1 capsule by mouth once daily. HYDROXYCHLOROQUINE SULFATE (PLAQUENIL ORAL) Take 200 mg by mouth twice daily. methotrexate 2.5 mg tablet Take by mouth every Thursday. Pt sts she takes 8 tablets every Thursday.Kamilah Faye LPN DAILY MULTIVITAMIN ORAL TAB Take one(1) tablet daily. No current facility-administered medications on file prior to visit. Social History Social History Tobacco Use Smoking status: Never Smokeless tobacco: Never Vaping Use Vaping Use: Never used Substance Use Topics Alcohol use: No Drug use: No Review of Symptoms REVIEW OF SYSTEMS GENERAL: No weight loss, malaise or fevers HEENT: Negative for frequent or significant headaches, No changes in hearing or vision, no nose bleeds or other nasal problems NECK: Negative for lumps, goiter, pain and significant neck swelling RESPIRATORY: Negative for cough, hemoptysis, wheezing, COPD, dyspnea or shortness of breath CARDIOVASCULAR: Negative for chest pain, leg swelling, hypertension, CHF or palpitations GI: No nausea, vomiting, or diarrhea, No heartburn or reflux symptoms, and no blood : No history of dysuria, blood MUSCULOSKELETAL: Negative for new or changes in her typical joint pain or swelling, back pain or muscle pain SKIN: Negative for lesions, rash, and itching PSYCH: Negative for sleep disturbance, mood disorder and recent psychosocial stressors HEMATOLOGY/LYMPHOLOGY: Negative for prolonged bleeding, bruising easily or swollen nodes ENDOCRINE: Negative for cold or heat intolerance, polyuria, polydipsia and goiter NEURO: No history of headaches, syncope, paralysis, seizures or tremors EXAM: BP 118/70 (BP Site: Right Arm, BP Position: Sitting, BP Cuff Size: Large Adult) Pulse 76 Resp 16 Ht 161.9 cm (5' 3.75) Wt 80.3 kg (177 lb) LMP 11/04/2013 BMI 30.62 kg/m Last 5 Encounter Wt Readings: Date: Wt: 02/17/2022 80.3 kg (177 lb) 02/03/2022 79.8 kg (176 lb) 01/28/2022 80.7 kg (178 lb) 01/30/2021 76.2 kg (168 lb) 01/23/2021 76.7 kg (169 lb) General Appearance: Well appearing, alert, in no acute distress, well-hydrated, well nourished.. Skin: Skin color, texture, turgor normal, no suspicious rashes or lesions. Head: Normocephalic, no masses, lesions, tenderness or abnormalities. Eyes: Anicteric sclera. Pupils are equally round and reactive to light. Extraocular movements are intact. . Ears: External ears, TM's normal, canals clear. Neck: Supple, no adenopathy; thyroid symmetric, normal size, no bruits. Lungs: Lungs clear to auscultation. No wheezing, rhonchi, rales.. Heart: RRR without murmur, gallop, or rubs. No ectopy. Abdomen: Normal abdominal exam, Abdomen soft, non-tender. Bowel sounds normal. No masses, organomegaly. Extremities: No deformities, edema, skin discoloration, clubbing or cyanosis. Good capillary refill. . Musculoskeletal: Muscular strength intact, No joint swelling, deformity, or tenderness. Peripheral Pulses: Normal. Neurologic: Gait normal. Reflexes normal and symmetric. Sensation to light touch and crainal nerves2-12 intact.. Health Maintenance List HEPATITIS B(1 of 3 - 3-dose series) Never done COVID-19 VACCINE(1) Never done SHINGRIX VACCINE(1 of 2) Never done DEPRESSION ASSESSMENT Never done DTAP,TDAP,TD(2 - Td or Tdap) due on 08/21/2021 COLORECTAL CANCER SCREENING due on 10/29/2021 MAMMOGRAM due on 09/16/2022 PAP TESTING due on 12/18/2023 HPV TESTING due on 12/18/2023 DIABETES SCREEN due on 01/24/2024 LIPID SCREEN due on 01/23/2026 PNEUMOCOCCAL(4 - PPSV23 if available, else PCV20) due on 2030 INFLUENZA Completed HEPATITIS C SCREENING Discontinued HIV SCREENING Discontinued Data reviewed Component Latest Ref Rng & Units 01/23/2021 01/30/2021 WBC 3.70 - 11.00 k/uL 4.45 RBC 3.90 - 5.20 m/uL 4.34 Hemoglobin 11.5 - 15.5 g/dL 13.6 Hematocrit 36.0 - 46.0 % 41.3 MCV 80.0 - 100.0 fL 95.2 MCH 26.0 - 34.0 pG 31.3 MCHC 30.5 - 36.0 g/dL 32.9 RDW-CV 11.5 - 15.0 % 13.8 Platelet Count 150 - 400 k/uL 232 MPV 9.0 - 12.7 fL 10.9 Neut% % 67.7 Abs Neut (ANC) 1.45 - 7.50 k/uL 3.01 Lymph% % 17.5 Abs Lymph 1.00 - 4.00 k/uL 0.78 (L) Cook% % 6.5 Abs Cook <0.87 k/uL 0.29 Eosin% % 8.1 Abs Eosin <0.46 k/uL 0.36 Baso% % 0.2 Abs Baso <0.11 k/uL <0.03 Nucleated Reds 0 /100 WBC 0.0 Absolute nRBC <0.01 k/uL <0.01 Diff Type Auto Diff Protein, Total 6.3 - 8.0 g/dL 6.7 6.9 Albumin 3.9 - 4.9 g/dL 4.0 3.9 Calcium 8.5 - 10.2 mg/dL 9.7 Bilirubin, Total 0.2 - 1.3 mg/dL 0.5 0.6 Alkaline Phosphatase 34 - 123 U/L 71 69 AST 13 - 35 U/L 26 33 Glucose 74 - 99 mg/dL 88 BUN 7 - 21 mg/dL 11 Creatinine 0.58 - 0.96 mg/dL 0.66 Sodium 136 - 144 mmol/L 142 Potassium 3.7 - 5.1 mmol/L 4.6 Chloride 97 - 105 mmol/L 104 CO2 22 - 30 mmol/L 26 Anion Gap 9 - 18 mmol/L 12 ALT 7 - 38 U/L 24 27 eGFR- >60 eGFR-All Other Races . >60 Total Cholesterol, Nonfasting <200 mg/dL 152 Triglycerides, Nonfasting <150 mg/dL 89 HDL Cholesterol, Nonfasting >39 mg/dL 52 LDL Cholesterol, Nonfasting <100 mg/dL 82 Non HDL Cholesterol, Nonfasting <130 mg/dL 100 VLDL Cholesterol, Nonfasting <30 mg/dL 18 Total Chol/HDL Ratio, Nonfasting <5.10 mg/dL 2.92 LDL/HDL Ratio, Nonfasting <2.54 mg/dL 1.58 Bilirubin, Conjug <0.2 mg/dL 0.2 (H) Hemoglobin A1C 4.3 - 5.6 % 5.4 Estimated Average Glucose mg/dL 108 A/P ASSESSMENT/PLAN: 1. Well adult exam - ICD9: V70.0, ICD10: Z00.00 (primary diagnosis) - Counseled on healthy diet and regular exercise - Calcium intake with supplements or by diet of 1000 mg/day for under 50, 1200- 1500 mg/day for 50+ - Patient was counseled [id number] by myself (the billing provider) for the following immunizations and vaccine components, including side effects: TdaP. Patient consents for immunization and understands risks and benefits. A VIS sheet on each immunization was given to the patient. - Follow up for annual exam in one year - HGB A1C - LIPID PANEL, NONFASTING 2. Rheumatoid arthritis involving multiple sites, unspecified whether rheumatoid factor present (HCC) - ICD9: 714.0, ICD10: M06.9 - management per Rheum 3. Malignant neoplasm of left breast in female, estrogen receptor positive, unspecified site of breast (HCC) - ICD9: 174.9, V86.0, ICD10: C50.912, Z17.0 - management per oncology 4. Invasive ductal carcinoma of breast, left (HCC) - ICD9: 174.9, ICD10: C50.912 - as per #3 5. Drug-induced neutropenia (HCC) - ICD9: 288.03, E980.5, ICD10: D70.2 Check - CBC + DIFF 6. Need for vaccination - ICD9: V05.9, ICD10: Z23 - TDAP VACCINE AGE 7+ IM: given 7. Screening for diabetes mellitus (DM) - ICD9: V77.1, ICD10: Z13.1 Check - HGB A1C 8. Medication management - ICD9: V58.69, ICD10: Z79.899 Check - COMP METABOLIC PANEL - CBC + DIFF 9. Encounter for lipid screening for cardiovascular disease - ICD9: V77.91, V81.2, ICD10: Z13.220, Z13.6 Check - LIPID PANEL, NONFASTING F/u in a year for complete PE or sooner if needed. Nolan Mancuso MD documented in this encounterLouis Stokes [facility]10-27-2022 Miscellaneous Notes* Telephone Encounter - Tristan Powers - 02/06/2022 11:54 AM EDT Patient scheduled colonoscopy through [facility] for 03/19/2022. JN 02/06 * Telephone Encounter - Lexie Velásquez MD - 02/05/2022 2:12 PM EDT Ordered. Miralax/dulcolax prep. Please make sure she can see it on [employer] App. * Telephone Encounter - Francoise Vega RN - 02/05/2022 1:49 PM EDT tr open access smart set pending. Please check off which prep you would like for patient. Thank you. * Telephone Encounter - Francoise Vega RN - 02/05/2022 1:45 PM EDT TR OPEN ACCESS QUESTIONNAIRE 1. Are you currently having any new or unusual stomach/gastrointestinal issues at this time such asconstipation, diarrhea, abdominal pain, rectal bleeding etc?No 2. Do you have any difficulty swallowing? No 3. Do you have any implanted devices such as a defibrillator, pacemaker, cardiac stents or deep brain stimulator? No 4. Do you take any Blood thinners such as Coumadin, Plavix, Xarelto, Eliquis, Brilinta or any otherblood thinner? No 5. Do you have any new or past cardiac (heart) or pulmonary (lung) issues? No 6. Do you currently use any oxygen? No 7. Have you been hospitalized in the past 6 weeks? No 8. Have you had difficulty with anesthesia previously re: Difficult intubation? No Other difficulty or allergic reaction to anesthesia other than post op N/V? No 9. Are you on dialysis? No 10. Do you have any bleeding disorders such as hemophilia or Factor 5? No 11. Are you an Insulin Dependent Diabetic? No IF ANY OF THE TOP ELEVEN QUESTIONS ARE ANSWERED YES PLEASE SCHEDULE THE PATIENT FOR A CONSULT. N/A 12. Is the patient's BMI 40 or greater? No:There is no height or weight on file to calculate BMI.. 13. Do you take any narcotics or anti-Anxiety medications? No 14. Do you use any illegal or recreational drugs including marijuana? No 15. Any alcohol use: No. 16. Have you been diagnosed with chronic liver disease such as hepatitis or cirrhosis? No 17. Do you have a seizure disorder? No 18. Do you have ulcerative colitis or Crohn's disease? No 19. Are you or could you be ? No 20. Any other important health information we should be made aware of prior to your colonoscopy? No To be completed by LIP: Did patient have MAC anesthesia with a previous endoscopy procedure? Unknown Patient appropriate for Open Access Colonoscopy: Unknown Checklist: Prior to closing the encounter: Complete questionnaire: Yes Confirm Prep order has been Ordered/Pended: Yes. Patient's procedure could be delayed if not given the script for the prep. Please ensure the prep is escripted to pharmacy or printed. Instructions for the prep will print upon filing or pending thissmartset. Please send all open access questionnaires to [facility] Pool #[id number] documented in this encounterLouis Stokes [facility] Center10-26-2022 Instructions* Patient Instructions* Lexie Velásquez MD - 02/05/2022 2:11 PM EDT Images from the original note were not included. Miralax/Dulcolax Bowel Prep For this bowel preparation, you will need to purchase the following medications at any pharmacy: Over the counter Miralax (generic name is polyethylene glycol) 8.3 oz or 238 grams Four (4) Dulcolax (generic name is Bisacodyl) tablets 3 days prior to your procedure, you need to be on a low fiber diet (Such as popcorn, beans, seeds, nuts, salad and raw vegetables, corn, fresh and dried fruit and multi-grain bread) YOU MUST BE ON CLEAR LIQUIDS FOR 2 FULL DAYS PRIOR TO YOUR COLONOSCOPY Day one which would be two days before your colonoscopy, you will need to be on clear liquids all day. You may have coffee or tea-black only (no cream), clear broths (beef, chicken or vegetable), apple juice, white grape juice, pop, Gatorade, Powerade, lemonade, Jello, popsicles, Aris-aid, and water-But nothing red or dark purple in color and no dairy products, tomato or orange juices. Day two which would be the day before your colonoscopy continue clear liquids all day as above. And follow the instructions below: 8:00 AM - Mix the Miralax with 64 oz of Gatorade or another clear liquid of choice and place in refrigerator. Most people say the drink is better cold. 4:00 PM - Take 2 of the Dulcolax tablets with 8 oz of water. 6:00 PM - Start to drink the Miralax mixture. You must finish it by midnight. 8:00 PM - Take the other 2 Dulcolax tablets with 8 oz of water. You may continue to drink clear liquids while you are taking your prep and after you finish it as long as it is before midnight. Drink lots of fluids so you don t become dehydrated. Nothing to drink after midnight the night before the procedure unless you are instructed differently by the physician or nurses. Please remember to take your normal medications the morning of the procedure with a small sip of water especially your blood pressure medications. If you are diabetic, you need to contact your physician about how to take your diabetic medications and/or insulin during the prepping period and the day of your procedure. Any questions please call: Dr. Contreras or Dr. Elizondo [phone] Lizeth Toribio [phone] Dr. Corado [phone] [facility] nurses [phone] documented in this encounterLouis Stokes Cleveland [facility] Center10-24-2022 History of Present illness Narrative* Lexie Velásquez MD - 02/03/2022 8:43 AM EDT Laura is a 56 year old who presents for an annual gynecologic exam without complaints. [place] Last year on arimidex (7yrs) Postmenopausal: Yes HRT use: on arimidex. Last Pap: 12/21/2018 normal HPV: 12/21/2018 negative History of abnormal pap: No Last mammogram: 2021 normal History of abnormal mammogram: Yes left mastectomy Sexually active: NO History of STDS: None Patient concerns for STD exposure: No. Hot flashes: No Night sweats: No Vaginal dryness: No Exercise: active Diet: balanced OB History T0 L1 SAB0 IAB0 Ectopic0 Multiple0 Live Births0 Form Stripper History LMP: 11/04/2013, Drug Induced Amenorrhea Age at Menarche: Age at First : Age at Menopause: Form Stripper History Comments: Sexual Activity: Yes; Male Contraception: Tubal Ligation PAST MEDICAL HISTORY Diagnosis Date Abnormal findings on diagnostic imaging of liver and biliary tract 09/13/2019 BRCA negative negative Integrated BRACAnalysis with myRisk 25 gene panel Drug-induced neutropenia (HCC) 11/04/2013 ICD-10 Go-Live History of COVID-19 01/23/202111/2020 Invasive ductal carcinoma of breast, left (HCC) 03/02/2017 Malignant neoplasm of left female breast (HCC) 02/13/[address] Walton Osteopenia, senile 07/05/2021 Per Rheum, on Alendronate, started 06/2021 Rheumatoid arthritis involving multiple sites (HCC) 02/13/2015 [facility] in [place]: Sees Dr. Bowie Routine gynecological examination 01/06/2014 [facility] Well adult exam 01/06/2014 last done 12/06/2019 PAST SURGICAL HISTORY Procedure Laterality Date BX/EXC LYMPH NODE OPEN DEEP AXILLARY NODE 09/29/13 left DELIVERY ONLY COLONOSCOPY FLX DX W/COLLJ SPEC WHEN PFRMD 10/29/2016 Colonoscopy FLUORO CENTRAL VENOUS ACCESS DEV PLACEMENT 11/02/13 right INSJ TUNNELED CTR VAD W/SUBQ PORT AGE 5 YR/> 11/02/13 right- REMOVED INTRAOP SENTINEL LYMPH NODE ID W/DYE INJECTION 09/29/13 left LAPS SURG CHOLECYSTECTOMY W/CHOLANGIOGRAPHY 09/13/2019 LIG/TRNSXJ FLP TUBE ABDL/VAG APPR UNI/BI Tubal ligation MAST MODF RAD W/AX LYMPH NOD W/WO PECT/JIMMY MIN 09/29/13 left PAST SURGICAL HISTORY OF wrist, right PAST SURGICAL HISTORY OF Right 04/01/2018 osteophyte removal and fusion of 2nd digit SALPINGO-OOPHORECTOMY COMPL/PRTL UNI/BI SPX 08/08/14 Laproscopic BSO-Dr. Velásquez VASC ACCESS SITS VSL PATENCY NDL ENTRY 11/02/13 right I DELIVERY SCHEDULING ORDER 2000 FAMILY HISTORY Problem Relation Age of Onset Asthma Mother Colon Cancer Father other (Lung Disease) Father No Known Problems Daughter Diabetes Sister Breast Cancer Paternal Grandmother dx 89 Breast Cancer Other maternal great aunt dx 55, 65 Alzheimer's Disease Paternal Grandfather Prostate Cancer Maternal Grandfather late 80's Colon Cancer Maternal Grandmother SOCIAL HISTORY Social History Tobacco Use Smoking status: Never Smokeless tobacco: Never Vaping Use Vaping Use: Never used Substance Use Topics Alcohol use: No Drug use: No REVIEW OF SYSTEMS Abdomen: No abdominal pain, nausea, vomiting, diarrhea, or constipation. No bloating, early satiety, indigestion, or increased flatulence. Bladder: No dysuria, gross hematuria, urinary frequency, urinary urgency, or incontinence Breast: No breast lumps, nipple d/c, overlying skin changes, redness or skin retraction Allergies and current medication updated:Yes EXAM: BP 104/62 Ht 5' 3 (1.60m) Wt 176 lb (79.8kg) LMP 11/04/2013 BMI 31.18 kg/(m^2). GENERAL: pleasant, female in no apparent distress HEENT: Normocephalic, atraumatic, mucus membranes moist, and no lesions NECK: Supple, full range of motion, no adenopathy, and thyroid normal DERMATOLOGY: Normal, without lesions, non-icteric, and non-hirsute BREAST: soft, non-tender, no dominant mass, normal nipple-areolar complex, no lymphadenopathy, no nipple discharge, and left mastectomy - healed well. NO supraclavicular nodes. ABDOMEN: soft, non-tender, and no masses PELVIC: external genitalia normal, normal Bartholin's glands, urethra, [place]'s glands, no vulvar lesions, no cervical lesions, good vaginal support, physiologic discharge present, normal appearing perineal body and perianal region, atrophic changes BIMANUAL: uterus normal size, shape and consistency, no adnexal masses, non- tender, and narrow introitus RECTOVAGINAL: deferred. NEURO: alert and oriented x3,exam grossly non-focal EXTREMITIES: normal ASSESSMENT/PLAN: 1) Health maintenance: Pap/HPV up to date. Mammogram up to date Nutrition, exercise and routine health maintenance exams reviewed. Calcium/Vitamin D supplementation information provided. Colon cancer screening: patient to discuss with PCP 2) Follow up one year or sooner as needed Lexie Alcala MD * Marga Hoyos Ma - 02/03/2022 8:30 AM EDT Policyholder Information Clerk offered: Patient declines. documented in this encounterLouis Stokes [facility] Center10-18-2022 History of Present illness Narrative* Caroline Jama, ELANA.STRATEGIC PLANNING ANALYST - 01/28/2022 9:06 AM EDT Chief Complaint Patient presents with: Established Patient HPI: Laura Chacon is a 56 year old female who presents here today for follow up breast cancer. Per Dr. Walton's previous note: H/o abnormality found in the left breast on a screening mammogram. Core biopsy 09/09/2013. Invasive ductal carcinoma. [place] both >95%. HER2 non-amplified by FISH. MRI of the breast on 09/23/2013 demonstrated multifocal disease suspected on the left. It involves much of the central upper and outer breast. Marked background parenchymal enhancement of the right side was noted without specific features of malignancy but the radiologist suggested a 6 month interval followup MRI. Underwent left mastectomy with SLN biopsy and ALND 09/29/2013. The final pathology revealed multiple foci of invasive carcinoma numbering to within the left breast mastectomy specimen. The largest tumor was 3.5 cm in smallest was 2.5 cm. There was DCIS comprising 2.0 cm. The overall grade of the cancer was 2. Margins were negative. The closest or the posteriormargins of both tumors in the measured 2.5 cm in distance. Lymphovascular invasion was focally present. 3 sentinel lymph nodes were retrieved. One was positive for a macro metastasis measuring 9 mm in greatest dimension. There was no extranodal extension. An additional 7 axillary lymph nodes were retrieved all of which were negative. The final number of lymph nodes with 1 of 10 positive. Regular menses prior to therapy. Diagnosed with RA at age 24. Manifested as hand, foot and hip/knee stiffness initially. MTX about 20 years. Had been on Enbrel--10+ years. AC followed by T. Completed fall 2013. Completed radiation 04/21/2014. Started on GnRH and began anastrozole right after radiation. Tolerated well from standpoint of hot flashes. RA symptoms flared during radiation. Migratory joint pain. Her stitchdowns toe former put her back on MTX which helped marginally. B/L salpingo-ophorectomy 07/2014. Current therapy: 1) Arimidex. Was previously on aromasin caused joint pain. S/p lap. gianna on September [address] Contreras at [facility]. Recovered well. No new concerns today. Appetite:Good. Energy level:Good. Denies fevers or recent illness. Resp:denies cough or sob Cardiac:denies chest pain/palpitations GI:denies abd pain, n/v, moving bowels regularly :denies dysuria/hematuria Extrem:denies pain currently-followed by Rheum h/o RA Endo:denies hot flashes Neuro:denies symptoms of neuropathy Skin:denies rashes Heme:denies bleeding The ROS is otherwise negative. Past medical history, appointments, medications, allergies reviewed. No changes. EXAM: BP 111/68 Pulse 71 Temp 36.8 C (98.3 F) Ht 161 cm (5' 3.39) Wt 80.7 kg (178 lb) LMP 11/04/2013 SpO2 97% BMI 31.15 kg/m APPEARANCE Well appearing, alert, in no acute distress, well-hydrated, well nourished. HEART RRR with normal S1 and S2, no murmurs LUNG clear to auscultation BREAST FEMALE R no mass/nodule, L mastectomy scar no nodule LYMPH NODES No cervical lymphadenopathy, No supraclavicular lymphadenopathy, and No axillary lymphadenopathy. ABDOMEN bowel sounds normoactive, soft, non-tender, non-distended, without organomegaly or palpablemasses, no tenderness to palpation EXTREMITIES No edema NEURO Awake, alert and oriented x 3, Normal gait, and No involuntary motions. SKIN Skin color, texture, turgor normal, no suspicious rashes or lesions ASSESSMENT/PLAN: 1. Malignant neoplasm of left breast in female, estrogen receptor positive, unspecified site of breast (HCC) - ICD9: 174.9, V86.0, ICD10: C50.912, Z17.0 (primary diagnosis) Stage IIB invasive ductal carcinoma of the left breast. s/p mastectomy. Tolerated adjuvant chemotherapy well overall. 2. Encounter for screening mammogram for high-risk patient - ICD9: V76.11, ICD10: Z12.31 - No concerning findings on exam. - Did not tolerate aromasin d/t joint pain. - Tolerating arimidex well since starting orencia. - Pt. was recently seen by Rheum-bone density (osteopenia) done and she was started on fosamax. - Continue arimidex. Pt. completed 7 years of therapy in 2021. She will finish up the pills that she has and then stop therapy. - Flu shot today. - R mammogram due September 2022. - Follow up after R mammogram. - Pt. aware to call office with any questions/concerns. The patient indicates understanding of these issues and agrees with the plan. All documentation from previous visit of 07/18/21-Dr. Walton/myself was copied and pasted, documentation has been reviewed and edited as necessary for today's visit. Caroline Jama APRN.CNP documented in this encounterLouis [facility]06-[facility]-2022 Miscellaneous Notes* Telephone Encounter - Aleshia Gomez - 09/16/2021 1:14 PM EDT Patient notified. Aleshia Gomez * Telephone Encounter - Caroline Jama APRN.CNP - 09/16/2021 12:55 PM EDT Please inform pt. that her mammogram looks good. Follow up as scheduled. Thank you. Caroline Jama APRN.CNP documented in this encounterLouis Stokes Cleveland [facility] Center06-06-2022 Miscellaneous Notes* Letter - Mammography Coordinator - 09/16/2021 12:15 PM EDT September 16, 2021 PID: [id number] Laura Chacon [address] [place], [place] [id number] Dear Ms. Chacon, We are pleased to inform you that the results of your recent breast imaging exam on 09/16/2021 are normal. Your mammogram demonstrates that you have dense breast tissue, which could hide abnormalities. Dense breast tissue, in and of itself, is a relatively common condition. Therefore, this information is not provided to cause undue concern; rather, it is to raise your awareness and promote discussion with your health care provider regarding the presence of dense breast tissue in addition to other riskfactors. Early detection of cancer is very important. We also understand recommendations regarding breast cancer screening are controversial. Please discuss with your primary care provider which strategy is best for you and whether a mammogram is right for you. Your imaging studies and report will be kept on file at [facility] as part of your permanent medical record and are available for your continuing care. Thank you for allowing us to help in meeting your health care needs. Sincerely, Dr. Morillo Interpreting Radiologist [facility] (Normal over 40) documented in this encounterLouis Stokes Cleveland Va [facility] Center05-05-2022 Miscellaneous Notes* Telephone Encounter - Angélica Mathews LPN - 08/15/2021 4:11 PM EDT [facility] given information concerning authorization for Mammogram, she will send to review which can take up to 15 days. Angélica Mathews LPN * Telephone Encounter - Caren Turner - 08/15/2021 3:30 PM EDT Pre access is calling in regards to patient insurance the [facility] and are requiring medical records on why 09/16/2021 mammography is necessary. option 1 then option 3 documented in this encounterLouis Stokes Cleveland [facility] Center04-07-2022 Nurse Note* Angélica Mathews LPN - 07/18/2021 9:37 AM EDT Est. Pt, 6 month f/u Angélica Mathews LPN documented in this encounterLouis Stokes Cleveland [facility] Center04-07-2022 History of Present illness Narrative* Caroline Jama APRN.STRATEGIC PLANNING ANALYST - 07/18/2021 9:34 AM EDT Chief Complaint Patient presents with: Established Patient HPI: Laura Chacon is a 55 year old female who presents here today for follow up breast cancer. Per Dr. Walton's previous note: H/o abnormality found in the left breast on a screening mammogram. Core biopsy 09/09/2013. Invasive ductal carcinoma. [place] both >95%. HER2 non-amplified by FISH. MRI of the breast on 09/23/2013 demonstrated multifocal disease suspected on the left. It involves much of the central upper and outer breast. Marked background parenchymal enhancement of the right side was noted without specific features of malignancy but the radiologist suggested a 6 month interval followup MRI. Underwent left mastectomy with SLN biopsy and ALND 09/29/2013. The final pathology revealed multiple foci of invasive carcinoma numbering to within the left breast mastectomy specimen. The largest tumor was 3.5 cm in smallest was 2.5 cm. There was DCIS comprising 2.0 cm. The overall grade of the cancer was 2. Margins were negative. The closest or the posteriormargins of both tumors in the measured 2.5 cm in distance. Lymphovascular invasion was focally present. 3 sentinel lymph nodes were retrieved. One was positive for a macro metastasis measuring 9 mm in greatest dimension. There was no extranodal extension. An additional 7 axillary lymph nodes were retrieved all of which were negative. The final number of lymph nodes with 1 of 10 positive. Regular menses prior to therapy. Diagnosed with RA at age 24. Manifested as hand, foot and hip/knee stiffness initially. MTX about 20 years. Had been on Enbrel--10+ years. AC followed by [facility]. Completed fall 2013. Completed radiation 04/21/2014. Started on GnRH and began anastrozole right after radiation. Tolerated well from standpoint of hot flashes. RA symptoms flared during radiation. Migratory joint pain. Her stitchdowns toe former put her back on MTX which helped marginally. B/L salpingo-ophorectomy 07/2014. Current therapy: 1) Arimidex. Was previously on aromasin caused joint pain. S/p lap. gianna on September [address] Contreras at [facility]. Recovered well. No new concerns today. Appetite:Good. Energy level:Good. Denies fevers or recent illness. Resp:denies cough or sob Cardiac:denies chest pain/palpitations GI:denies abd pain, n/v, moving bowels regularly :denies dysuria/hematuria Extrem:denies pain currently-followed by Rheum h/o RA Endo:denies hot flashes Neuro:denies symptoms of neuropathy Skin:followed by derm-using fluorouracil on her scalp Heme:denies bleeding The ROS is otherwise negative. Past medical history, appointments, medications, allergies reviewed. No changes. EXAM: BP (P) 126/69 Pulse (P) 70 Temp (P) 36.7 C (98 F) Wt (P) 80.3 kg (177 lb) LMP 11/04/2013 BMI (P) 30.59 kg/m APPEARANCE Well appearing, alert, in no acute distress, well-hydrated, well nourished. HEART RRR with normal S1 and S2, no murmurs LUNG clear to auscultation BREAST FEMALE R no mass/nodule, L mastectomy scar no nodule LYMPH NODES No cervical lymphadenopathy, No supraclavicular lymphadenopathy and No axillary lymphadenopathy. ABDOMEN bowel sounds normoactive, soft, non-tender, non-distended, without organomegaly or palpablemasses EXTREMITIES No edema NEURO Awake, alert and oriented x 3, Normal gait and No involuntary motions. SKIN Skin color, texture, turgor normal, no suspicious rashes or lesions ASSESSMENT/PLAN: 1. Malignant neoplasm of left breast in female, estrogen receptor positive, unspecified site of breast (HCC) - ICD9: 174.9, V86.0, ICD10: C50.912, Z17.0 (primary diagnosis) Stage IIB invasive ductal carcinoma of the left breast. s/p mastectomy. Tolerated adjuvant chemotherapy well overall. - No concerning findings on exam. - Did not tolerate aromasin d/t joint pain. - Tolerating arimidex well since starting orencia. - Pt. was recently seen by Rheum-bone density (osteopenia) done and she was started on fosamax. - Continue arimidex. Pt. completed 7 years of therapy in 2021. She will finish up the pills that she has and then stop therapy. - R mammogram due September 2021. - Follow up in 6 months. - Pt. aware to call office with any questions/concerns. The patient indicates understanding of these issues and agrees with the plan. All documentation from previous visit of 01/17/21-Dr. Walton/myself was copied and pasted, documentation has been reviewed and edited as necessary for today's visit. Caroline Jama APRN.LA documented in this encounterLouis Stokes [facility] Center05-18-2011 History of Past illness Narrative* Problem Noted Date Resolved Date Routine general medical exam ination at a health care facility 08/28/2010 07/22/2011 Overview: 08/28/2010, establish care from Dr. Juarez Routine gynecological examination 08/28/2010 07/22/2011 Overview: [facility], [facility] documented as of this encounter (statuses as of 07/05/2021) [facility] History of Past illness Narrative* Problem Noted Date Resolved Date Routine general medical exam ination at a health care facility 08/28/2010 07/22/2011 Overview: 08/28/2010, establish care from Dr. Juarez Routine gynecological examination 08/28/2010 07/22/2011 Overview: [facility], [facility] documented as of this encounter (statuses as of 07/18/2021) [facility] History of Past illness Narrative* Problem Noted Date Resolved Date Routine general medical exam ination at a health care facility 08/28/2010 07/22/2011 Overview: 08/28/2010, establish care from Dr. Juarez Routine gynecological examination 08/28/2010 07/22/2011 Overview: [facility], [facility] documented as of this encounter (statuses as of 08/30/2021) [facility] of Past illness Narrative* Problem Noted Date Resolved Date Routine general medical exam ination at a health care facility 08/28/2010 07/22/2011 Overview: 08/28/2010, establish care from Dr. Juarez Routine gynecological examination 08/28/2010 07/22/2011 Overview: [facility], [facility] documented as of this encounter (statuses as of 09/16/2021) [facility] of Past illness Narrative* Problem Noted Date Resolved Date Routine general medical exam ination at a health care facility 08/28/2010 07/22/2011 Overview: 08/28/2010, establish care from Dr. Juarez Routine gynecological examination 08/28/2010 07/22/2011 Overview: [facility], [facility] documented as of this encounter (statuses as of 09/16/2021) [facility] of Past illness Narrative* Problem Noted Date Resolved Date Routine general medical exam ination at a health care facility 08/28/2010 07/22/2011 Overview: 08/28/2010, establish care from Dr. Juarez Routine gynecological examination 08/28/2010 07/22/2011 Overview: [facility] documented as of this encounter (statuses as of 09/17/2021) [facility] of Past illness Narrative* Problem Noted Date Resolved Date Routine general medical exam ination at a health care facility 08/28/2010 07/22/2011 Overview: 08/28/2010, establish care from Dr. Juarez Routine gynecological examination 08/28/2010 07/22/2011 Overview: [facility], [facility] documented as of this encounter (statuses as of 09/18/2021) [facility] of Past illness Narrative* Problem Noted Date Resolved Date Routine general medical exam ination at a health care facility 08/28/2010 07/22/2011 Overview: 08/28/2010, establish care from Dr. Juarez Routine gynecological examination 08/28/2010 07/22/2011 Overview: [facility], [facility] documented as of this encounter (statuses as of 01/21/2022) [facility] of Past illness Narrative* Problem Noted Date Resolved Date Routine general medical exam ination at a health care facility 08/28/2010 07/22/2011 Overview: 08/28/2010, establish care from Dr. Juarez Routine gynecological examination 08/28/2010 07/22/2011 Overview: [facility], [facility] documented as of this encounter (statuses as of 01/28/2022) [facility] of Past illness Narrative* Problem Noted Date Resolved Date Routine general medical exam ination at a health care facility 08/28/2010 07/22/2011 Overview: 08/28/2010, establish care from Dr. Juarez Routine gynecological examination 08/28/2010 07/22/2011 Overview: [facility] documented as of this encounter (statuses as of 02/03/2022) [facility] of Past illness Narrative* Problem Noted Date Resolved Date Routine general medical exam ination at a health care facility 08/28/2010 07/22/2011 Overview: 08/28/2010, establish care from Dr. Juarez Routine gynecological examination 08/28/2010 07/22/2011 Overview: [facility], [facility] documented as of this encounter (statuses as of 02/06/2022) [facility] illness Narrative* Problem Noted Date Resolved Date Routine general medical exam ination at a health care facility 08/28/2010 07/22/2011 Overview: 08/28/2010, establish care from Dr. Juarez Routine gynecological examination 08/28/2010 07/22/2011 Overview: [facility], [facility] documented as of this encounter (statuses as of 02/17/2022) [facility] Narrative* Problem Noted Date Resolved Date Routine general medical exam ination at a health care facility 08/28/2010 07/22/2011 Overview: 08/28/2010, establish care from Dr. Juarez Routine gynecological examination 08/28/2010 07/22/2011 Overview: [facility] documented as of this encounter (statuses as of 03/10/2022) [facility] Narrative* Problem Noted Date Resolved Date Routine general medical exam ination at a health care facility 08/28/2010 07/22/2011 Overview: 08/28/2010, establish care from Dr. Juarez Routine gynecological examination 08/28/2010 07/22/2011 Overview: [facility] documented as of this encounter (statuses as of 05/14/2022) [facility] Narrative* Problem Noted Date Resolved Date Routine general medical exam ination at a health care facility 08/28/2010 07/22/2011 Overview: 08/28/2010, establish care from Dr. Juarez Routine gynecological examination 08/28/2010 07/22/2011 Overview: [facility] documented as of this encounter (statuses as of 05/20/2022) [facility] Narrative* Problem Noted Date Resolved Date Routine general medical exam ination at a health care facility 08/28/2010 07/22/2011 Overview: 08/28/2010, establish care from Dr. Juarez Routine gynecological examination 08/28/2010 07/22/2011 Overview: [facility] documented as of this encounter (statuses as of 05/22/2022) [facility] Narrative* Problem Noted Date Resolved Date Routine general medical exam ination at a health care facility 08/28/2010 07/22/2011 Overview: 08/28/2010, establish care from Dr. Juarez Routine gynecological examination 08/28/2010 07/22/2011 Overview: [facility], [facility] documented as of this encounter (statuses as of 06/30/2022) [facility] Narrative* Problem Noted Date Resolved Date Routine general medical exam ination at a health care facility 08/28/2010 07/22/2011 Overview: 08/28/2010, establish care from Dr. Juarez Routine gynecological examination 08/28/2010 07/22/2011 Overview: [facility] documented as of this encounter (statuses as of 07/03/2022) [facility] Narrative* Problem Noted Date Resolved Date Routine general medical exam ination at a health care facility 08/28/2010 07/22/2011 Overview: 08/28/2010, establish care from Dr. Juarez Routine gynecological examination 08/28/2010 07/22/2011 Overview: [facility] documented as of this encounter (statuses as of 07/15/2022) [facility] Narrative* Problem Noted Date Resolved Date Routine general medical exam ination at a health care facility 08/28/2010 07/22/2011 Overview: 08/28/2010, establish care from Dr. Juarez Routine gynecological examination 08/28/2010 07/22/2011 Overview: [facility], [facility] documented as of this encounter (statuses as of 08/14/2022) [facility] Narrative* Problem Noted Date Resolved Date Routine general medical exam ination at a health care facility 08/28/2010 07/22/2011 Overview: 08/28/2010, establish care from Dr. Juarez Routine gynecological examination 08/28/2010 07/22/2011 Overview: [facility] documented as of this encounter (statuses as of 09/25/2022) [facility] Narrative* Problem Noted Date Diagnosed Date Resolved Date Routine general medical exam ination at a health care facility 08/28/2010 07/22/2011 Overview: 08/28/2010, establish care from Dr. Juarez Routine gynecological examination 08/28/2010 07/22/2011 Overview: [facility] documented as of this encounter (statuses as of 01/30/2023) [facility] Narrative* Problem Noted Date Diagnosed Date Resolved Date Routine general medical exam ination at a health care facility 08/28/2010 07/22/2011 Overview: 08/28/2010, establish care from Dr. Juarez Routine gynecological examination 08/28/2010 07/22/2011 Overview: [facility] documented as of this encounter (statuses as of 02/14/2023) [facility] Narrative* Problem Noted Date Diagnosed Date Resolved Date Routine general medical exam ination at a health care facility 08/28/2010 07/22/2011 Overview: 08/28/2010, establish care from Dr. Juarez Routine gynecological examination 08/28/2010 07/22/2011 Overview: [facility], [facility] documented as of this encounter (statuses as of 02/14/2023) [facility] illness Narrative* Problem Noted Date Diagnosed Date Resolved Date Routine general medical exam ination at a health care facility 08/28/2010 07/22/2011 Overview: 08/28/2010, establish care from Dr. Juarez Routine gynecological examination 08/28/2010 07/22/2011 [facility] as of this encounter (statuses as of 02/20/2023) [facility] illness Narrative* Problem Noted Date Diagnosed Date Resolved Date Routine general medical exam ination at a health care facility 08/28/2010 07/22/2011 Overview: 08/28/2010, establish care from Dr. Juarez Routine gynecological examination 08/28/2010 07/22/2011 [facility] [place] [facility] as of this encounter (statuses as of 03/02/2023) [facility] Narrative* Problem Noted Date Diagnosed Date Resolved Date Routine general medical exam ination at a health care facility 08/28/2010 07/22/2011 Overview: 08/28/2010, establish care from Dr. Juarez Routine gynecological examination 08/28/2010 07/22/2011 [facility] as of this encounter (statuses as of 03/04/2023) [facility] Narrative* Problem Noted Date Diagnosed Date Resolved Date Routine general medical exam ination at a health care facility 08/28/2010 07/22/2011 Overview: 08/28/2010, establish care from Dr. Juarez Routine gynecological examination 08/28/2010 07/22/2011 [facility] as of this encounter (statuses as of 03/18/2023) [facility] illness Narrative* Problem Noted Date Diagnosed Date Resolved Date Routine general medical exam ination at a health care facility 08/28/2010 07/22/2011 Overview: 08/28/2010, establish care from Dr. Juarez Routine gynecological examination 08/28/2010 07/22/2011 Overview: [facility] documented as of this encounter (statuses as of 04/14/2023) [facility] note* Diagnosis Osteopenia, senile Disorder of bone and cartilage, unspecified documented in this encounter [facility]* Diagnosis Malignant neoplasm of left breast in female, estrogen receptor positive, unspecified site of breast (HCC)- Primary Encounter for screening mammogram for high-risk patient [facility] Diagnosis Malignant neoplasm of left breast in female, estrogen receptor positive, unspecified site of breast (HCC) Encounter for screening mammogram for high-risk patient [facility] Diagnosis Malignant neoplasm of left breast in female, estrogen receptor positive, unspecified site of breast (HCC)- Primary Encounter for screening mammogram for high-risk patient Need for influenza vaccination Need for prophylactic vaccination and inoculation against influenza [facility] Diagnosis Encounter for gynecological examination (general) (routine) without abnormal findings- Primary Encounter for screening mammogram for malignant neoplasm of breast Other screening mammogram documented in this encounter [facility] Diagnosis Special screening for malignant neoplasms, colon- Primary documented in this encounter [facility]* Diagnosis Well adult exam- Primary Routine general medical examination at a health care facility Rheumatoid arthritis involving multiple sites, unspecified whether rheumatoid factor present (HCC) Malignant neoplasm of left breast in female, estrogen receptor positive, unspecified site of breast (HCC) Invasive ductal carcinoma of breast, left (HCC) Drug-induced neutropenia (HCC) Drug induced neutropenia Need for vaccination Need for prophylactic vaccination and inoculation against unspecified single disease Screening for diabetes mellitus (DM) Screening for diabetes mellitus Medication management Encounter for long-term (current) use of other medications Encounter for lipid screening for cardiovascular disease Screening for lipoid disorders documented [facility] this [facility] Diagnosis Need for vaccination- Primary Need for prophylactic vaccination and inoculation against unspecified single disease documented in this [facility] Diagnosis Need for vaccination- Primary Need for prophylactic vaccination and inoculation against unspecified single disease documented in this [facility]* Diagnosis Epigastric pain- Primary Abdominal pain, epigastric Esophageal dysphagia Dysphagia, pharyngoesophageal phase documented in this encounter [facility] noteNo assessment information availableWUniversity [facility]als [facility] Work Phone: Evaluation note* Diagnosis GERD without esophagitis- Primary Esophageal reflux Esophageal abnormality Unspecified disorder of esophagus Epigastric pain Abdominal pain, epigastric documented in this encounter [facility]* Diagnosis Need for vaccination- Primary Need for prophylactic vaccination and inoculation against unspecified single disease documented in this [facility]* Diagnosis Onset Date Resolution Status Esophageal dysphagia chronic [facility] Work Phone: Evaluation note* Diagnosis Malignant neoplasm of left breast in female, estrogen receptor positive, unspecified site of breast (HCC) Encounter for screening mammogram for high-risk patient documented [facility] this [facility]* Diagnosis Screening for colon cancer- Primary Special screening for malignant neoplasms, colon Special screening for malignant neoplasms, colon documented in this encounter [facility]* Diagnosis Encounter for gynecological examination (general) (routine) without abnormal findings- Primary HX: breast cancer Personal history of malignant neoplasm of breast documented in this [facility]* Diagnosis Onset Date Resolution Status Eosinophilic esophagitis chr onic [facility] Work Phone: Evaluation note* Diagnosis Foot pain, left- Primary Pain in limb documented in this encounter [facility]* Diagnosis Preoperative clearance- Primary Preoperative examination, unspecified documented in this encounter [facility]* Diagnosis Malignant neoplasm of left breast in female, estrogen receptor positive, unspecified site of breast (HCC) Encounter for screening mammogram for high-risk patient documented in this [facility]* Diagnosis Personal history of breast cancer- Primary Personal history of malignant neoplasm of breast Encounter for screening mammogram for high-risk patient documented in this encounter [facility]* Diagnosis Encounter for gynecological examination (general) (routine) without abnormal findings- Primary Encounter for screening for human papillomavirus (HPV) Special screening examination for human papillomavirus (HPV) Pap smear for cervical cancer screening Screening for malignant neoplasm of the cervix Encounter for screening mammogram for breast cancer documented [facility] this [facility] Diagnosis Well adult exam- Primary Routine general medical examination at a health care facility Rheumatoid arthritis involving multiple sites, unspecified whether rheumatoid factor present (HCC) Drug-induced neutropenia (HCC) Drug induced neutropenia Invasive ductal carcinoma of breast, left (HCC) Malignant neoplasm of left breast in female, estrogen receptor positive, unspecified site of breast (HCC) Obesity, Class I, BMI 30-34.9 Obesity, unspecified Eosinophilic esophagitis Screening for depression Encounter for screening examination for other mental health and behavioral disorders Screening for diabetes mellitus (DM) Screening for diabetes mellitus Encounter for lipid screening for cardiovascular disease Screening for lipoid disorders Medication management Encounter for long-term (current) use of other medications Nasal sore Other diseases of nasal cavity and sinuses documented in this encounter [facility]* Diagnosis History of breast cancer- Primary Personal history of malignant neoplasm of breast Encounter for screening mammogram for breast cancer Encounter to establish care Vaginal dryness Postmenopausal atrophic vaginitis [facility]* Diagnosis Eosinophilic esophagitis- Primary Vitamin D deficiency Class 1 obesity due to excess calories without serious comorbidity with body mass index (BMI) of 30.0 to 30.9 in adult Osteopenia after menopause Rheumatoid arthritis involving multiple sites with positive rheumatoid factor (CMS/HCC) (HCC) History of left breast cancer documented [facility] this [facility]* Diagnosis Eosinophilic esophagitis- Primary Vitamin D deficiency Class 1 obesity due to excess calories without serious comorbidity with body mass index (BMI) of 30.0 to 30.9 in adult Osteopenia after menopause Rheumatoid arthritis involving multiple sites with positive rheumatoid factor (CMS/HCC) (HCC) History of left breast cancer History of breast cancer Personal history of malignant neoplasm of breast Encounter for screening mammogram for breast cancer documented [facility] Discharge instructions Additional Instructions Keep your foot elevated, ice it several times a day for the next few days, alternate Tylenol and ibuprofen for your pain as needed. Follow-up with podiatry.[facility] Work Phone: Reason for referral (narrative)* Diagnostic Procedure Only (Routine) - Pending Review Specialty Diagnoses / Procedures Referred By William samuels Referred To Contact [facility] Diagnoses Malignant neoplasm of left breast in female, estrogen receptor positive, unspecified site of breast (HCC) Encounter for screening mammogram for high-risk patient Procedures AISHA SCREENING W JUAN ANTONIO SCREENING DIGITAL BREAST TOMOSYNTHESIS BI SCREENING MAMMOGRAPHY BI 2-VIEW BREAST INC CAD Emelle, Caroline, STORAGE BATTERY INSPECTOR.STRATEGIC PLANNING ANALYST [address] [place] [address] [facility] Former[facility] [address] [place] [address] Referral ID Status Reason Start Date Expiration Date Visits Requested Visits Authorized [id number] Pending Review Auto-Generate d Referral Financial Clearance Required - OON Payor 07/18/2021 08/17/2022 1 1 [facility] for referral (narrative)* Diagnostic Procedure Only (Routine) - Closed Specialty Diagnoses / Procedures Referred By William samuels Referred To Contact [facility] Diagnoses Malignant neoplasm of left breast in female, estrogen receptor positive, unspecified site of breast (HCC) Encounter for screening mammogram for high-risk patient Procedures AISHA SCREENING W JUAN ANTONIO SCREENING DIGITAL BREAST TOMOSYNTHESIS BI SCREENING MAMMOGRAPHY BI 2-VIEW BREAST INC Caroline Mcginnis APRN.STRATEGIC PLANNING ANALYST [address] [place] [address] [facility] [address] [place] [address] Referral ID Status Reason Start Date Expiration Date V isits Requested Visits Authorized [id number] Closed Auto-Generated Referral Financial Clearance Required - OON Payor 08/15/2021 11/13/2021 1 1 [facility] for referral (narrative)* Diagnostic Procedure Only (Routine) - Pending Review Specialty Diagnoses / Procedures Referred By William samuels Referred To Contact [facility] Diagnoses Malignant neoplasm of left breast in female, estrogen receptor positive, unspecified site of breast (HCC) Encounter for screening mammogram for high-risk patient Procedures AISHA SCREENING W JUAN ANTONIO SCREENING DIGITAL BREAST TOMOSYNTHESIS BI SCREENING MAMMOGRAPHY BI 2-VIEW BREAST INC Caroline Mcginnis APRN.STRATEGIC PLANNING ANALYST [address] [place] [address] [facility] [address] [place] [address] Referral ID Status Reason Start Date Expiration Date Visits Requested Visits Authorized [id number] Pending Review Auto-Generat ed Referral 2 02/27/2023 1 1 [facility] for referral (narrative)* Outpatient Procedure (Routine) - Pending Review Specialty Diagnoses / Procedures Referred By Contac t Referred To Contact [facility] Diagnoses Special screening for malignant neoplasms, colon Procedures COLONOSCOPY SCREENING COLONOSCOPY FLX DX W/COLLJ SPEC WHEN PFRMD Lexie Velasco MD [address] [place] [address] [facility] [address] [place] [address] Referral ID Status Reason Start Date Expiration Date Visits Requested Visits Authorized [id number] Pending Review Auto-Generat ed Referral 2 02/05/2023 1 1 [facility] for referral (narrative)* Diagnostic Procedure Only (Routine) - Closed Specialty Diagnoses / Procedures Referred By William t Referred To Contact [facility] Diagnoses Malignant neoplasm of left breast in female, estrogen receptor positive, unspecified site of breast (HCC) Encounter for screening mammogram for high-risk patient Procedures AISHA SCREENING W JUAN ANTONIO SCREENING DIGITAL BREAST TOMOSYNTHESIS BI SCREENING MAMMOGRAPHY BI 2-VIEW BREAST INC Caroline Mcginnis APRN.CNP [address] [place] [address] [facility] [address] [place] [address] Referral ID Status Reason Start Date Expiration Date Visits Re quested Visits Authorized [id number] Closed 09/22/2022 04/12/2023 1 1 [facility] for referral (narrative)* Outpatient Procedure (Routine) - Closed Specialty Diagnoses / Procedures Referred By Contac t Referred To Contact [facility] Diagnoses Special screening for malignant neoplasms, colon Procedures COLONOSCOPY SCREENING COLONOSCOPY FLX DX W/COLLJ SPEC WHEN PFRMD Lexie Velasco MD [address] [place] [address] [facility] [address] [place] [address] Referral ID Status Reason Start Date Expiration Date V isits Requested Visits Authorized [id number] Closed Auto-Generate d Referral 02/05/2022 02/05/2023 1 1 [facility] for referral (narrative)* Diagnostic Procedure Only (Urgent) - Pending Review Specialty Diagnoses / Procedures Referred By Contac t Referred To Contact [facility] Diagnoses Foot pain, left Procedures XR FOOT GENERAL 3V AP/LAT/OBL LEFT RADEX FOOT COMPLETE MINIMUM 3 VIEWS Nolan Martin APRN.STRATEGIC PLANNING ANALYST [address] [place] [address] [place] [address] Referral ID Status Reason Start Date Expiration Date Visits Requested Visits Authorized [id number] Pending Review Auto-Generat ed Referral 3 03/30/2024 1 1 [facility] for referral (narrative)* Outpatient Procedure (Routine) - Pending Review Specialty Diagnoses / Procedures Referred By Contac t Referred To Contact [facility] Diagnoses Preoperative clearance Procedures ECG COMPLETE ECG ROUTINE ECG W/LEAST 12 LDS W/I&R Leti Banks APRN.STRATEGIC PLANNING ANALYST [address] [place] [address] [facility] [address] [place] [address] Referral ID Status Reason Start Date Expiration Date Visits Requested Visits Authorized [id number] Pending Review Auto-Generat ed Referral 03/18/2023 03/17/2024 1 1 [facility] for referral (narrative)* Diagnostic Procedure Only (Routine) - Closed Specialty Diagnoses / Procedures Referred By William samuels Referred To Contact [facility] Diagnoses Malignant neoplasm of left breast in female, estrogen receptor positive, unspecified site of breast (HCC) Encounter for screening mammogram for high-risk patient Procedures AISHA SCREENING W JUAN ANTONIO SCREENING DIGITAL BREAST TOMOSYNTHESIS BI SCREENING MAMMOGRAPHY BI 2-VIEW BREAST INC [facility] Jama, ELANA Velazquez.STRATEGIC PLANNING ANALYST [address] [place] [address] [facility] [address] [place] [address] Referral ID Status Reason Start Date Expiration Date V isits Requested Visits Authorized [id number] Closed Auto-Generate d Referral 09/28/2023 04/12/2024 1 1 [facility] for referral (narrative)* Diagnostic Procedure Only (Routine) - Pending Review Specialty Diagnoses / Procedures Referred By William samuels Referred To Contact [facility] Diagnoses Personal history of breast cancer Encounter for screening mammogram for high-risk patient Procedures AISHA SCREENING W JUAN ANTONIO SCREENING DIGITAL BREAST TOMOSYNTHESIS BI SCREENING MAMMOGRAPHY BI 2-VIEW BREAST INC [facility] Caroline Jama APRN.STRATEGIC PLANNING ANALYST [address] [place] [address] [facility] [address] [place] [address] Referral ID Status Reason Start Date Expiration Date Visits Requested Visits Authorized [id number] Pending Review Auto-Generat ed Referral OON/Self Pay Override 10/06/2023 11/04/2024 1 1 [facility] for referral (narrative)* Diagnostic Procedure Only (Routine) - New Request Specialty Diagnoses / Procedures Referred By William samuels Referred To Contact [facility] Diagnoses Encounter for screening mammogram for breast cancer Procedures AISHA SCREENING W JUAN ANTONIO SCREENING DIGITAL BREAST TOMOSYNTHESIS BI SCREENING MAMMOGRAPHY BI 2-VIEW BREAST INC CAD Lexie Velasco MD [address] [place] [address] [facility] [address] [place] [address] Referral ID Status Reason Start Date Expiration Date Visits Requested Visits Authorized [id number] New Request Auto-Generat ed Referral 03/24/2025 1 1 [facility] for visit Narrative* Diagnostic Procedure Only (Routine) - Closed Specialty Diagnoses / Procedures Referred By Contac t Referred To Contact [facility] Diagnoses Malignant neoplasm of left breast in female, estrogen receptor positive, unspecified site of breast (HCC) Encounter for screening mammogram for high-risk patient Procedures AISHA SCREENING W JUAN ANTONIO SCREENING DIGITAL BREAST TOMOSYNTHESIS BI SCREENING MAMMOGRAPHY BI 2-VIEW BREAST INC CAD Caroline Jama, STORAGE BATTERY INSPECTOR.STRATEGIC PLANNING ANALYST [address] [place] [address] [facility] [address] [place] [address] Referral ID Status Reason Start Date Expiration Date V isits Requested Visits Authorized [id number] Closed Auto-Generated Referral Financial Clearance Required - OON Payor 08/15/2021 11/13/2021 1 1 [facility] for visit Narrative* Diagnostic Procedure Only (Routine) - Closed Specialty Diagnoses / Procedures Referred By Contact Referred To Contact Internal Medicine / [facility] Diagnoses flu shot Procedures IMMUNIZATION CLINIC Nolan Mancuso MD [address] [place] [address] Jcarlos, Immunization Clinic Nurse [address] [place] [address] Referral ID Status Reason Start Date Expiration Date Visits Re quested Visits Authorized [id number] Closed 01/30/2023 04/30/2023 1 1 [facility] for visit Narrative* Diagnostic Procedure Only (Routine) - Closed Specialty Diagnoses / Procedures Referred By William t Referred To Contact [facility] Diagnoses Malignant neoplasm of left breast in female, estrogen receptor positive, unspecified site of breast (HCC) Encounter for screening mammogram for high-risk patient Procedures AISHA SCREENING W JUAN ANTONIO SCREENING DIGITAL BREAST TOMOSYNTHESIS BI SCREENING MAMMOGRAPHY BI 2-VIEW BREAST INC Caroline Mcginnis, STORAGE BATTERY INSPECTOR.STRATEGIC PLANNING ANALYST [address] [place] [address] [facility] [address] [place] [address] Referral ID Status Reason Start Date Expiration Date Visits Re quested Visits Authorized [id number] Closed 09/22/2022 04/12/2023 1 1 [facility] for visit Narrative* Outpatient Procedure (Routine) - Closed Specialty Diagnoses / Procedures Referred By William samuels Referred To Contact [facility] Diagnoses Special screening for malignant neoplasms, colon Procedures COLONOSCOPY SCREENING COLONOSCOPY FLX DX W/COLLJ SPEC WHEN PFRMD Lexie Velasco MD [address] [place] [address] [facility] [address] [place] [address] Referral ID Status Reason Start Date Expiration Date V isits Requested Visits Authorized [id number] Closed Auto-Generate d Referral 02/05/2022 02/05/2023 1 1 [facility] for visit Narrative* Diagnostic Procedure Only (Routine) - Closed Specialty Diagnoses / Procedures Referred By William samuels Referred To Contact [facility] Diagnoses Malignant neoplasm of left breast in female, estrogen receptor positive, unspecified site of breast (HCC) Encounter for screening mammogram for high-risk patient Procedures AISHA SCREENING W JUAN ANTONIO SCREENING DIGITAL BREAST TOMOSYNTHESIS BI SCREENING MAMMOGRAPHY BI 2-VIEW BREAST INC Caroline Mcginnis, ELANA.STRATEGIC PLANNING ANALYST [address] [place] [address] [facility] [address] [place] [address] Referral ID Status Reason Start Date Expiration Date V isits Requested Visits Authorized [id number] Closed Auto-Generate d Referral 09/28/2023 04/12/2024 1 1 [facility] Summary Purpose Family History No Family History Records Found Relationship Condition Age at Onset Recorded Date/T pierce mother Asthma Unknown father Malignant neoplasm of colon Unknown Disorder of lung Unknown sister Diabetes mellitus Unknown Advance Directives No Advanced Directives Records FoundDocuments on File Type Date Recorded 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 Advance Directive(s) 10/29/2016 7:07 AM Documents on File Type Date Recorded 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 Advance Directive(s) 10/29/2016 7:07 AM Advance Directive Response Recorded Date/ Time Advance Directives Yes September 08 0 10:04am Living Will Yes September 12, 2019 8 :56am Power of Preservationist Yes September 12, 2019 8:56am Advance Directive Response Recorded Date/ Time Name of Medical Power of Preservationist October 28, 2022 3:34pm Advance Directives Yes September 08 0 11:04am Living Will Yes October 28, 2022 3:34pm Power of Preservationist Yes October 28 3 3:34pm Advance Directive Response Recorded Date/ Time Advance Directives Yes September 08 0 10:04am Living Will No March 01, 023 10:12am Power of Preservationist No March 01, 2023 10:12am Chief Complaint and Reason for Visit Chief Complaint DYSPHAGIA Chief Complaint Consult Reason for Visit Esophageal dysphagia Chief Complaint 2 W FU LOWER EXT Reason for Visit Eosinophilic esophag itis Medications Administered Section Inactive Administered Medications - up to 3 most recent administrations Medication Order MAR Action Action Date Dose Rate Site diphenhydrAMINE 12.5-50 mg injection (BENADRYL) 12.5-50 mg, INTRAVENOUS, DIRECTED, Starting on Thu03/19/22 at 0900, Until Thu03/19/22 at 1259, DOSING DIRECTED BY PHYSICIAN FOR PROCEDURAL SEDATION ONLY, Intraprocedure Given 03/19/2022 8:58 AM EST 50 mg fentaNYL 50 mcg/mL 25-100 mcg injection (SUBLIMAZE) 25-100 mcg, INTRAVENOUS, DIRECTED, Starting on Thu03/19/22 at 0900, Until Thu03/19/22 at 1259, DOSING DIRECTED BY PHYSICIAN FOR PROCEDURAL SEDATION ONLY, Intraprocedure Given 03/19/2022 8:54 AM EST 50 mcg lactated ringers iv infusion 75 mL/hr, INTRAVENOUS, CONTINUOUS, Starting on Thu03/19/22 at 0830, Until Thu03/19/22 at 0915, Preprocedure New Bag/Syringe/Bottle 03/19/2022 8:40 AM EST 75 mL/hr 75 mL/hr midazolam (PF) 1-5 mg injection (VERSED) 1-5 mg, INTRAVENOUS, DIRECTED, Starting on Thu03/19/22 at 0900, Until Thu03/19/22 at 1259, DOSING DIRECTED BY PHYSICIAN FOR PROCEDURAL SEDATION ONLY, Intraprocedure Given 03/19/2022 8:56 AM EST 2 mg Given 03/19/2022 8:54 AM EST 3 mg Additional Source Comments INFORMATION SOURCE (unrecogn ized section and content) DATE CREATED AUTHOR 06/01/2018 [facility] DATE CREATED AUTHOR AUTHOR'S ORGANIZ ATION 09/03/2018 [facility] DATE CREATED AUTHOR AUTHOR'S ORGANIZ ATION 03/25/2023 [facility] DATE CREATED AUTHOR AUTHOR'S ORGANIZ ATION [facility]/29/20[facility] DATE CREATED AUTHOR AUTHOR'S ORGANIZ ATION 02/18/2025 [facility] Source Comments (unrecognize d section and content) In the event this informatio n is protected by the Federal Confidentiality of Alcohol and Drug Abuse Patient Records regulations: The Federal rules restrict any use of the information to criminally investigate or prosecute any alcohol or drug abuse patient.[facility] the event this information is protected by the Federal Confidentiality of Alcohol and Drug Abuse Patient Records regulations: The Federal rules restrict any use of the information to criminally investigate or prosecute any alcohol or drug abuse patient.[facility] Center[facility] the event this information is protected by the Federal Confidentiality of Alcohol and Drug Abuse Patient Records regulations: The Federal rules restrict any use of the information to criminally investigate or prosecute any alcohol or drug abuse patient.[facility] CenterIn the event this information is protected by the Federal Confidentiality of Alcohol and Drug Abuse Patient Records regulations: The Federal rules restrict any use of the information to criminally investigate or prosecute any alcohol or drug abuse patient.[facility] CenterIn the event this information is protected by the Federal Confidentiality of Alcohol and Drug Abuse Patient Records regulations: The Federal rules restrict any use of the information to criminally investigate or prosecute any alcohol or drug abuse patient.[facility] CenterIn the event this information is protected by the Federal Confidentiality of Alcohol and Drug Abuse Patient Records regulations: The Federal rules restrict any use of the information to criminally investigate or prosecute any alcohol or drug abuse patient.[facility] CenterIn the event this information is protected by the Federal Confidentiality of Alcohol and Drug Abuse Patient Records regulations: The Federal rules restrict any use of the information to criminally investigate or prosecute any alcohol or drug abuse patient.[facility] CenterIn the event this information is protected by the Federal Confidentiality of Alcohol and Drug Abuse Patient Records regulations: The Federal rules restrict any use of the information to criminally investigate or prosecute any alcohol or drug abuse patient.[facility] CenterIn the event this information is protected by the Federal Confidentiality of Alcohol and Drug Abuse Patient Records regulations: The Federal rules restrict any use of the information to criminally investigate or prosecute any alcohol or drug abuse patient.[facility] CenterIn the event this information is protected by the Federal Confidentiality of Alcohol and Drug Abuse Patient Records regulations: The Federal rules restrict any use of the information to criminally investigate or prosecute any alcohol or drug abuse patient.[facility] CenterIn the event this information is protected by the Federal Confidentiality of Alcohol and Drug Abuse Patient Records regulations: The Federal rules restrict any use of the information to criminally investigate or prosecute any alcohol or drug abuse patient.[facility] CenterIn the event this information is protected by the Federal Confidentiality of Alcohol and Drug Abuse Patient Records regulations: The Federal rules restrict any use of the information to criminally investigate or prosecute any alcohol or drug abuse patient.[facility] CenterIn the event this information is protected by the Federal Confidentiality of Alcohol and Drug Abuse Patient Records regulations: The Federal rules restrict any use of the information to criminally investigate or prosecute any alcohol or drug abuse patient.[facility] CenterIn the event this information is protected by the Federal Confidentiality of Alcohol and Drug Abuse Patient Records regulations: The Federal rules restrict any use of the information to criminally investigate or prosecute any alcohol or drug abuse patient.[facility] CenterIn the event this information is protected by the Federal Confidentiality of Alcohol and Drug Abuse Patient Records regulations: The Federal rules restrict any use of the information to criminally investigate or prosecute any alcohol or drug abuse patient.[facility] CenterIn the event this information is protected by the Federal Confidentiality of Alcohol and Drug Abuse Patient Records regulations: The Federal rules restrict any use of the information to criminally investigate or prosecute any alcohol or drug abuse patient.[facility] CenterIn the event this information is protected by the Federal Confidentiality of Alcohol and Drug Abuse Patient Records regulations: The Federal rules restrict any use of the information to criminally investigate or prosecute any alcohol or drug abuse patient.[facility] CenterIn the event this information is protected by the Federal Confidentiality of Alcohol and Drug Abuse Patient Records regulations: The Federal rules restrict any use of the information to criminally investigate or prosecute any alcohol or drug abuse patient.[facility] CenterIn the event this information is protected by the Federal Confidentiality of Alcohol and Drug Abuse Patient Records regulations: The Federal rules restrict any use of the information to criminally investigate or prosecute any alcohol or drug abuse patient.[facility] CenterIn the event this information is protected by the Federal Confidentiality of Alcohol and Drug Abuse Patient Records regulations: The Federal rules restrict any use of the information to criminally investigate or prosecute any alcohol or drug abuse patient.[facility] CenterIn the event this information is protected by the Federal Confidentiality of Alcohol and Drug Abuse Patient Records regulations: The Federal rules restrict any use of the information to criminally investigate or prosecute any alcohol or drug abuse patient.[facility] CenterIn the event this information is protected by the Federal Confidentiality of Alcohol and Drug Abuse Patient Records regulations: The Federal rules restrict any use of the information to criminally investigate or prosecute any alcohol or drug abuse patient.[facility] CenterIn the event this information is protected by the Federal Confidentiality of Alcohol and Drug Abuse Patient Records regulations: The Federal rules restrict any use of the information to criminally investigate or prosecute any alcohol or drug abuse patient.[facility] CenterIn the event this information is protected by the Federal Confidentiality of Alcohol and Drug Abuse Patient Records regulations: The Federal rules restrict any use of the information to criminally investigate or prosecute any alcohol or drug abuse patient.[facility] CenterIn the event this information is protected by the Federal Confidentiality of Alcohol and Drug Abuse Patient Records regulations: The Federal rules restrict any use of the information to criminally investigate or prosecute any alcohol or drug abuse patient.[facility] CenterIn the event this information is protected by the Federal Confidentiality of Alcohol and Drug Abuse Patient Records regulations: The Federal rules restrict any use of the information to criminally investigate or prosecute any alcohol or drug abuse patient.[facility] CenterIn the event this information is protected by the Federal Confidentiality of Alcohol and Drug Abuse Patient Records regulations: The Federal rules restrict any use of the information to criminally investigate or prosecute any alcohol or drug abuse patient.[facility] CenterIn the event this information is protected by the Federal Confidentiality of Alcohol and Drug Abuse Patient Records regulations: The Federal rules restrict any use of the information to criminally investigate or prosecute any alcohol or drug abuse patient.[facility] CenterIn the event this information is protected by the Federal Confidentiality of Alcohol and Drug Abuse Patient Records regulations: The Federal rules restrict any use of the information to criminally investigate or prosecute any alcohol or drug abuse patient.[facility] CenterIn the event this information is protected by the Federal Confidentiality of Alcohol and Drug Abuse Patient Records regulations: The Federal rules restrict any use of the information to criminally investigate or prosecute any alcohol or drug abuse patient.[facility] CenterIn the event this information is protected by the Federal Confidentiality of Alcohol and Drug Abuse Patient Records regulations: The Federal rules restrict any use of the information to criminally investigate or prosecute any alcohol or drug abuse patient.[facility] CenterIn the event this information is protected by the Federal Confidentiality of Alcohol and Drug Abuse Patient Records regulations: The Federal rules restrict any use of the information to criminally investigate or prosecute any alcohol or drug abuse patient.[facility] CenterIn the event this information is protected by the Federal Confidentiality of Alcohol and Drug Abuse Patient Records regulations: The Federal rules restrict any use of the information to criminally investigate or prosecute any alcohol or drug abuse patient.[facility] CenterIn the event this information is protected by the Federal Confidentiality of Alcohol and Drug Abuse Patient Records regulations: The Federal rules restrict any use of the information to criminally investigate or prosecute any alcohol or drug abuse patient.[facility] CenterIn the event this information is protected by the Federal Confidentiality of Alcohol and Drug Abuse Patient Records regulations: The Federal rules restrict any use of the information to criminally investigate or prosecute any alcohol or drug abuse patient.[facility] CenterIn the event this information is protected by the Federal Confidentiality of Alcohol and Drug Abuse Patient Records regulations: The Federal rules restrict any use of the information to criminally investigate or prosecute any alcohol or drug abuse patient.[facility] CenterIn the event this information is protected by the Federal Confidentiality of Alcohol and Drug Abuse Patient Records regulations: The Federal rules restrict any use of the information to criminally investigate or prosecute any alcohol or drug abuse patient.[facility] CenterIn the event this information is protected by the Federal Confidentiality of Alcohol and Drug Abuse Patient Records regulations: The Federal rules restrict any use of the information to criminally investigate or prosecute any alcohol or drug abuse patient.[facility] CenterIn the event this information is protected by the Federal Confidentiality of Alcohol and Drug Abuse Patient Records regulations: The Federal rules restrict any use of the information to criminally investigate or prosecute any alcohol or drug abuse patient.[facility] CenterIn the event this information is protected by the Federal Confidentiality of Alcohol and Drug Abuse Patient Records regulations: The Federal rules restrict any use of the information to criminally investigate or prosecute any alcohol or drug abuse patient.[facility] Care Teams (unrecognized sec tion and content) Front End Software Engineer Relationship Specialty Start Date End Date Nolan Mancuso MD [address] [place] [address] PCP - General Family Practice 01/30/15 Clara Petersen RN Specialty Councilperson Oncology 09/15/17 Front End Software Engineer Relationship Specialty Start Date End Date Nolan Mancuso MD [address] [place] [address] PCP - General Family Practice 01/30/15 Clara Petersen RN Specialty Councilperson Oncology 09/15/17 Front End Software Engineer Relationship Specialty Start Date End Date Nolan Mancuso MD [address] [place] [address] PCP - General Family Practice 01/30/15 Clara Petersen RN Specialty Councilperson Oncology 09/15/17 Front End Software Engineer Relationship Specialty Start Date End Date Nolan Mancuso MD [facility] [place] [address] PCP - General Family Practice 01/30/15 Clara Petersen RN Specialty Councilperson Oncology 09/15/17 Front End Software Engineer Relationship Specialty Start Date End Date Nolan Mancuso MD [address] [place] [address] PCP - General Family Practice 01/30/15 Clara Petersen RN Specialty Councilperson Oncology 09/15/17 Front End Software Engineer Relationship Specialty Start Date End Date Nolan Mancuso MD [address] [place] [address] PCP - General Family Practice 01/30/15 Clara Petersen RN Specialty Councilperson Oncology 09/15/17 Front End Software Engineer Relationship Specialty Start Date End Date Nolan Mancuso MD [address] [place] [address] PCP - General Family Practice 01/30/15 Clara Petersen RN Specialty Councilperson Oncology 09/15/17 Front End Software Engineer Relationship Specialty Start Date End Date Nolan Mancuso MD [address] [place] [address] PCP - General Family Medicine 01/30/15 DoClara barrera RN Specialty Councilperson Oncology 09/15/17 Front End Software Engineer Relationship Specialty Start Date End Date Nolan Mancuso MD [address] [place] [address] PCP - General Family Medicine 01/30/15 Clara Petersen RN Specialty Councilperson Oncology 09/15/17 Front End Software Engineer Relationship Specialty Start Date End Date Nolan Mancuso MD [address] [place] [address] PCP - General Family Medicine 01/30/15 Clara Petersen RN Specialty Councilperson Oncology 09/15/17 Front End Software Engineer Relationship Specialty Start Date End Date Nolan Mancuso MD [address] [place] [address] PCP - General Family Medicine 01/30/15 Clara Petersen RN Specialty Councilperson Oncology 09/15/17 Front End Software Engineer Relationship Specialty Start Date End Date Nolan Mancuso MD [address] [place] [address] PCP - General Family Medicine 01/30/15 Clara Petersen RN Specialty Councilperson Oncology 09/15/17 Front End Software Engineer Relationship Specialty Start Date End Date Nolan Mancuso MD [address] [place] [address] PCP - General Family Medicine 01/30/15 Clara Petersen RN Specialty Councilperson Oncology 09/15/17 Front End Software Engineer Relationship Specialty Start Date End Date Nolan Mancuso MD [address] [place] [address] PCP - General Family Medicine 01/30/15 Clara Petersen RN Specialty Councilperson Oncology 09/15/17 Front End Software Engineer Relationship Specialty Start Date End Date Nolan Mancuso MD [address] [place] [address] PCP - General Family Medicine 01/30/15 Clara Petersen RN Specialty Councilperson Oncology 09/15/17 Front End Software Engineer Relationship Specialty Start Date End Date Nolan Mancuso MD [address] [place] [address] PCP - General Family Medicine 01/30/15 Clara Petersen RN Specialty Councilperson Oncology 09/15/17 Team Status: Active Member Role Status Dates Dr. Nolan Mancuso MD Family Provider Active Dr. Nolan Mancuso MD Primary Care Provider Active Team Status: Inactive Member Role Status Dates Dr. Nolan Mancuso MD Primary Care Provider, Attendi ng Provider Active Front End Software Engineer Relationship Specialty Start Date End Date Nolan Mancuso MD [address] [place] [address] PCP - General Family Medicine 01/30/15 Clara Petersen RN Specialty Councilperson Oncology 09/15/17 Front End Software Engineer Relationship Specialty Start Date End Date Nolan Mancuso MD [address] [place] [address] PCP - General Family Medicine 01/30/15 Clara Petersen RN Specialty Councilperson Oncology 09/15/17 Front End Software Engineer Relationship Specialty Start Date End Date Nolan Mancuso MD [address] [place] [address] PCP - General Family Medicine 01/30/15 Clara Petersen RN Specialty Councilperson Oncology 09/15/17 Team Status: Inactive Member Role Status Dates Dr. Nolan Mancuso MD Primary Care Provider, Referri ng Provider Active Ayse Bales INDUSTRY SEGMENT SPECIALIST, INDUSTRY SEGMENT SPECIALIST-C Attending Provider Active Team Status: Active Member Role Status Dates Dr. Nolan Mancuso MD Primary Care Provider, Referri ng Provider Active Dr. Dannie Newell DO Attending Provider, Other Prov ider Active Team Status: Inactive Member Role Status Dates Dr. Nolan Mancuso MD Primary Care Provider, Referri ng Provider Active Dr. Dannie Newell , DO Attending Provider Active Front End Software Engineer Relationship Specialty Start Date End Date Nolan Mancuso MD [address] [place] [address] PCP - General Family Medicine 01/30/15 Clara Petersen RN Specialty Councilperson Oncology 09/15/17 Front End Software Engineer Relationship Specialty Start Date End Date Nolan Mancuso MD [address] [place] [address] PCP - General Family Medicine 01/30/15 Clara Petersen RN Specialty Councilperson Oncology 09/15/17 Front End Software Engineer Relationship Specialty Start Date End Date Nolan Mancuso MD [address] [place] [address] PCP - General Family Medicine 01/30/15 Clara Petersen RN Specialty Councilperson Oncology 09/15/17 Team Status: Inactive Member Role Status Dates Dr. Nolan Mancuso MD Primary Care Provider Active Dr. Mj Zhang MD Emergency Provider Active Front End Software Engineer Relationship Specialty Start Date End Date Nolan Mancuso MD [address] [place] [address] PCP - General Family Medicine 01/30/15 Clara Petersen RN Specialty Councilperson Oncology 09/15/17 Front End Software Engineer Relationship Specialty Start Date End Date Nolan Mancuso MD [address] [place] [address] PCP - General Family Medicine 01/30/15 Clara Petersen RN Specialty Councilperson Oncology 09/15/17 Front End Software Engineer Relationship Specialty Start Date End Date Nolan Mancuso MD [address] [place] [address] PCP - General Family Medicine 01/30/15 Clara Petersen RN Specialty Councilperson Oncology 09/15/17 Front End Software Engineer Relationship Specialty Start Date End Date Nolan Mancuso MD [address] [place] [address] PCP - General Family Medicine 01/30/15 Clara Petersen RN Specialty Councilperson Oncology 09/15/17 Front End Software Engineer Relationship Specialty Start Date End Date Nolan Mancuso MD [address] [place] [address] PCP - General Family Medicine 01/30/15 Clara Petersen RN Specialty Councilperson Oncology 09/15/17 Front End Software Engineer Relationship Specialty Start Date End Date Nolan Mancuso MD [address] [place] [address] PCP - General Family Medicine 01/30/15 Clara Petersen RN Specialty Councilperson Oncology 09/15/17 Front End Software Engineer Relationship Specialty Start Date End Date Nolan Mancuso MD [address] [place] [address] PCP - General Family Medicine 01/30/15 Clara Petersen RN Specialty Councilperson Oncology 09/15/17 Front End Software Engineer Relationship Specialty Start Date End Date Nolan Mancuso MD [address] [place] [address] PCP - General Family Medicine 01/30/15 Clara Petersen RN Specialty Councilperson Oncology 09/15/17 Front End Software Engineer Relationship Specialty Start Date End Date Nolan Mancuso MD [address] [place] [address] PCP - General Family Medicine 01/30/15 Clara Petersen RN Specialty Councilperson Oncology 09/15/17 Mady Pisano, STORAGE BATTERY INSPECTOR.STRATEGIC PLANNING ANALYST [address] [place] [address] [facility] 03/19/24 Virginie Pathak PA-C [address] [place] [address] [facility] 03/19/24 Front End Software Engineer Relationship Specialty Start Date End Date Nolan Mancuso MD [address] [place] [address] PCP - General Family Medicine 01/30/15 Clara Petersen RN Specialty Councilperson Oncology 09/15/17 Mady Pisano, STORAGE BATTERY INSPECTOR.STRATEGIC PLANNING ANALYST [address] [place] [id number] [facility] 03/19/24 Virginie Pathak PA-C [address] [place] [address] [facility] 03/19/24 Front End Software Engineer Relationship Specialty Start Date End Date Nolan Mancuso MD [address] [place] [address] PCP - General Family Medicine 07/18/24 Clara Petersen RN Specialty Councilperson Oncology 09/15/17 Mady Pisano, STORAGE BATTERY INSPECTOR.STRATEGIC PLANNING ANALYST [address] [place], [place] [id number] [phone] 09/12/24 Virginie Pathak PA-C [address] [place] [address] Flasher Adjuster Family Medicine 09/12/24 Front End Software Engineer Relationship Specialty Start Date End Date Iván Sierra MD [address] [place] [address] PCP - General Family Medicine 10/11/24 Genesis Fontenot DO [address] [place] [address] Call Center Rn/Gynecologis t Obstetrics and Gynecology 10/11/24 Wiley Bowie MD [address] [facility] [address] [place], [place] [address] Consulting Physician Rheumatology 10/11/24 Front End Software Engineer Relationship Specialty Start Date End Date Iván Sierra MD [address] [place] [address] PCP - General Family Medicine 10/11/24 Genesis Fontenot DO [address] [place] [address] Call Center Rn/Gynecologis t Obstetrics and Gynecology 10/11/24 Wiley Bowie MD [address] [facility] [place] [address] Consulting Physician Rheumatology 10/11/24 Front End Software Engineer Relationship Specialty Start Date End Date Iván Sierra MD [address] [place] [address] PCP - General Family Medicine 10/11/24 Genesis Fontenot DO [address] [place] [address] Call Center Rn/Gynecologis t Obstetrics and Gynecology 10/11/24 Wiley Bowie MD [address] [facility] [place] [address] Consulting Physician Rheumatology 10/11/24 Front End Software Engineer Relationship Specialty Start Date End Date Iván Sierra MD [address] [place] [address] PCP - General Family Medicine 10/11/24 Genesis Fontenot DO [address] [place] [address] Call Center Rn/Gynecologis t Obstetrics and Gynecology 10/11/24 Wiley Bowie MD [address] [place] [address] Consulting Physician Rheumatology 10/11/24 Front End Software Engineer Relationship Specialty Start Date End Date Iván Sierra MD [address] [place] [address] PCP - General Family Medicine 10/11/24 Genesis Fontenot DO [address] [place] [address] Call Center Rn/Gynecologis t Obstetrics and Gynecology 10/11/24 Wiley Bowie MD [address] [place] [address] Consulting Physician Rheumatology 10/11/24 Reason for Visit (unrecogniz ed section and content) Reason Comments Established Patient Specialty Diagnoses / Procedures Referred By Contac t Referred To Contact Hematology/Oncology / HEMATOLOGY/ONCOLOGY Diagnoses 6 MO OV* Procedures EST Caroline Contreras APRN.STRATEGIC PLANNING ANALYST [address] [place] [address] Caroline Jama APRN.STRATEGIC PLANNING ANALYST [address] [place] [address] Referral ID Status Reason Start Date Expiration Date Visits Requested Visits Authorized Closed Financial Clearance Required - OON Payor OON Notification Letter Patient cleared - OON Required Payment Collected 07/18/2021 04/12/2022 1 1 Reason Comments Insurance Authorization Reason Comments Results Specialty Diagnoses / Procedures Referred By Contac t Referred To Contact HEMATOLOGY/ONCOLOGY Diagnoses Malignant neoplasm of left breast in female, estrogen receptor positive, unspecified site of breast (HCC) Follow-up exam 6 MO OV/MAMM 09/16* Procedures OFFICE/OUTPATIENT ESTABLISHED MOD MDM 30-39 MIN EST Caroline Contreras APRN.STRATEGIC PLANNING ANALYST [address] [place] [address] [facility] [address] [place] [address] Referral ID Status Reason Start Date Expiration Date V isits Requested Visits Authorized [id number] Closed Financial Clearance Required - OON Payor 07/18/2021 04/12/2022 1 1 Reason Comments Yearly Exam Reason Comments Physical Specialty Diagnoses / Procedures Referred By Contac t Referred To Contact FAMILY MEDICINE Diagnoses ANNUAL PHYSICAL Procedures ANNUAL PHYSICAL Nolan Mancuso MD [address] [place] [address] [facility], [facility] [address] [place] [address] Referral ID Status Reason Start Date Expiration Date V isits Requested Visits Authorized [id number] Closed Financial Clearance Required - OON Payor 02/05/2022 04/12/2022 1 1 Reason Comments Orders Reason Comments Imm/Inj Specialty Diagnoses / Procedures Referred By Contac t Referred To Contact Internal Medicine / FAMILY MEDICINE Diagnoses shing[place] [address] [place] [id number] Referral ID Status Reason Start Date Expiration Date Visits Requested Visits Authorized [id number] Outside PCP Financial Clearance Required - OON Payor 03/20/2022 06/18/2022 1 1 Reason Comments Pain Specialty Diagnoses / Procedures Referred By Contac t Referred To Contact Family Medicine / FAMILY MEDICINE Diagnoses Examination Uncomfortable slight burning below ribs internally Procedures OFFICE/OUTPATIENT ESTABLISHED [facility] 30-39 MIN 4C EST Self Nolan Mancuso MD [address] [place], [place] [id number] Referral ID Status Reason Start Date Expiration Date V isits Requested Visits Authorized [id number] Outside PCP 05/19/2022 08/17/2022 1 1 Reason Comments Recheck Specialty Diagnoses / Procedures Referred By Contac t Referred To Contact Family Medicine / FAMILY MEDICINE Diagnoses Follow-up examination 6 week follow up epigastric pain Procedures OFFICE/OUTPATIENT ESTABLISHED [facility] 30-39 MIN 4C EST Self Nolan Mancuso MD [address] [place], [place] [id number] Referral ID Status Reason Start Date Expiration Date Visits Re quested Visits Authorized [id number] Closed 06/30/2022 04/12/2023 1 1 Reason Comments Consult Rheumatology Specialty Diagnoses / Procedures Referred By Contac t Referred To Contact Internal Medicine / FAMILY MEDICINE Diagnoses Shingrix #2 Procedures NURSE Self Nurse, [address] [address] Referral ID Status Reason Start Date Expiration Date Visits Re quested Visits Authorized [id number] Closed 07/15/2022 04/12/2023 1 1 Reason Comments Insurance Authorization Omeprazole Reason Comments Trauma Left foot, tripped o n tree root, pain on outer side of foot Reason Comments ext document XR, ER report Reason Comments Pre-Op Exam Specialty Diagnoses / Procedures Referred By Contac t Referred To Contact INTERNAL MEDICINE Diagnoses Malignant neoplasm of left female breast (HCC) pre op Procedures pre op Self [address] [place] [address] [place] [address] Referral ID Status Reason Start Date Expiration Date V isits Requested Visits Authorized [id number] Denied OON/Self Pay Override 03/17/2023 09/13/2023 1 0 Reason Comments Outside Rheumatology Reason Onset Date Comments Refill Request 09/09/2023 Specialty Diagnoses / Procedures Referred By Contac t Referred To Contact Hematology/Oncology / HEMATOLOGY/ONCOLOGY Diagnoses Malignant neoplasm of left breast in female, estrogen receptor positive, unspecified site of breast (HCC) Encounter for screening mammogram for high-risk patient 1 YR OV/AISHA 09/27* Procedures OFFICE/OUTPATIENT ESTABLISHED [facility] 30 MIN EST SIMPLE Caroline Jama APRN.STRATEGIC PLANNING ANALYST [address] [place] [address] Caroline Jama APRN.STRATEGIC PLANNING ANALYST [address] [place] [address] Referral ID Status Reason Start Date Expiration Date Visits Re quested Visits Authorized [id number] Closed 10/02/2023 04/12/2024 1 1 Reason Onset Date Comments Refill Request 01/12/2024 Specialty Diagnoses / Procedures Referred By Contac t Referred To Contact Internal Medicine / FAMILY MEDICINE Diagnoses Flu vaccine need flu vaccine Procedures OFFICE/OUTPATIENT ESTABLISHED [facility] 30 MIN [facility] CL[facility] 18-64 Nolan Mancuso MD [address] [place] [address] [place], [facility] Nurse [address] [place] [address] Referral ID Status Reason Start Date Expiration Date Visits Re quested Visits Authorized [id number] Closed 01/23/2024 04/12/2024 1 1 Reason Comments Yearly Exam Specialty Diagnoses / Procedures Referred By Contac t Referred To Contact CLINICAL SUPPORT SPECIALIST Diagnoses annual exam- pap smear Procedures [facility] Lexie Velasco MD [address] [place] [address] Lexie Velasco MD [address] [place] [address] Referral ID Status Reason Start Date Expiration Date V isits Requested Visits Authorized [id number] Closed OON/Self Pay Override 01/26/2024 04/12/2024 1 1 Specialty Diagnoses / Procedures Referred By William t Referred To Contact FAMILY MEDICINE Diagnoses Wellness Exam Procedures wellness exam Nolan Mancuso MD [address] [place] [address] [facility] [address] [place] [address] Referral ID Status Reason Start Date Expiration Date V isits Requested Visits Authorized [id number] Closed OON/Self Pay Override 05/17/2024 04/12/2025 1 1 Reason Onset Date Comments Refill Request 05/18/2024 Reason Comments Establish Care Reason Onset Date Comments New Patient 08/31/2024 Reason Onset Date Comments Refill Request 10/05/2024 Reason Comments Establish Care Insurance change- [facility] does not take their insuranceBreast cancer in 2013- pt [facility] rheumatology Reason Onset Date Comments Other 10/17/2024 Insurance issue Reason Onset Date Comments Other 10/20/2024 Insurance Goals (unrecognized section and content) Goals may be documented in a n alternate sectionGoals may be documented in an alternate section FOR RECORDS PERTAINING TO PATIENTS WHO ARE OR HAVE BEEN ENROLLED IN A CHEMICAL DEPENDENCY/SUBSTANCEABUSE PROGRAM, SOME INFORMATION MAY BE OMITTED. This clinical summary was aggregated from multiple sources. Caution should be exercised in using it in the provision of clinical care. This summary normalizes information from multiple sources, and as a consequence, information in this document may materially change the coding, format and clinical context of patient data. In addition, data may be omitted in some cases. CLINICAL DECISIONS SHOULD BE BASED ON THE PRIMARY CLINICAL RECORDS. Handseeing Information [facility]. provides no warranty or guarantee of the accuracy or completeness of information in this document.
--- NOTE | 2025-03-14 01:52 | EX.ED.DYSGE1 ---
HPI History of Present Illness Chief Complaint: Fever Informant: patient and spouse/S.O. Narrative Narrative: Patient is a 59-year-old female with past medical history of rheumatoid arthritis for which she takes Orencia and methotrexate. She denies any known sick contact. She states that for the past 5 days she has been having fevers spiking up to 104 at home. She states with this she has mild congestion slight cough and sore throat. She reports muscle aches and headaches associated with this. She denies any dysuria or diarrhea or bouts of vomiting. She states she has been taking 650 mg of Tylenol throughout the day with minimal improvement to her fever and symptoms. She does states she went to an urgent care where they informed her symptoms are most likely viral and placed her on a Z-Rodrigo. Despite taking the medication for the past few days there is been no improvement and therefore she comes in for evaluation [facility] Medical History Wears glasses Cancer Injury of head and neck Gastric reflux Non-smoker Arthritis Home Medications ?Medication ?Instructions ?Recorded ?Last Taken ?Type methotrexate sodium 2.5 mg tablet 20 mg PO SA 09/22/13 12/16/14 History multivitamin with folic acid 400 1 tab PO DAILY 09/22/13 12/21/14 History mcg tablet (Thera) leucovorin calcium 5 mg tablet 5 mg PO RIVERA 12/22/14 12/17/14 History L.acidoph,paracasei,B.animalis 10 1 ea PO DAILY 09/12/19 Unknown History billion cell capsule abatacept 125 mg/mL subcutaneous 125 mg subcut TH 09/12/19 Unknown History syringe ivermectin 1 % topical cream 30 g TP PRN PRN roscea 09/12/19 Unknown History omeprazole 40 mg capsule,delayed 40 mg PO DAILY 09/12/19 09/13/19 History release alendronate 70 mg tablet (Fosamax) 70 mg PO QWEEK 06/02/22 Unknown History calcium 300 mg-vit D3 200 2 tab PO BID 06/02/22 Unknown History zvvx-queybhvu-yitkeckij 13.5 mg tablet (Citracal Plus Bone Density Builder) Allergy/AdvReac Type Severity Reaction Status Date / Time celecoxib (From Celebrex) Allergy Rash Verified 03/14/25 00:12 Family History Mother Asthma Father Colon cancer Lung disease Sister Diabetes Surgical History H/O abdominal surgery H/O breast surgery H/O section H/O right wrist surgery History of foot surgery History of tubal ligation Hx of cholecystectomy Social History Smoking Status: Never smoker ROS ROS ED Constitutional Constitutional ED: Reports chills and fever(s) ENT ENT ED: Reports rhinorrhea and sore throat Cardiovascular Cardiovascular: Denies chest pain Respiratory/Chest Respiratory/Chest: Reports cough; Denies dyspnea Gastrointestinal Gastrointestinal: Denies abdominal pain, diarrhea, nausea or vomiting Genitourinary Genitourinary ED: Denies dysuria Musculoskeletal Musculoskeletal: Reports myalgias Integumentary Denies rash Neurologic Neurologic: Reports headache(s) Hematologic/Lymphatic Hematologic/Lymphatic: Denies easy bleeding or easy bruising EXAM Physical Exam Const Vital Signs: 03/14/25 00:10 03/14/25 00:13 03/14/25 00:13 Temperature 102.9 F H 102.9 F H Temperature Source Oral Oral Pulse Rate 99 96 Respiratory Rate 16 16 Respiratory Effort Normal Non-Labored Respiratory Pattern Normal Blood Pressure 132/68 H 132/68 H Blood Pressure Mean 89 89 Pulse Ox 97 100 Oxygen Delivery Method Room Air Room Air 03/14/25 01:13 03/14/25 02:00 03/14/25 02:00 Temperature 102.2 F H 98.3 F 98.3 F Temperature Source Oral Oral Pulse Rate 87 81 78 Respiratory Rate 16 16 16 Respiratory Effort Respiratory Pattern Blood Pressure 119/65 104/54 L 104/54 L Blood Pressure Mean 83 70 70 Pulse Ox 97 96 97 Oxygen Delivery Method Room Air Room Air 03/14/25 03:00 Temperature 98.3 F Temperature Source Oral Pulse Rate 81 Respiratory Rate 16 Respiratory Effort Respiratory Pattern Blood Pressure 107/52 L Blood Pressure Mean 70 Pulse Ox 97 Oxygen Delivery Method Room Air Positive well nourished and well developed General Appearance ED: well developed; Negative for pallor HEENT Reports dry mucous membranes HEENT Narrative: Normocephalic atraumatic Bilateral TMs are retracted but show no secondary findings to suggest infection No tongue or lip swelling no oral lesions no airway edema or compromise Cobblestoning is noted in the posterior pharynx consistent with sinus drainage but no secondary findings to suggest infection Mouth ED: Yes dry mucous membranes Mouth: dry mucous membranes Eyes PERRL and EOMs intact bilaterally General Eye ED: Negative for scleral icterus Neck supple Neck Narrative: No nuchal rigidity or meningeal signs noted Anterior cervical lymphadenopathy is present Resp normal respiratory effort and clear to auscultation bilaterally Cardio regular rate and regular rhythm Rate: other Other Details: Heart is regular rate and rhythm without murmurs rubs or gallops Radial and carotid pulses are equal and symmetric GI normal to inspection, nondistended, normoactive bowel sounds, non-tender, non-distended and no masses GI Narrative: No voluntary guarding or rigidity or pulsatile mass No peritoneal signs Auscultation: normoactive bowel sounds Palpation: soft Extremity normal to inspection Extremity Narrative: No asymmetric edema no pitting edema negative Homans' sign bilaterally Neuro oriented x3, CN's II-XII intact bilaterally and no sensory deficits noted Sensorium / Orientation: alert Motor Exam: strength 5/5 throughout Psych mental status grossly normal Skin no rashes or lesions noted and No skin turgor normal Skin Narrative: Skin turgor is increased General Skin Exam: Negative for jaundice or pallor MDM MDM MDM Narrative Medical decision making narrative: Patient arrived to the ER febrile but otherwise with stable vitals. She reported roughly 5 days of symptoms that are most consistent with a viral infection and fever reaching 104 with mild congestion and slight cough and sore throat with fatigue and myalgias. In order to assess for pneumonia chest x-ray was ordered. In order to assess for COVID versus influenza versus RSV a viral swab was obtained. Because of her immunosuppression from the Orencia and the methotrexate there is concern that patient may be neutropenic and therefore basic blood work ordered was ordered. And as physical exam also shows changes for dehydration there is concern for acute kidney injury or electrolyte abnormality so basic blood work was obtained as well. Chest x-ray revealed no signs of acute infection. Viral swab was negative for COVID influenza and RSV. Labs showed that her neutrophil count was low end of normal but still technically normal at 2.2. Her sodium is decreased at 128 which would correlate with dehydration but this is not at a value that is clinically significant to require admission. She was also noted to be thrombocytopenic with a platelet count of 39. Only old labs in my system are from 2019 or earlier and at that time they were normal. This values most likely chronic in nature based on her arthritis and immunosuppressive medication. I did ask the patient if she knows what her value for this is and she is unsure however as it is above a level that would require intervention this can be followed as an outpatient. At this time she does not have acute kidney injury and after 1 g of Tylenol her temperature is normal and her vitals remained stable. As she is immunosuppressed and I do not have an obvious source of her fever I will obtain blood cultures to ensure there is no systemic infection but as her temperature is now normal after 1 g of Tylenol she is not hypotensive or tachycardic or hypoxic and her history and exam indicate a viral illness as cause of her symptoms I do not feel there is need for admission and we can trend her blood cultures as an outpatient to further assess any need for treatment. This plan of care was discussed with patient and family and they are agreeable to it and therefore after receiving 2 L of fluid and having improvement of her vitals she is otherwise safe for discharge History & Record Review Discussion w/independent historian: Patient and Significant other Lab Data Attestation: I reviewed the patient's lab results. Labs: Laboratory Results - last 24 hr 03/14/25 00:50 WBC 2.9 L RBC 4.52 Hgb 13.9 Hct 38.5 MCV 85.2 MCH 30.8 MCHC 36.1 H RDW Std Deviation 37.5 RDW Coeff of Audrey 12.2 Plt Count 39 L* MPV 13.0 H Immature Gran % (Auto) 0.300 Neut % (Auto) 75.6 H Lymph % (Auto) 16.3 L [place] % (Auto) 7.5 Eos % (Auto) 0.0 Baso % (Auto) 0.3 Absolute Neuts (auto) 2.2 Absolute Lymphs (auto) 0.48 L Nucleated RBC % 0 Platelet Estimate MKD DEC Sodium 128 L Potassium 3.4 Chloride 94 L Carbon Dioxide 20.3 L Anion Gap 14 BUN 13 Creatinine 1.02 Estim Creat Clear Calc 61.52 Est GFR (MDRD) Non-Af 63 BUN/Creatinine Ratio 12.6 Glucose 112 H Calcium 8.4 Radiography Diagnostic Testing: Clinical Impression(s) from Imaging Studies Chest X-Ray 03/14/25 00:35 IMPRESSION: No evidence for acute abnormality. Reading Location: [place] [address] Chest x-ray as interpreted by the emergency medicine physician reveals no acute infiltrate pneumothorax or pleural effusion Discharge Plan Triage Chief Complaint: Fever ED Provider: Vidal Pérez Dx/Rx/DC Orders Clinical Impression: Viral syndrome, Pyrexia, Rheumatoid arthritis, Dehydration, Thrombocytopenia, Acute hyponatremia Instructions: ED Fever Control (Adult), ED Viral Syndrome (Adult) Prescriptions: No Action alendronate [Fosamax] 70 mg tablet 70 mg PO QWEEK Patient Comments: FRIDAYS Citracal Plus Bone Density 300-200-13.5 mg-unit-mg tablet 2 tab PO BID methotrexate sodium 2.5 MG tablet 20 mg PO SA Patient Comments: TAKES SAT AM, 8 OF 2.5 MG TABS FOR RA multivitamin with folic acid [Thera] 1 TABLET tablet 1 tab PO DAILY Patient Comments: supplement leucovorin calcium 5 MG tablet 5 mg PO RIVERA omeprazole 40 MG capsule,delayed release(DR/EC) 40 mg PO DAILY ivermectin 30 GM cream 30 g TP PRN PRN (Reason: roscea) L.acidoph,paracasei,B.animalis 1 EACH capsule 1 ea PO DAILY abatacept 125 MG/ML syringe 125 mg subcut TH Primary Care Provider: Iván Montalvo Referrals: Iván Montalvo MD [Primary Care Provider, Family Practice] Activity Restrictions/Additional Instructions: Your workup today revealed no sign of pneumonia on your chest x-ray and your COVID influenza and RSV test was negative. Your history and exam would indicate you have another virus causing your symptoms. Fever from a virus can last 7 days and be considered normal. Take 2 extra strength Tylenol along with 3 ibuprofen and you can take these together up to 4 times a day for fever control. Keep yourself well-hydrated. Blood cultures were also obtained today and if they are positive you will be notified to return to the ER for repeat evaluation and potential admission. If your symptoms change or your fever is not resolving or you have any further concerns return to the ER for repeat evaluation Print Language: Japanese Disposition Disposition: Home, Self Care Discharge Date/Time: 03/14/25 03:03
[2025-03-14 02:00] VITALS: BP 104/54; PULSE 78; PULSE 81; RESP 16; TEMP 36.8; O2SAT 96; O2SAT 97
[2025-03-14 03:00] VITALS: BP 107/52; PULSE 81; RESP 16; TEMP 36.8; O2SAT 97
== END 2025-03-14 03:03 | disposition home or self-care (01) ==
PROVIDERS: Emergency Provider Emergency Medicine; PCP Family Medicine; Visit Provider Emergency Medicine
DX: R50.9 Fever, unspecified (principal); M06.9 Rheumatoid arthritis, unspecified; E86.0 Dehydration; B34.9 Viral infection, unspecified; E87.1 Hypo-osmolality and hyponatremia; D69.6 Thrombocytopenia, unspecified; Z79.899 Other long term (current) drug therapy; K21.9 Gastro-esophageal reflux disease without esophagitis; Z98.51 Tubal ligation status; Z90.49 Acquired absence of other specified parts of digestive tract
CPT/HCPCS: 71045; 80048; 85025; 87040; 87631; 96360; 96361; 99283; A4216